=== PATIENT | male | born 1975 | race Caucasian/White ===

== ENCOUNTER 2018-01-04 08:17 | Emergency (ER) | payer MEDICARE, SELFPAY ==
[2018-01-04 08:25] VITALS: BP 176/124; PULSE 71; RESP 16; TEMP 36.7; O2SAT 99
--- NOTE | 2018-01-04 09:10 | W.ED.GENAD ---
Discharge Plan Disposition Patient Disposition: HOME Condition: Stable Discharge Details Chief Complaint: Orthopedic Clinical Impression: Chronic left shoulder pain Primary Care Provider: Gianluca Thurman ED Provider: Sherrie Chapman Home Meds and New Rx's Prescriptions: New lisinopril 10 mg tablet 10 mg PO DAILY Qty: 30 RF: 0 Continue buspirone 30 MG tablet 30 mg PO BID RF: 0 aimovig 70 mg SQ qmonth Qty: 1 RF: 11 lamotrigine 25 mg tablet 25 mg PO DAILY Qty: 5 RF: 0 prochlorperazine maleate 5 MG tablet 5 - 10 mg PO Q8H PRNQty: 20 RF: 0 sucralfate 1 GM tablet 1 gm PO QID Qty: 120 RF: 0 pantoprazole 40 MG tablet,delayed release (DR/EC) 40 mg PO DAILY RF: 0 gabapentin 300 MG capsule 600 mg PO TID RF: 0 pregabalin [Lyrica] 75 MG capsule 75 - 150 mg PO BID RF: 0 testosterone cypionate 200 MG/ML oil 250 mg IM Q14D RF: 0 buprenorphine-naloxone [Suboxone] 1 EACH film 2 ea Sublingual DAILY RF: 0 cholecalciferol (vitamin D3) [Vitamin D3] 1,000 UNIT capsule 1,000 unit PO DAILY RF: 0 lisinopril 10 MG tablet 10 mg PO DAILY AM RF: 0 Discharge Instructions Instructions: Chronic Pain (ED), Shoulder Pain (ED) Additional Instructions: Rest and ice left shoulder as much as possible. Refrain from lifting heavy weights for the next few weeks. Alternate Tylenol and Motrin as needed and directed for pain. You should receive a call from care management regarding follow-up with a primary care doctor and for referral to orthopedics. Start physical therapy as directed. Restart taking your blood pressure medication. Return to the emergency department with any worsening or new concerning symptoms. Stand Alone Forms: Physical Therapy Referral Referrals: Deon Nowak MD [ [facility] STAFF PHYSICIAN] - Discharge Data Discharge Date/Time-TO BE ENTERED AT DEPARTURE: 01/04/18 09:29 Discharge Physician: Sherrie Chapman Medical Decision Making 42-year-old male with a history of left shoulder surgery ~ 2 years ago who presents with chronic L shoulder pain x 1 month. Denies specific injury but has been frequently lifting heavy weights at gym. C/o pain in L shoulder/upper arm and L hand tingling but no weakness. BP hypertensive. States he has not taken his blood pressure medications for a couple months. Patient is on Suboxone for the past 2 years, after taken off narcotics for chronic back pain. States he recently lost his primary care doctor and has not had his regular medications for a couple months. Patient has pain with active and passive range of motion. There is no deformity. There is a well-healed surgical scar left superior shoulder. He is neurovascularly intact. Motor/sensory grossly intact but with noted pain with range of motion in left shoulder, worse with abduction. Patient took Motrin and Tylenol prior to arrival. Patient was offered left shoulder x-ray but declines. Discussed with patient that due to his frequent lifting, no obvious deformity, no obvious focal neurological or vascular deficits, his symptoms may be due to strain vs sprain and may benefit from physical therapy. Script for PT given. Patient states he has run out of all his meds over the past 2 months since not having a primary care doctor. His blood pressure was hypertensive at 176/124 on arrival, on recheck was 131/89. He denies any chest pain, shortness of breath, headache or dizziness. Remainder vitals within normal limits. Will refill patient's lisinopril. Will place patient on care management list to arrange for follow-up with a primary care doctor for reevaluation of his shoulder pain and blood pressure and for referral to orthopedics if needed for reevaluation or MRI if indicated. HPI General Mode of arrival: ambulatory. Date/Time Provider Initiated Documentation: 01/04/18 08:36. Limitations to Documentation: no limitations. Information obtained by: patient. HPI Narrative: Pt is a 42yo M with a history of left shoulder surgery by Dr. Figueroa at a couple years ago who presents with chronic L shoulder pain x 1 month. Patient denies known specific injury but states he frequently lifts heavy weights approximately 50 pounds at the gym and states for the past month he has had chronic left shoulder pain, worse with lifting and movement. He states the pain is in his left shoulder and left upper arm. He also admits to tingling in his left hand. He denies weakness in his left arm. Past medical history: HTN, Afib, GERD, Depression Surgical history: Shoulder surgery, Cardiac ablation, Back surgery, Total hip replacement, Catherine fundoplication Social history: Smokes tobacco (vape), Denies ETOH or drugs Meds: Suboxone, See list Related Data Home Medications Medication Instructions Recorded Confirmed gabapentin 600 mg PO TID 02/20/17 11/02/17 pregabalin [Lyrica] 75 - 150 mg PO BID 02/20/17 01/04/18 testosterone cypionate 250 mg IM Q14D 02/21/17 11/02/17 buprenorphine-naloxone [Suboxone] 2 ea SUBLINGUAL DAILY 03/27/17 11/02/17 cholecalciferol (vitamin D3) 1,000 unit PO DAILY 03/27/17 11/02/17 [Vitamin D3] buspirone 30 mg PO BID tab-cap NS 05/01/17 11/02/17 lisinopril 10 mg PO DAILY AM 06/27/17 11/02/17 prochlorperazine maleate 5 - 10 mg PO Q8H PRN #20 tab 08/14/17 11/02/17 sucralfate 1 gm PO QID #120 tab 10/01/17 11/02/17 lamotrigine 25 mg tablet 25 mg PO DAILY #5 tab 12/03/17 lisinopril 10 mg PO DAILY #30 tab 01/04/18 pantoprazole 40 mg PO DAILY 01/04/18 Previous Rx's Medication Instructions Recorded prochlorperazine maleate 5 - 10 mg PO Q8H PRN #20 tab 08/14/17 sucralfate 1 gm PO QID #120 tab 10/01/17 lamotrigine 25 mg tablet 25 mg PO DAILY #5 tab 12/03/17 lisinopril 10 mg PO DAILY #30 tab 01/04/18 Allergies Allergy/AdvReac Type Severity Reaction Status Date / Time Cephalosporins Allergy Intermediate Swelling/Ed Unverified 01/04/18 08:33 arleth General Stated Complaint: Orthopedic JHONATAN: 4 Review of Systems Review of Systems All systems reviewed & are unremarkable except as noted in HPI and below Constitutional Reports as per HPI, Denies chills and Denies fever(s) Eyes Denies blurry vision ENT Denies dizziness, Denies sore throat and Denies throat swelling Cardiovascular Denies chest pain and Denies dyspnea Respiratory Denies dyspnea Gastrointestinal Denies abdominal pain, Denies diarrhea and Denies vomiting Genitourinary Denies hematuria and Denies dysuria Musculoskeletal Denies back pain and Denies numbness Integumentary/Breasts Denies lesions and Denies rash Neurologic Denies dizziness and Denies numbness Allergic/Immunologic Denies throat swelling PFSH Family History Father Stroke Paternal Uncle Stroke Paternal Grandmother Stroke Other Migraine Medical History A-fib Depression Diastasis recti GERD (gastroesophageal reflux disease) Hiatal hernia History of substance abuse Hypertension Hypothyroidism Prostatitis, chronic Social History household members: spouse current occupational status: unemployed Smoking/Tobacco Use Status: Current every day tobacco type: e-cigarettes alcohol intake: former substance use type: does not use Surgical History EGD - MAC Catherine Fundoplication Total replacement of hip back surgery cardiac ablation shoulder surgery Exam Const General: cooperative, healthy appearing and no acute distress HENMT Head: normal to inspection Mouth: oral mucosae normal Eyes General: appearance normal, both eyes and all related structures Neck Neck: normal visual inspection Resp Effort & Inspection: normal respiratory effort and able to speak in complete sentences Cardio Rate: regular rate Skin General skin exam: no rashes or lesions noted Neuro General: alert, awake and oriented x3 Cognition: normal cognition Speech: speech normal Motor: muscle tone normal throughout and strength 5/5 throughout (with pain while testing left upper extremity) Sensory Exam: no sensory deficits noted Extrem Left upper extremity: shoulder/upper arm (Well-healed linear incision scar left superior shoulder without signs of infection. Significant pain with range of motion in left shoulder, worse with abduction, internal and external rotation, flexion and extension. Limited abduction to approximately 90 degrees due to pain. ) Details: tenderness (Left anterior shoulder and left upper arm near biceps tendon insertion. No deformity.) Psych Appearance: grossly normal Affect: normal affect Course Vital Signs Temperature 98.1 F 01/04/18 08:25 Pulse 71 01/04/18 08:25 Respiratory Rate 16 01/04/18 08:25 Blood Pressure 176/124 H 01/04/18 08:25 Pulse Oximetry 99 01/04/18 08:25 Temperature 98.1 F 01/04/18 08:25 Temperature Source Skin 01/04/18 08:25 Pulse 71 01/04/18 08:25 Respiratory Rate 16 01/04/18 08:25 Respiratory Effort 01/04/18 08:28 Blood Pressure 176/124 H 01/04/18 08:25 Blood Pressure Position Sitting 01/04/18 08:25 Pulse Oximetry 99 01/04/18 08:25 Pain Level 7 01/04/18 08:28
[2018-01-04 09:21] VITALS: BP 131/89
== END 2018-01-04 09:29 | disposition home or self-care (01) ==
PROVIDERS: Emergency Provider Physician Assistant; PCP Family Medicine
DX: M25.512 Pain in left shoulder (principal); G89.29 Other chronic pain; X50.0XXA Overexertion from strenuous movement or load, initial encounter; R20.2 Paresthesia of skin; I10 Essential (primary) hypertension; T46.5X6A Underdosing of other antihypertensive drugs, initial encounter; Z91.138 Patient's unintentional underdosing of medication regimen for other reason
CPT/HCPCS: 99283

== ENCOUNTER 2018-01-24 11:36 | Outpatient (REF) | payer MEDICARE, SELFPAY ==
[2018-01-24 18:36] LABS: HCT 45.8 % (40.0-50.0); HGB 15.8 g/dL (13.5-17.5); Mean Corp. HGB Concentration 34.5 g/dL (32.0-36.0); Mean Corpuscular Hemoglobin 31.9 pg (27.0-33.0); Mean Corpuscular Volume 92.3 fL (80-95); Mean Platelet Volume 11.3 fL (8.0-11.0); Platelet Count 160 x1000/uL (130-400); RBC 4.96 m/cumm (4.50-6.00); RBC Distribution Width 11.5 % (11.8-14.1); White Blood Cell Count 7.54 k/cumm (4.4-10.8)
[2018-01-24 19:09] LABS: ALT 77 U/L (12-78); AST 53 U/L (15-37); Albumin 4.1 g/dL (3.4-5.0); Alkaline Phosphatase 69 U/L (46-116); Anion Gap 7.7 mmol/L (3-11); BUN 25 mg/dL (7-18); Bilirubin, Total 0.4 mg/dL (0.2-1.0); CO2 29.3 mmol/L (21.0-32.0); CREATININE 1.12 mg/dL (0.70-1.30); Calcium 9.5 mg/dL (8.5-10.1); Chloride 101 mmol/L (98-107); Glucose 90 mg/dL (70-100); Potassium 4.7 mmol/L (3.5-5.1); Sodium 138 mmol/L (136-145); Total Protein 7.7 g/dL (6.4-8.2)
[2018-01-25 14:35] LABS: Chlamydia Result Negative; GC Result Negative; Specimen Description URINE
[2018-01-26 11:34] LABS: Hepatitis C Ab w Rflx HCV PCR Reactive (NEGAT)
[2018-01-28 10:21] LABS: PSA, Diagnostic 0.3 ng/ml (0-2.5)
[2018-01-28 13:00] LABS: Testosterone, Free 4.41 ng/dL (4.46-17.1); Testosterone, Total 126 ng/dL (240-950)
== END 2018-01-24 11:56 ==
LOC: NCHCN 11:36
PROVIDERS: PCP Family Medicine; Visit Provider Nurse Practitioner Family
DX: E23.0 Hypopituitarism (principal); N41.9 Inflammatory disease of prostate, unspecified; K62.89 Other specified diseases of anus and rectum; Z11.59 Encounter for screening for other viral diseases; R31.0 Gross hematuria; Z11.3 Encounter for screening for infections with a predominantly sexual mode of transmission
CPT/HCPCS: 80053; 84402; 84403; 85027; 86803; 87491; 87591; 84153; 87522

== ENCOUNTER 2018-02-09 07:14 | Emergency (ER) | payer MEDICARE, SELFPAY ==
[2018-02-09] VITALS (11 sets, daily range): BP systolic 147–167; BP diastolic 76–96; PULSE 84–106; RESP 9–33; TEMP 36.5–37.1; O2SAT 95–97
--- NOTE | 2018-02-09 07:40 | ED.GENADUL_ITS ---
Discharge Plan Disposition Patient Disposition: HOME Condition: Stable Discharge Details Chief Complaint: GenMedical Clinical Impression: Shortness of breath, Perineal pain Primary Care Provider: Gianluca Thurman ED Provider: Lopez Villatoro Home Meds and New Rx's Prescriptions: No Action buspirone 30 MG tablet 30 mg PO BID RF: 0 aimovig 70 mg SQ qmonth Qty: 1 RF: 11 lamotrigine 25 mg tablet 25 mg PO DAILY Qty: 5 RF: 0 prochlorperazine maleate 5 MG tablet 5 - 10 mg PO Q8H PRNQty: 20 RF: 0 sucralfate 1 GM tablet 1 gm PO QID Qty: 120 RF: 0 pantoprazole 40 MG tablet,delayed release (DR/EC) 40 mg PO DAILY RF: 0 lisinopril 10 mg tablet 10 mg PO DAILY Qty: 30 RF: 0 gabapentin 300 MG capsule 600 mg PO TID RF: 0 pregabalin [Lyrica] 75 MG capsule 75 - 150 mg PO BID RF: 0 testosterone cypionate 200 MG/ML oil 250 mg IM Q14D RF: 0 buprenorphine-naloxone [Suboxone] 1 EACH film 2 ea Sublingual DAILY RF: 0 cholecalciferol (vitamin D3) [Vitamin D3] 1,000 UNIT capsule 1,000 unit PO DAILY RF: 0 lisinopril 10 MG tablet 10 mg PO DAILY AM RF: 0 Discharge Instructions Instructions: Dyspnea (ED) Additional Instructions: Please drink 8-10 cups of water per day. Please avoid any spicy foods, citrus- based foods, or greasy foods. Please relax for the next 24-48 hours. Please follow-up with your primary care provider as soon as possible for reassessment. If you notice any worsening of your symptoms, or any new symptoms such as vomiting, diarrhea, fever, chills, shortness of breath, chest pain, numbness, weakness, or fainting , please return immediately to the emergency department for reevaluation. Please follow up with your primary care provider as soon as possible for reassessment and reevaluation. As always, it was a pleasure participating in your medical care today. Referrals: Gianluca Thurman [Primary Care Provider] - Discharge Data Discharge Date/Time-TO BE ENTERED AT DEPARTURE: 02/09/18 10:22 Medical Decision Making <Rafa Garces MD - Last Filed: 02/09/18 22:50> 42 yo male with hx of afib, on suboxone, htn, who comes in with complaints of shortness of breath and feeling sweaty starting this morning and reports he had a temp of 101 at his pcp's appt yesterday where they prescribed a new anxiety medication but is not sure the name. He denies recent travel. Denies severe headaches, neck stiffness, chest pain, abd pain but states that he feels his scrotum is on fire. He has no testicle tenderness, no swelling and intact cremasteric reflex, no rashes noted and no abdominal tenderness. He is noted to have diaphoresis on my exam. Will perform broad workup for his complaints including evaluation for anemia, obtian blood cultures, eval for Pe vs pna with chest ct and given the complaints of feeling as though his scrotum is on fire will obtain abd/pelvis ct to eval for possible fourniers. He denies IVDU and has no murmurs or stigmata of endocarditis on my exam so doubt endocarditis at this time Pt will be signed out pending lab and imaging to Dr. Villatoro Differential Diagnosis PE, influenza, abscess, pna ECG Data Attestation: I personally reviewed and interpreted this ECG (s) as follows: Prior ECG tracings: not available for review Interpretation: sinus tachycardia, rate of 106, pr 144, no acute st t wave changes <Lopez Villatoro DO - Last Filed: 02/09/18 10:18> The patient was signed out to be my my colleague Dr. Garces pending laboratory and imaging workup. Patient's laboratory workup has returned and is relatively benign. No significant abnormalities. No white count, no significant left shift. No bandemia, electrolytes are normal, troponin is normal, lipase is normal, urinalysis shows no evidence of UTI. The patient's vital signs have normalized after 1 L of normal saline. He continues to be afebrile. Vital signs are reassuring. CT scan demonstrates no acute process. I did discuss with the patient getting a 4-hour troponin, and the patient does not want to do this. Influenza test was negative. Patient's symptoms have completely resolved. He has no burning, chest pain, chest heaviness, or shortness of breath. The patient's clinical history although atypical is clinically inconsistent with ACS, and acute abdominal pathology, or CVA. With complete resolution of his symptoms and his symptoms being very transient at best, I do feel that he can be safely discharged home. The exact cause of his symptoms I am uncertain, may have been from mild gastritis, or vasovagal event while at home. Additionally the patient has recently increased his dose of testosterone that he is prescribed and treated with, and this certainly may be a component of the cause of his symptomatology. I discussed with the patient potential admission versus discharge and the patient requests discharge, and feels comfortable going home. I feel that he can be safely discharged home at this time with close follow-up. With a benign workup, reassuring vital signs, negative CT scans, a benign cardiac workup, patient symptoms may be secondary to a virus as well causing his symptoms that he was having at home previously. I had a long discussion with the patient and family regarding red flags which to return, the importance of a low threshold for return, and close follow-up with the patient's PCP. Patient understands. I have extensively reviewed the treatment plan and discharge instructions with the patient and their family. I have addressed all patient concerns at this time. The patient and family was made aware of what symptoms to monitor for that would warrant a return to the emergency department. Discussed the plan with the patient and family, they demonstrate verbal understanding and agreement with our assessment and plan at this time. COMPARISON: CT CHEST FOR PULMONARY EMBOLUS 08/08/2017 3:19 PM FINDINGS: Pulmonary arteries: No evidence of pulmonary embolus to the segmental level. Aorta: No aneurysm of the aorta. No dissection of the aorta. Lungs: Bibasilar atelectasis Pleural space: Normal. No pneumothorax. No pleural effusion. Heart: Normal. No cardiomegaly. No pericardial effusion. Lymph nodes: Unremarkable. No enlarged lymph nodes. Bones/joints: Unremarkable. No acute fracture. Soft tissues: Unremarkable. Other findings: Mild emphysematous changes IMPRESSION: 1. No evidence of pulmonary embolus to the segmental level. 2. No aneurysm of the aorta. 3. No dissection of the aorta. FINDINGS: Lower thorax: See report for CT chest ABDOMEN: Liver: Normal. No mass. Gallbladder and bile ducts: Normal. No calcified stones. No ductal dilation. Pancreas: Normal. No ductal dilation. Spleen: Normal. No splenomegaly. Adrenals: Normal. No mass. Kidneys and ureters: 6.5 cm cyst in the left kidney 17 mm cyst in the left kidney Stomach and bowel: Normal. No obstruction. No mucosal thickening. Appendix: Normal appendix PELVIS: Bladder: Unremarkable as visualized. Reproductive: Unremarkable as visualized. ABDOMEN and PELVIS: Intraperitoneal space: Normal. No free air. No significant fluid collection. Bones/joints: Internal fixation device in the lumbosacral spine and across the left sacroiliac joint Soft tissues: Both inguinal hernias containing fat Vasculature: Normal. No abdominal aortic aneurysm. Lymph nodes: Normal. No enlarged lymph nodes. IMPRESSION: No acute process Dictated and Authenticated by: Анна Damon MD. HPI <Rafa Garces MD - Last Filed: 02/09/18 22:50> General Mode of arrival: ambulatory . Date/Time Provider Initiated Documentation: 02/09/18 07:17 . Limitations to Documentation: no limitations . Information obtained by: patient . History of Present Illness 42 year old M presents to the emergency department with the chief complaint of shortness of breath, described as moderate, with intensity rated at 4. Patient reports no radiation. Patient started experiencing this hour(s) (3) and it has been constant. No relieving factors improve symptom(s), No exacerbating factors reported . Patient notes other (scrotum on fire). Patient did receive the following treatments prior to arrival, none Related Data Home Medications Medication Instructions Recorded Confirmed gabapentin 600 mg PO TID 02/20/17 11/02/17 pregabalin [Lyrica] 75 - 150 mg PO BID 02/20/17 01/04/18 testosterone cypionate 250 mg IM Q14D 02/21/17 11/02/17 buprenorphine-naloxone [Suboxone] 2 ea SUBLINGUAL DAILY 03/27/17 11/02/17 cholecalciferol (vitamin D3) 1,000 unit PO DAILY 03/27/17 11/02/17 [Vitamin D3] buspirone 30 mg PO BID tab-cap NS 05/01/17 11/02/17 lisinopril 10 mg PO DAILY AM 06/27/17 11/02/17 prochlorperazine maleate 5 - 10 mg PO Q8H PRN #20 tab 08/14/17 11/02/17 sucralfate 1 gm PO QID #120 tab 10/01/17 11/02/17 lamotrigine 25 mg tablet 25 mg PO DAILY #5 tab 12/03/17 lisinopril 10 mg PO DAILY #30 tab 01/04/18 pantoprazole 40 mg PO DAILY 01/04/18 Previous Rx's Medication Instructions Recorded prochlorperazine maleate 5 - 10 mg PO Q8H PRN #20 tab 08/14/17 sucralfate 1 gm PO QID #120 tab 10/01/17 lamotrigine 25 mg tablet 25 mg PO DAILY #5 tab 12/03/17 lisinopril 10 mg PO DAILY #30 tab 01/04/18 Allergies Allergy/AdvReac Type Severity Reaction Status Date / Time Cephalosporins Allergy Intermediate Swelling/Ed Unverified 02/09/18 07:22 arleth General Stated Complaint: GenMedical JHONATAN: 3 Review of Systems <Rafa Garces MD - Last Filed: 02/09/18 22:50> Review of Systems All systems reviewed & are unremarkable except as noted in HPI and below Constitutional Denies weakness Eyes Denies loss of vision ENT Denies change in voice Cardiovascular Denies chest pain Gastrointestinal Denies abdominal pain, Denies nausea and Denies vomiting Integumentary/Breasts Denies rash Neurologic Denies loss of vision and Denies weakness PFSH <Rafa Garces MD - Last Filed: 02/09/18 22:50> Medical History A-fib Depression Diastasis recti GERD (gastroesophageal reflux disease) Hiatal hernia History of substance abuse Hypertension Hypothyroidism Prostatitis, chronic Surgical History EGD - MAC Catherine Fundoplication Total replacement of hip back surgery cardiac ablation shoulder surgery Family History Father Stroke Paternal Uncle Stroke Paternal Grandmother Stroke Other Migraine Social History household members: spouse current occupational status: unemployed Smoking/Tobacco Use Status: Current every day tobacco type: e-cigarettes alcohol intake: former substance use type: does not use Exam <Rafa Garces MD - Last Filed: 02/09/18 22:50> Const General: no acute distress Orientation: alert HENMT Head: normal to inspection Ears: external ears normal General nose exam: external nose normal Mouth: moist mucous membranes Eyes General: appearance normal, both eyes and all related structures Neck Neck: normal visual inspection Resp Effort & Inspection: normal respiratory effort and able to speak in complete sentences Cardio Rate: tachycardic Rhythm: regular rhythm Skin General skin exam: no rashes or lesions noted Neuro General: alert and oriented x3 Extrem General: normal to inspection Psych Mental Status: mental status grossly normal Course <Rafa Garces MD - Last Filed: 02/09/18 22:50> Vital Signs Temperature 36.5 C 02/09/18 07:17 Pulse 105 H 02/09/18 07:17 Respiratory Rate 16 02/09/18 07:17 Blood Pressure 167/96 H 02/09/18 07:17 Pulse Oximetry 95 02/09/18 07:17 Temperature 36.5 C 02/09/18 07:17 Temperature Source Temporal Artery Scan 02/09/18 07:17 Pulse 105 H 02/09/18 07:17 Respiratory Rate 16 02/09/18 07:25 Respiratory Effort Non-Labored 02/09/18 07:25 Respiratory Depth Shallow 02/09/18 07:25 Respiratory Pattern Normal 02/09/18 07:25 Blood Pressure 167/96 H 02/09/18 07:17 Blood Pressure Position Sitting 02/09/18 07:17 Pulse Oximetry 95 02/09/18 07:17 Oxygen Delivery Method Room Air 02/09/18 07:17 Oxygen Flow Rate 0 02/09/18 07:17 Lab/Test Results Lab/Test Results: 02/09/18 07:29 Nasopharynx Influenza Types A,B Antigen - Pending
[2018-02-09] MEDS: Normal Saline Flush 10 ML SYR IVP (07:49)
[2018-02-09] MEDS: Normal Saline 1,000 ML 1000 ML IV (07:49)
[2018-02-09 07:53] LABS: Abs Immature Grans 0.08 k/cumm (0.0-0.09); Absolute Basophil Count 0.04 k/cumm (0.0-0.2); Absolute Eosinophil Count 0.06 k/cumm (0.0-0.7); Absolute Lymphocyte Count 1.11 k/cumm (1.2-3.4); Absolute Monocyte Count 0.75 k/cumm (0.11-0.7); Absolute Neutrophil Count 7.01 k/cumm (1.2-6.7); Basophils % 0.4; Eosinophils % 0.7; HCT 46.4 % (40.0-50.0); HGB 16.2 g/dL (13.5-17.5); Immature Grans % 0.9; Lactate-non-spesis 1.2 mmol/L (0.6-1.4); Lymphocytes % 12.3; Mean Corp. HGB Concentration 34.9 g/dL (32.0-36.0); Mean Corpuscular Hemoglobin 32.5 pg (27.0-33.0); Mean Platelet Volume 9.7 fL (8.0-11.0); Monocytes % 8.3; Neutrophils % 77.4; Platelet Count 215 x1000/uL (130-400); RBC 4.99 m/cumm (4.50-6.00); White Blood Cell Count 9.05 k/cumm (4.4-10.8)
[2018-02-09 08:08] LABS: PTT Activated 23.4 sec (21.0-31.4); Prothrombin Time 10.3 sec (9.3-11.0)
[2018-02-09 08:12] LABS: ALT 71 U/L (12-78); AST 46 U/L (15-37); Albumin 3.8 g/dL (3.4-5.0); Alkaline Phosphatase 56 U/L (46-116); Anion Gap 10.6 mmol/L (3-11); BUN 24 mg/dL (7-18); Bilirubin, Direct 0.27 mg/dL (0.00-0.20); CO2 25.4 mmol/L (21.0-32.0); CREATININE 1.15 mg/dL (0.70-1.30); Calcium 9.1 mg/dL (8.5-10.1); Chloride 100 mmol/L (98-107); Glucose 100 mg/dL (70-100); Lipase 98 U/L (73-393); Magnesium 1.8 mg/dL (1.8-2.4); Potassium 3.8 mmol/L (3.5-5.1); Sodium 136 mmol/L (136-145); Total Protein 7.6 g/dL (6.4-8.2); Troponin I < 0.02 ng/mL (0.00-0.06)
--- NOTE | 2018-02-09 08:30 | DI.CT_ITS ---
SYMPTOM/DIAGNOSIS: SOB, PERINEAL PAIN, FEVER, ABD PAIN, INCREASED SWEATING CTA OF CHEST: CT angiography was performed with multi slice acquisition and multi planar and 3D reconstruction. CT angiography of the chest was performed with intravenous infusion of 100 cc's of Omnipaque 350. The lungs are grossly clear. No pleural effusion or pneumothorax. No mediastinal adenopathy or hemorrhage. No evidence of pulmonary embolic disease. No thoracic aortic dissection or aneurysm. Limited visualization of the major vessels secondary to motion artifact. CONCLUSION: No evidence of pulmonary embolic disease. No evidence of acute intrathoracic process. ABDOMEN AND PELVIC CT: CT examination of the abdomen and pelvis was performed following CT angiography of the chest. Abdominal aorta and major branches are unremarkable in appearance, no evidence of abdominal aortic aneurysm or dissection. There are apparent multiple left renal cysts, the largest measuring roughly 6-7 cm. in diameter. No evidence of urinary tract obstruction or calcification. Urinary bladder appears intact. Small bilateral fat containing inguinal hernias noted. Small fat containing umbilical hernia noted. No other significant abdominal wall hernia is seen. No abdominal or pelvic adenopathy. Appendix appears normal. No evidence of diverticulitis or bowel obstruction. CONCLUSION: No evidence of acute intra-abdominal process.
[2018-02-09] MEDS: Ibuprofen 800 MG TAB (09:29)
[2018-02-09 09:30] LABS: Bilirubin Negative (Negative); Blood Negative (Negative); Clarity Clear; Glucose Negative (Negative); Ketones 15 mg/dL (Negative); Leukocyte Esterase Negative (Negative); Nitrite Negative (Negative); Urobilinogen 0.2 EU/dL (Up TO 0.2); pH 7.5 (5-8)
--- NOTE | 2018-02-09 09:38 | DI.VRAD_ITS ---
EXAM: CT Angiography Chest With Contrast EXAM DATE/TIME: 02/09/2018 7:33 AM CLINICAL HISTORY: 42 years old, male; Signs and symptoms; Shortness of breath; Patient HX: Patient sts SOB x2 days with abdominal pain. ; Additional info: Best images obtained due to patient motion, repeat obtained. TECHNIQUE: Axial computed tomographic angiography images of the chest with intravenous contrast using CT angiography protocol. All CT scans at this facility use at least one of these dose optimization techniques: automated exposure control; mA and/or kV adjustment per patient size (includes targeted exams where dose is matched to clinical indication); or iterative reconstruction. Coronal and sagittal reformatted images were created and reviewed. MIP reconstructed images were created and reviewed. CONTRAST: 100 ml of omnipaque 350 administered intravenously. COMPARISON: CT CHEST FOR PULMONARY EMBOLUS 08/08/2017 3:19 PM FINDINGS: Pulmonary arteries: No evidence of pulmonary embolus to the segmental level. Aorta: No aneurysm of the aorta. No dissection of the aorta. Lungs: Bibasilar atelectasis Pleural space: Normal. No pneumothorax. No pleural effusion. Heart: Normal. No cardiomegaly. No pericardial effusion. Lymph nodes: Unremarkable. No enlarged lymph nodes. Bones/joints: Unremarkable. No acute fracture. Soft tissues: Unremarkable. Other findings: Mild emphysematous changes IMPRESSION: 1. No evidence of pulmonary embolus to the segmental level. 2. No aneurysm of the aorta. 3. No dissection of the aorta. EXAM: CT Abdomen and Pelvis With Contrast EXAM DATE/TIME: 02/09/2018 7:33 AM CLINICAL HISTORY: 42 years old, male; Signs and symptoms; Shortness of breath; Patient HX: Patient sts SOB x2 days with abdominal pain. ; Additional info: Best images obtained due to patient motion, repeat obtained. TECHNIQUE: Axial computed tomography images of the abdomen and pelvis with intravenous contrast. All CT scans at this facility use at least one of these dose optimization techniques: automated exposure control; mA and/or kV adjustment per patient size (includes targeted exams where dose is matched to clinical indication); or iterative reconstruction. Coronal and sagittal reformatted images were created and reviewed. MIP reconstructed images were created and reviewed. COMPARISON: CT CHEST FOR PULMONARY EMBOLUS 08/08/2017 3:19 PM FINDINGS: Lower thorax: See report for CT chest ABDOMEN: Liver: Normal. No mass. Gallbladder and bile ducts: Normal. No calcified stones. No ductal dilation. Pancreas: Normal. No ductal dilation. Spleen: Normal. No splenomegaly. Adrenals: Normal. No mass. Kidneys and ureters: 6.5 cm cyst in the left kidney 17 mm cyst in the left kidney Stomach and bowel: Normal. No obstruction. No mucosal thickening. Appendix: Normal appendix PELVIS: Bladder: Unremarkable as visualized. Reproductive: Unremarkable as visualized. ABDOMEN and PELVIS: Intraperitoneal space: Normal. No free air. No significant fluid collection. Bones/joints: Internal fixation device in the lumbosacral spine and across the left sacroiliac joint Soft tissues: Both inguinal hernias containing fat Vasculature: Normal. No abdominal aortic aneurysm. Lymph nodes: Normal. No enlarged lymph nodes. IMPRESSION: No acute process Dictated and Authenticated by: Анна Damon MD. Ordering:GINETTE Craig MD
== END 2018-02-09 10:22 | disposition home or self-care (01) ==
PROVIDERS: Emergency Medicine; Emergency Provider Student in an Organized Health Care Education/Training Program; PCP Family Medicine
DX: R06.02 Shortness of breath (principal); R10.2 Pelvic and perineal pain; I10 Essential (primary) hypertension
CPT/HCPCS: 36415; 71275; 74177; 80053; 80076; 83690; 87040; 87449; 93005; 96360; 99285; 81003; 83605; 83735; 84484; 85025; 85610; 85730; 93010; 99284; J3490

== ENCOUNTER 2018-03-03 13:38 | Emergency (ER) | payer MEDICARE, SELFPAY ==
--- NOTE | 2018-03-03 14:06 | ED.GENADUL_ITS ---
Discharge Plan Disposition Patient Disposition: OTHER Condition: Good Discharge Details Chief Complaint: PsychEval Clinical Impression: Suicidal ideation Primary Care Provider: [facility] Provider: Lopez Villatoro Home Meds and New Rx's Prescriptions: No Action buspirone 30 MG tablet 30 mg PO BID RF: 0 aimovig 70 mg SQ qmonth Qty: 1 RF: 11 lamotrigine 25 mg tablet 25 mg PO DAILY Qty: 5 RF: 0 prochlorperazine maleate 5 MG tablet 5 - 10 mg PO Q8H PRNQty: 20 RF: 0 pantoprazole 40 MG tablet,delayed release (DR/EC) 40 mg PO DAILY RF: 0 lisinopril 10 mg tablet 10 mg PO DAILY Qty: 30 RF: 0 gabapentin 300 MG capsule 600 mg PO TID RF: 0 Lyrica 75 MG capsule 75 - 150 mg PO BID RF: 0 testosterone cypionate 200 MG/ML oil 250 mg IM Q14D RF: 0 buprenorphine-naloxone [Suboxone] 1 EACH film 2 ea Sublingual DAILY RF: 0 cholecalciferol (vitamin D3) [Vitamin D3] 1,000 UNIT capsule 1,000 unit PO DAILY RF: 0 Medical Decision Making This is a pleasant 42-year-old male who presents for signs and symptoms consistent with suicidal ideations and depression. He has multiple plans to kill himself, he also does hear and see things that are not necessarily there. He denies any IV or illicit drug use, any alcohol use. Signs and symptoms are concerning for suicidal ideations with capability. Because of the patient's symptoms, we will consult her mental health care worker, we will place the patient in one-to-one in paper scrubs per protocol. Patient is voluntarily requesting help and admission at this time 4 PM The patient's laboratory workup is relatively benign. Mental health has seen and assessed the patient and they to feel that he would benefit from inpatient admission. The patient will be transferred to [place]. Case has been discussed with the mental health staff. Patient will be transferred for further mental management. I have extensively reviewed the treatment plan with the patient. I have addressed all patient concerns at this time. The case has also been discussed with the admitting physician Dr Mcconnell and they agree with the current assessment and plan and have agreed to assume responsibility for the pa tient. All parties demonstrate verbal understanding and agreement with our assessment and plan at this time. HPI General Date/Time Provider Initiated Documentation: 03/03/18 13:46 . HPI Narrative: This is a 42-year-old male with past medical history of suicidal ideations, depression, suicidal attempt in the past, and hypertension. He presents today for evaluation of suicidal ideations. He states that over the last few weeks he has become more more depressed, he is losing interest in all things that he used to enjoy. He states that he is losing his house, his marriage is in the tubes, and over the last few days he started to hear and see things that might not be there. He admits to seeing people that are not there, and hearing voices with no specific commands. He has been taking his medication at home as directed. Patient states today he has multiple plans to kill himself including using a gun, jumping from the highest point that he knows, or doing something else disastrous or devastating. He denies any homicidal ideations. He denies any IV or illicit drug use or alcohol use. He has no other complaints at this time. Patient does not have a job at this time and is on Social Security disability for chronic back pain. No other modifying factors at this time. Related Data Home Medications Medication Instructions Recorded Confirmed Lyrica 75 - 150 mg PO BID 02/20/17 03/03/18 gabapentin 600 mg PO TID 02/20/17 03/03/18 testosterone cypionate 250 mg IM Q14D 02/21/17 03/03/18 buprenorphine-naloxone [Suboxone] 2 ea SUBLINGUAL DAILY 03/27/17 03/03/18 cholecalciferol (vitamin D3) 1,000 unit PO DAILY 03/27/17 03/03/18 [Vitamin D3] buspirone 30 mg PO BID tab-cap NS 05/01/17 03/03/18 prochlorperazine maleate 5 - 10 mg PO Q8H PRN #20 tab 08/14/17 03/03/18 lamotrigine 25 mg tablet 25 mg PO DAILY #5 tab 12/03/17 03/03/18 lisinopril 10 mg PO DAILY #30 tab 01/04/18 03/03/18 pantoprazole 40 mg PO DAILY 01/04/18 03/03/18 Previous Rx's Medication Instructions Recorded prochlorperazine maleate 5 - 10 mg PO Q8H PRN #20 tab 08/14/17 lamotrigine 25 mg tablet 25 mg PO DAILY #5 tab 12/03/17 lisinopril 10 mg PO DAILY #30 tab 01/04/18 Allergies Allergy/AdvReac Type Severity Reaction Status Date / Time Cephalosporins Allergy Intermediate Swelling/Ed Unverified 03/03/18 13:54 arleth General JHONATAN: 3 Review of Systems Review of Systems All systems reviewed & are unremarkable except as noted in HPI and below PFSH Social History household members: spouse current occupational status: unemployed Smoking/Tobacco Use Status: Current every day tobacco type: e-cigarettes alcohol intake: former substance use type: does not use Exam Narrative Exam Narrative: 1.Const: Well-nourished, Well-developed, appearing stated age 2.Eyes: PERRL, no conjunctival injection, and symmetrical lids. 3.ENT: Atraumatic external nose and ears. Moist MM. Neck: Symmetric, trachea midline, No thyromegaly. 4.CVS: +S1/S2, No murmurs or gallops. Peripheral pulses 2+ and equal in all ext remities. Brisk capillary refill in all extremities. 5.RESP: Unlabored respiratory effort. Clear to auscultation bilaterally. No wheezes rales or rhonchi 6.GI: Soft, Nontender/Nondistended, No hepatosplenomegaly. No guarding or rebound. 7.MSK: Normocephalic/Atraumatic, Extremities w/o deformity or ttp No cyanosis or clubbing, Normal movement of all extremities 8.Skin: Warm, Dry. No rashes or lesions. 9.Neuro: inspector publications II-XII grossly intact. Sensation grossly intact, no focal neurologic deficits. 10.Psych: (AAO) x3. Appropriate mood and affect
[2018-03-03 14:09] VITALS: BP 147/95; PULSE 101; RESP 18; TEMP 36.7; O2SAT 97
[2018-03-03 14:13] LABS: Bilirubin Negative (Negative); Blood Negative (Negative); Clarity Clear; Glucose Negative (Negative); Ketones Negative (Negative); Leukocyte Esterase Negative (Negative); Nitrite Negative (Negative); Urobilinogen 0.2 EU/dL (Up TO 0.2)
[2018-03-03 14:17] LABS: *AMPHETAMINES SCREEN URINE Negative (Negative); *BARBITURATES SCREEN URINE Negative (Negative); *BENZODIAZEPINES SCREEN URINE Negative (Negative); Cannabinoids THC Negative (Negative); Cocaine Screen,Urine Negative (Negative); METHADONE URINE SCREEN Negative (Negative); OPIATES URINE SCREEN Negative (Negative)
[2018-03-03 14:21] LABS: Tricyclic Antidepressants POSITIVE (Negative)
[2018-03-03 14:22] LABS: Abs Immature Grans 0.04 k/cumm (0.0-0.09); Absolute Basophil Count 0.04 k/cumm (0.0-0.2); Absolute Eosinophil Count 0.12 k/cumm (0.0-0.7); Absolute Lymphocyte Count 1.68 k/cumm (1.2-3.4); Absolute Monocyte Count 0.62 k/cumm (0.11-0.7); Absolute Neutrophil Count 6.03 k/cumm (1.2-6.7); Basophils % 0.5; Eosinophils % 1.4; HCT 50.2 % (40.0-50.0); HGB 16.9 g/dL (13.5-17.5); Immature Grans % 0.5; Lymphocytes % 19.7; Mean Corp. HGB Concentration 33.7 g/dL (32.0-36.0); Mean Platelet Volume 10.1 fL (8.0-11.0); Monocytes % 7.3; Neutrophils % 70.6; Platelet Count 205 x1000/uL (130-400); RBC 5.12 m/cumm (4.50-6.00); RBC Distribution Width 12.7 % (11.8-14.1); White Blood Cell Count 8.53 k/cumm (4.4-10.8)
[2018-03-03] MEDS: LORazepam 1 MG TAB PO (14:25)
[2018-03-03 14:43] LABS: ALT 67 U/L (12-78); AST 40 U/L (15-37); Albumin 3.9 g/dL (3.4-5.0); Alkaline Phosphatase 85 U/L (46-116); Anion Gap 7.9 mmol/L (3-11); BUN 15 mg/dL (7-18); Bilirubin, Total 0.5 mg/dL (0.2-1.0); CO2 29.1 mmol/L (21.0-32.0); CREATININE 1.35 mg/dL (0.70-1.30); Calcium 8.8 mg/dL (8.5-10.1); Chloride 103 mmol/L (98-107); Estimated GFR 57.68 (mL/min/1.73m2); Glucose 125 mg/dL (70-100); Potassium 3.9 mmol/L (3.5-5.1); Sodium 140 mmol/L (136-145); TSH (W/Ref FT4) 0.06 uIU/mL (0.358-3.74); Total Protein 7.7 g/dL (6.4-8.2)
[2018-03-03 14:50] LABS: ETHANOL BLOOD < 3.0 mg/dL (<3)
[2018-03-03 15:08] LABS: FREE T4 2.11 ng/dL (0.76-1.46)
[2018-03-03] MEDS: ALPRAZolam 0.5 MG TAB PO (15:18)
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
--- NOTE | 2018-03-03 16:27 | NUR.NOTE ---
[id number]--Report given to Xenia PATIÑO [facility] Psych unit triage nurse.Nursing Note:
[2018-03-03 17:33] VITALS: BP 132/85; PULSE 88; RESP 15; TEMP 36.7; O2SAT 97
== END 2018-03-03 17:23 | disposition other institution (70) ==
PROVIDERS: Emergency Provider Student in an Organized Health Care Education/Training Program; PCP Family Medicine
DX: F32.9 Major depressive disorder, single episode, unspecified (principal); R44.0 Auditory hallucinations; R44.1 Visual hallucinations; R45.851 Suicidal ideations; I10 Essential (primary) hypertension
CPT/HCPCS: 36415; 80053; 80307; 99285; 80320; 81003; 84439; 84443; 85025

== ENCOUNTER 2018-04-04 17:19 | Outpatient (REF) | payer MEDICARE, SELFPAY ==
[2018-04-11 15:29] LABS: Testosterone, Total 263 ng/dL (240-950)
== END 2018-04-04 17:39 ==
LOC: NCHCN 17:19
PROVIDERS: PCP Family Medicine; Visit Provider Nurse Practitioner Family
DX: E23.0 Hypopituitarism (principal)
CPT/HCPCS: 84402; 84403; 84410

== ENCOUNTER 2018-04-20 22:04 | Emergency (ER) | payer MEDICARE, SELFPAY ==
[2018-04-20] VITALS (18 sets, daily range): BP systolic 128–145; BP diastolic 77–94; PULSE 83–106; RESP 13–29; TEMP 36.8; O2SAT 94–100
--- NOTE | 2018-04-20 22:03 | DI.CT_ITS ---
SYMPTOMS/DIAGNOSIS: MS CHANGES, ? MEDICATION OVERDOSE NONCONTRAST HEAD CT: Comparison is made with [id number]. No intracranial hemorrhage, mass or infarct is seen. There is no evidence of skull fracture. There is mucous retention at the floor of the left maxillary sinus. The ventricles are normal in size. IMPRESSION: Negative head CT. Incidental maxillary sinus disease.
--- NOTE | 2018-04-20 22:04 | W.ED.GENAD ---
Discharge Plan Disposition Patient Disposition: HOME Condition: Improving Discharge Details Chief Complaint: OD/Poison Clinical Impression: Sedative or hypnotic overdose Primary Care Provider: Gianluca Thurman ED Provider: Deon Arora Home Meds and New Rx's Prescriptions: Continued buspirone 30 MG tablet 30 mg PO BID RF: 0 aimovig 70 mg SQ qmonth Qty: 1 RF: 11 lamotrigine 25 mg tablet 25 mg PO DAILY Qty: 5 RF: 0 prochlorperazine maleate 5 MG tablet 5 - 10 mg PO Q8H PRNQty: 20 RF: 0 pantoprazole 40 MG tablet,delayed release (DR/EC) 40 mg PO DAILY RF: 0 lisinopril 10 mg tablet 10 mg PO DAILY Qty: 30 RF: 0 gabapentin 300 MG capsule 600 mg PO TID RF: 0 Lyrica 75 MG capsule 75 - 150 mg PO BID RF: 0 testosterone cypionate 200 MG/ML oil 250 mg IM Q14D RF: 0 buprenorphine-naloxone [Suboxone] 1 EACH film 2 ea Sublingual DAILY RF: 0 cholecalciferol (vitamin D3) [Vitamin D3] 1,000 UNIT capsule 1,000 unit PO DAILY RF: 0 Discharge Instructions Additional Instructions: Take your medications only as prescribed. No further medications today, then may resume tomorrow. Home to rest this evening Return to the emergency department for any acute concerns. Medical Decision Making 42-year-old male with history of mood disorder and medication misuse in the past presents with oversedation at home but is reported to be either/both 10-15 tablets of trazodone and/or Ativan. Patient placed on a cardiac monitor technician, given a 1 L fluid bolus, 0.4 mg of Narcan with no significant effect. Does appear mostly consistent with sedative hypnotic overdose. Must rule out intracranial hemorrhage or mass patient referred for CT scan of the head as well as screening laboratories. Patient's states he has not had recent depression, she does not feel he is at risk for attempt at self-harm but that he has overused medications in the past. After approximately 90 minutes of care, patient began to be more alert and stated he took Ativan to help him relax that he had obtained without prescription. He was observed for for nearly 4 hours with progressive improvement, able to sit up, become conversant, ate a meal, states he felt improved, denied any thoughts of self-harm, and asked to be discharged home with his . He is stable and improved. He is admonished not to take benzodiazepines in excess and to only take prescription medications as directed. Lab Data Lab results reviewed: Yes I reviewed the patient's lab results. Laboratory Results - last 24 hr 04/20/18 04/20/18 04/20/18 22:09 22:09 22:09 WBC 11.00 H RBC 5.71 Hgb 18.4 H Hct 53.4 H MCV 93.5 MCH 32.2 MCHC 34.5 RDW 11.2 L Plt Count 221 MPV 9.6 Immature Gran % 0.2 Neutrophils % 70.3 Lymphocytes % 20.4 Monocytes % 7.2 Eosinophils % 1.6 Basophils % 0.3 Absolute Neutrophils 7.73 H Absolute Lymphocytes 2.24 Absolute Monocytes 0.79 H Absolute Eosinophils 0.18 Absolute Basophils 0.03 Sodium 141 Potassium 4.0 Chloride 103 Carbon Dioxide 31.0 Anion Gap 7.0 BUN 21 H Creatinine 1.20 Estimated GFR/1.73 m2 >= 60.00 Glucose 103 H Calcium 9.0 Magnesium 2.0 Total Bilirubin 0.3 AST 39 H ALT 87 H Alkaline Phosphatase 79 Ammonia 18 Troponin I < 0.02 Total Protein 7.9 Albumin 3.8 Urine Color Urine Clarity Urine pH Ur Specific [place] Urine Protein Urine Ketones Urine Blood Urine Nitrite Urine Bilirubin Urine Urobilinogen Ur Leukocyte Esterase Urine RBC Urine WBC Ur Epithelial Cells Urine Crystals Urine Bacteria Urine Casts Urine Mucus Ur Culture Indicated? Urine Glucose Urine Opiates Screen Urine Methadone Screen Ur Barbiturates Screen Ur Tricyclics Screen Ur Amphetamines Screen U Benzodiazepines Scrn Urine Cocaine Screen Ur THC Screen Ethyl Alcohol < 3.0 04/20/18 04/20/18 22:20 22:20 WBC RBC Hgb Hct MCV MCH MCHC RDW Plt Count MPV Immature Gran % Neutrophils % Lymphocytes % Monocytes % Eosinophils % Basophils % Absolute Neutrophils Absolute Lymphocytes Absolute Monocytes Absolute Eosinophils Absolute Basophils Sodium Potassium Chloride Carbon Dioxide Anion Gap BUN Creatinine Estimated GFR/1.73 m2 Glucose Calcium Magnesium Total Bilirubin AST ALT Alkaline Phosphatase Ammonia Troponin I Total Protein Albumin Urine Color Yellow Urine Clarity Clear Urine pH 6.0 Ur Specific [place] >= 1.030 H Urine Protein Negative Urine Ketones Trace H Urine Blood Trace-intact H Urine Nitrite Negative Urine Bilirubin Negative Urine Urobilinogen 0.2 Ur Leukocyte Esterase Negative Urine RBC 0-2 Urine WBC Negative Ur Epithelial Cells Negative Urine Crystals Negative Urine Bacteria Rare Urine Casts Negative Urine Mucus Negative Ur Culture Indicated? No Urine Glucose Negative Urine Opiates Screen Negative Urine Methadone Screen Negative Ur Barbiturates Screen Negative Ur Tricyclics Screen Positive Ur Amphetamines Screen Negative U Benzodiazepines Scrn Negative Urine Cocaine Screen Negative Ur THC Screen Negative Ethyl Alcohol ECG Data Attestation: I personally reviewed and interpreted this ECG (s) as follows: Interpretation: Regular sinus tachycardia with a rate of 100, QRS is narrow, there is no ST segment elevation HPI General Mode of arrival: EMS. Date/Time Provider Initiated Documentation: 04/20/18 22:09. Limitations to Documentation: altered mental status. Information obtained by: patient and EMS. History of Present Illness 42 year old M presents to the emergency department with the chief complaint of Medication overdose and mental status, described as similar to prior episodes, and it has been constant. No relieving factors improve symptom(s), No exacerbating factors reported . Patient notes no other symptoms.. Patient did receive the following treatments prior to arrival, none Related Data Home Medications Medication Instructions Recorded Confirmed Lyrica 75 - 150 mg PO BID 02/20/17 04/20/18 gabapentin 600 mg PO TID 02/20/17 03/03/18 testosterone cypionate 250 mg IM Q14D 02/21/17 03/03/18 buprenorphine-naloxone [Suboxone] 2 ea SUBLINGUAL DAILY 03/27/17 04/20/18 cholecalciferol (vitamin D3) 1,000 unit PO DAILY 03/27/17 03/03/18 [Vitamin D3] buspirone 30 mg PO BID tab-cap NS 05/01/17 04/20/18 prochlorperazine maleate 5 - 10 mg PO Q8H PRN #20 tab 08/14/17 03/03/18 lamotrigine 25 mg tablet 25 mg PO DAILY #5 tab 12/03/17 03/03/18 lisinopril 10 mg PO DAILY #30 tab 01/04/18 03/03/18 pantoprazole 40 mg PO DAILY 01/04/18 03/03/18 Previous Rx's Medication Instructions Recorded prochlorperazine maleate 5 - 10 mg PO Q8H PRN #20 tab 08/14/17 lamotrigine 25 mg tablet 25 mg PO DAILY #5 tab 12/03/17 lisinopril 10 mg PO DAILY #30 tab 01/04/18 Allergies Allergy/AdvReac Type Severity Reaction Status Date / Time Cephalosporins Allergy Intermediate Swelling/Ed Unverified 03/03/18 13:54 arleth General JHONATAN: 3 Review of Systems Review of Systems 8 systems reviewed and otherwise in the All systems reviewed & are unremarkable except as noted in HPI and below PFSH Medical History A-fib Depression Diastasis recti GERD (gastroesophageal reflux disease) Hiatal hernia History of substance abuse Hypertension Hypothyroidism Prostatitis, chronic Surgical History EGD - [facility] Fundoplication Total replacement of hip back surgery cardiac ablation shoulder surgery Family History Father Stroke Paternal Uncle Stroke Paternal Grandmother Stroke Other Migraine Social History household members: spouse current occupational status: unemployed Smoking and Tabacco status: Current every day tobacco type: e-cigarettes alcohol intake: former substance use type: does not use Exam Narrative Exam Narrative: GEN: Sedated, opens eyes to voice and speaks with slurred speech HEAD: Normocephalic, atraumatic ENT: Mucous membranes moist, oropharynx unremarkable, External ear exam unremarkable EYES: PERRL, EOMI NECK: Full ROM, no WILY, no menigismus CHEST/RESP: Nontender, clear to auscultation bilateral, no wheeze/rhonchi/rales CARDIOVASCULAR: Borderline tachycardia RRR, no murmur, rub shahriar. 2+ Rad pulse bilateral ABDOMEN: Soft, nontender, no mass. +Bowel sounds EXT: Full ROM, no edema, no rash Neuro: Grossly normal neurologic exam, conversant, sedated Psych: Speech fluent but slurred, affect flat
[2018-04-20] MEDS: Normal Saline 1,000 ML 1000 ML IV ×2 (22:12→23:04)
[2018-04-20 22:28] LABS: Bilirubin Negative (Negative); Blood Trace-intact (Negative); Clarity Clear; Glucose Negative (Negative); Ketones Trace mg/dL (Negative); Leukocyte Esterase Negative (Negative); Nitrite Negative (Negative); Specific Gravity >= 1.030 (1.005-1.025); Urobilinogen 0.2 EU/dL (Up TO 0.2)
[2018-04-20 22:29] LABS: Ammonia 18 umol/L (11-32)
[2018-04-20 22:30] LABS: Abs Immature Grans 0.02 k/cumm (0.0-0.09); Absolute Basophil Count 0.03 k/cumm (0.0-0.2); Absolute Eosinophil Count 0.18 k/cumm (0.0-0.7); Absolute Lymphocyte Count 2.24 k/cumm (1.2-3.4); Absolute Monocyte Count 0.79 k/cumm (0.11-0.7); Absolute Neutrophil Count 7.73 k/cumm (1.2-6.7); Basophils % 0.3; Eosinophils % 1.6; HCT 53.4 % (40.0-50.0); HGB 18.4 g/dL (13.5-17.5); Immature Grans % 0.2; Lymphocytes % 20.4; Mean Corp. HGB Concentration 34.5 g/dL (32.0-36.0); Mean Corpuscular Hemoglobin 32.2 pg (27.0-33.0); Mean Corpuscular Volume 93.5 fL (80-95); Mean Platelet Volume 9.6 fL (8.0-11.0); Monocytes % 7.2; Neutrophils % 70.3; Platelet Count 221 x1000/uL (130-400); RBC 5.71 m/cumm (4.50-6.00); RBC Distribution Width 11.2 % (11.8-14.1)
[2018-04-20 22:35] LABS: Bacteria Rare HPF (Negative); C & S Indicated? No; Casts Negative LPF (Negative); Crystals Negative HPF (Negative); Epithelial Cells Negative HPF (Negative); Mucus Negative (Negative); RBC 0-2 (0-2); WBC Negative HPF (0-5)
[2018-04-20 22:40] LABS: ALT 87 U/L (12-78); AST 39 U/L (15-37); Albumin 3.8 g/dL (3.4-5.0); Alkaline Phosphatase 79 U/L (46-116); BUN 21 mg/dL (7-18); Bilirubin, Total 0.3 mg/dL (0.2-1.0); Chloride 103 mmol/L (98-107); Glucose 103 mg/dL (70-100); Sodium 141 mmol/L (136-145); Total Protein 7.9 g/dL (6.4-8.2)
[2018-04-20] MEDS: Naloxone 0.4 MG/ML VIAL IVP (22:48)
[2018-04-20 22:51] LABS: ETHANOL BLOOD < 3.0 mg/dL (<3); Troponin I < 0.02 ng/mL (0.00-0.06)
[2018-04-20 22:52] LABS: *AMPHETAMINES SCREEN URINE Negative (Negative); *BARBITURATES SCREEN URINE Negative (Negative); *BENZODIAZEPINES SCREEN URINE Negative (Negative); Cannabinoids THC Negative (Negative); Cocaine Screen,Urine Negative (Negative); METHADONE URINE SCREEN Negative (Negative); OPIATES URINE SCREEN Negative (Negative)
[2018-04-20 22:53] LABS: Tricyclic Antidepressants POSITIVE (Negative)
--- NOTE | 2018-04-20 22:59 | DI.VRAD_ITS ---
EXAM: CT Head Without Contrast EXAM DATE/TIME: 04/20/2018 10:05 PM CLINICAL HISTORY: 42 years old, male; Signs and symptoms; Other: Ms changes question medication overdose TECHNIQUE: Axial computed tomography images of the head/brain without contrast. Coronal and sagittal reformatted images were created and reviewed. COMPARISON: CT HEAD WITHOUT CONTRAST 08/11/2017 12:37 PM FINDINGS: Brain: Unremarkable. No hemorrhage. No significant white matter disease. No edema. Ventricles: Normal. No ventriculomegaly. Bones/joints: Unremarkable. No acute fracture. Sinuses: Polyps/retention cysts, left maxillary sinus. Mastoid air cells: Visualized mastoid air cells are unremarkable. No mastoid effusion. Soft tissues: Unremarkable. IMPRESSION: No intracranial abnormalities. Dictated and Authenticated by: Gianluca Swann MD. Ordering:ALLISON Chavarria MD
--- NOTE | 2018-04-20 23:05 | NUR.NOTE ---
Nursing Note: Pt will open eyes briefly to painful stimuli. IVF infusing. cardiac monitoring in place. entitle co2 36. no change in mental status after narcan was administered. labs and urines sent
--- NOTE | 2018-04-20 23:51 | NUR.NOTE ---
Nursing Note: pt more awake, eyes open looking around room. Pt is able to state that I guess I took too many Benzo's. Pt states that he was not trying to harm self. will remain on vital sign and co2 monitoring at this time.
[2018-04-21] VITALS (19 sets, daily range): BP systolic 128–146; BP diastolic 75–94; PULSE 80–95; RESP 12–22; O2SAT 91–100
--- NOTE | 2018-04-21 01:02 | NUR.NOTE ---
Nursing Note: pt sleeping at this time
--- NOTE | 2018-04-21 01:44 | NUR.NOTE ---
Nursing Note: Pt sitting on edge of bed, ate crackers and juice. 95% room air. no acute distress. answering questions approp.
--- NOTE | 2018-04-21 02:03 | NUR.NOTE ---
Nursing Note: Pt awake and alert, ambulated in halls with steady gait. IV's removed. RCT called to assist for ride home but no furniture delivery driver available until 6am, patient and family informed.
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
== END 2018-04-21 02:15 | disposition home or self-care (01) ==
PROVIDERS: Emergency Provider Emergency Medicine; PCP Family Medicine
DX: T42.4X1A Poisoning by benzodiazepines, accidental (unintentional), initial encounter (principal); R41.82 Altered mental status, unspecified; I10 Essential (primary) hypertension
CPT/HCPCS: 36415; 80053; 80307; 93005; 96361; 96374; 99285; 70450; 80320; 81003; 81015; 82140; 83735; 84484; 85025; 93010; J2310

== ENCOUNTER 2018-05-15 09:55 | Outpatient (REF) | payer MEDICARE, SELFPAY ==
[2018-05-16 10:41] LABS: Hepatitis B Surface Ag Negative (NEGAT)
[2018-05-16 12:10] LABS: Hep A Total Ab w Rflx IgM Negative (NEGAT); Hep B Core Antibody Negative (NEGAT)
[2018-05-16 12:13] LABS: HIV-1/2 Ag & Ab Screen Negative (NEGAT)
[2018-05-16 12:16] LABS: HBs Antibody, Quant >1000.0 mIU/mL; Hepatitis B Surface Ab Positive
[2018-05-17 09:52] LABS: ALT 72 U/L (7-55); ActiTest Grade A1-A2; ActiTest Interpretation minimal activity; ActiTest Score 0.47; Alpha-2-Macroglobulin 228 mg/dL (100 - 280); Apoliprotein A1 126 mg/dL (>=120); Bilirubin, Total 0.6 mg/dL (<=1.2); FibroTest Interpretation minimal fibrosis; FibroTest Score 0.42; FibroTest Stage F1-F2; GGT 69 U/L (8 - 61); Haptoglobin 108 mg/dL (30 - 200)
[2018-05-17 15:46] LABS: HCV Genotype 1 (Undetected)
== END 2018-05-15 10:15 ==
LOC: NCHCN 09:55
PROVIDERS: PCP Family Medicine; Visit Provider Family Medicine
DX: B19.20 Unspecified viral hepatitis C without hepatic coma (principal); Z11.4 Encounter for screening for human immunodeficiency virus [HIV]
CPT/HCPCS: 82172; 82247; 82977; 83010; 83883; 84460; 86704; 86706; 86709; 87340; 87389; 87521

== ENCOUNTER 2018-07-24 13:37 | Emergency (ER) | payer MEDICARE, SELFPAY ==
[2018-07-24 13:44] VITALS: BP 117/81; PULSE 93; RESP 16; TEMP 37; O2SAT 98
[2018-07-24 13:48] LABS: Bilirubin Negative (Negative); Blood Negative (Negative); Clarity Clear; Glucose Negative (Negative); Ketones Negative (Negative); Leukocyte Esterase Negative (Negative); Nitrite Negative (Negative)
[2018-07-24] MEDS: Ketorolac 15 MG/ML VIAL IVP (14:07)
[2018-07-24] MEDS: Normal Saline 1,000 ML 1000 ML IV (14:08)
[2018-07-24 14:16] LABS: Lactate 2.1 mmol/L (0.6-1.4)
[2018-07-24 14:17] LABS: Abs Immature Grans 0.04 k/cumm (0.0-0.09); Absolute Basophil Count 0.03 k/cumm (0.0-0.2); Absolute Eosinophil Count 0.17 k/cumm (0.0-0.7); Absolute Lymphocyte Count 1.69 k/cumm (1.2-3.4); Absolute Monocyte Count 0.83 k/cumm (0.11-0.7); Absolute Neutrophil Count 7.48 k/cumm (1.2-6.7); Basophils % 0.3; Eosinophils % 1.7; Immature Grans % 0.4; Lymphocytes % 16.5; Mean Corp. HGB Concentration 34.6 g/dL (32.0-36.0); Mean Corpuscular Hemoglobin 33.1 pg (27.0-33.0); Mean Corpuscular Volume 95.6 fL (80-95); Monocytes % 8.1; Platelet Count 234 x1000/uL (130-400); RBC 5.44 m/cumm (4.50-6.00); RBC Distribution Width 13.4 % (11.8-14.1); White Blood Cell Count 10.24 k/cumm (4.4-10.8)
[2018-07-24 14:31] LABS: ALT 68 U/L (12-78); AST 46 U/L (15-37); Albumin 3.9 g/dL (3.4-5.0); Alkaline Phosphatase 79 U/L (46-116); Anion Gap 7.5 mmol/L (3-11); BUN 17 mg/dL (7-18); Bilirubin, Total 0.6 mg/dL (0.2-1.0); CO2 26.5 mmol/L (21.0-32.0); CREATININE 1.13 mg/dL (0.70-1.30); Calcium 9.1 mg/dL (8.5-10.1); Chloride 103 mmol/L (98-107); Glucose 101 mg/dL (70-100); Potassium 4.3 mmol/L (3.5-5.1); Sodium 137 mmol/L (136-145); Total Protein 8.1 g/dL (6.4-8.2)
--- NOTE | 2018-07-24 15:12 | DI.CT_ITS ---
SYMPTOMS/DIAGNOSIS: FLANK PAIN, FREQUENT URINATION RENAL COLIC CT: Routine examination was performed. Lack of IV contrast does limit evaluation of the abdominal and pelvic organs. Comparison is 09/07/17. The unenhanced visualized portions of the liver, spleen, pancreas, gallbladder, bile ducts and adrenal glands are unremarkable. The kidneys show no evidence of nephrolithiasis, ureterolithiasis or hydronephrosis. There is a cyst again seen in the lower pole of the left kidney. The urinary bladder is intact. The reproductive organs are unremarkable. Note is made of a fat-containing left inguinal hernia. The bowel shows no evidence of obstruction or inflammation. There is a normal appendix present. Postsurgical changes are seen from L4 through S1. There is unchanged L5-S1 fusion and grade 2 spondylolisthesis of L5 on S1. Degenerative changes are seen in the spine. IMPRESSION: No evidence of nephrolithiasis or obstructive uropathy. The findings were discussed with the Emergency Department on the date of the examination.
--- NOTE | 2018-07-24 16:35 | ED.GENADUL_ITS ---
Discharge Plan Disposition Patient Disposition: HOME Condition: Stable Discharge Details Chief Complaint: Urinary Clinical Impression: Low back pain, Urinary frequency Primary Care Provider: Gianluca Thurman ED Provider: Ishmael Mason Home Meds and New Rx's Prescriptions: Continued aimovig 70 mg SQ qmonth Qty: 1 RF: 11 lamotrigine 25 mg tablet 25 mg PO DAILY Qty: 5 RF: 0 prochlorperazine maleate 5 MG tablet 5 - 10 mg PO Q8H PRNQty: 20 RF: 0 pantoprazole 40 MG tablet,delayed release (DR/EC) 40 mg PO DAILY RF: 0 lisinopril 10 mg tablet 10 mg PO DAILY Qty: 30 RF: 0 clonazepam 1 mg Tablet 1 mg PO BID RF: 0 gabapentin 300 MG capsule 600 mg PO TID RF: 0 testosterone cypionate 200 MG/ML oil 250 mg IM Q14D RF: 0 cholecalciferol (vitamin D3) [Vitamin D3] 1,000 UNIT capsule 1,000 unit PO DAILY RF: 0 Discharge Instructions Instructions: Back Pain (ED) Additional Instructions: Beyond her normally prescribed medications he may continue to take [id number] acetaminophen 650 mg with 600 mg ibuprofen every 6 hours for discomfort. Please follow-up with your primary care provider in the next week for reassessment especially if your symptoms continue. Return to the emergency department for new or worsening symptoms, fever chills, or any further emergent concerns. Referrals: Gianluca Thurman [Primary Care Provider] - 1 week Discharge Data Discharge Date/Time-TO BE ENTERED AT DEPARTURE: 07/24/18 16:44 Medical Decision Making Patient presenting the emergency department for chief complaint of back pain and urinary frequency. Patient states that this is been going on approximately for the past 5 days and back pain has worsened. He does state the urinary frequency that he occasionally has burning after urination and occasional dribbling. Patient denies any penile discharge, sex with other partners, or sexually transmitted disease exposure. Patient denies any fever chills, nausea vomiting or diarrhea. Physical exam shows diffuse lower lumbar back pain, without CVA tenderness, lower abdominal/suprapubic discomfort to palpation otherwise nonsurgical with no peritoneal findings on belly exam, patient otherwise stable ambulatory in no acute signs of distress. Patient does state that he was on Suboxone but is now off of it. Plan to check labs, urinalysis and give IV fluids. Ketorolac also ordered for pain control. Review of urinalysis shows no acute urinary tract infectious symptoms, CBC shows no leukocytosis and hemoglobin hematocrit at baseline which shows slight elevation, lactate slightly elevated at 2.1 but otherwise nondiagnostic CMP. Fingerstick glucose was also within expected limits. Given the patient has continued back pain and urinary frequency CT renal was ordered for rule out of any obstruction or other pathology. Patient states that ketorolac did not help with symptoms so given small dose of morphine. Spoke to radiologist in regards to results and shows no acute findings noted to explain patient's symptoms. Patient was reexamined and he states previous issues with his prostate and urinary frequency. Also with further discussion patient states that he just stopped his Suboxone 8 days ago and a couple days after is when his back pain started. Patient states that he was on Suboxone for back pain and for previous back surgeries. I feel that this may be more of the cause of patient's discomfort than his urinary symptoms. Patient's prostate was checked and shows enlargement but no signs of infected prostate, no mass, otherwise unremarkable exam. Patient was encouraged to use [id number] Tylenol Motrin for discomfort and to follow-up with his primary care provider given that both of patient's symptoms seem to be chronic in nature given previous history of prostate issues along with chronic back pain. Return precautions discussed. Chlamydia GC urine was ordered but patient not treated given him stating no urinary discharge no new sexual partners, and significant other without symptoms. After discussion of diagnosis and plan of care patient has no further needs, questions, or concerns and states clear understanding to return to the emergency department for any worsening symptoms. HPI General Mode of arrival: ambulatory . Date/Time Provider Initiated Documentation: 07/24/18 13:43 . Limitations to Documentation: no limitations . Information obtained by: patient and RN notes reviewed . History of Present Illness 42 year old M presents to the emergency department with the chief complaint of back pain urinary frequency , described as severe, with intensity rated at 9. Quality is described as aching, and is localized to the back. Patient started experiencing this week(s) (1) and it has been constant. No relieving factors improve symptom(s), No exacerbating factors reported . Patient did receive the following treatments prior to arrival, none Related Data Home Medications Medication Instructions Recorded Confirmed gabapentin 600 mg PO TID 02/20/17 07/24/18 testosterone cypionate 250 mg IM Q14D 02/21/17 07/24/18 cholecalciferol (vitamin D3) 1,000 unit PO DAILY 03/27/17 07/24/18 [Vitamin D3] prochlorperazine maleate 5 - 10 mg PO Q8H PRN #20 tab 08/14/17 03/03/18 lamotrigine 25 mg tablet 25 mg PO DAILY #5 tab 12/03/17 03/03/18 lisinopril 10 mg PO DAILY #30 tab 01/04/18 07/24/18 pantoprazole 40 mg PO DAILY 01/04/18 07/24/18 clonazepam 1 mg PO BID 07/24/18 07/24/18 Previous Rx's Medication Instructions Recorded prochlorperazine maleate 5 - 10 mg PO Q8H PRN #20 tab 08/14/17 lamotrigine 25 mg tablet 25 mg PO DAILY #5 tab 12/03/17 lisinopril 10 mg PO DAILY #30 tab 01/04/18 Allergies Allergy/AdvReac Type Severity Reaction Status Date / Time Cephalosporins Allergy Intermediate Swelling/Ed Unverified 07/24/18 13:47 arleth General Stated Complaint: Urinary JHONATAN: 3 Review of Systems Constitutional Denies chills and Denies fever(s) Cardiovascular Denies chest pain and Denies dyspnea on exertion Respiratory Denies cough and Denies dyspnea on exertion Gastrointestinal Denies abdominal pain, Denies change in bowel habits, Denies diarrhea, Denies nausea and Denies vomiting Genitourinary Denies difficulty urinating, Reports urinary frequency and Denies urinary incontinence Musculoskeletal Reports as per HPI and Reports back pain Neurologic Denies sensory deficit PFSH Medical History A-fib Depression Diastasis recti GERD (gastroesophageal reflux disease) Hiatal hernia History of substance abuse Hypertension Hypothyroidism Prostatitis, chronic Surgical History EGD - [facility] Fundoplication Total replacement of hip back surgery cardiac ablation shoulder surgery Family History Father Stroke Paternal Uncle Stroke Paternal Grandmother Stroke Other Migraine Social History Smoking/Tobacco Use Status: Current every day Tobacco Type: e-cigarettes Alcohol Intake: former Drug use: Current Sobriety Substance use type: does not use Household members: spouse Do you feel safe in your relationship?: No Exam Const General: cooperative and no acute distress Orientation: alert, awake and oriented x3 Neck Neck: normal visual inspection, full ROM and no meningeal signs Resp Effort & Inspection: normal respiratory effort Auscultation: clear to auscultation bilaterally Cardio Rate: regular rate Rhythm: regular rhythm Heart Sounds: S1 normal and S2 normal GI Palpation: no hepatosplenomegaly, no aortic enlargement, no masses, no pulsatile masses and tender suprapubicly (mild); not at McBurney's point, not periumbilically, Shepard's sign negative, psoas sign negative, with no rebound tenderness and Rovsing's sign negative Auscultation: normal bowel sounds Back/Spine/Pelvis Back: no CVA tenderness Thoracic/Lumbar Spine: pain with thoraco-lumbar ROM, paraspinal tenderness (difuse lumbar), thoraco-lumbar ROM limited, No thoracic spinal tenderness, lumbar spinal tenderness and straight leg raise positive Pelvis: no pain with anterior-posterior compression, no pain with lateral compression, buttock tenderness on the right and sciatic notch tenderness on the right Neuro General: alert, awake and oriented x3 DTR's: Rt Patellar: 2+, Lt Patellar: 2+, Rt Ankle: 2+ and Lt Ankle: 2+ Extrem Right lower extremity: hip/thigh Details: normal to inspection, knee Details: normal to inspection and lower leg Details: normal to inspection Course Vital Signs Temperature 37 C 07/24/18 13:44 Pulse 93 H 07/24/18 13:44 Respiratory Rate 16 07/24/18 13:44 Blood Pressure 117/81 07/24/18 13:44 Pulse Oximetry 98 07/24/18 13:44 Temperature 37 C 07/24/18 13:44 Temperature Source Skin 07/24/18 13:44 Pulse 93 H 07/24/18 13:44 Respiratory Rate 16 07/24/18 13:44 Respiratory Effort Non-Labored 07/24/18 13:44 Blood Pressure 117/81 07/24/18 13:44 Blood Pressure Position Sitting 07/24/18 13:44 Pulse Oximetry 98 07/24/18 13:44 Pain Level 9 07/24/18 14:07 Lab/Test Results Lab/Test Results: Laboratory Tests Range/Units 07/24/18 07/24/18 07/24/18 13:42 13:51 13:51 WBC (4.4-10.8) k/cumm RBC (4.50-6.00) m/cumm Hgb (13.5-17.5) g/dL Hct (40.0-50.0) % MCV (80-95) fL MCH (27.0-33.0) pg MCHC (32.0-36.0) g/dL RDW (11.8-14.1) % Plt Count (130-400) x1000/uL MPV (8.0-11.0) fL Immature Gran % Neutrophils % Lymphocytes % Monocytes % Eosinophils % Basophils % Absolute Neutrophils (1.2-6.7) k/cumm Absolute Lymphocytes (1.2-3.4) k/cumm Absolute Monocytes (0.11-0.7) k/cumm Absolute Eosinophils (0.0-0.7) k/cumm Absolute Basophils (0.0-0.2) k/cumm Sodium (136-145) mmol/L 137 Potassium (3.5-5.1) mmol/L 4.3 Chloride (98-107) mmol/L 103 Carbon Dioxide (21.0-32.0) mmol/L 26.5 Anion Gap (3-11) mmol/L 7.5 BUN (7-18) mg/dL 17 Creatinine (0.70-1.30) mg/dL 1.13 Estimated GFR/1.73 m2 (mL/min/1.73m2) >= 60.00 Glucose (70-100) mg/dL 101 H Lactate (0.6-1.4) mmol/L 2.1 H Calcium (8.5-10.1) mg/dL 9.1 Total Bilirubin (0.2-1.0) mg/dL 0.6 AST (15-37) U/L 46 H ALT (12-78) U/L 68 Alkaline Phosphatase (46-116) U/L 79 Total Protein (6.4-8.2) g/dL 8.1 Albumin (3.4-5.0) g/dL 3.9 Urine Color (Yellow) Yellow Urine Clarity Clear Urine pH (5-8) 6.0 Ur Specific [place] (1.005-1.025) 1.010 Urine Protein (Negative) mg/dL Negative Urine Ketones (Negative) mg/dL Negative Urine Blood (Negative) Negative Urine Nitrite (Negative) Negative Urine Bilirubin (Negative) Negative Urine Urobilinogen (Up TO 0.2) EU/dL 1.0 H Ur Leukocyte Esterase (Negative) Negative Urine Glucose (Negative) mg/dL Negative Range/Units 07/24/18 13:51 WBC (4.4-10.8) k/cumm 10.24 RBC (4.50-6.00) m/cumm 5.44 Hgb (13.5-17.5) g/dL 18.0 H Hct (40.0-50.0) % 52.0 H MCV (80-95) fL 95.6 H MCH (27.0-33.0) pg 33.1 H MCHC (32.0-36.0) g/dL 34.6 RDW (11.8-14.1) % 13.4 Plt Count (130-400) x1000/uL 234 MPV (8.0-11.0) fL 10.0 Immature Gran % 0.4 Neutrophils % 73.0 Lymphocytes % 16.5 Monocytes % 8.1 Eosinophils % 1.7 Basophils % 0.3 Absolute Neutrophils (1.2-6.7) k/cumm 7.48 H Absolute Lymphocytes (1.2-3.4) k/cumm 1.69 Absolute Monocytes (0.11-0.7) k/cumm 0.83 H Absolute Eosinophils (0.0-0.7) k/cumm 0.17 Absolute Basophils (0.0-0.2) k/cumm 0.03 Sodium (136-145) mmol/L Potassium (3.5-5.1) mmol/L Chloride (98-107) mmol/L Carbon Dioxide (21.0-32.0) mmol/L Anion Gap (3-11) mmol/L BUN (7-18) mg/dL Creatinine (0.70-1.30) mg/dL Estimated GFR/1.73 m2 (mL/min/1.73m2) Glucose (70-100) mg/dL Lactate (0.6-1.4) mmol/L Calcium (8.5-10.1) mg/dL Total Bilirubin (0.2-1.0) mg/dL AST (15-37) U/L ALT (12-78) U/L Alkaline Phosphatase (46-116) U/L Total Protein (6.4-8.2) g/dL Albumin (3.4-5.0) g/dL Urine Color (Yellow) Urine Clarity Urine pH (5-8) Ur Specific [place] (1.005-1.025) Urine Protein (Negative) mg/dL Urine Ketones (Negative) mg/dL Urine Blood (Negative) Urine Nitrite (Negative) Urine Bilirubin (Negative) Urine Urobilinogen (Up TO 0.2) EU/dL Ur Leukocyte Esterase (Negative) Urine Glucose (Negative) mg/dL
[2018-07-24 16:48] VITALS: BP 117/68; PULSE 61; RESP 14; O2SAT 98
[2018-07-25 13:19] LABS: Chlamydia Result Negative; GC Result Negative; Specimen Description URINE
== END 2018-07-24 16:44 | disposition home or self-care (01) ==
PROVIDERS: Emergency Provider Nurse Practitioner Family; PCP Family Medicine
DX: M54.5 Low back pain (principal); R35.0 Frequency of micturition
CPT/HCPCS: 36415; 36416; 80053; 82962; 87491; 87591; 96361; 96374; 96375; 99284; 74176; 81003; 83605; 85025; J1885

== ENCOUNTER 2019-06-17 07:07 | Outpatient (CLI) | payer MEDICARE, SELFPAY ==
[2019-06-17 14:40] LABS: Abs Immature Grans 0.02 k/cumm (0.0-0.09); Absolute Basophil Count 0.01 k/cumm (0.0-0.2); Absolute Eosinophil Count 0.05 k/cumm (0.0-0.7); Absolute Lymphocyte Count 1.29 k/cumm (1.2-3.4); Absolute Monocyte Count 0.51 k/cumm (0.11-0.7); Absolute Neutrophil Count 8.34 k/cumm (1.2-6.7); Basophils % 0.1; Eosinophils % 0.5; HCT 53.7 % (40.0-50.0); HGB 18.7 g/dL (13.5-17.5); Immature Grans % 0.2 %; Lymphocytes % 12.6; Mean Corp. HGB Concentration 34.8 g/dL (32.0-36.0); Mean Corpuscular Hemoglobin 31.6 pg (27.0-33.0); Mean Corpuscular Volume 90.7 fL (80-95); Mean Platelet Volume 10.2 fL (8.0-11.0); Neutrophils % 81.6; Platelet Count 221 x1000/uL (130-400); RBC 5.92 m/cumm (4.50-6.00); RBC Distribution Width 12.1 % (11.8-14.1); White Blood Cell Count 10.22 k/cumm (4.4-10.8)
[2019-06-17 14:54] LABS: INR 1.1 (0.9-1.1); Prothrombin Time 10.6 sec (9.3-11.0)
[2019-06-17 19:01] LABS: ALT 85 U/L (16-63); AST 36 U/L (15-37); Albumin 4.2 g/dL (3.4-5.0); Alkaline Phosphatase 75 U/L (46-116); Anion Gap 6.5 mmol/L (3-11); BUN 17 mg/dL (7-18); Bilirubin, Total 0.8 mg/dL (0.2-1.0); CO2 29.5 mmol/L (21.0-32.0); CREATININE 1.15 mg/dL (0.70-1.30); Calcium 9.3 mg/dL (8.5-10.1); Chloride 101 mmol/L (98-107); Glucose 85 mg/dL (74-106); Potassium 4.2 mmol/L (3.5-5.1); Sodium 137 mmol/L (136-145); Total Protein 8.2 g/dL (6.4-8.2)
[2019-06-18 10:42] LABS: HBs Antibody, Quant 892.5 mIU/mL (See Note); Hep A Total Ab w Rflx IgM Negative (Negative); Hep B Core Antibody Negative (Negative); Hepatitis B Surface Ab Positive (See Note); Hepatitis B Surface Ag Negative (Negative)
== END 2019-06-17 07:27 ==
PROVIDERS: PCP Family Medicine; Visit Provider Family Medicine
DX: B18.2 Chronic viral hepatitis C (principal)
CPT/HCPCS: 36415; 80053; 86704; 86706; 86709; 87340; 85025; 85610

== ENCOUNTER → 2020-02-25 18:02 | Outpatient (CLI) | payer OTHER, SELFPAY ==
--- NOTE | 2020-02-25 | DI.RAD_ITS ---
EXAM: XR CHEST 2V PA LATERAL CLINICAL HISTORY: SOB, R06.02. TECHNIQUE: 2D digital imaging was performed. COMPARISON: No exams were available for comparison FINDINGS: Heart size is upper normal. There is significant infiltrate in the right lung involving the right middle lobe and right lower lob es. Also infiltrate in the left lower lobe. No pleural effusions. No pneumothorax. IMPRESSION: Bilateral infiltrates. No pleural effusions. Recommend Covid testing DATA REPOSITORY: RADIATION DOSE DELIVERED:
== END ==
PROVIDERS: PCP Family Medicine; Visit Provider Nurse Practitioner Family
DX: R91.8 Other nonspecific abnormal finding of lung field (principal); R06.02 Shortness of breath
CPT/HCPCS: 71046

== ENCOUNTER 2020-02-25 18:08 | Outpatient (REF) | payer OTHER, SELFPAY ==
[2020-02-25 16:25] LABS: HGB 17.1 g/dL (13.5-17.5); MCH 32.3 pg (27.0-33.0); MCHC 32.9 % (32.0-36.0); MCV 98.1 fL (80-95); MPV 10.2 fL (8.0-11.0); Platelet Count 227 10^3/uL (130-400); RDW 11.3 % (11.8-14.1); RDW-SD 40.8 fL
[2020-02-25 16:42] LABS: ALT 30 U/L (16-63); AST 24 U/L (15-37); Albumin 3.3 g/dL (3.4-5.0); Alkaline Phosphatase 58 U/L (46-116); Anion Gap 7.7 mmol/L (3-11); BUN 24 mg/dL (7-18); Bilirubin, Total 0.3 mg/dL (0.2-1.0); CO2 28.3 mmol/L (21.0-32.0); CREATININE 1.24 mg/dL (0.70-1.30); Calcium 8.8 mg/dL (8.5-10.1); Chloride 101 mmol/L (98-107); Glucose 93 mg/dL (74-106); NT-proBNP 122 pg/mL (<300); Potassium 4.6 mmol/L (3.5-5.1); Sodium 137 mmol/L (136-145); TSH (W/Ref FT4) 0.31 uIU/mL (0.36-3.74); Total Protein 7.6 g/dL (6.4-8.2)
[2020-02-25 17:04] LABS: FREE T4 1.42 ng/dL (0.76-1.46)
[2020-02-25 18:04] LABS: Nucleated RBC 0 %
[2020-02-25 18:36] LABS: Absolute Eosinophil Count 0.89 10^3/uL (0.0-0.7); Absolute Lymphocyte Count 2.54 10^3/uL (1.2-3.4); Absolute Monocyte Count 0.64 10^3/uL (0.1-0.8); Absolute Neutrophil Count 8.38 10^3/uL (1.2-6.7); Bands % 1; Diff Comment Manual Differential; Myelocytes % 2
[2020-02-25 18:37] LABS: Macrocytosis 1+; Polychromasia Present
[2020-02-26 21:13] LABS: COVID-19 RT-PCR UVMMC Result Negative (Negative)
== END 2020-02-25 18:28 ==
LOC: NCHCN 18:08
PROVIDERS: PCP Family Medicine; Visit Provider Nurse Practitioner Family
DX: R06.02 Shortness of breath (principal); R94.6 Abnormal results of thyroid function studies; J06.9 Acute upper respiratory infection, unspecified
CPT/HCPCS: 80053; 85027; U0003; 83880; 84439; 84443; 85025

== ENCOUNTER 2020-04-02 13:48 | Outpatient (REF) | payer OTHER, SELFPAY ==
[2020-04-02 14:03] LABS: ALT 40 U/L (16-63); AST 42 U/L (15-37); Alkaline Phosphatase 70 U/L (46-116); Anion Gap 11.3 mmol/L (3-11); BUN 16 mg/dL (7-18); Bilirubin, Total 0.4 mg/dL (0.2-1.0); CO2 26.7 mmol/L (21.0-32.0); CREATININE 1.4 mg/dL (0.70-1.30); Calcium 9.3 mg/dL (8.5-10.1); Chloride 100 mmol/L (98-107); Glucose 91 mg/dL (74-106); Potassium 4.3 mmol/L (3.5-5.1); Sodium 138 mmol/L (136-145); TSH (W/Ref FT4) 0.71 uIU/mL (0.36-3.74); Total Protein 8.2 g/dL (6.4-8.2)
[2020-04-02 22:32] LABS: PSA, Diagnostic 0.5 ng/mL (0.0-2.5)
== END 2020-04-02 13:49 | disposition home or self-care (01) ==
LOC: LBN 13:48
PROVIDERS: PCP Family Medicine; Visit Provider Family Medicine
DX: R94.6 Abnormal results of thyroid function studies (principal); N40.2 Nodular prostate without lower urinary tract symptoms; E23.0 Hypopituitarism; R10.811 Right upper quadrant abdominal tenderness
CPT/HCPCS: 80053; 84153; 84443

== ENCOUNTER 2020-07-31 10:23 | Outpatient (REF) | payer OTHER, SELFPAY ==
[2020-07-31 14:53] LABS: Abs Immature Grans 0.02 10^3/uL (0.0-0.06); Absolute Basophil Count 0.03 10^3/uL (0.0-0.2); Absolute Eosinophil Count 0.06 10^3/uL (0.0-0.7); Absolute Lymphocyte Count 0.91 10^3/uL (1.2-3.4); Absolute Monocyte Count 0.69 10^3/uL (0.1-0.8); Absolute Neutrophil Count 3.04 10^3/uL (1.2-6.7); Basophils % 0.6; Eosinophils % 1.3; HCT 53.3 % (40.0-50.0); HGB 18.3 g/dL (13.5-17.5); Immature Grans % 0.4; Lymphocytes % 19.2; MCHC 34.3 % (32.0-36.0); MPV 9.9 fL (8.0-11.0); Monocytes % 14.5; Nucleated RBC 0 %; Platelet Count 179 10^3/uL (130-400); RBC 5.55 10^6/uL (4.36-5.78); RDW 11.5 % (11.8-14.1); RDW-SD 41.3 fL; WBC 4.75 10^3/uL (4.4-10.8)
[2020-07-31 15:18] LABS: ALT 32 U/L (16-63); AST 26 U/L (15-37); Albumin 3.9 g/dL (3.4-5.0); Alkaline Phosphatase 76 U/L (46-116); BUN 20 mg/dL (7-18); Bilirubin, Total 0.2 mg/dL (0.2-1.0); CREATININE 1.3 mg/dL (0.70-1.30); Calcium 8.6 mg/dL (8.5-10.1); Chloride 102 mmol/L (98-107); Glucose 107 mg/dL (74-106); Potassium 4.7 mmol/L (3.5-5.1); Sodium 140 mmol/L (136-145); Total Protein 7.9 g/dL (6.4-8.2)
[2020-07-31 15:43] LABS: D-Dimer 367 ng/mlFEU (<500)
[2020-08-02 22:09] LABS: COVID-19 RT-PCR UVMMC Result Positive (Negative)
== END 2020-07-31 10:24 | disposition home or self-care (01) ==
LOC: LBN 10:23
PROVIDERS: PCP Family Medicine; Visit Provider Nurse Practitioner Family
DX: R59.0 Localized enlarged lymph nodes (principal); Z86.718 Personal history of other venous thrombosis and embolism; J06.9 Acute upper respiratory infection, unspecified; Z20.822 Contact with and (suspected) exposure to COVID-19
CPT/HCPCS: 80053; U0003; 85025; 85379

== ENCOUNTER 2020-08-03 11:08 | Emergency (ER) | payer OTHER, SELFPAY ==
[2020-08-03] VITALS (33 sets, daily range): BP systolic 141–167; BP diastolic 73–94; PULSE 80–94; RESP 12–17; TEMP 37.3; O2SAT 93–100
--- NOTE | 2020-08-03 11:00 | RT.EKG_ITS ---
APPROVED REPORT Exam: Resting ECG Reason for Exam: chest pain/covid+ Patient Location: E HR:87 bpm ECG Measurements Heart Rate 87 AXIS CO 154 P 27 QRSd 95 QRS 35 QT 349 T 17 QTc 420 Conclusion Sinus rhythm...normal P axis, V-rate 60- 99
--- NOTE | 2020-08-03 11:30 | DI.US_ITS ---
Exam(s) US LOWER EXTREMITY VENOUS RT EXAM: US LOWER EXTREMITY VENOUS RT CLINICAL HISTORY: pain, swelling, prior remote dvt, no anticoag TECHNIQUE: Right lower extremity venous ultrasound performed using grayscale, color-flow, and spectr al Doppler analysis. COMPARISON: No exams were available for comparison FINDINGS: The right common femoral, femoral and popliteal veins demonstrate normal compressibility, augmentatio n, and color Doppler. The posterior tibial veins are patent. The saphenofemoral junction is unremark able. There is no evidence of a Horner cyst. The soft tissues are unremarkable. IMPRESSION: 1. No DVT. 2. Results of this exam have been verbally communicated with provider. DATA REPOSITORY:
[2020-08-03 12:07] LABS: Abs Immature Grans 0.05 10^3/uL (0.0-0.06); Absolute Basophil Count 0.01 10^3/uL (0.0-0.2); Absolute Eosinophil Count 0.01 10^3/uL (0.0-0.7); Absolute Monocyte Count 0.59 10^3/uL (0.1-0.8); Absolute Neutrophil Count 6.39 10^3/uL (1.2-6.7); Basophils % 0.1; Eosinophils % 0.1; HCT 53.7 % (40.0-50.0); HGB 18.3 g/dL (13.5-17.5); Immature Grans % 0.6; Lymphocytes % 10.2; MCH 31.9 pg (27.0-33.0); MCHC 34.1 % (32.0-36.0); MCV 93.7 fL (80-95); Monocytes % 7.5; Neutrophils % 81.5; Nucleated RBC 0 %; Platelet Count 173 10^3/uL (130-400); RBC 5.73 10^6/uL (4.36-5.78); RDW 11.3 % (11.8-14.1); RDW-SD 39.4 fL; WBC 7.85 10^3/uL (4.4-10.8)
--- NOTE | 2020-08-03 12:18 | ED.GENADUL_ITS ---
Discharge Plan Disposition Patient Disposition: HOME Condition: Stable Discharge Details Clinical Impression: COVID-19, Chest pain Primary Care Provider: Pankaj Madrid ED Provider: Guido Ramirez Home Meds and New Rx's Prescriptions: Continued lamotrigine 25 mg tablet 25 mg PO DAILY Qty: 5 RF: 0 buprenorphine HCl 8 mg tablet, sublingual 24 mg sublingual DAILY RF: 0 alprazolam [Xanax] 2 mg tablet 2 mg PO BID RF: 0 pregabalin [Lyrica] 100 mg capsule 100 mg PO BID RF: 0 gabapentin 600 mg tablet 600 mg PO TID RF: 0 buspirone 10 mg tablet 30 mg PO BID RF: 0 multivitamin Tablet 1 tab PO DAILY RF: 0 ibuprofen 800 mg tablet 800 mg PO Q8H RF: 0 testosterone cypionate 200 mg/mL oil 300 mg IM Q2W RF: 0 albuterol sulfate [ProAir HFA] 90 mcg/actuation HFA aerosol inhaler 2 puff inhalation Q4H PRNRF: 0 prochlorperazine maleate 5 MG tablet 5 - 10 mg PO Q8H PRNQty: 20 RF: 0 pantoprazole 40 MG tablet,delayed release (DR/EC) 40 mg PO DAILY PRNRF: 0 lisinopril 10 mg tablet 10 mg PO DAILY Qty: 30 RF: 0 cholecalciferol (vitamin D3) [Vitamin D3] 1,000 UNIT capsule 1,000 unit PO DAILY RF: 0 Discharge Instructions Instructions: Chest Pain (ED), Pulse Oximetry (ED), COVID-19 (Coronavirus Disease 2019) (ED) Additional Instructions: You have COVID. Please maintain home isolation until cleared by your doctor or the department of redd. Please monitor home oxygen level . Call you doctor or return to the ER for pulse oximetry less that 90%. Please contact your primary care physician to arrange follow-up. Return to the ER for any worsening or new concerning symptoms. Referrals: Pankaj Madrid [Primary Care Provider] - Discharge Data Discharge Date/Time-TO BE ENTERED AT DEPARTURE: 08/03/20 15:25 Medical Decision Making 44-year-old male with substance use disorder, recently diagnosed with Covid, here with pleuritic chest pain. Patient is hemodynamically stable in no respiratory distress. Consider pulmonary embolism. Screening ECG was reviewed and interpreted by me: No signs of ACS, please see report. Considered myocarditis and troponin is negative. Considered ACS and initial troponin and delta troponin negative. CT of the chest was interpreted by radiology:IMPRESSION: 1. No evidence of pulmonary embolism, thoracic aortic dissection or aneurysm. 2. Multifocal ground-glass opacities. These would be consistent with a pneumonia including COVID-19 pneumonia. 3. Results of this exam have been verbally communicated with provider. Ultrasound the right lower extremity was interpreted by radiology: 1. No DVT. 2. Results of this exam have been verbally communicated with provider. Patient given Subutex 25 mg as prescribed. I called his substance use disorder treatment center to confirm dosing. Patient reassessed and is remained stable. All results discussed with the patient. He was encouraged to follow-up with his primary care physician. Patient understands importance of timely follow-up. Usual customary discharge instructions reviewed with patient. HPI General Mode of arrival: EMS . Date/Time Provider Initiated Documentation: 08/03/20 11:24 . Limitations to Documentation: no limitations . Information obtained by: patient . HPI Narrative: 44-year-old male with history of substance use disorder, being treated with Subutex, presents with chief complaint of chest pain. Patient notes she was recently diagnosed with Covid. He has had cough and intermittent fevers as well as body aches. Patient notes severe pleuritic chest pain intermittent over the past 3 days with associated shortness of breath. Pain worse with cough. Patient notes cannot catch his breath. Symptoms are worse today. Patient notes he has not received his Subutex over the past couple days and has had increased anxiety. Anxiety is severe. Related Data Home Medications Medication Instructions Recorded Confirmed cholecalciferol (vitamin D3) 1,000 unit PO DAILY 03/27/17 08/03/20 [Vitamin D3] prochlorperazine maleate 5 - 10 mg PO Q8H PRN #20 tab 08/14/17 08/03/20 lamotrigine 25 mg tablet 25 mg PO DAILY #5 tab 12/03/17 08/03/20 lisinopril 10 mg PO DAILY #30 tab 01/04/18 08/03/20 pantoprazole 40 mg PO DAILY PRN 01/04/18 08/03/20 albuterol sulfate 90 mcg/actuation 2 puff INHALATION Q4H PRN g 04/19/20 08/03/20 aerosol inhaler alprazolam 2 mg tablet 2 mg PO BID 04/19/20 08/03/20 buprenorphine HCl 8 mg sublingual 24 mg SUBLINGUAL DAILY tab 04/19/20 08/03/20 tablet buspirone 10 mg tablet 30 mg PO BID tab 04/19/20 08/03/20 gabapentin 600 mg tablet 600 mg PO TID 04/19/20 08/03/20 ibuprofen 800 mg tablet 800 mg PO Q8H 04/19/20 08/03/20 multivitamin 1 tab PO DAILY 04/19/20 08/03/20 pregabalin 100 mg capsule 100 mg PO BID 04/19/20 08/03/20 testosterone cypionate 200 mg/mL 300 mg IM Q2W ml 04/19/20 08/03/20 intramuscular oil Previous Rx's Medication Instructions Recorded prochlorperazine maleate 5 - 10 mg PO Q8H PRN #20 tab 08/14/17 lamotrigine 25 mg tablet 25 mg PO DAILY #5 tab 12/03/17 lisinopril 10 mg PO DAILY #30 tab 01/04/18 Allergies Allergy/AdvReac Type Severity Reaction Status Date / Time Cephalosporins Allergy Intermediate Swelling/Ed Unverified 08/03/20 11:14 arleth hydroxyzine Allergy Unverified 08/03/20 11:14 oxycodone Allergy Unverified 08/03/20 11:14 General Stated Complaint: Chest Pain JHONATAN: 2 Review of Systems All systems reviewed & are unremarkable except as noted in HPI and below Cardiovascular Cardiovascular: Reports as per HPI Respiratory Respiratory: Reports as per HPI [facility] Medical History (Updated 08/03/20 @ 14:55 by Guido Ramirez MD) A-fib s/p ablation Abnormal thyroid function test Allergic rhinitis Atrial flutter Carpal tunnel syndrome Chronic daily headache Chronic low back pain Depression Depression Diastasis recti Erectile dysfunction Failed back syndrome Generalized anxiety disorder GERD (gastroesophageal reflux disease) GERD (gastroesophageal reflux disease) Hepatitis C Hiatal hernia s/p Catherine History of substance abuse Hypertension Hypertension Hypogonadotropic hypogonadism Hypothyroidism Lower extremity edema Lumbosacral spondylosis with myelopathy Opioid dependence Polycythemia Prostate nodule Prostatitis, chronic PTSD (post-traumatic stress disorder) RUQ abdominal tenderness Urinary frequency Venous insufficiency Surgical History (System 06/17/20 @ 10:38 by Elaine Quintana) back surgery cardiac ablation EGD - MAC Catherine Fundoplication laparoscopic shoulder surgery Total replacement of hip Family History (System 06/17/20 @ 10:38 by Elaine Quintana) Father Stroke Paternal Uncle Stroke Paternal Grandmother Stroke Other Migraine Social History (System 06/17/20 @ 10:38 by Elaine Quintana) Smoking/Tobacco Use Status: Current every day Tobacco Type: cigarettes and e- cigarettes Smoking risk assessment performed?: Yes Alcohol Intake: former Drug use: Current Sobriety Substance use type: does not use Household members: spouse Do you feel safe at home: Yes Exam Const General: cooperative HENMT Mouth: moist mucous membranes Eyes Conjunctivae: normal conjunctivae Sclera: normal sclerae Neck Neck: trachea midline and supple Resp Effort & Inspection: able to speak in complete sentences, cough and no respiratory distress Auscultation: no rales, rhonchi and no wheezes Cardio Jugular venous pressure: no JVD Rate: regular rate and not tachycardic Rhythm: regular rhythm GI Palpation: soft, not firm, no guarding, no masses, not rigid and nontender Skin General skin exam: no rashes or lesions noted Neuro General: patient alert, patient awake, patient oriented x3 and tone normal Extrem General: calf tenderness on the right and no edema Psych Appearance: grossly normal Mental Status: mental status grossly normal Speech and Movement: speech and movement normal Mood: anxious mood Course Vital Signs Vital signs: Vital Signs Temperature 37.3 C 08/03/20 11:08 Pulse 94 H 08/03/20 11:08 Respiratory Rate 12 08/03/20 11:08 Blood Pressure 167/94 H 08/03/20 11:08 Pulse Oximetry 100 08/03/20 11:08 Temperature 37.3 C 08/03/20 11:08 Temperature Source Oral 08/03/20 11:08 Pulse 86 08/03/20 11:46 Pulse 88 08/03/20 11:50 Respiratory Rate 17 08/03/20 12:00 Respiratory Effort Non-Labored 08/03/20 11:15 Respiratory Depth Normal 08/03/20 11:15 Respiratory Pattern Normal 08/03/20 11:15 Blood Pressure 144/83 H 08/03/20 11:46 Blood Pressure Mean 97 08/03/20 11:46 Blood Pressure Position Supine 08/03/20 11:08 Pulse Oximetry 100 08/03/20 11:50 Oxygen Delivery Method Room Air 08/03/20 11:08 Oxygen Flow Rate 0 08/03/20 11:08 Pain Level 6 08/03/20 11:15 Lab/Test Results Lab/Test Results: Laboratory Tests Range/Units 08/03/20 11:15 WBC (4.4-10.8) 10^3/uL 7.85 RBC (4.36-5.78) 10^6/uL 5.73 Hgb (13.5-17.5) g/dL 18.3 H Hct (40.0-50.0) % 53.7 H MCV (80-95) fL 93.7 MCH (27.0-33.0) pg 31.9 MCHC (32.0-36.0) % 34.1 RDW (11.8-14.1) % 11.3 L Plt Count (130-400) 10^3/uL 173 MPV (8.0-11.0) fL 10.0 Immature Gran % 0.6 Neutrophils % 81.5 Lymphocytes % 10.2 Monocytes % 7.5 Eosinophils % 0.1 Basophils % 0.1 Nucleated RBC % % 0 Absolute Neutrophils (1.2-6.7) 10^3/uL 6.39 Absolute Lymphocytes (1.2-3.4) 10^3/uL 0.80 L Absolute Monocytes (0.1-0.8) 10^3/uL 0.59 Absolute Eosinophils (0.0-0.7) 10^3/uL 0.01 Absolute Basophils (0.0-0.2) 10^3/uL 0.01
[2020-08-03 12:23] LABS: ALT 34 U/L (16-63); AST 41 U/L (15-37); Albumin 3.8 g/dL (3.4-5.0); Alkaline Phosphatase 66 U/L (46-116); Anion Gap 9.6 mmol/L (3-11); BUN 15 mg/dL (7-18); Bilirubin, Total 0.8 mg/dL (0.2-1.0); CO2 27.4 mmol/L (21.0-32.0); CREATININE 1.3 mg/dL (0.70-1.30); Calcium 9.4 mg/dL (8.5-10.1); Chloride 99 mmol/L (98-107); Glucose 97 mg/dL (74-106); Magnesium 1.9 mg/dL (1.8-2.4); Potassium 4.5 mmol/L (3.5-5.1); Sodium 136 mmol/L (136-145); Total Protein 8.7 g/dL (6.4-8.2); Troponin I < 0.05 ng/mL (<0.06)
--- NOTE | 2020-08-03 12:30 | DI.CT_ITS ---
Exam(s) CT CHEST PE CTA EXAM: CT CHEST PE CTA CLINICAL HISTORY: chest pain, shortness of breath, covid +. TECHNIQUE: Imaging Protocol: Axial CT angiography was performed with multi-slice acquisition and mu lti-planar and/or 3D reconstructions. CONTRAST MATERIAL: Intravenous: Omnipaque 350 Contrast volume:100 mL COMPARISON: CT CT renal colic wo from 07/24/2018 FINDINGS: Tracheobronchial tree: Patent where visualized. Pulmonary parenchyma: Multifocal predominantly peripheral ground-glass opacities involving all 5 lobe s. No architectural distortion. Pulmonary Arteries: No evidence of filling defect to suggest pulmonary emboli. Mediastinum and Soraya: Mildly enlarged lymph nodes in the mediastinum which are likely reactive. Visualized thyroid gland: Unremarkable. Pleura: No effusion or pneumothorax. Heart: The heart is not dilated. No coronary artery calcifications are seen. No pericardial effusion. Aorta: Thoracic aorta non-dilated. No evidence of dissection. Upper abdomen: Small simple cyst in the superior pole of the right kidney. No further follow-up is recommended. Soft tissues: Unremarkable. Bones: Normal. IMPRESSION: 1. No evidence of pulmonary embolism, thoracic aortic dissection or aneurysm. 2. Multifocal ground-glass opacities. These would be consistent with a pneumonia including COVID-19 pneumonia. 3. Results of this exam have been verbally communicated with provider. RADIATION DOSE DELIVERED: 503.91mGy.cm Total DLP DATA REPOSITORY: All CT scans at this facility are submitted to the National Radiology Data Registry (NRDR) Dose Index Registry (DIR) with the [employer] (ACR). RADIATION OPTIMIZATION: All CT scans at this facility use at least one of these dose optimization te chniques: automated exposure control; mA and/or kV adjustment per patient size (includes targeted exa ms where dose is matched to clinical indication); or iterative reconstruction.
[2020-08-03] MEDS: Normal Saline - Diluent 50 ML VIAL IV (13:18)
[2020-08-03 13:19] LABS: Bilirubin Negative (Negative); Blood Negative (Negative); Clarity Clear (Clear); Glucose Negative (Negative); Ketones Trace mg/dL (Negative); Leukocyte Esterase Negative (Negative); Nitrite Negative (Negative); Specific Gravity 1.015 (1.005-1.025); Urobilinogen 0.2 EU/dL (Up TO 0.2); pH 8.5 (5-8)
[2020-08-03] MEDS: Omnipaque 350 MG/ML 100 ML BTL IJ (13:19)
[2020-08-03 13:41] LABS: Bacteria Negative HPF (Negative); C & S Indicated? No; Casts 0-2 Hyaline LPF (Negative); Crystals Negative HPF (Negative); Epithelial Cells Rare HPF (Negative); Mucus Negative (Negative); RBC Negative HPF (0-2); WBC Negative HPF (0-5)
--- NOTE | 2020-08-03 14:00 | RT.EKG_ITS ---
APPROVED REPORT Exam: Resting ECG Reason for Exam: second troponin Patient Location: E HR:82 bpm ECG Measurements Heart Rate 82 AXIS WY 162 P 11 QRSd 94 QRS 26 QT 357 T 9 QTc 417 Conclusion Sinus rhythm...normal P axis, V-rate 60- 99
[2020-08-03] MEDS: Acetaminophen 325 MG TAB 650 MG PO (14:09)
[2020-08-03 14:38] LABS: Troponin I < 0.05 ng/mL (<0.06)
--- OUTSIDE RECORDS SUMMARY | 2020-08-03 15:05 | XMS_ITS | Encounter Summary ---
:1975 Author Reason for Visit MAT telemedicine*; OUD - buprenorphine f ollow-up - weekly* Assessment and Plan Assessment Note Telemedicine Information: This telephonic (audio only) appointmen t provided a MAT prescription. Time Start: 8:30a; Time End:8:35a Provider Location: office; Patient Loca tion: home Telemedicine Consent Given (verbal): Y Lab Results Last UDS Result (Qual Screen): 07/27/20 POS Buprenorphine and POS for the following illicit drugs or EtOH: +cocaine, +BZD (Rx) Last Confirmatory Test Result (LCMS/Qu ant): 07/27/20 N/A due to admitted use Last Buprenorphine Confirmation Test Re sult: 07/06/20 Bup: 252 ng/ml & Norbup: 683 ng/ml Last LFT Result : needs labs Since Last Visit THIS PT IS BEING TREATED FOR OUD WITH BU PRENORPHINE AND IS SEEN WEEKLY CURRENT PRESCRIPTION IS: 24mg Subutex ta bs (8mg x3) Bio/psycho/social Update: Rafa is a 44y/o male with hx OUD, claudio jett use, chronic pain, PTSD on Subutex 24mg tabs seen weekly. Visit today 08/03 completed over the phone due to positive COVID test OUD: Pt denies cravings, withdrawal symp toms, or adverse effects of medication. Feeling stable on current dose Splits dose (12 or 16mg in am, rest in a fternoon/evening) Initial visit: 05/11/20 COVID: pt called the office on his way t o his appt stating that he just got the news that he had tested positive for COVID. Completed visit over the phone. Encouraged pt to go back home, isolate, push f luids, and rest as much as possible. He will continue to keep in touch with the office about his condition. Cocaine use: At last visit 07/27 pt report ed slip with crack use after nearly a month of reported abstinence. Denies crack use since, states he has been feeling too bad to do anything. Family: mother 07/26 at home. He reports an autopsy was done and cause of was found to be an FL. States she also had an untreated dental infection which is thought to have seeded to her heart. Assessment The patient's current phase of treatment is Stable maintenance, OUD. 1) Interpretation of Confirmatory (LCMS ) Test Result: N/A due to admitted use 2) Interpretation of Last Buprenorphine Confirmation Test Result: No concern 3) Medication Dose: No report of cravi ngs/withdrawal symptoms. Pt will remain at current dose 4) Markers of Recovery include: Contin ued sobriety from opioids, actively looking for new housing to diminish environmental trigger 5) Counseling: Engaged in Counseling The patient does meet diagnostic criteri a for opioid dependence. The patient is responding to treatment w ith buprenorphine at OBOT level of care at this phase of treatment. The patient does continue to be a good c andidate for this level of care. LFT will be repeated per our clinical pr otocol. Urine drug testing is ordered today with medical necessity as below. LAB ORDERS - Confirmatory testing for i llicit substances or absence of prescribed buprenorphine. UNEXPECTED results on UDS may impact thi s patient's treatment plan. The following tests require confirmation via LCMS: Y POS for AMPHETAMINE Y POS for BENZODIAZEPINES Y POS for COCAINE Y POS for METHADONE Y POS for OPIATES (INCLUDING FENTANYL) Y POS for OXYCODONE ADDITIONAL LAB(S) REQUESTED - if indic ated, please order the following: NONE Plan OUD: Continue Subutex 24mg tabs. 7d Rx p rovided today Patient's visit frequency should be week ly. Frequency of UDS and confirmatory test, if applicable, should be weekly Treatment plan review or change includes continue current level of care Referrals made today include none. Prescription monitoring program is revie wed. If reviewed, I have identified agents prescribed to the patient in addition to any issued by our program; the patient is counseled regarding any risk of combining sedating agents. 1. Opioid dependence Stable - well managed on curre nt dose 2. Cocaine abuse Unstable - continued use 3. Acute COVID-19 Unstable - acute infection Discussion Note: None recorded.Patient educational handouts: No information available. Plan of Care Patient Instructions As part of your individualized bibi atment plan and program requirement, you will need to bring your correct prescription bottle and all used and unused medication and counseling verification to each appointm ent; > Agree to participate in counseling and bring counseling verification to eac h appointment; > Agree to present for random visits; > Agree to not falsify your urin e specimens. Reminders Provider Appointments Weekly 08/10/2020 [facility], [facility] 8:45AM [place] Lab None ? ? recorded. Referral None ? ? recorded. Procedures None ? ? recorded. Surgeries None ? ? recorded. Imaging None ? ? recorded. Medications Name Start Date ? ? alprazolam 2 mg tablet ? amlodipine 5 mg tablet ? TAKE 1 TABLET BY MOUTH EVERY DAY BD Regular Bevel [place] 22 gauge x 1 02/20 ? USE WITH SYRINGE TO INJECT TESTOSTERONE INTO MUSCLE buprenorphine HCl 8 mg sublingual tablet ? Place 3 tablets every day by sublingual route for 7 d ays. bupropion HCl XL 300 mg 24 hr tablet, extended release ? TAKE 1 TABLET BY MOUTH EVERY DAY IN THE MORNING clonazepam 2 mg tablet ? TAKE 1 TABLET BY MOUTH TWICE DAILY doxazosin 1 mg tablet ? TAKE ONE TABLET BY MOUTH DAILY AT BEDTIME TO HELP URI NATION AND BLOOD PRESSURE gabapentin 600 mg tablet ? TAKE 1 TABLET BY MOUTH THREE TIMES DAILY hydrochlorothiazide 12.5 mg tablet ? TAKE 1 TABLET BY MOUTH DAILY methylphenidate 20 mg tablet ? TAKE 1 TABLET BY MOUTH TWICE DAILY olanzapine 15 mg tablet ? pantoprazole 40 mg tablet,delayed release ? TAKE 1 TABLET BY MOUTH EVERY DAY pregabalin 100 mg capsule ? TAKE 1 CAPSULE BY MOUTH TWICE DAILY sildenafil 50 mg tablet ? TAKE 1 TABLET BY MOUTH EVERY DAY NEEDED syringe (disposable) 3 mL ? testosterone cypionate 200 mg/mL intramuscular oil ? INJECT 1.5 MILLILITERS INTO THE MUSCLE EVERY 2 WEEKS. Medications Administered None recorded. Vitals None recorded. Results Lab Results None recorded. Allergies Code Code System Name Reaction Severity Onset 7242 RxNorm Naloxone ? ? ? Problems Name Status Onset Date Source ? Polycythemia Vera (Clinical) Active 05/11/2020 ? Opioid Dependence Active 05/11/2020 ? Posttraumatic Stress Disorder Active 05/11/2020 ? Hypertensive Disorder Active 05/11/2020 ? Chronic Back Pain Active 05/11/2020 ? Cocaine Abuse Active 05/18/2020 ? Acute COVID-19 Active 08/03/2020 ? Procedures Date Name Performed by ? ? Operative Procedure on Spinal Structure Information not available Notes: 2014x2, 2017 x1, 2018 x3, 2020 x1 Vaccine List Notes: Dr. Green psych every 2 we eks Social History Tobacco Smoking Status Light Tobacco Smoker (1 PPW) *Legal Assistance Not required * Not a *Transportation Issues No *Job Not needed Training/Education/Literacy *Custody of Dependent Children N/A *Social Service's Involvement Not applicable with Dependent Children *Social Support Network Does not have stable support system *Employment Retired/Disabled Notes: 07/06/20: S [employer] *Primary Care Provider Y *Legal Status No legal issues Tobacco-years of use 2 *Childcare Needed N *Concern for Domestic Violence N *Other Medical Issues None *Food Adequate *Housing Stable - safe Notes: 07/06/20: apartment with his w iron, actively looking for new housing as crack lakeisha ler lives the floor abov e them Family History Relation Problem Onset Age of Age Notes Sister Addiction (No N/A of overdos e Information) April 2019 Father Alcohol abuse (No N/A (No Notes) Information) Mother Heart disease (No N/A (No Notes) Information) Mother Myocardial (No N/A 07/26/20 infarction Information) Functional Status Unknown. Past Encounters 08/03/2020 Opioid Dependence; Cocaine Abuse; Acute COVID-19 TERESA Garcia: [address] [place] [phone], Ph. 07/27/2020 Opioid Dependence; Cocaine Abuse TERESA Garcia: [address] [place] [phone], Ph. 07/20/2020 Opioid Dependence; Cocaine Abuse TERESA Garcia: [address] [place] [phone], Ph. 07/13/2020 Opioid Dependence; Cocaine Abuse TERESA Garcia: [address] [place] [phone], Ph. 07/06/2020 Opioid Dependence; Cocaine Abuse TERESA Garcia: [address] [place] [phone], Ph. History of Present Illness Note: <p>The patient reports {{doing better doing well struggling*}} since last visit and {{denies* reports}} slip or relapse.

<strong>MAT HPI</strong><b r>They {{deny* report}} cravings for opiates and {{deny* report}} opiates use since their last visit.
They {{deny report*}} cravings for other substances and {{deny* report}} other substance use since their last visit
Triggers {{are* are not}} identified and any alleviating factors to identified triggers are discussed. (environment, looking for new housing)
Withdrawal symptoms {{are* are not}} present.

<strong>MAT Administration and Pr ogram Adherence</strong>
The patient {{is* is not}} compliant with prescribed buprenorphine dose.
The patient {{denies* reports}} side effects from the medication.
There {{are* are not}} other support systems in place for this patient.

There {{is is no*}} concern for diversion.</p> Review of Systems ? Comprehensive Adult Problem ROS Reported By: Patient Constitutional: Constitutional: diminished a ctivity, fatigue Respiratory: Respiratory: cough Gastrointestinal: GI: no abdominal pain, no na usea, no constipation Musculoskeletal: Musculoskeletal: myalgia Neurological symptoms: Neuro: no headache Psychiatric: Psych: no insomnia, depressi on, anxiety, stress Physical Exam ? General Adult Exam* Reported By: Patient Constitutional*: Level of Distress:* responsi ve in conversation* Psychiatric*: Insight:* good judgement*. M michael:* recent memory normal*. Mental Status* active & alert*, nor mal affect*, normal mood* ENMT*: Hearing:* no hearing loss* Lungs*: Respiratory effort:* no dysp wade*, no audible wheezing* Neurologic*: Orientation:* to time*, to p lace*, to person*. Cranial Nerves:* articulate: coordinated spee *
--- OUTSIDE RECORDS SUMMARY | 2020-08-03 15:05 | XMS_ITS ---
:1975 Author Care Team Providers Name Role Phone Andria Meier Primary Care Provider Unavailable Allergies Code Code System Name Reaction Severity Status Onset 7242 RxNorm Naloxone ? ? Active ? Medications Name Status Start Date Stop Date ? ? alprazolam 2 mg tablet Active ? Not avail able amlodipine 5 mg tablet Active ? Not avail able TAKE 1 TABLET BY MOUTH EVERY DAY baclofen 10 mg tablet Completed ? 07/20/2020 baclofen 5 mg tablet Unknown ? Not availab le Take 1 tablet 3 times a day by oral route for 7 days. BD Regular Bevel [place] 22 gauge x 1 1/2 Active ? Not available USE WITH SYRINGE TO INJECT TESTOSTERONE INTO MUSCLE buprenorphine HCl 8 mg sublingual tablet Active ? Not available Place 3 tablets every day by sublingual route for 7 days. bupropion HCl XL 300 mg 24 hr tablet, extended release Active ? Not available TAKE 1 TABLET BY MOUTH EVERY DAY IN THE MORNING buspirone 10 mg tablet Completed ? 1 TAKE 1 TABLET BY MOUTH THREE TIMES DAILY clonazepam 0.5 mg tablet Completed ? 021 TK 1 T PO BID FOR 2 WEEKS THEN 1 TABLET DAILY FOR 2 WEEKS THEN DISCONTINUE clonazepam 1 mg tablet Completed ? 1 TAKE 1 TABLET BY MOUTH THREE TIMES DAILY clonazepam 2 mg tablet Active ? Not avail able TAKE 1 TABLET BY MOUTH TWICE DAILY dexmethylphenidate 10 mg tablet Completed ? 07/14/2020 TAKE 1 TABLET BY MOUTH TWICE DAILY dexmethylphenidate ER 20 mg capsule,extended release [id number] Completed ? 07/14/2020 TK 1 C PO QD dexmethylphenidate ER 40 mg capsule,extended release [id number] 50 Completed ? 07/14/2020 TAKE 1 CAPSULE BY MOUTH EVERY DAY doxazosin 1 mg tablet Active ? Not availa ble gabapentin 600 mg tablet Active ? Not jess ilable TAKE 1 TABLET BY MOUTH THREE TIMES DAILY hydrochlorothiazide 12.5 mg tablet Active ? Not available TAKE 1 TABLET BY MOUTH DAILY lisinopril 20 mg tablet Completed ? 06/29/19 21 TK 1 T PO QD methylphenidate 20 mg tablet Active ? Not available TAKE 1 TABLET BY MOUTH TWICE DAILY methylphenidate LA 40 mg biphasic 50-50 capsule,extended release Completed ? 07/14/2020 TAKE 1 CAPSULE BY MOUTH ONCE DAILY. TO REPLACE DEXMETHYLPHENIDATE DUE TO INADEQUATE RESPONSE. olanzapine 10 mg tablet Completed ? 06/29/19 21 TAKE 1 TABLET BY MOUTH AT BEDTIME olanzapine 15 mg tablet Active ? Not avai lable pantoprazole 40 mg tablet,delayed release Active ? Not available TAKE 1 TABLET BY MOUTH EVERY DAY pregabalin 100 mg capsule Active ? Not av ailable TAKE 1 CAPSULE BY MOUTH TWICE DAILY sildenafil 50 mg tablet Active ? Not avai lable TAKE 1 TABLET BY MOUTH EVERY DAY NEEDED syringe (disposable) 3 mL Active ? Not av ailable testosterone cypionate 200 mg/mL intramuscular oil Active ? Not available INJECT 1.5 MILLILITERS INTO THE MUSCLE EVERY 2 WEEKS. Problems Name Status Onset Date Source ? Polycythemia Vera (Clinical) Active 05/11/2020 ? Opioid Dependence Active 05/11/2020 ? Posttraumatic Stress Disorder Active 05/11/2020 ? Hypertensive Disorder Active 05/11/2020 ? Chronic Back Pain Active 05/11/2020 ? Cocaine Abuse Active 05/18/2020 ? Acute COVID-19 Active 08/03/2020 ? Procedures Date Name Performed by ? ? Operative Procedure on Spinal Structure Information not available Notes: 2014x2, 2016 x1, 2017 x3, 2019 x1 Results Lab Results Date Name Specimen Result Interpretation Description Value Range Status Address ? 07/27/2020 Drug UR ? Amphetamines negative NG/mL 1,000 Final [facility] Screen, NG/mL Health: Urine [address], [place] ? ? UR ABNORMAL Benzodiazapines positive NG/mL 200 Final [facility] NG/mL Health: [address], [place] ? ? UR ? Buprenorphine positive NG/mL 5 F inal [facility] NG/mL Health: [address], [place] ? ? UR ABNORMAL Cocaine positive NG/mL 150 Final [facility] Metabolite NG/mL Health : [address], [place] ? ? UR ? Opiates negative NG/mL 300 Final [facility] NG/mL Health: [address], [place] ? ? UR ? Oxycodone negative NG/mL 300 Final [facility] NG/mL Health: [address], [place] ? ? UR ? Fentanyl negative NG/mL 2 Final [facility] NG/mL Health: [address], [place] ? ? UR ? Ethyl Alcohol negative mg/dL 10 F inal [facility] mg/dL Health: [address], [place] ? ? UR ? Methadone negative NG/mL 300 Final [facility] Metabolite NG/mL Health : [address], [place] ? ? UR ? Urine Creatinine 188.4 mg/dL 20 F inal [facility] mg/dL Health: [address], [place] ? ? UR ? Urine pH 5.60 4.5-9. Final [facility] 0 Health: [address], [place] ? ? UR ? Specific [place] 1.025 1.003- Final [facility] 1.035 Health: [address], [place] 07/27/2020 Cocaine UR ? Admitted Cocaine ntp ? F inal [facility] Metaboli Use Health: jany, [address], Urine [place] 07/20/2020 Drug UR ? Amphetamines negative NG/mL 1,000 Final [facility] Screen, NG/mL Health: Urine [address], [place] ? ? UR ? Benzodiazapines negative NG/mL 200 Final [facility] NG/mL Health: [address], [place] ? ? UR ? Buprenorphine positive NG/mL 5 F inal [facility] NG/mL Health: [address], [place] ? ? UR ABNORMAL Cocaine positive NG/mL 150 Final [facility] Metabolite NG/mL Health : [address], [place] ? ? UR ? Opiates negative NG/mL 300 Final [facility] NG/mL Health: [address], [place] ? ? UR ? Oxycodone negative NG/mL 300 Final [facility] NG/mL Health: [address], [place] ? ? UR ? Fentanyl negative NG/mL 2 Final [facility] NG/mL Health: [address], [place] ? ? UR ? Ethyl Alcohol negative mg/dL 10 F inal [facility] mg/dL Health: [address], [place] ? ? UR ? Methadone negative NG/mL 300 Final [facility] Metabolite NG/mL Health : [address], [place] ? ? UR ? Urine Creatinine 211.7 mg/dL 20 F inal [facility] mg/dL Health: [address], [place] ? ? UR ? Urine pH 6.30 4.5-9. Final [facility] 0 Health: [address], [place] ? ? UR ? Specific [place] 1.017 1.003- Final [facility] 1.035 Health: [address], [place] 07/20/2020 Cocaine UR ? Benzoylecgonine negative NG/mL 1 00 Final [facility] [place] NG/mL Health: jany, [address], Urine [place] ? ? UR ? Legend abbreviations ? Final Sa lm Health: [address], [place] ? ? UR ? Billing Only billing only ? Jaida Tijerinaida ([id number]) Health: [address], [place] 07/13/2020 Drug UR ? Amphetamines negative NG/mL 1,000 Final [facility] Screen, NG/mL Health: Urine [address], [place] ? ? UR ? Benzodiazapines negative NG/mL 200 Final [facility] NG/mL Health: [address], [place] ? ? UR ? Buprenorphine positive NG/mL 5 F inal [facility] NG/mL Health: [address], [place] ? ? UR ABNORMAL Cocaine positive NG/mL 150 Final [facility] Metabolite NG/mL Health : [address], [place] ? ? UR ? Opiates negative NG/mL 300 Final [facility] NG/mL Health: [address], [place] ? ? UR ? Oxycodone negative NG/mL 300 Final [facility] NG/mL Health: [address], [place] ? ? UR ? Fentanyl negative NG/mL 2 Final [facility] NG/mL Health: [address], [place] ? ? UR ? Ethyl Alcohol negative mg/dL 10 F inal [facility] mg/dL Health: [address], [place] ? ? UR ? Methadone negative NG/mL 300 Final [facility] Metabolite NG/mL Health : [address], [place] ? ? UR ? Urine Creatinine 62.2 mg/dL 20 Fi nal [facility] mg/dL Health: [address], [place] ? ? UR ? Urine pH 5.50 4.5-9. Final [facility] 0 Health: [address], [place] ? ? UR ? Specific [place] 1.010 1.003- Final [facility] 1.035 Health: [address], [place] 07/13/2020 Cocaine UR High Benzoylecgonine olr(>2000) 100 Final [facility] Met[place] NG/mL NG/mL Health: jany, [address], Urine [place] ? ? UR ? Legend abbreviations ? Final Sa lm Health: [address], [place] ? ? UR ? Billing Only billing only ? Jaida villanueva [facility] ([id number]) Health: [address], [place] 07/06/2020 Drug UR ? Amphetamines negative NG/mL 1,000 Final [facility] Screen, NG/mL Health: Urine [address], [place] ? ? UR ? Benzodiazapines negative NG/mL 200 Final [facility] NG/mL Health: [address], [place] ? ? UR ? Buprenorphine positive NG/mL 5 F inal [facility] NG/mL Health: [address], [place] ? ? UR ? Cocaine negative NG/mL 150 Final [facility] Metabolite NG/mL Health : [address], [place] ? ? UR ? Opiates negative NG/mL 300 Final [facility] NG/mL Health: [address], [place] ? ? UR ? Oxycodone negative NG/mL 300 Final [facility] NG/mL Health: [address], [place] ? ? UR ? Fentanyl negative NG/mL 2 Final [facility] NG/mL Health: [address], [place] ? ? UR ? Ethyl Alcohol negative mg/dL 10 F inal [facility] mg/dL Health: [address], [place] ? ? UR ? Methadone negative NG/mL 300 Final [facility] Metabolite NG/mL Health : [address], [place] ? ? UR ? Urine Creatinine 131.6 mg/dL 20 F inal [facility] mg/dL Health: [address], [place] ? ? UR ? Urine pH 7.00 4.5-9. Final [facility] 0 Health: [address], [place] ? ? UR ? Specific [place] 1.010 1.003- Final [facility] 1.035 Health: [address] 07/06/2020 Drug UR ? Buprenorphine 252 NG/mL 20 Fi nal [facility] Confirma NG/mL Health: tion, [address], [place] ? ? UR ? Norbuprenorphine 683 NG/mL 50 Fin al [facility] NG/mL Health: [address], [place] ? ? UR ? Alpha-hydroxyalp negative NG/mL 25 Final [facility] razolam NG/mL Health: [address], [place] ? ? UR ? 7-Aminoclonazepa negative NG/mL 40 Final [facility] m NG/mL Health: [address], [place] ? ? UR ? Diazepam negative NG/mL 50 Final [facility] NG/mL Health: [address], [place] ? ? UR ? Lorazepam negative NG/mL 50 Final [facility] NG/mL Health: [address], [place] ? ? UR ? Nordiazepam negative NG/mL 50 Fin al [facility] NG/mL Health: [address], [place] ? ? UR ? Temazepam negative NG/mL 50 Final [facility] NG/mL Health: [address], [place] ? ? UR ? Legend abbreviations ? Final Sa lm Health: [address], [place] ? ? UR ? Billing Only billing only ? Jaida l [facility] ([id number]) Health: [address], [place] 06/29/2020 Drug UR ? Amphetamines negative NG/mL 1,000 Final [facility] Screen, NG/mL Health: Urine [address], [place] ? ? UR ? Benzodiazapines negative NG/mL 200 Final [facility] NG/mL Health: [address], [place] ? ? UR ? Buprenorphine positive NG/mL 5 F inal [facility] NG/mL Health: [address], [place] ? ? UR ABNORMAL Cocaine positive NG/mL 150 Final [facility] Metabolite NG/mL Health : [address], [place] ? ? UR ? Opiates negative NG/mL 300 Final [facility] NG/mL Health: [address], [place] ? ? UR ? Oxycodone negative NG/mL 300 Final [facility] NG/mL Health: [address], [place] ? ? UR ? Fentanyl negative NG/mL 2 Final [facility] NG/mL Health: [address], [place] ? ? UR ? Ethyl Alcohol negative mg/dL 10 F inal [facility] mg/dL Health: [address], [place] ? ? UR ? Methadone negative NG/mL 300 Final [facility] Metabolite NG/mL Health : [address], [place] ? ? UR ? Urine Creatinine 120.4 mg/dL 20 F inal [facility] mg/dL Health: [address], [place] ? ? UR ? Urine pH 8.00 4.5-9. Final [facility] 0 Health: [address], [place] ? ? UR ? Specific [place] 1.011 1.003- Final [facility] 1.035 Health: [address], [place] 06/29/2020 Cocaine UR ? Admitted Cocaine ntp ? F inal [facility] [place] Use Health: jany, [address], Urine [place] 06/22/2020 Drug UR ABNORMAL Amphetamines positive NG/mL 1,0 00 Final [facility] Screen, NG/mL Health: Urine [address], [place] ? ? UR ? Benzodiazapines negative NG/mL 200 Final [facility] NG/mL Health: [address], [place] ? ? UR ? Buprenorphine positive NG/mL 5 F inal [facility] NG/mL Health: [address], [place] ? ? UR ABNORMAL Cocaine positive NG/mL 150 Final [facility] Metabolite NG/mL Health : [address], [place] ? ? UR ? Opiates negative NG/mL 300 Final [facility] NG/mL Health: [address], [place] ? ? UR ? Oxycodone negative NG/mL 300 Final [facility] NG/mL Health: [address], [place] ? ? UR ? Fentanyl negative NG/mL 2 Final [facility] NG/mL Health: [address], [place] ? ? UR ? Ethyl Alcohol negative mg/dL 10 F inal [facility] mg/dL Health: [address], [place] ? ? UR ? Methadone negative NG/mL 300 Final [facility] Metabolite NG/mL Health : [address], [place] ? ? UR ? Urine Creatinine 146.5 mg/dL 20 F inal [facility] mg/dL Health: [address], [place] ? ? UR ? Urine pH 5.50 4.5-9. Final [facility] 0 Health: [address], [place] ? ? UR ? Specific [place] 1.020 1.003- Final [facility] 1.035 Health: [address], [place] 06/22/2020 Cocaine UR ? Admitted Cocaine ntp ? F inal [facility] [place] Use Health: jany, [address], Urine [place] 06/22/2020 Amphetam UR ? Amphetamine negative NG/mL 250 Final [facility] ada, NG/mL Health: QN, [address], [place] ? ? UR High Methamphetamine 2859 NG/mL 250 Fin al [facility] NG/mL Health: [address], [place] ? ? UR ? Mda negative NG/mL 250 Final Sa [facility]m NG/mL Health: [address], [place] ? ? UR ? Legend abbreviations ? Final Sa lm Health: [address], [place] ? ? UR ? Billing Only billing only ? Jaida l [facility] ([id number]) Health: [address], [place] 06/15/2020 Drug UR ? Amphetamines negative NG/mL 1,000 Final [facility] Screen, NG/mL Health: Urine [address], [place] ? ? UR ? Benzodiazapines negative NG/mL 200 Final [facility] NG/mL Health: [address], [place] ? ? UR ? Buprenorphine positive NG/mL 5 F inal [facility] NG/mL Health: [address], [place] ? ? UR ABNORMAL Cocaine positive NG/mL 150 Final [facility] Metabolite NG/mL Health : [address], [place] ? ? UR ? Opiates negative NG/mL 300 Final [facility] NG/mL Health: [address], [place] ? ? UR ? Oxycodone negative NG/mL 300 Final [facility] NG/mL Health: [address], [place] ? ? UR ? Fentanyl negative NG/mL 2 Final [facility] NG/mL Health: [address], [place] ? ? UR ? Ethyl Alcohol negative mg/dL 10 F inal [facility] mg/dL Health: [address], [place] ? ? UR ? Methadone negative NG/mL 300 Final [facility] Metabolite NG/mL Health : [address], [place] ? ? UR ? Urine Creatinine 89.3 mg/dL 20 Fi nal [facility] mg/dL Health: [address], [place] ? ? UR ? Urine pH 5.90 4.5-9. Final [facility] 0 Health: [address], [place] ? ? UR ? Specific [place] 1.014 1.003- Final [facility] 1.035 Health: [address], [place] 06/15/2020 Cocaine UR ? Admitted Cocaine ntp ? F inal [facility] [place] Use Health: jany, [address], Urine [place] 06/08/2020 Drug UR ? Amphetamines negative NG/mL 1,000 Final [facility] Screen, NG/mL Health: Urine [address], [place] ? ? UR ? Benzodiazapines negative NG/mL 200 Final [facility] NG/mL Health: [address], [place] ? ? UR ? Buprenorphine positive NG/mL 5 F inal [facility] NG/mL Health: [address], [place] ? ? UR ABNORMAL Cocaine positive NG/mL 150 Final [facility] Metabolite NG/mL Health : [address], [place] ? ? UR ? Opiates negative NG/mL 300 Final [facility] NG/mL Health: [address], [place] ? ? UR ? Oxycodone negative NG/mL 300 Final [facility] NG/mL Health: [address], [place] ? ? UR ? Fentanyl negative NG/mL 2 Final [facility] NG/mL Health: [address], [place] ? ? UR ? Ethyl Alcohol negative mg/dL 10 F inal [facility] mg/dL Health: [address], [place] ? ? UR ? Methadone negative NG/mL 300 Final [facility] Metabolite NG/mL Health : [address], [place] ? ? UR ? Urine Creatinine 61.8 mg/dL 20 Fi nal [facility] mg/dL Health: [address], [place] ? ? UR ? Urine pH 8.20 4.5-9. Final [facility] 0 Health: [address], [place] ? ? UR ? Specific [place] 1.005 1.003- Final [facility] 1.035 Health: [address], [place] 06/08/2020 Drug UR ? Buprenorphine atr NG/mL 20 Fi nal [facility] Confirma NG/mL Health: tion, [address], [place] ? ? UR ? Norbuprenorphine atr NG/mL 50 Fin al [facility] NG/mL Health: [address], [place] ? ? UR ? Alpha-hydroxyalp negative NG/mL 25 Final [facility] razolam NG/mL Health: [address], [place] ? ? UR ? 7-Aminoclonazepa negative NG/mL 40 Final [facility] m NG/mL Health: [address], [place] ? ? UR ? Diazepam negative NG/mL 50 Final [facility] NG/mL Health: [address], [place] ? ? UR ? Lorazepam negative NG/mL 50 Final [facility] NG/mL Health: [address], [place] ? ? UR ? Nordiazepam negative NG/mL 50 Fin al [facility] NG/mL Health: [address], [place] ? ? UR ? Temazepam negative NG/mL 50 Final [facility] NG/mL Health: [address], [place] ? ? UR ? Legend abbreviations ? Final Sa lm Health: [address], [place] ? ? UR ? Billing Only billing only ? Jaida villanueva [facility] ([id number]) Health: [address], [place] 06/08/2020 Cocaine UR ? Admitted Cocaine ntp ? F inal [facility] [place] Use Health: jany, [address], [address], Urine [place] 06/08/2020 Drug ? Buprenorphine 46 NG/mL 10 Fin al [facility] Confirma NG/mL Health: tion, [address], [place] ? ? ? Norbuprenorphine 490 NG/mL 10 Fin al [facility] NG/mL Health: [address], [place] ? ? ? Legend abbreviations ? Final Sa lm Health: [address], [place] 06/01/2020 Drug UR ? Amphetamines negative NG/mL 1,000 Final [facility] Screen, NG/mL Health: Urine [address], [place] ? ? UR ? Benzodiazapines negative NG/mL 200 Final [facility] NG/mL Health: [address], [place] ? ? UR ? Buprenorphine positive NG/mL 5 F inal [facility] NG/mL Health: [address], [place] ? ? UR ABNORMAL Cocaine positive NG/mL 150 Final [facility] Metabolite NG/mL Health : [address], [place] ? ? UR ? Opiates negative NG/mL 300 Final [facility] NG/mL Health: [address], [place] ? ? UR ? Oxycodone negative NG/mL 300 Final [facility] NG/mL Health: [address], [place] ? ? UR ? Fentanyl negative NG/mL 2 Final [facility] NG/mL Health: [address], [place] ? ? UR ? Ethyl Alcohol negative mg/dL 10 F inal [facility] mg/dL Health: [address], [place] ? ? UR ? Methadone negative NG/mL 300 Final [facility] Metabolite NG/mL Health : [address], [place] ? ? UR ? Urine Creatinine 121.3 mg/dL 20 F inal [facility] mg/dL Health: [address], [place] ? ? UR ? Urine pH 8.20 4.5-9. Final [facility] 0 Health: [address], [place] ? ? UR ? Specific [place] 1.011 1.003- Final [facility] 1.035 Health: [address], [place] 06/01/2020 Drug UR ? Buprenorphine 56 NG/mL 10 Fin al [facility] Confirma NG/mL Health: tion, [address], [place] ? ? UR ? Norbuprenorphine 465 NG/mL 10 Fin al [facility] NG/mL Health: [address], [place] ? ? UR ? Legend abbreviations ? Final Sa lm Health: [address], [place] ? ? UR ? Billing Only billing only ? Jaida villanueva [facility] ([id number]) Health: [address], [place] 06/01/2020 Cocaine UR ? Admitted Cocaine ntp ? F inal [facility] [place] Use Health: jany, [address], Urine [place] 05/25/2020 Drug UR ? Amphetamines negative NG/mL 1,000 Final [facility] Screen, NG/mL Health: Urine [address], [place] ? ? UR ? Benzodiazapines negative NG/mL 200 Final [facility] NG/mL Health: [address], [place] ? ? UR ? Buprenorphine positive NG/mL 5 F inal [facility] NG/mL Health: [address], [place] ? ? UR ABNORMAL Cocaine positive NG/mL 150 Final [facility] Metabolite NG/mL Health : [address], [place] ? ? UR ? Methadone negative NG/mL 300 Final [facility] Metabolite NG/mL Health : [address], [place] ? ? UR ? Opiates negative NG/mL 300 Final [facility] NG/mL Health: [address], [place] ? ? UR ? Oxycodone negative NG/mL 300 Final [facility] NG/mL Health: [address], [place] ? ? UR ? Fentanyl negative NG/mL 2 Final [facility] NG/mL Health: [address], [place] ? ? UR ? Urine Creatinine 50.6 mg/dL >20 Fi nal [facility] mg/dL Health: [address], [place] ? ? UR ? Urine pH 8.20 4.5-9. Final [facility] 0 Health: [address], [place] ? ? UR ? Specific [place] 1.004 1.003- Final [facility] 1.035 Health: [address], [place] 05/25/2020 Cocaine UR High Benzoylecgonine olr(>2000) 100 Final [facility] [place] NG/mL NG/mL Health: jany, [address], Urine [place] ? ? UR ? Legend abbreviations ? Final Sa lm Health: [address], [place] ? ? UR ? Billing Only billing only ? Jaida villanueva [facility] ([id number]) Health: [address], [place] 05/18/2020 Drug UR ? Amphetamines negative NG/mL 1,000 Final [facility] Screen, NG/mL Health: Urine [address], [place] ? ? UR ? Benzodiazapines negative NG/mL 200 Final [facility] NG/mL Health: [address], [place] ? ? UR ? Buprenorphine positive NG/mL 5 F inal [facility] NG/mL Health: [address], [place] ? ? UR ABNORMAL Cocaine positive NG/mL 150 Final [facility] Metabolite NG/mL Health : [address], [place] ? ? UR ? Methadone negative NG/mL 300 Final [facility] Metabolite NG/mL Health : [address], [place] ? ? UR ? Opiates negative NG/mL 300 Final [facility] NG/mL Health: [address], [place] ? ? UR ? Oxycodone negative NG/mL 300 Final [facility] NG/mL Health: [address], [place] ? ? UR ? Fentanyl negative NG/mL 2 Final [facility] NG/mL Health: [address], [place] ? ? UR ? Urine Creatinine 97.7 mg/dL >20 Fi nal [facility] mg/dL Health: [address], [place] ? ? UR ? Urine pH 8.50 4.5-9. Final [facility] 0 Health: [address], [place] ? ? UR ? Specific [place] 1.010 1.003- Final [facility] 1.035 Health: [address], [place] 05/18/2020 Cocaine UR ? Admitted Cocaine ntp ? F inal [facility] [place] Use Health: jany, [address], Urine [place] 05/11/2020 Drug UR ? Amphetamines negative NG/mL 1,000 Final [facility] Screen, NG/mL Health: Urine [address], [place] ? ? UR ABNORMAL Benzodiazapines positive NG/mL 200 Final [facility] NG/mL Health: [address], [place] ? ? UR ? Buprenorphine positive NG/mL 5 F inal [facility] NG/mL Health: [address], [place] ? ? UR ? Cannabinoids negative NG/mL 50 Fi nal [facility] (THC) NG/mL Health: [address], [place] ? ? UR ABNORMAL Cocaine positive NG/mL 150 Final [facility] Metabolite NG/mL Health : [address], [place] ? ? UR ? Methadone negative NG/mL 300 Final [facility] Metabolite NG/mL Health : [address], [place] ? ? UR ? Opiates negative NG/mL 300 Final [facility] NG/mL Health: [address], [place] ? ? UR ? Oxycodone negative NG/mL 300 Final [facility] NG/mL Health: [address], [place] ? ? UR ? Ethyl Alcohol negative mg/dL 10 F inal [facility] mg/dL Health: [address], [place] ? ? UR ? Fentanyl negative NG/mL 2 Final [facility] NG/mL Health: [address], [place] ? ? UR ? Urine Creatinine 109.6 mg/dL >20 F inal [facility] mg/dL Health: [address], [place] ? ? UR ? Urine pH 5.90 4.5-9. Final [facility] 0 Health: [address], [place] ? ? UR ? Specific [place] 1.017 1.003- Final [facility] 1.035 Health: [address] 05/11/2020 Benzodia UR ? Alpha-hydroxyalp negative NG/mL 25 Final [facility] zepine, razolam NG/mL Health: [address], [place] ? ? UR ? 7-Aminoclonazepa negative NG/mL 40 Final [facility] m NG/mL Health: [address], [place] ? ? UR ? Diazepam negative NG/mL 50 Final [facility] NG/mL Health: [address], [place] ? ? UR ? Lorazepam negative NG/mL 50 Final [facility] NG/mL Health: [address], [place] ? ? UR ? Nordiazepam negative NG/mL 50 Fin al [facility] NG/mL Health: [address], [place] ? ? UR ? Temazepam negative NG/mL 50 Final [facility] NG/mL Health: [address], [place] ? ? UR ? Legend abbreviations ? Final Sa lm Health: [address], [place] ? ? UR ? Billing Only billing only ? Jaida l [facility] ([id number]) Health: [address], [place] 05/11/2020 Cocaine UR High Benzoylecgonine 1139 NG/mL 100 Final [facility] Met[place] NG/mL Health: jany, [address], Urine [place] ? ? UR ? Legend abbreviations ? Final Sa lm Health: [address], [place] Past Encounters 08/03/2020 Opioid Dependence; Cocaine Abuse; Acute COVID-19 TERESA Garcia: [address] [place] [phone], Ph. 07/27/2020 Opioid Dependence; Cocaine Abuse TERESA Garcia: [address] [place] [phone], Ph. 07/20/2020 Opioid Dependence; Cocaine Abuse TERESA Garcia: [address] [place] [phone], Ph. 07/13/2020 Opioid Dependence; Cocaine Abuse TERESA Garcia: [address] [place] [phone], Ph. 07/06/2020 Opioid Dependence; Cocaine Abuse TERESA Garcia: [address] [place] [phone], Ph. 06/29/2020 Opioid Dependence; Cocaine Abuse TERESA Garcia: [address] [place] [phone], Ph. 06/22/2020 Opioid Dependence; Cocaine Abuse Andria Meier PA: [address] [place] [address], Ph. 06/15/2020 Opioid Dependence; Cocaine Abuse Monet Lentz, ENGINEERING SCIENTIST: [address] [facility] [place] [address], Ph. 06/08/2020 Opioid Dependence; Cocaine Abuse Monet Lentz, ENGINEERING SCIENTIST: [address] [facility] [place] [address], Ph. 06/01/2020 Opioid Dependence; Cocaine Abuse Bettye Arizmendi, ENGINEERING SCIENTIST: [address] [place] [address], Ph. 05/25/2020 Opioid Dependence; Cocaine Abuse Bettye Arizmendi, ENGINEERING SCIENTIST: [address] [place] [address], Ph. 05/18/2020 Opioid Dependence; Cocaine Abuse Bettye Arizmendi, ENGINEERING SCIENTIST: [address] [place] [address], Ph. 05/11/2020 Opioid Dependence Bettye Arizmendi, ENGINEERING SCIENTIST: [address] [place] [address], Ph. Social History Tobacco Smoking Status Light Tobacco Smoker (1 PPW) Vaccine List Notes: Dr. Green psych every 2 we eks Plan of Care Patient Instructions As part [...] to not falsify your urin e specimens. As part of your individualized bibi atment plan and program requirement, you will need to bring your correct prescription bottle and all used and unused medication and counseling verification to each appointm ent; > Agree to participate in counseling and bring counseling verification to eac h appointment; > Agree to present for random visits; > Agree to not falsify your urin e specimens. As part of your individualized bibi atment plan and program requirement, you will need to bring your correct prescription bottle and all used and unused medication and counseling verification to each appointm ent; > Agree to participate in counseling and bring counseling verification to eac h appointment; > Agree to present for random visits; > Agree to not falsify your urin e specimens. As part of your individualized bibi atment plan and program requirement, you will need to bring your correct prescription bottle and all used and unused medication and counseling verification to each appointm ent; > Agree to participate in counseling and bring counseling verification to eac h appointment; > Agree to present for random visits; > Agree to not falsify your urin e specimens. As part of your individualized bibi atment plan and program requirement, you may need to bring your correct prescription bottle and all used and unused medication and counseling verification to each appointm ent; > Agree to participate in counseling and bring counseling verification to eac h appointment; > Agree to present for random visits; > Agree to not falsify your urin e specimens. As part of your individualized bibi atment plan and program requirement, you will need to bring your correct prescription bottle and all used and unused medication and counseling verification to each appointm ent; > Agree to participate in counseling and bring counseling verification to eac h appointment; > Agree to present for random visits; > Agree to not falsify your urin e specimens. As part of your individualized bibi atment plan and program requirement, you will need to bring your correct prescription bottle and all used and unused medication and counseling verification to each appointm ent; > Agree to participate in counseling and bring counseling verification to eac h appointment; > Agree to present for random visits; > Agree to not falsify your urin e specimens. As part of your individualized bibi atment plan and program requirement, you will need to bring your correct prescription bottle and all used and unused medication and counseling verification to each appointm ent; > Agree to participate in counseling and bring counseling verification to eac h appointment; > Agree to present for random visits; > Agree to not falsify your urin e specimens. As part of your individualized bibi atment plan and program requirement, you will need to bring your correct prescription bottle and all used and unused medication and counseling verification to each appointm ent; > Agree to participate in counseling and bring counseling verification to eac h appointment; > Agree to present for random visits; > Agree to not falsify your urin e specimens. As part of your individualized bibi atment plan and program requirement, you will need to bring your correct prescription bottle and all used and unused medication and counseling verification to each appointm ent; > Agree to participate in counseling and bring counseling verification to eac h appointment; > Agree to present for random visits; > Agree to not falsify your urin e specimens. As part of your individualized bibi atment plan and program requirement, you will need to bring your correct prescription bottle and all used and unused medication and counseling verification to each appointm ent; > Agree to participate in counseling and bring counseling verification to eac h appointment; > Agree to present for random visits; > Agree to not falsify your urin e specimens. As part of your individualized bibi atment plan and program requirement, you will need to bring your correct prescription bottle and all used and unused medication and counseling verification to each appointm ent; > Agree to participate in counseling and bring counseling verification to eac h appointment; > Agree to present for random visits; > Agree to not falsify your urin e specimens. As part of your individualized treatment plan and program requirement, you will need to bring your correct prescription bottle and all used and unu sed medication and counseling verification to each appointment; > Agree to participat e in counseling and bring counseling verification to each appointment; > Agre e to present for random visits; > Agree to not falsify your urine specimens. Abstain from opiates for 24 hours unless directed by provider; > If already taking buprenorphine, do not take a dose the day of the induction until you are in the office with your provider; &g t; Comfort medications were recommended. If accepted, please take as prescribed to support your ability to abstain from opiates until your buprenorphine induction; > Keep your buprenorphine RX packa ge closed until you are seen by your pro vider for induction unless otherwise directed; If you have problems abstaining from opiates, please call the office. As part of your individualized treatmen t plan and program requirement, you will need to bring your correct prescription bottle and all used and unused medication and counseling verification to each yuval ointment; > Agree to participate in cou nseling and bring counseling verification to each appointment; > Agree to present for random visits; > Agree to not falsify your urine specimens. Reminders Provider Appointments None recorded. ? ? Lab None recorded. ? ? Referral None recorded. ? ? Procedures None recorded. ? ? Surgeries None recorded. ? ? Imaging None recorded. ? ? Vitals 07/27/2020 08:30AM Weekly Medical Height 5 ft 11 in 07/13/2020 08:30AM Weekly Medical Height 5 ft 11 in 07/06/2020 08:30AM Weekly Medical Height 5 ft 11 in 06/29/2020 09:15AM Weekly Medical Height 5 ft 11 in 06/22/2020 09:15AM Weekly Medical Height 5 ft 11 in 06/15/2020 08:30AM Weekly Medical Height Weight BMI 5 ft 11 in 255 lbs 35.6 kg/m2 06/08/2020 11:30AM Weekly Medical Height Weight BMI 5 ft 11 in 255 lbs 35.6 kg/m2
--- OUTSIDE RECORDS SUMMARY | 2020-08-03 15:05 | XMS_ITS | Encounter Summary ---
:1975 Author Reason for Visit MAT telemedicine*; OUD - buprenorphine f ollow-up - weekly* Assessment and Plan Assessment Note Telemedicine Information: This telmed (audio + visual) appointmen t provided a MAT prescription. Time Start: 9:18a; Time End:9:33a Provider Location: office; Patient Loca tion: office Telemedicine Consent Given (verbal): Y Lab Results > Last UDS Result (Qual Screen): 06/22/20P OS Buprenorphine and POS for the following illicit drugs or EtOH: +cocaine, +amphetamines > Last Confirmatory Test Result (LCMS/Qu ant): Quantitative levels of: methamphetamine (9565) > Last Buprenorphine Confirmation Test Re sult: 06/08/20 Bup: 46 ng/ml & Norbup: 490 ng/ml Since Last Visit THIS PT IS BEING TREATED FOR OUD WITH BU PRENORPHINE AND IS SEEN WEEKLY. CURRENT PRESCRIPTION IS 24mg Subutex tabs. DOSE AMOUNT TAKEN TODAY: None NUMBER OF FULL TABS/FILMS REMAININ > Bio/psycho/social Update: Rafa is a 44y/o male with hx OUD, claudio jett use, chronic pain, PTSD on Subutex 24mg tabs seen weekly. OUD: Reports he has been struggling to k eep down his Suboxone due to N/V over the past week. On multiple occasions has placed film sublingually and shortly after needed to vomit, without time for the me dication to dissolve fully. Feels that b ecause of this he has been experiencing some w/d sxs such as excessive lacrimation and runny nose Has on a few occasions taken an addition al Suboxone film after vomiting one up and so has no Suboxone left at this point (usually would have 3 films left). Initial visit: 05/11/20 Acute illness: Reports he has been sick for the past week starting early on 06/23. Endorses myalgias, h/a, vomiting, diarrhea. Reports he has lost 10lbs over the course of this week. Went to ED last 06/24 where he teste d neg for COVID but was told he has a viral illness. Reports he was given a medication for nausea from the ED but is not sure what it is called. Is now slowly sta rting to feel slightly better but still feeling quite ill. Has been drinking lots of fluids but is struggling to keep them down. Encouraged pt to continue pushing fluids and resting as much as possible. Cocaine use: Reports use x1 this week. S dylon he thinks he is feeling some improvement from Baclofen dose increase but unclear due to illness this week. Reports dedication to not using any cocaine in the next week, congratulated pt on this plan. At last visit (06/22) pt requested Soma fo r cocaine cravings as he feels this has helped him in the past. Discussed that we are unable to prescribe this medication due to its abuse potential, and decided to continue Baclofen with dose increase from 10 to 15mg TID. Discussed potential to increase this further as needed Methamphetamine use: Discussed with pt t hat last week's UDS and confirmatory testing positive for methamphetamine. Pt was shocked and upset, reporting that he has never tried this and would not want to. He feels very concerned about the poten tial that this was cut into the cocaine he was using without his knowledge and feels that this fact redoubles his dedication to not use cocaine in the next week. Housing: Continues to look for new housi ng although reports there is not much available on the market right now. Environment continues to be a trigger for use. Assessment The patient's current phase of treatment is Stabilization phase, OUD. > 1) Interpretation of Confirmatory (LCMS) T est Result: N/A due to continued admitted cocaine use > 2) Interpretation of Last Buprenorphine Co nfirmation Test Result: No concern > 3) Medication Dose: No report of cravings /withdrawal symptoms. Pt will remain at current dose > 4) Markers of Recovery include: Continued sobriety from opioids, actively looking for new housing to diminish environmental trigger > 5) Counseling: Engaged in Counseling The patient [...] POS for AMPHETAMINE Y POS for BENZODIAZEPINES N POS for COCAINE - admitted use Y POS for METHADONE Y POS for OPIATES (INCLUDING FENTANYL) Y POS for OXYCODONE ADDITIONAL LAB(S) REQUESTED - if indic ated, please order the following: NONE Plan OUD: Continue Subutex 24mg tabs. Continu e weekly visits. Cocaine use: Continue Baclofen 15mg TID. Will reassess effect when pt recovers from current acute illness. Patient's visit frequency should be week ly. Frequency of UDS and confirmatory test, if applicable, should be weekly. Treatment plan review or change includes continue current level of care. Referrals made today include none. Prescription monitoring program is revie sun. If reviewed, I have identified agents prescribed to the patient in addition to any issued by our program; the patient is counseled regarding any risk of combining sedating agents. 1. Opioid dependence UNSTABLE: NEW TO TREATMENT ? drug screen, urine ? buprenorphine HCl 8 mg sub lingual tablet 2. Cocaine abuse Unstable - continued use ? baclofen 10 mg tablet ? baclofen 5 mg tablet Discussion Note Education provided at today's visit included: Review of patient's individualized treatment plan; Review of program polici es: RX, visit, counseling and DATA compliance; Review medication administra tion technique; Discussion proper care of medication/safety/lock box; Counseling r e: trigger avoidance, relapse prevention and the importance of developing a sober net work; Counseling re safe sex and control; Review risk of BZD and BUP, as well as ETOH; Counseling re: Discovery & Drop out prevention in early recovery. Patient educational handouts: No information available. Plan of Care Patient Instructions As part of your individualized bibi atment plan and program requirement, you will need to bring your correct prescription bottle and all used and unused medication and counseling verification to each appointm ent; > Agree to participate in counseling and bring counseling verification to [facility] appointment; > Agree to present for random visits; > Agree to not falsify your urin e specimens. Reminders Provider Appointments Weekly 08/10/2020 [facility] 8:45AM TERESA Lab Drug Screen, 06/29/2020 [facility] Urine Referral None ? ? recorded. Procedures None ? ? recorded. Surgeries None ? ? recorded. Imaging None ? ? recorded. Medications Name Start Date ? ? alprazolam 2 mg tablet ? amlodipine 5 mg tablet ? TAKE 1 TABLET BY MOUTH EVERY DAY BD Regular Bevel [place] 22 gauge x 1 /2 ? USE WITH SYRINGE TO INJECT TESTOSTERONE [...] 2 WEEKS. Medications Administered None recorded. Vitals Height 5 ft 11 in Results Lab Results Date Name Specimen Result Interpretation Description Value Range Status Address ? 06/29/2020 Drug UR ? Amphetamines negative 1,000 Jaida l [place] Screen, NG/mL NG/mL Health: Urine [address], [place] ? ? UR ? Benzodiazapines negative 200 Final [facility] NG/mL NG/mL Health: [address], [place] ? ? UR ? Buprenorphine positive 5 Final [place] NG/mL NG/mL Health: [address], [place] ? ? UR ABNORMAL Cocaine positive 150 Final [facility] Metabolite NG/mL NG/mL Health : [address], [place] ? ? UR ? Opiates negative 300 Final [facility] NG/mL NG/mL Health: [address], [place] ? ? UR ? Oxycodone negative 300 Final [facility] NG/mL NG/mL Health: [address], [place] ? ? UR ? Fentanyl negative 2 Final [facility] NG/mL NG/mL Health: [address], [place] ? ? UR ? Ethyl Alcohol negative 10 Final [place] mg/dL mg/dL Health: [address], [place] ? ? UR ? Methadone negative 300 Final [facility] Metabolite NG/mL NG/mL Health : [address], [place] ? ? UR ? Urine Creatinine 120.4 20 Final [facility] mg/dL mg/dL Health: [address], [place] ? ? UR ? Urine pH 8.00 4.5-9. Final [facility] 0 Health: [address], [place] ? ? UR ? Specific [place] 1.011 1.003- Final [place] 1.035 Health: [address], [place] Allergies Code Code System Name Reaction Severity [...] Information not available Notes: 2014x2, 2016 x1, 2018 x3, 2020 x1 Vaccine List [...] infarction Information) Functional Status Unknown. Past Encounters 06/29/2020 Opioid Dependence; Cocaine Abuse TERESA Garcia: [address] [place] [phone], Ph. 06/22/2020 Opioid Dependence; Cocaine Abuse Andria Meier PA: [address] [place] [phone], Ph. 06/15/2020 Opioid Dependence; Cocaine Abuse Monet Lentz, INFORMATION TECHNOLOGY ADMINISTRATOR: [address] [place] [address] [place] [address], Ph. 06/08/2020 Opioid Dependence; Cocaine Abuse Monet Lentz, INFORMATION TECHNOLOGY ADMINISTRATOR: [address] [place] [address] [place] [address], Ph. 06/01/2020 Opioid Dependence; Cocaine Abuse Bettye Arizmendi, INFORMATION TECHNOLOGY ADMINISTRATOR: [address] [place] [phone], Ph. History of Present Illness Note: <p>The patient reports {{doing ok# doing better doing well struggling}} since last visit and {{denies reports*}} slip or relapse.

<strong>MAT HPI</strong >
They {{deny* report}} cravings for opiates and {{deny* report}} opiates use since their last visit.
They {{deny report*}} cravings for other substances and {{deny report*}} othersubstance use since their last visit.
Triggers {{are are not*}} identified and any alleviating factors to identified triggers are discussed.
Withdrawal symptoms {{are* are not}} present.

<strong>MAT Administration and Program Adherence</strong>
The patient {{is* is not}} compliant with prescribed buprenorphine dose and {{can* can not}} describe proper medication administration and technique.
The patient {{denies* reports}} side effects from the medication.
There {{are* are not}} other support systems in place for this patient.

There {{is is no*}} concern for diversion.</p> Review of Systems ? Comprehensive Adult Problem ROS Reported By: Patient Constitutional: Constitutional: excess weigh t loss, fever, fatigue, chills, excessive sweating; Pt repor ting 10lb wt loss in last week due to N/V/D Eyes: Eyes: ; eye watering ENMT: ENMT: congestion Respiratory: Respiratory: normal respirat ion Gastrointestinal: GI: no abdominal pain, no co nstipation, nausea, vomiting, diarrhea Musculoskeletal: Musculoskeletal: myalgia Neurological symptoms: Neuro: headache Psychiatric: Psych: no depression, no anx iety, no insomnia Physical Exam ? General Adult Exam* Reported By: Patient Constitutional*: General Presentation: health y-appearing, well-nourished, well-developed. Level of Dis tress:* responsive in conversation*, mild distress*, ill appearin g* Psychiatric*: Insight:* good judgement*. M michael:* recent memory normal*. Mental Status* active & alert*, nor mal affect*, normal mood* Head: Head: normocephalic, atrauma tic Lungs*: Respiratory effort:* no dysp wade* Neurologic*: Orientation:* to time*, to p lace*, to person*. Cranial Nerves:* articulate: coordinated spee ch*
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
--- OUTSIDE RECORDS SUMMARY | 2020-08-03 15:05 | XMS_ITS | Encounter Summary ---
:1975 Author Reason for Visit MAT telemedicine*; OUD - buprenorphine f ollow-up - weekly* Assessment and Plan Assessment Note Pt seen in conjunction with Andria Meier PA-C Telemedicine Information: This telmed (audio + visual) appointmen t provided a MAT prescription. Time Start: 8:45; Time End:8:56 Provider Location: office; Patient Loca tion: office Telemedicine Consent Given (verbal): Y Lab Results > Last UDS Result (Qual Screen): 06/08/20 POS Buprenorphine and POS for the following illicit drugs or EtOH: cocaine > Last Confirmatory Test Result (LCMS/Qu ant): N/A due to admitted use > Last Buprenorphine Confirmation Test Re sult: 06/01/20 Bup: 56 ng/ml & Norbup: 465 ng/ml Since Last Visit THIS PT IS BEING TREATED FOR OUD WITH BU PRENORPHINE AND IS SEEN WEEKLY. CURRENT PRESCRIPTION IS 24mg Subutex tabs. DOSE AMOUNT TAKEN TODAY: Partial Dose 8m g NUMBER OF FULL TABS/FILMS REMAININ > Bio/psycho/social Update: Pt reports doing well since last visit, taking Suboxone as prescribed with no adverse effects. Denies opioid cravings or withdrawal symptoms. Cocaine cravings improved with increased Baclofen dose to 10mg TID. Reports crack cocaine use only once this week (stable since last week). Continues to look for new housing althou reports there is not much available on [...] dose > 4) Markers of Recovery include: Decreasin g cocaine cravings and use, actively looking for new housing > 5) Counseling: Engaged in Counseling The [...] ated, please order the following: NONE Plan Patient's visit frequency should be week ly. [...] mg sub lingual tablet 2. Cocaine abuse UNSTABLE: CONTINUED USE Discussion Note Education provided at today's visit [...] Reminders Provider Appointments Weekly 08/10/2020 [facility] 8:45AM TERESA Lab Drug Screen, 06/15/2020 [facility] Urine Referral None ? ? recorded. Procedures None ? ? recorded. Surgeries None ? ? recorded. Imaging None ? ? recorded. Medications Name Start Date ? ? alprazolam 2 mg tablet ? amlodipine 5 mg tablet ? TAKE 1 TABLET BY MOUTH EVERY DAY BD Regular Bevel [place] 22 gauge x 1 /2 ? USE [...] WEEKS. Medications Administered None recorded. Vitals Height Weight BMI 5 ft 11 in 255 lbs 35.6 kg/m2 Results Lab Results Date Name Specimen Result Interpretation Description Value Range Status Address ? 06/15/2020 Drug UR ? Amphetamines negative 1,000 Jaida l [place] Screen, NG/mL NG/mL Health: Urine [address], [place] ? ? UR ? Benzodiazapines negative 200 Final [place] NG/mL NG/mL Health: [address], [place] ? ? UR ? Buprenorphine positive 5 Final [place] NG/mL NG/mL Health: [address], [place] ? ? UR ABNORMAL Cocaine positive 150 Final [place] [facility] Metabolite NG/mL NG/mL Health : [address], [place] ? ? UR ? Opiates negative 300 Final [place] NG/mL NG/mL Health: [address], [place] ? ? UR ? Oxycodone negative 300 Final [place] NG/mL NG/mL Health: [address], [place] ? ? UR ? Fentanyl negative 2 Final Sav[place] a NG/mL NG/mL Health: [address], [place] ? ? UR ? Ethyl Alcohol negative 10 Final [place] mg/dL mg/dL Health: [address], [place] ? ? UR ? Methadone negative 300 Final [place] Metabolite NG/mL NG/mL Health : [address], [place] ? ? UR ? Urine Creatinine 89.3 mg/dL 20 Fi nal [place] mg/dL Health: [address], [place] ? ? UR ? Urine pH 5.90 4.5-9. Final [place] 0 Health: [address], [place] ? ? UR ? Specific [place] 1.014 1.003- Final [place] 1.035 Health: [address], [place] Allergies Code Code System Name Reaction Severity [...] Smoker (1 PPW) *Legal Assistance Not required *[place] Not a *Transportation Issues No *Job Not [...] infarction Information) Functional Status Unknown. Past Encounters 06/15/2020 Opioid Dependence; Cocaine Abuse Monet Lentz, METER AND SERVICE LINE INSPECTOR: [address], [place] [phone], Ph. 06/08/2020 Opioid Dependence; Cocaine Abuse Monet Lentz, METER AND SERVICE LINE INSPECTOR: [address] [place] [phone], Ph. 06/01/2020 Opioid Dependence; Cocaine Abuse Bettye Arizmendi, METER AND SERVICE LINE INSPECTOR: [address] [place] [place] [address], Ph. 05/25/2020 Opioid Dependence; Cocaine Abuse Bettye Arizmendi, METER AND SERVICE LINE INSPECTOR: [address] [place] [place] [address], Ph. 05/18/2020 Opioid Dependence; Cocaine Abuse Bettye Arizmendi, METER AND SERVICE LINE INSPECTOR: [address] [place] [place] [phone], Ph. History of Present Illness Note: <p>The patient reports {{doing better* doing well struggling}} since last visit and {{denies* reports}} slip or relapse.

<strong>MAT HPI</strong><b r>They {{deny* report}} cravings for opiates and {{deny* report}} opiates use since their last visit.
They {{deny report*}} cravings for other substances and {{deny report*}} other substance use since their last visit (cocaine use, decreased cravings since increased Baclofen dose)
</p><p>Triggers are identified and any alleviating factors to identified triggers are discussed (changing environment)
</p><p>
</p><p></p> <p>Withdrawal symptoms {{are are not*}} present.

<strong>MAT Administration and Program Adherence</strong>
The patient {{is* is not}} compliant with prescribed buprenorphine dose.
The patient {{denies* reports}} side effects from the medication.

There {{is is no*}} concern for diversion.</p> Review of Systems ? Comprehensive Adult Problem ROS Reported By: Patient Constitutional: Constitutional: happy/conten t, normal activity level Respiratory: Respiratory: normal respirat ion Gastrointestinal: GI: no abdominal pain, no na usea, no constipation Physical Exam ? General Adult Exam* Reported By: Patient Constitutional*: General Presentation: health y-appearing, well-nourished, well-developed. Level of Dis tress:* no apparent distress (NAD)*, responsive in conversation* Psychiatric*: Insight:* good judgement*. M michael:* recent memory normal*. Mental Status* active & alert*, nor mal affect*, normal mood* Head: Head: normocephalic, atrauma tic Lungs*: Respiratory effort:* no dysp wade* Neurologic*: Orientation:* to time*, to p lace*, to person*. Cranial Nerves:* articulate: coordinated spee ch*
--- OUTSIDE RECORDS SUMMARY | 2020-08-03 15:05 | XMS_ITS | Encounter Summary ---
:1975 Author Reason for Visit MAT telemedicine*; OUD - buprenorphine f ollow-up - weekly* Assessment and Plan Assessment Note Telemedicine Information: This telmed (audio + visual) appointmen t provided a MAT prescription. Time Start: 8:31a; Time End:8:49a Provider Location: office; Patient Loca tion: office Telemedicine Consent Given (verbal): Y Lab Results Last UDS Result (Qual Screen): 07/06/20 POS Buprenorphine and NO illicit drugs Last Confirmatory Test Result (LCMS/Qu ant): N/A due to Negative UDS Last Buprenorphine Confirmation Test Re sult: 07/06/20 [...] on Subutex 24mg tabs seen weekly. OUD: Had a long conversation re: Rafa 's interest in increasing his Subutex dose. Reports tearing, runny nose, piloerection, anxiety in mornings and states these sxs disappear after am Subutex dose. S tates these sxs are extremely bothersome to the point that he was recently tempted to use fentanyl to alleviate them. Pt reports previously on 30mg at a [employer] [facility] program, states his dose was decreased by a provider there due to concerns about combination of BZDs and high Subutex dose States he has discussed the combination of his BZD Rx and Subutex at length with his psychiatrist, Dr. Green, and they have made a plan on timing of dosage to minimize risk of respiratory failure. Reviewed proper medication administratio n with pt, including not eating/drinking/smoking for at least 15min before and after dose and holding saliva in mouth until tab/film fully dissolves, then swallow ing saliva. Pt voiced understanding and adherence to these guidelines Splits dose (12 or 16mg in am, rest in a fternoon/evening) Initial visit: 05/11/20 Neg UDS x1 Cocaine use: Reports no cocaine use x2wk s. Feels that staying home helped him to avoid triggers. Congratulated pt on this achievement. States Baclofen is not doing much for hi m and would like to stop taking it. Continues to request stronger medication with more sedation effect to support him in cocaine avoidance, discussed that Baclo fen and Campral are the best options we currently have. Discussed that much of the treatment of cocaine use disorder is focused on behavioral changes, and unfortunately there are not medications availab le that are consistently highly effectiv e to help with this. Pt had been increased to 20mg baclofen T ID, will send Rx today for 10mg TID to taper down dose Family: reports he spent the weekend wit h his 's grandchildren (she has two daughters who each have 2 children, ranging from 2y/o to teens). 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 1) Interpretation of Confirmatory (LCMS ) Test Result: N/A due to NEG UDS 2) Interpretation of Last Buprenorphine Confirmation Test Result: No concern 3) Medication Dose: Pt reporting bothe rsome withdrawal symptoms, but is at quite high Subutex dose with concomitantly prescribed BZDs, so discussed that I am not comfortable increasing dose at this ti me. Discussed with pt that I will review his case with Clinical Director Shawna Lentz for further advice on management 4) Markers of Recovery include: Contin ued sobriety from opioids, avoidance of cocaine use x2wks, actively looking for new housing to diminish [...] NONE Plan OUD: Continue Subutex 24mg tabs. Long di scussion re: dose increase with pt, who endorses w/d sxs, and reasons for concerns about dose increase, including concomitant Subutex and BZD use. Discussed that I am not comfortable increasing dose at this time. Discussed with pt that I will review his case with Clinical Director Shawna Lentz for further advice on management Cocaine use: Baclofen decreased to 10mg TID per pt request Patient's visit frequency should be week ly. [...] continued use ? baclofen 10 mg tablet Discussion Note Education provided at [...] Reminders Provider Appointments Weekly 08/10/2020 [facility], [facility] 8:45AM [place] Lab Drug Screen, 07/13/2020 [facility] Urine Referral None ? ? recorded. Procedures None ? ? recorded. Surgeries None ? ? recorded. Imaging None ? ? recorded. Medications Name Start Date ? ? alprazolam 2 mg tablet ? amlodipine 5 mg tablet ? TAKE 1 TABLET BY MOUTH EVERY DAY BD Regular Bevel [place] 22 gauge x 1 /2 ? USE [...] Interpretation Description Value Range Status Address ? 07/13/2020 Drug UR ? Amphetamines negative 1,000 Jaida l [facility] Screen, NG/mL NG/mL Health: Urine [address], [place] ? ? UR ? Benzodiazapines negative 200 Final [facility] NG/mL NG/mL Health: [address], [place] ? ? UR ? Buprenorphine positive 5 Final [place] NG/mL NG/mL Health: [address], [place] ? ? UR ABNORMAL Cocaine positive 150 Final [facility] Metabolite NG/mL NG/mL Health : [address], [place] ? ? UR ? Opiates negative 300 Final [place] NG/mL NG/mL Health: [address], [place] ? ? UR ? Oxycodone negative 300 Final [facility] NG/mL NG/mL Health: [address], [place] ? ? UR ? Fentanyl negative 2 Final [facility] a NG/mL NG/mL Health: [address], [place] ? ? UR ? Ethyl Alcohol negative 10 Final [facility] mg/dL mg/dL Health: [address], [place] ? ? UR ? Methadone negative 300 Final [facility] Metabolite NG/mL NG/mL Health : [address], [place] ? ? UR ? Urine Creatinine 62.2 mg/dL 20 Fi nal [facility] mg/dL Health: [address], [place] ? ? UR ? Urine pH 5.50 4.5-9. Final [facility] 0 Health: [address], [place] ? ? UR ? Specific [place] 1.010 1.003- Final [facility] 1.035 Health: [address], [place] Allergies Code Code System Name Reaction Severity [...] 2014x2, 2016 x1, 2017 x3, 2019 x1 Vaccine List Notes: Dr. Green psych [...] infarction Information) Functional Status Unknown. Past Encounters 07/13/2020 Opioid Dependence; Cocaine Abuse TERESA Garcia: [address] [place] [phone], Ph. 07/06/2020 Opioid Dependence; Cocaine Abuse TERESA Garcia: [address] [place] [phone], Ph. 06/29/2020 Opioid Dependence; Cocaine Abuse TERESA Garcia: [address] [place] [phone], Ph. 06/22/2020 Opioid Dependence; Cocaine Abuse TERESA Garcia: [address] [place] [phone], Ph. 06/15/2020 Opioid Dependence; Cocaine Abuse Monet Lentz, [employer]: [address] [place] [address] [place] [phone], Ph. History of Present Illness Note: <p>
</p><p>The patient reports {{doing better* doing well struggling}} since last visit and {{denies* reports}} slip or relapse.

<strong>MAT HPI</strong>
They {{deny* report}} cravings for opiates and {{deny* report}} opiates use since their last visit.
They {{deny report*}} cravings for other substances and {{deny* report}} other substance use since their last visit.
Triggers {{are* [...] activity level, no fa tigue, excessive sweating Eyes: Eyes: ; excessive lacrimatio n in mornings ENMT: ENMT: congestion Respiratory: Respiratory: normal respirat [...]
--- OUTSIDE RECORDS SUMMARY | 2020-08-03 15:05 | XMS_ITS | Encounter Summary ---
:1975 Author Reason for Visit OUD - buprenorphine follow-up - weekly* Assessment and Plan Assessment Note Lab Results Last UDS Result (Qual Screen): 07/20/20P OS Buprenorphine and POS for the following illicit drugs or EtOH: +cocaine Last Confirmatory Test Result (LCMS/Qu ant): 07/20/20 PENDING Last Buprenorphine Confirmation Test Re sult: 07/06/20 [...] a fternoon/evening) Initial visit: 05/11/20 Cocaine use: Reports slip with crack use after nearly a month of reported abstinence. He found out last night that his mother had unexpectedly. Reports he will see Dr. Green, who he sta jany he also receives counseling from, next week. Plans to discuss this recent slip and his feelings about it. Family: mother yesterday 07/26 at home of unknown cause. States he believes this was due to cardiac complications due to underlying heart issues, but she at home so the cause of is unclear at this time. Reports he is expe cting the service to be next week Feeling like everything goes wrong for h im and was reminded of his sister's fatal overdose last April by this more recent family tragedy. Assessment The patient's current phase of treatment [...] NONE Plan OUD: Continue Subutex 24mg tabs. Patient's visit frequency should be week ly. Frequency of UDS and confirmatory test, if applicable, should be weekly Treatment plan review or change includes continue current level of care Referrals made today include none. Prescription monitoring program is sun. If reviewed, I have identified agents [...] in counseling and bring counseling verification [facility]; > Agree to present for random visits; > Agree to not falsify your urin e specimens. Reminders Provider Appointments Weekly 08/10/2020 [facility] 8:45AM [place] Lab Drug Screen, 07/27/2020 [facility] Urine Referral None ? ? recorded. Procedures None ? ? recorded. Surgeries None ? ? recorded. Imaging None ? ? recorded. Medications Name Start Date ? ? alprazolam 2 mg tablet ? amlodipine 5 mg tablet ? TAKE 1 TABLET BY MOUTH EVERY DAY BD Regular Bevel [place] 22 gauge x 1 02/20 ? USE [...] ? 07/27/2020 Drug UR ? Amphetamines negative 1,000 Jaida l [place] Screen, NG/mL NG/mL Health: Urine [address], [place] ? ? UR ABNORMAL Benzodiazapines positive 200 Fin al [facility] NG/mL NG/mL Health: [address], [place] ? ? UR ? Buprenorphine positive 5 Final [place] NG/mL NG/mL Health: [address], [place] ? ? UR ABNORMAL Cocaine positive 150 Final [facility] Metabolite NG/mL NG/mL Health : [address], [place] ? ? UR ? Opiates negative 300 Final [place] NG/mL NG/mL Health: [address], [place] ? ? UR ? Oxycodone negative 300 Final [facility] NG/mL NG/mL Health: [address], [place] ? ? UR ? Fentanyl negative 2 Final [facility] NG/mL NG/mL Health: [address], [place] ? ? UR ? Ethyl Alcohol negative 10 Final [place] mg/dL mg/dL Health: [address], [place] ? ? UR ? Methadone negative 300 Final [facility] Metabolite NG/mL NG/mL Health : [address], [place] ? ? UR ? Urine Creatinine 188.4 20 Final [facility] mg/dL mg/dL Health: [address], [place] ? ? UR ? Urine pH 5.60 4.5-9. Final [place] 0 Health: [address], [place] ? ? UR ? Specific [place] 1.025 1.003- Final [place] 1.035 Health: [address], [place] Allergies Code Code System Name Reaction Severity [...] Smoker (1 PPW) *Legal Assistance Not required *[place] Not a *Transportation Issues No *Job Not [...] infarction Information) Functional Status Unknown. Past Encounters 07/27/2020 Opioid Dependence; Cocaine Abuse TERESA Garcia: [address] [place] [address] [place] [phone], Ph. 07/20/2020 Opioid Dependence; Cocaine Abuse TERESA Garcia: [address] [place] [address] [facility] [place] [phone], Ph. 07/13/2020 Opioid Dependence; Cocaine Abuse TERESA Garcia: [address] [place] [address], [place] [phone], Ph. 07/06/2020 Opioid Dependence; Cocaine Abuse TERESA Garcia: [address] [place] [address], [place] [phone], Ph. 06/29/2020 Opioid Dependence; Cocaine Abuse TERESA Garcia: [address] [place] [address] [facility] [place] [place] [phone], Ph. History of Present Illness Note: <p>The patient reports {{doing better doing well struggling*}} since last visit and {{denies reports*}} slip or relapse.

<strong>MAT HPI</strong><b r>They {{deny* report}} cravings for opiates and {{deny* report}} opiates use since their last visit.
They {{deny report*}} cravings for other substances and {{deny report*}} other substance use since their last visit (crack cocaine)
Triggers {{are* are not}} identified and any all eviating factors to identified triggers are discussed. (environment, [...] Constitutional: Constitutional: no significa nt weight change, normal activity level, no fatigue Respiratory: Respiratory: normal respirat ion Gastrointestinal: GI: no abdominal pain, no na usea, no constipation Musculoskeletal: Musculoskeletal: no myalgia Neurological symptoms: Neuro: no headache Psychiatric: Psych: no insomnia, depressi on, anxiety, stress Physical Exam ? General Adult Exam* Reported By: Patient Constitutional*: General Presentation: health y-appearing, well-developed, overweight. Level of Distres s:* no apparent distress (NAD)*, responsive in conversation*. Ambulation: ambulating normally Psychiatric*: Insight:* poor insight*. Mem ory:* recent memory normal*. Mental Status* depressed* Head: Head: normocephalic, atrauma tic Eyes: Lids and Conjunctivae: non-i njected. Pupils: normal size. Sclerae: non-icteric ENMT*: Hearing:* no hearing loss* Lungs*: Respiratory effort:* no dysp wade*, good air movement*, no audible wheezing* Musculoskeletal:: Joints, Bones, and Muscles: normal movement of all extremities Neurologic*: Orientation:* to time*, to p lace*, to person*. Gait and Station: normal gait. Cranial Nerves: * articulate: coordinated speech* Skin: Inspection and palpation: no jaundice
--- OUTSIDE RECORDS SUMMARY | 2020-08-03 15:05 | XMS_ITS | Encounter Summary ---
:1975 Author Reason for Visit MAT telemedicine*; OUD - buprenorphine f ollow-up - weekly* Assessment and Plan Assessment Note Telemedicine Information: This telmed (audio + visual) appointmen t provided a MAT prescription. Time Start: 8:35a; Time End:8:43a Provider Location: office; Patient Loca tion: office Telemedicine Consent Given (verbal): Y Lab Results Last UDS Result (Qual Screen): 06/29/20 POS Buprenorphine and POS for the following illicit drugs or EtOH: +cocaine Last Confirmatory Test Result (LCMS/Qu ant): N/A due to admitted use Last Buprenorphine Confirmation Test Re sult: 06/08/20 [...] of medication. Feeling stable on current dose Discussed protocol (neg UDS x2mo) for pr ogressing to less frequent visits, as pt states this is his goal and is one of the motivators for avoiding cocaine use. Pt plans to work towards this goal Initial visit: 05/11/20 Cocaine use: Reports no cocaine use this week. Feels that staying home helped him to avoid triggers. Congratulated pt on this achievement. Baclofen dose increased to 20mg (10mg x2 ) due to continued cocaine cravings Housing: Continues to look for new housi ng although reports there is not much available on the market right now. Environment continues to be a trigger for use. Assessment The patient's current phase of treatment is Stable maintenance, OUD. 1) Interpretation of Confirmatory (LCMS ) Test Result: N/A due to continued admitted cocaine use 2) Interpretation of Last Buprenorphine Confirmation [...] OUD: Continue Subutex 24mg tabs. Cocaine use: Baclofen dose increased for m 15mg TID to 20mg TID. Patient's visit frequency should be week ly. Frequency of UDS and confirmatory test, if applicable, should be weekly Treatment plan review or change includes continue current level of care Referrals made today include none. Prescription monitoring program is revsun. If reviewed, I have identified agents prescribed to the patient in addition to any issued by our program; the patient is counseled regarding any risk of combining sedating agents. 1. Opioid dependence UNSTABLE: NEW TO TREATMENT ? drug screen, urine 2. Cocaine abuse Unstable - continued use ? baclofen 10 mg tablet Discussion Note: None recorded.Patient educational handouts: No [...] [facility], [facility] 8:45AM [place] Lab Drug Screen, 07/06/2020 [facility] Urine Referral None ? ? recorded. Procedures None ? ? recorded. Surgeries None ? ? recorded. Imaging None ? ? recorded. Medications Name Start Date ? ? alprazolam 2 mg tablet ? amlodipine 5 mg tablet ? TAKE 1 TABLET BY MOUTH EVERY DAY BD Regular Bevel [place] 22 gauge x 1 1/2 ? USE WITH SYRINGE TO INJECT TESTOSTERONE [...] Interpretation Description Value Range Status Address ? 07/06/2020 Drug UR ? Amphetamines negative 1,000 Jaida l [facility] Screen, NG/mL NG/mL Health: [address], [place] ? ? UR ? Benzodiazapines negative 200 Final [facility] NG/mL NG/mL Health: [address], [place] ? ? UR ? Buprenorphine positive 5 NG/mL Final [facility] NG/mL Health: [address], [place] ? ? UR ? Cocaine negative 150 Final [facility] Metabolite NG/mL NG/mL Health : [address], [place] ? ? UR ? Opiates negative 300 Final [facility] NG/mL NG/mL Health: [address], [place] ? ? UR ? Oxycodone negative 300 Final [facility] NG/mL NG/mL Health: [address], [place] ? ? UR ? Fentanyl negative 2 NG/mL Final [facility] NG/mL Health: [address], [place] ? ? UR ? Ethyl Alcohol negative 10 Final [place] mg/dL mg/dL Health: [address], [place] ? ? UR ? Methadone negative 300 Final [facility] Metabolite NG/mL NG/mL Health : [address], [place] ? ? UR ? Urine Creatinine 131.6 20 Final [facility] mg/dL mg/dL Health: [address], [place] ? ? UR ? Urine pH 7.00 4.5-9.0 Final [facility] Health: [address], [place] ? ? UR ? Specific [place] 1.010 1.003-1 Final [facility] .035 Health: [address], [place] Allergies Code Code System Name Reaction Severity [...] safe Notes: 07/06/20: apartment with his w rion, actively looking for new housing as crack lakeisha ler lives the floor abov e them Family History Relation Problem Onset Age of Age Notes Sister Addiction (No N/A of overdos e Information) April 2019 Father Alcohol abuse (No N/A (No Notes) Information) Mother Heart disease (No N/A (No Notes) Information) Mother Myocardial (No N/A 07/26/20 infarction Information) Functional Status Unknown. Past Encounters 07/06/2020 Opioid Dependence; Cocaine Abuse TERESA Garcia: [address] [place] [phone], Ph. 06/29/2020 Opioid Dependence; Cocaine Abuse TERESA Garcia: [address] [place] [phone], Ph. 06/22/2020 Opioid Dependence; Cocaine Abuse TERESA Garcia: [address] [place] [phone], Ph. 06/15/2020 Opioid Dependence; Cocaine Abuse Monet Lentz, MUD GR[employer]ER: [address] [place] [address] Dr [place], [place] [phone], Ph. 06/08/2020 Opioid Dependence; Cocaine Abuse Monet Lnetz, MUD GRINDER: [address] [place] [address] [place] [phone], Ph. History of Present Illness Note: <p>The [...] (environment, looking for new housing)
Withdrawal symptoms {{are are not*}} present.

<strong>MAT Administration and Pr ogram Adherence</strong>
[...] happy/content, normal activity level, no fa tigue, no excessive sweating Respiratory: Respiratory: normal respirat ion [...]
--- OUTSIDE RECORDS SUMMARY | 2020-08-03 15:05 | XMS_ITS | Encounter Summary ---
:1975 Author Reason for Visit OUD - buprenorphine follow-up - weekly* Assessment and Plan Assessment Note Lab Results > Last UDS Result (Qual Screen): POS B uprenorphine and POS for COCAINE > Last Confirmatory Test Result (LCMS/ Quant): NOT DONE D/T ADMITTED USE OF COCAINE > Last Buprenorphine Confirmation Test Result: ON 06/01/20 = Bup: 56 ng/ml & Norbup: 465 ng/ml Since Last Visit THIS PT IS BEING TREATED FOR OUD WITH BU PRENORPHINE AND IS SEEN WEEKLY. CURRENT PRESCRIPTION IS 24MG SUBUTEX D/T DOCUMENTED SKIN RASH REACTION W/NALOXONE. DOSE AMOUNT TAKEN TODAY: Partial Dose NUMBER OF FULL TABS/FILMS REMAININ.5 tabs > Bio/psycho/social Update: USED COCAINE ONCE THIS WEEK. REPRESENTS DECREASE. BACLOFEN IS HELPING. ASKS FOR INCREASED DOSE. HAS BEEN TAKING 5MG TID. WILL INCREASE TODAY DENIES ANY OTHER DRUG USE. HAS CHRONIC B ACK PAIN THAT IS MITIGATE A BIT WITH BUPRENORPHINE USE. CONTINUES TO LOOK FOR NEW HOUSING--FEELS IF HE IS OUT OF CURRENT ENVIRONMENT, HE CAN STOP USING COCAINE. UNDERSTANDS THE CARDIAC RISKS RELATED TO COCAINE USE. Assessment The patient's current phase of treatment is Stabilization phase, OUD. 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 Pt will remain at current dose > 4) Markers of Recovery include: CONT INUED OPIOID ABSTINENCE; MOTIVATION TO STOP USING CRACK The patient does meet diagnostic criteri a [...] POS for BENZODIAZEPINES N POS for COCAINE ADMITTED USE Y POS for METHADONE Y POS for OPIATES (INCLUDING FENTANYL) Y POS for OXYCODONE ADDITIONAL LAB(S) REQUESTED - if indic ated, please order the following: NONE Plan Patient's visit frequency should be week ly. Frequency of UDS and confirmatory test, if applicable, should be weekly. Treatment plan review or change includes continue current level of care. Referrals made today include nonePrescri ption monitoring program is reviewed. If reviewed, I have identified agents prescribed to the patient in addition to any issued by our program; the patient is cou nseled regarding any risk of combining s edating agents. 1. Opioid dependence UNSTABLE: NEW TO TREATMENT ? drug screen, urine ? buprenorphine HCl 8 mg sub lingual tablet 2. Cocaine abuse UNSTABLE: CONTINUED USE ? baclofen 10 mg tablet Discussion Note [...] specimens. Reminders Provider [facility]ments [facility] Lab Drug Screen, 06/08/2020 [facility] Urine Referral None ? ? recorded. Procedures None ? ? recorded. Surgeries None ? ? recorded. Imaging None ? ? recorded. Medications Name Start Date ? ? alprazolam 2 mg tablet ? amlodipine 5 mg tablet ? TAKE 1 TABLET BY MOUTH EVERY DAY BD Regular Bevel [place] 22 gauge x 1 1/2 ? USE [...] Interpretation Description Value Range Status Address ? 06/08/2020 Drug UR ? Amphetamines negative 1,000 Jaida l [place] Screen, NG/mL NG/mL Health: Urine [address], [place] ? ? UR ? Benzodiazapines negative 200 Final [place] NG/mL NG/mL Health: [address], [place] ? ? UR ? Buprenorphine positive 5 Final [place] NG/mL NG/mL Health: [address], [place] ? ? UR ABNORMAL Cocaine positive 150 Final Gloria da Metabolite NG/mL NG/mL Health : [address], [place] ? ? UR ? Opiates negative 300 Final [place] NG/mL NG/mL Health: [address], [place] ? ? UR ? Oxycodone negative 300 Final Gloria da NG/mL NG/mL Health: [address], [place] ? ? UR ? Fentanyl negative 2 Final Savid a NG/mL NG/mL Health: [address], [place] ? ? UR ? Ethyl Alcohol negative 10 Final [place] mg/dL mg/dL Health: [address], [place] ? ? UR ? Methadone negative 300 Final Gloria da Metabolite NG/mL NG/mL Health : [address], [place] ? ? UR ? Urine Creatinine 61.8 mg/dL 20 Fi nal [place] mg/dL Health: [address], [place] ? ? UR ? Urine pH 8.20 4.5-9. Final [place] 0 Health: [address], [place] ? ? UR ? Specific [place] 1.005 1.003- Final [place] 1.035 Health: [address], [place] Allergies Code Code System Name Reaction Severity [...] available Notes: 2014x2, 2016 x1, 2018 x3, 2019 x1 Vaccine List Notes: Dr. Green psych every 2 we eks Social History Tobacco Smoking Status Light Tobacco Smoker (1 PPW) *Legal Assistance Not required *[place] Not a *Transportation Issues No *Job Not [...] infarction Information) Functional Status Unknown. Past Encounters 06/08/2020 Opioid Dependence; Cocaine Abuse Monet Lentz, SOLAR SALES REPRESENTATIVE AND ASSESSOR: [address], [place] [address], Ph. 06/01/2020 Opioid Dependence; Cocaine Abuse Bettye Arizmendi, SOLAR SALES REPRESENTATIVE AND ASSESSOR: [address] [place] [address], Ph. 05/25/2020 Opioid Dependence; Cocaine Abuse Bettye Arizmendi, SOLAR SALES REPRESENTATIVE AND ASSESSOR: [address] [place] [address], Ph. 05/18/2020 Opioid Dependence; Cocaine Abuse Bettye Arizmendi, SOLAR SALES REPRESENTATIVE AND ASSESSOR: [address], [place] [address], Ph. 05/11/2020 Opioid Dependence Bettye Arizmendi, SOLAR SALES REPRESENTATIVE AND ASSESSOR: [address] [place] [address], Ph. History of Present Illness Note: <p>The patient reports {{doing better doing well struggling*}} since last visit and ADMITS TO CONT'D COCAINE USE.

<strong>MAT HPI</strong>
They {{deny* report}} cravings for opiates and {{deny* report}} opiates use since their last visit.
Triggers {{are are not*}} identified and any alleviating factors to identified triggers are dis cussed.
Withdrawal symptoms {{are are not*}} present.

<strong>MAT [...] ROS Reported By: Patient Constitutional: Constitutional: no excessive sweating Eyes: Eyes: no eye redness, no eye discharge Gastrointestinal: GI: no abdominal pain, no na usea, no vomiting, no diarrhea, no constipation Musculoskeletal: Musculoskeletal: no myalgia Neurological symptoms: Neuro: no headache Psychiatric: Psych: no suicidal thoughts, no depression, no anxiety, no insomnia Physical Exam ? General Adult Exam* Reported By: Patient Constitutional*: General Presentation: health y-appearing, well-developed. Level of Distress:* no apparent distr ess (NAD)*, responsive in conversation* Psychiatric*: Mental Status* active & aler t*, normal affect* Skin: Inspection and palpation: no rash, no lesions
--- OUTSIDE RECORDS SUMMARY | 2020-08-03 15:05 | XMS_ITS | Encounter Summary ---
:1975 Author Reason for Visit MAT telemedicine*; OUD - buprenorphine f ollow-up - weekly* Assessment and Plan Assessment Note Telemedicine Information: This telmed (audio + visual) appointmen t provided a MAT prescription. Time Start: 9:18a; Time End:9:30a Provider Location: office; Patient Loca tion: office Telemedicine Consent Given (verbal): Y Lab Results > Last UDS Result (Qual Screen): 06/15/20 POS Buprenorphine and POS for the following [...] tabs. DOSE AMOUNT TAKEN TODAY: Partial Dose 16 mg NUMBER OF FULL TABS/FILMS REMAININ > Bio/psycho/social Update: Pt reports doing well since last visit, taking Suboxone as prescribed with no adverse effects. Denies opioid cravings or withdrawal symptoms. Continues with once weekly cocaine use, although reporting he's fighting cravings all week. Struggles to complete daily activities due to constant thoughts of use. Reports primarily craving the taste of cocaine States he was previously Rx'd Soma 350mg which helped significantly with cravings. Feels that if he used this for a short time he may be able to break this cycle of use. Pt reports Baclofen did not work well fo r him, suspects it may be due to his body habitus so requests increased dose Continues to look for new housing althou gh reports there is not much available on [...] from opioids, actively looking for new housing > 5) [...] ated, please order the following: NONE Plan Cocaine use: Initially agreed with plan to trial Soma PO 350mg TID for cocaine cravings this week. Rx not approved by insurance and after discussion with Shawna Lentz NP plan is continue Baclofen Rx rather than pursue starting on new med w ith abuse potential Renewed Baclofen Rx and increased to 15m g PO TID Patient's visit frequency should be week ly. [...] in counseling and bring counseling verification to [facility] appointment; > Agree to present for random visits; > Agree to not falsify your urin e specimens. Reminders Provider Appointments Weekly 08/10/2020 Andria groves, [facility] 8:45AM TER[facility] Lab Drug Screen, 06/22/2020 [facility] Urine Referral None ? ? recorded. Procedures None ? ? recorded. Surgeries None ? ? recorded. Imaging None ? ? recorded. Medications Name Start Date ? ? alprazolam 2 mg tablet ? amlodipine 5 mg tablet ? TAKE 1 TABLET BY MOUTH EVERY DAY BD Regular Bevel [place] 22 gauge x 1 1/2 ? USE [...] Interpretation Description Value Range Status Address ? 06/22/2020 Drug UR ABNORMAL Amphetamines positive 1,000 Fi nal [place] Screen, NG/mL NG/mL Health: Urine [address], [place] ? ? UR ? Benzodiazapines negative 200 Final [place] NG/mL NG/mL Health: [address], [place] ? ? UR ? Buprenorphine positive 5 Final [place] NG/mL NG/mL Health: [address], [place] ? ? UR ABNORMAL Cocaine positive 150 Final Gloria da Metabolite NG/mL NG/mL Health : [address], [place] ? ? UR ? Opiates negative 300 Final [place] NG/mL NG/mL Health: [address], [place] ? ? UR ? Oxycodone negative 300 Final Gloria da NG/mL NG/mL Health: [address], [place] ? ? UR ? Fentanyl negative 2 Final Savid a NG/mL NG/mL Health: [address], [place] ? ? UR ? Ethyl Alcohol negative 10 Final [place] mg/dL mg/dL Health: [address], [place] ? ? UR ? Methadone negative 300 Final Gloria da Metabolite NG/mL NG/mL Health : [address], [place] ? ? UR ? Urine Creatinine 146.5 20 Final [place] mg/dL mg/dL Health: [address], [place] ? ? UR ? Urine pH 5.50 4.5-9. Final [place] 0 Health: [address], [place] ? ? UR ? Specific [place] 1.020 1.003- Final [place] 1.035 Health: [address], [place] Allergies Code Code System Name Reaction Severity [...] Smoker (1 PPW) *Legal Assistance Not required *[place] Not a *Transportation Issues No *Job Not [...] infarction Information) Functional Status Unknown. Past Encounters 06/22/2020 Opioid Dependence; Cocaine Abuse TERESA Garcia: [address] [place] [address], Ph. 06/15/2020 Opioid Dependence; Cocaine Abuse Monet Lentz, MEDIUM CYCLE SALESPERSON: [address] [place] [address] [place] [address], Ph. 06/08/2020 Opioid Dependence; Cocaine Abuse Monet Lentz, MEDIUM CYCLE SALESPERSON: [address] [place] [address] [place] [address], Ph. 06/01/2020 Opioid Dependence; Cocaine Abuse Bettye Arizmendi, MEDIUM CYCLE SALESPERSON: [address] [place] [phone], Ph. 05/25/2020 Opioid Dependence; Cocaine Abuse Bettye Arizmendi MEDIUM CYCLE SALESPERSON: [address] [place] [phone], Ph. History of Present Illness Note: <p>The [...] compliant with prescribed buprenorphine dose.
The patient {{negro es* reports}} side effects from the medication.
There {{are* are not}} other support systems in place for this patient.

There {{is is no*}} concern for diversion.</p> Review of Systems ? Comprehensive Adult Problem ROS Reported By: Patient Constitutional: Constitutional: normal activ ity level, no fatigue Respiratory: Respiratory: normal respirat ion Gastrointestinal: GI: no abdominal pain, no na usea, no constipation Musculoskeletal: Musculoskeletal: no myalgia Neurological symptoms: Neuro: no headache Psychiatric: Psych: no depression, no anx iety, no insomnia, no stress Physical Exam ? General Adult Exam* [...]
--- OUTSIDE RECORDS SUMMARY | 2020-08-03 15:06 | XMS_ITS | Encounter Summary ---
:1975 Author Reason for Visit initial visit* Assessment and Plan Assessment Note RAFA IS A 44 YO MALE HERE TODAY FOR AN INITIAL VISIT. HE REPORTS THAT HE HAS STRUGGLED WITH PAYING FOR HIS COPAY AT [facility] AND THAT HE WAS TOLD THAT HIS INSURANCE WILL COVER THIS OFFICE. HE HAS BEEN ON 24MG SUBUTEX SINCE STARTI NG THERE. HE HAD A DOCUMENTED REACTION TO NALOXONE WHILE A PATIENT AT [facility]. THEY WERE THE ONES WHO DID A MEDWATCH WITH HIM. HE REPORTS THAT HE OCCASIONALLY USES NA [place]- IT IS IN MY FACE ALL THE TIME BECAUSE OF WHERE I LIVE. HE STATES HE DOES NOT FEEL IT IS AN ISSUE. HE HAS A FAMILY HISTORY OF USE DISORDERS- HIS SISTER D OF AN OD LAST YEAR AND HIS FATHER WAS AN ALCOHOLIC. STATES HE DOES NOT DRINK FOR THAT REASON HE HAS PSYCHIATRY THROUGH DR AGUSTIN IN [facility]. HE STRUGGLES WITH PANIC AND PTSD. HE IS ON CLONAZEPAM 2MG BID- DISCUSSED RISKS- AGAIN DENIES ANY ETOH. 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 HE WILL TRIAL THIS HE HAS MEDICARE AND DOES NOT NEED A PA, THIS WAS VERIFIED AT THE PHARMACY. WILL SEND IN REGULAR DOSE AND FOLLOW UP NEXT WEEK. The patient's current phase of treatment is Maintenance phase OUD. Assessment/Plan The patient does meet diagnostic criter ia for opioid dependence. Will proceed with MAT buprenorphine at recommended dose, see order. Referrals made today include substance abuse counseling. The patient does not need the suggested e-prescript ion of comfort medication. A urine drug screen is ordered, with co nfirmation if positive. See drug screen and medical necessity below. Initial lab studies ordered include HCG (female), CBC with differential, Comprehensive metabolic, Hepatic panel, coag, Hep B, C, and HIV. Education and counseling provided at [facility] Comprehensive Addiction Initial Assessment included: > The patient is counseled re short ter m goal of harm reduction and the termite exterminator goal of abstinence. > Education re risks and benefits of both MAT options: buprenorphine and naltrexone. > If proceeding with buprenorphine, prior to induction with buprenorphine patient is to abstain from short acting opioids 12-24 hours and long acting opioids 72 hours (methadone < 30 mg/day). > If proc eeding with naltrexone, prior to inducti on with naltrexone the patient is to abstain from any opioids 7-10 days and until provider has deemed UDS appropriate to proceed. > Reviewed Program Expectatio ns at length and medication assisted bibi atment options. > Education provided re best way to take medication. > Patient was instructed to bring RX bottle to every visit. > Education provided re common and serious side effects of bupre norphine and naltrexone. > Discussed safe keeping of RX including lock box. > Consents and contracts reviewed and signed with patient. > Discussed ration mt and requirement of psychotherapy to support recovery. > Reviewed process of UDS and random visit requirements. > Discussed the expectation for building trusting relationship to promote a succe ssful recovery. > Reviewed that diversio n or misuse of medication will not be tolerated and is cause for dismissal from the program. Prescription monitoring program is revi ewed. If reviewed, I have identified agents prescribed to the patient in addition to any issued by our program; the patient is counseled regarding any risk of combining sedating agents. 1. Opioid dependence STABLE ? CMP, serum or plasma ? CBC w/ diff ? gamma-glutamyl transferase (ggt), serum ? hepatitis A Ab, total, ser um ? HIV 1+2 Ab + HIV1 p24 Ag, QL, rapid, immunoassay, serum or plasma or blood ? drug screen, urine ? hepatitis B surface Ab, qu antitative, serum ? hepatitis B core Ab, total , serum ? HBsAg (hepatitis B surface Ag), serum ? hepatitis C Ab, quantitati ve, serum ? hepatitis C virus RNA, jase nt, PCR, serum or plasma - REFLEX ONLY IF HEP C AB IS POS ? hepatitis C virus genotype , PCR, blood - REFLEX ONLY IF HEP C VIRAL LOAD IS DETECTED Discussion Note Education provided at today's visit [...] information available. Plan of Care Patient Instructions Abstain from opiates for 24 hours unless [...] falsify your urine specimens. Reminders Provider Appointments Weekly Medical Andria Meier, 08/10/2020 [facility] 8:45AM Lab CMP, Serum or [facility] Plasma 05/11/2020 ? CBC W/ Diff [facility] 05/11/2020 ? Gamma-glutamyl Sa lm Talknote Transferase (Ggt), Serum 05/11/2020 ? Hepatitis a Ab, S Envie de Fraises Total, Serum 05/11/2020 ? HIV 1+2 Ab + ? HIV1 P24 Ag, QL, Rapid, 05/11/2020 Immunoassay, Serum or Plasma or Blood ? Drug Screen, [facility] Urine 05/11/2020 ? Hepatitis B [facility] Surface Ab, Quantitative, 05/11/2020 Serum ? Hepatitis B [facility] Core Ab, Total, Serum 05/11/2020 ? HBsAg [facility] (Hepatitis B Surface Ag), 05/11/2020 Serum ? Hepatitis C Ab, S Envie de Fraises Quantitative, Serum 05/11/2020 ? Hepatitis C [facility] Virus RNA, Quant, PCR, 05/11/2020 Serum or Plasma ? Hepatitis C [facility] Virus Genotype, PCR, 05/11/2020 Blood Referral None recorded. ? ? Procedures None recorded. ? ? Surgeries None recorded. ? ? Imaging None recorded. ? ? Medications Name Start Date ? ? alprazolam 2 mg tablet ? amlodipine 5 mg tablet ? TAKE 1 TABLET BY MOUTH EVERY DAY BD Regular Bevel [place] 22 gauge x 1 02/20 ? USE [...] Interpretation Description Value Range Status Address ? 05/11/2020 Drug UR ? Amphetamines negative 1,000 Jaida l [place] Screen, NG/mL NG/mL Health: Urine [address], [place] ? ? UR ABNORMAL Benzodiazapines positive 200 Fin al [place] NG/mL NG/mL Health: [address], [place] ? ? UR ? Buprenorphine positive 5 Final [place] NG/mL NG/mL Health: [address], [place] ? ? UR ? Cannabinoids negative 50 Final S avida (THC) NG/mL NG/mL Health: [address], [place] ? ? UR ABNORMAL Cocaine positive 150 Final Gloria da Metabolite NG/mL NG/mL Health : [address], [place] ? ? UR ? Methadone negative 300 Final Gloria da Metabolite NG/mL NG/mL Health : [address], [place] ? ? UR ? Opiates negative 300 Final [place] NG/mL NG/mL Health: [address], [place] ? ? UR ? Oxycodone negative 300 Final Gloria da NG/mL NG/mL Health: [address], [place] ? ? UR ? Ethyl Alcohol negative 10 Final [place] mg/dL mg/dL Health: [address], [place] ? ? UR ? Fentanyl negative 2 Final Sav[place] a NG/mL NG/mL Health: [address], [place] ? ? UR ? Urine Creatinine 109.6 >20 Final [place] mg/dL mg/dL Health: [address], [place] ? ? UR ? Urine pH 5.90 4.5-9. Final [place] 0 Health: [address], [place] ? ? UR ? Specific [place] 1.017 1.003- Final [place] 1.035 Health: [address], [place] Allergies Code Code System Name Reaction Severity [...] x3, 2020 x1 Vaccine List Notes: Dr. Agustin psych [...] infarction Information) Functional Status Unknown. Past Encounters 05/11/2020 Opioid Dependence Bettye Arizmendi, RELIABILITY MANAGER: [address] [place] [address], Ph. History of Present Illness Note: <p><strong>Initial MAT HPI</strong>
The patient presents today seeking outpatient treatment for {{opiate* alcohol both opiate and alcohol}} dependence.
Current readiness for treatment/stage of change is described as {{pre-contemplation contemplation preparation action maintenance*}}.
Onset of substance dependence, beginning with first substance used and all illicit and/or prescription abuse to date and including current substances: {{I started usingwhen I was in my teens- coke and MJ, I started using pills after my back surgeries. And that became a habit# CLICK TO FREE TEXT}}.
Current or most recent route of primary substance use is described as {{oral intranasal* skin popping intravenous smoking}}.

The patient {{denies reports*}} a history of IV drug use.
The patient {{denies reports*}} a historyof overdose. The patient {{denies reports*}} a history of witnessing an overdose.
The patient {{denies reports*}} having ever used or been prescribed Methadone. The patient's last exposure to M ethadone was {{DATE 04/30/2013}}.
The patient {{denies reports*}} having ever used or been prescribed Buprenorphine. The patient's last exposure to Buprenorphine was {{DATE 05/11/2020}}.<br& gt;

<strong>Attempts to stop including past and/or most recent:</strong>
> Inpatient detox: {{Y* N}}
> Residential and/or Sober Housing: {{ Y N*}}
> Periods of sobriety during incarceration: {{Y N*}}
> Intensive Outpatient Program: {{Y* N}}
> Partial Hospitalization Program: {{Y* N}}
> Medication assisted treatment program(s): {{Y N*}}
Most successful program to datehas been {{none methadone/OTP inpatient residential sober living buprenorphine* bup+residential Vivit rol Vivitrol+residential incarceration}}.
The patient describes individual goals for substance dependence treatment as {{Bup works for me- i just want to stay stable# CLICK TO FREE TEXT}}.</p> Review of Systems ? 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 General Adult Exam* Reported By: Patient Constitutional*: General Presentation: health y-appearing. Level of Distress:* no apparent distress (NAD)*. Am bulation: ambulating normally Psychiatric*: Mental Status* active & aler t*, normal affect* Musculoskeletal:: Joints, Bones, and Muscles: normal movement of all extremities Neurologic*: Orientation:* to time*, to p lace*, to person*
--- OUTSIDE RECORDS SUMMARY | 2020-08-03 15:06 | XMS_ITS | Encounter Summary ---
:1975 Author Reason for Visit buprenorphine follow-up - weekly*; MAT t elemedicine* Assessment and Plan Assessment Note Telemedicine Information: This telmed (audio + visual) appointmen t provided a MAT prescription. Time Start: 1000; Time End:1015 Provider Location: home; Patient Locati on: office Telemedicine Consent Given (verbal): Y Lab Results > Last UDS Result (Qual Screen): POS Buprenorphine and POS for prescribed meds: BENZODIAZEPINE ALSO ADMITTED TO COCAINE USE > Last Confirmatory Test Result (LCMS /Quant): ADMITTED COCAINE USE > Last Buprenorphine Confirmation Test Result: Bup: NOT DONE ng/ml & Norbup: NOT DONE ng/ml NEEDS LABS Since Last Visit THIS PT IS BEING TREATED FOR OUD WITH B UPRENORPHINE AND IS SEEN WEEKLY. CURRENT PRESCRIPTION IS 24MG BUPRENORPHINE. CAME TO US FROM [facility] ON THIS DOSE AND ON MONOPRODUCT DOSE AMOUNT TAKEN TODAY: Full dose NUMBER OF FULL TABS/FILMS REMAININ > Bio/psycho/social Update: RAFA IS A 44 YO MALE HERE TODAY FOR WEEKLY FOLLOW UP VISIT. HE REPORTS THAT HE HAS STRUGGLED WITH PAYING FOR HIS COPAY AT [facility] AND THAT HE WAS TOLD THAT HIS INSURANCE WILL COVER THIS OFFICE. HE DID GET A REFERRAL FROM [facility] TO THIS PROGR AM. WE ARE AWAITING HIS RECORDS. HE HAS BEEN ON 24MG SUBUTEX SINCE START ING THERE. HE HAD A DOCUMENTED REACTION TO NALOXONE WHILE A PATIENT AT THE [facility]. 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 HE DENIES THAT COCAINE CAUSES ISSUES FOR HIM WITH HIS LIFE, BUT WILLIS T HE WANTS TO STOP FOR HIMSELF. HE STATE S HIS IS AWARE AND SUPPORTIVE. HE HAS A FAMILY HISTORY OF USE DISORDER S- HIS SISTER OF AN OD LAST YEAR AND HIS FATHER WAS AN ALCOHOLIC. STATES HE DOES NOT DRINK FOR THAT REASON HE HAS PSYCHIATRY THROUGH DR AGUSTIN IN [facility]. HE STRUGGLES WITH PANIC AND PTSD. HE IS ON CLONAZEPAM 2MG BID- DISCUSSED RISKS- AGAIN DENIES ANY ETOH. 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 1. Opioid dependence STABLE- ORDER SENT IN ORDER SE T. WILL CONTINUE CURRENT DOSE AND FOLLOW UP IN ONE WEEK. ? drug screen, urine 2. Cocaine abuse [...] in counseling and bring counseling verification to [facility] appointment; > Agree to present for random visits; > Agree to not falsify your urin e specimens. Reminders Provider Appointments Weekly 08/10/2020 Andria groves, [facility] 8:45AM [place] Lab Drug Screen, 05/25/2020 [facility] Urine Referral None ? ? recorded. Procedures None ? ? recorded. Surgeries None ? ? recorded. Imaging None ? ? recorded. Medications Name Start Date ? ? alprazolam 2 mg tablet ? amlodipine 5 mg tablet ? TAKE 1 TABLET BY MOUTH EVERY DAY BD Regular Bevel [place] 22 gauge x 1 /2 ? USE [...] Interpretation Description Value Range Status Address ? 05/25/2020 Drug UR ? Amphetamines negative 1,000 Jaida l Savida Screen, NG/mL NG/mL Health: Urine [address], [place] ? ? UR ? Benzodiazapines negative 200 Final [place] NG/mL NG/mL Health: [address], [place] ? ? UR ? Buprenorphine positive 5 Final [place] NG/mL NG/mL Health: [address], [place] ? ? UR ABNORMAL Cocaine positive 150 Final Gloria da Metabolite NG/mL NG/mL Health : [address], [place] ? ? UR ? Methadone negative 300 Final Gloria da Metabolite NG/mL NG/mL Health : [address], [place] ? ? UR ? Opiates negative 300 Final Savida NG/mL NG/mL Health: [address], [place] ? ? UR ? Oxycodone negative 300 Final Gloria da NG/mL NG/mL Health: [address], [place] ? ? UR ? Fentanyl negative 2 Final Savid a NG/mL NG/mL Health: [address], [place] ? ? UR ? Urine Creatinine 50.6 mg/dL >20 Fi nal Savida mg/dL Health: [address], [place] ? ? UR ? Urine pH 8.20 4.5-9. Final Savida 0 Health: [address], [place] ? ? UR ? Specific [place] 1.004 1.003- Final Savida 1.035 Health: [address], [place] Allergies Code Code System Name Reaction Severity [...] infarction Information) Functional Status Unknown. Past Encounters 05/25/2020 Opioid Dependence; Cocaine Abuse Bettye Arizmendi WEB PRESS OPERATOR APPRENTICE: [id number] [place] [address], Ph. 05/18/2020 Opioid Dependence; Cocaine Abuse Bettye Arizmendi WEB PRESS OPERATOR APPRENTICE: [id number] [place] [address], Ph. 05/11/2020 Opioid Dependence Bettye Arizmendi, WEB PRESS OPERATOR APPRENTICE: [id number] [place] [address], Ph. History of Present Illness Note: <p>The patient reports {{doing better doing well* struggling}} since last visit and {{denies reports*}} [...] patient.

There {{is is no*}} concern for diversion.</p><p></p><p></p> Review of Systems ? Comprehensive Adult Problem [...]
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
--- NOTE | 2020-08-03 17:29 | CMACTNOTE_ITS ---
- If Service Date Differs Date of service: 08/03/20 Time of Service: 17:29 Care Management Activity Note Rafa is seen in the ED for chest pain and Covid-19. At the request of ED provider, CM contacts [facility] to enlist their assistance in finding transportation home for Rafa. Authorization for a ride home via ambulance is eventually obtained from [facility], but by then, Rafa has succeeded at finding his own way home.
== END 2020-08-03 15:25 | disposition home or self-care (01) ==
LOC: ER 15:02
PROVIDERS: Emergency Provider Student in an Organized Health Care Education/Training Program; PCP Family Medicine
DX: U07.1 COVID-19 (principal); R07.1 Chest pain on breathing
CPT/HCPCS: 36415; 71275; 80053; 93005; 99285; 81003; 81015; 83735; 84484; 85025; 93010; 93971; 99284; J3490

== ENCOUNTER 2020-08-21 14:34 | Inpatient (IN) | payer OTHER, SELFPAY ==
[2020-08-21 14:39] VITALS: BP 150/101; PULSE 75; RESP 18; TEMP 36.5; O2SAT 98
[2020-08-21 14:48] VITALS: RESP 18
--- NOTE | 2020-08-21 15:21 | ED.GENADUL_ITS ---
Discharge Plan Disposition Patient Disposition: [facility] INPATIENT Condition: Stable Discharge Details Clinical Impression: Suicidal ideation, Pain in right leg Admit Date/Time: 08/21/20 20:28 Admit Provider: Pankaj Up Attending Provider: Pankaj Up Primary Care Provider: Pankaj [place] ED Provider: Maddison Roberson Discharge Data Discharge Date/Time-TO BE ENTERED AT DEPARTURE: 08/21/20 21:10 Medical Decision Making <TERESA Degroot - Last Filed: 08/21/20 21:55> Patient is a 44-year-old male presenting today with chief complaint of right lower extremity pain. Reports that he has pain that radiates from the right side of his lumbar spine down the right leg circumferentially. Because of this leg is also weak. Denies any change in bowel or bladder habits. States that he has had multiple lumbar spine surgeries in the last of which was performed in 2011. No recent trauma. Denies any fevers or chills. Was recently diagnosed with COVID-19. Continues to have loss of taste and smell but otherwise has been feeling improved. Reports that the pain in the back and down the right leg have been present progressively worsening x1 week. Patient is also here with concerns for his mental health. Patient recently found out that my is doing something very bad. This, pushed me over the edge. However, he is not endorsing active SI. Rather, he feels this is exacerbating his anxiety and depression. Is crying when discussing this. He does not have plan to harm himself. Does not want to harm others. On exam, patient is a crying, appears uncomfortable and anxious. He is not reporting active suicidality, seems very consumed with what is going on with his . He is not forthcoming with what these issues are. Lungs clear. Abdomen benign, chronic hernia. Scar on lumbar spine consistent with his previous surgery. Pain is maximal along the right lumbar spine paraspinal region. Sensation along saddle area is intact. He has 2+ distal pulses at patella and ankle. Weakness is noted on RLE compared to left, it appears to cause discomfort during testing. With the severe discomfort, particularly given the previous surgeries, plan to obtain CT of lumbar spine. He has not had his subutex, he feels this is a good portion of his anxiety and pain. Will give typical dosing. Will also consult with for his severe anxiety and depression. evaluated the patient. He is much more forth coming with them and admits to them plan of SI. Has plan of jumping off bridge. She recommends inpatient admission, patient is in agreement and would like to stay voluntarily. Has been at facilities multiple times historically. Will obtain labs, repeat COVID testing although I assume he will be positive. At the end of my shift, care transitioned to Maddison Roberson NP with imagning and labs pending. <Maddison Roberson - Last Filed: 08/21/20 22:59> Care assumed from provider (TERESA Boss) Discussed patient details and case and pending workup and disposition. Patient is hemodynamically stable, and alert and oriented. Visualized to be ambulatory in the room, sitting on side of the bed, eating dinner. Awaiting medical work-up, CT lumbar spine and is on voluntary hold for mental health admission. He has already had his mental health evaluation and told the psych liaison that he wanted to jump off a bridge. COMPARISON: CT renal colic wo 07/24/2018 3:39 PM FINDINGS: Vertebrae: There is hardware of posterior spinal fusion from L4-S1 with pedicle screws and interconnecting rods at these levels, which appear intact. There have been prior laminectomies at L5. There are findings of osseous fusion of the posterior elements from L4-S1. There is1.6 cm anterolisthesis L5 on S1. These findings are all stable since prior study. No acute compression fractures or displaced fractures are identified. Again noted are 3 metallic screws fusing the left SI joint which appear unchanged and intact. Discs/Spinal canal/Neural foramina: Again noted is partial osseous fusion of the L5-S1 disc space. There is stable [id number] degenerative change at T12-L1 with more mild degenerative changes at multiple other levels. Findings suggest stable multilevel mild broad- based posterior disc bulging. No severe spinal canal stenosis. Soft tissues: Again noted is a simple appearing left lower pole renal cyst which is only partially imaged but measures up to 5.5 cm, stable. Again noted is a small fat containing left inguinal hernia. IMPRESSION: 1. No acute fractures or subluxations. 2. Stable degenerative changes. 3. Stable postoperative changes of posterior fusion from L4-S1 as well as prior surgical fusion of the left SI joint. 4. Stable 1.6 cm anterolisthesis of L5 on S1. Thank you for allowing us to participate in the care of your patient. Dictated and Authenticated by: Pankaj Edmonds MD Work-up shows CBC largely within normal limits, CMP shows no electrolyte abnormality TSH is 0.05 which is low, T4 is pending at this time, urinalysis shows no evidence for UTI UDS is positive for cocaine ethyl alcohol is negative at this time. CT lumbar spine resulted as noted above. No acute fractures or subluxations, no significant severe spinal canal stenosis noted. Repeat Covid swab ordered despite patient report of recent Covid diagnosis and is pending at this time.. Salicylate less than 2.8. Patient has remained calm cooperative throughout stay. Spoke with Dr. Tamayo who is on for hospitalist regarding patient case and details he verbalizes understanding agrees to accept patient for admission at this time. For psych placement and right leg pain. 2020: Dr. Tamayo @ for eval. Patient admitted remained hemodynamically stable throughout stay. HPI <TERESA Degroot - Last Filed: 08/21/20 21:55> General Mode of arrival: ambulatory . Date/Time Provider Initiated Documentation: 08/21/20 14:47 . Limitations to Documentation: no limitations . Information obtained by: patient, RN/MD (nursing staff received call from urgent care provider) and RN notes reviewed . History of Present Illness 44 year old M presents to the emergency department with the chief complaint of back pain, right leg pain, anxiety and depression, described as severe, with intensity rated at 10. Quality is described as aching, and is localized to the back. Patient extremity (RLE). Patient started experiencing this week(s) and it has been constant. Immobilization improves symptom(s), Movement worsens symptoms . Patient notes weakness (reports weakness in RLE); denies chest pain, cough, fever/chills, headaches, loss of appetite, nausea/vomiting, rash and shortness of breath. Patient did receive the following treatments prior to arrival, none Related Data Home Medications Medication Instructions Recorded Confirmed cholecalciferol (vitamin D3) 2,000 unit PO DAILY 03/27/17 08/21/20 [Vitamin D3] prochlorperazine maleate 5 - 10 mg PO Q8H PRN #20 tab 08/14/17 08/21/20 lamotrigine 25 mg tablet 25 mg PO DAILY #5 tab 12/03/17 08/21/20 lisinopril 10 mg PO DAILY #30 tab 01/04/18 08/03/20 pantoprazole 40 mg PO DAILY PRN 01/04/18 08/21/20 albuterol sulfate 90 mcg/actuation 2 puff INHALATION Q4H PRN g 04/19/20 08/21/20 aerosol inhaler alprazolam 2 mg tablet 2 mg PO BID 04/19/20 08/21/20 buprenorphine HCl 8 mg sublingual 24 mg SUBLINGUAL DAILY tab 04/19/20 08/21/20 tablet buspirone 10 mg tablet 30 mg PO BID tab 04/19/20 08/21/20 gabapentin 600 mg tablet 600 mg PO TID 04/19/20 08/21/20 ibuprofen 800 mg tablet 800 mg PO Q8H 04/19/20 08/21/20 multivitamin 1 tab PO DAILY 04/19/20 08/21/20 pregabalin 100 mg capsule 100 mg PO BID 04/19/20 08/21/20 testosterone cypionate 200 mg/mL 300 mg IM Q2W ml 04/19/20 08/21/20 intramuscular oil Previous Rx's Medication Instructions Recorded prochlorperazine maleate 5 - 10 mg PO Q8H PRN #20 tab 08/14/17 lamotrigine 25 mg tablet 25 mg PO DAILY #5 tab 12/03/17 lisinopril 10 mg PO DAILY #30 tab 01/04/18 Allergies Allergy/AdvReac Type Severity Reaction Status Date / Time Cephalosporins Allergy Intermediate Swelling/Ed Unverified 08/21/20 14:43 arleth hydroxyzine Allergy Unverified 08/21/20 14:43 oxycodone Allergy Unverified 08/21/20 14:43 General Stated Complaint: GenMedical JHONATAN: 3 Review of Systems <TERESA Degroot - Last Filed: 08/21/20 21:55> Constitutional Constitutional: Reports as per HPI, Denies chills, Reports fatigue (associates with waking at 0400 today because of social stress), Denies fever(s), Denies frequent falls and Denies headache(s) ENT Ears, Nose, Mouth, and Throat: Denies headache(s) Cardiovascular Cardiovascular: Denies chest pain, Denies dyspnea and Denies dyspnea on exertion Respiratory Respiratory: Denies cough, Denies dyspnea and Denies dyspnea on exertion Gastrointestinal Gastrointestinal: Denies abdominal pain, Denies change in bowel habits and Denies fecal incontinence Genitourinary Genitourinary: Reports as per HPI, Denies urinary hesitancy and Denies urinary incontinence Musculoskeletal Musculoskeletal: Reports as per HPI, Reports back pain, Reports muscle weakness, Denies numbness, Reports radiating pain into limb, Denies stiffness and Denies tingling Integumentary/Breasts Skin/Breast: Reports as per HPI and Denies rash Neurologic Neurologic: Reports as per HPI, Denies frequent falls, Denies headache(s), Denies localized weakness, Denies numbness, Denies radicular pain, Denies sensory deficit, Denies tingling and Denies paresthesias Psychiatric Psychiatric: Reports as per HPI, Reports abnormal sleep pattern (states he woke early today b/c of issues wtih his ), Reports anxiety, Denies change in appetite (reports being hungry now, states he has not been eating today b/c of social), Reports depression, Reports hopelessness, Reports mood swings, Denies homicidal ideation and Denies suicidal ideation Endocrine Endocrine: Reports fatigue (associates with waking at 0400 today because of social stress) [facility] <TERESA Degroot - Last Filed: 08/21/20 21:55> Medical History A-fib s/p ablation Abnormal laboratory test Abnormal thyroid function test Allergic rhinitis Atrial flutter Carpal tunnel syndrome Chronic daily headache Chronic low back pain Depression Depression Diastasis recti Erectile dysfunction Failed back syndrome Generalized anxiety disorder GERD (gastroesophageal reflux disease) GERD (gastroesophageal reflux disease) Hepatitis C Hiatal hernia s/p Catherine History of substance abuse Hypertension Hypertension Hypogonadotropic hypogonadism Hypothyroidism Lower extremity edema Lumbosacral spondylosis with myelopathy Opioid dependence Polycythemia Prostate nodule Prostatitis, chronic PTSD (post-traumatic stress disorder) RUQ abdominal tenderness Urinary frequency Venous insufficiency Surgical History back surgery cardiac ablation EGD - MAC Catherine Fundoplication laparoscopic shoulder surgery Total replacement of hip Family History (System 06/17/20 @ 10:38 by Elaine Quintana) Father Stroke Paternal Uncle Stroke Paternal Grandmother Stroke Other Migraine Social History Smoking/Tobacco Use Status: Current every day Tobacco Type: cigarettes and e- cigarettes Smoking risk assessment performed?: Yes Alcohol Intake: former Drug use: Current Sobriety Substance use type: former substance user Household members: spouse Do you feel safe at home: Yes Exam <TERESA Degroot - Last Filed: 08/21/20 21:55> Const General: cooperative, healthy appearing, uncomfortable, no acute distress, well developed, well groomed and anxious Nutritional Appearance: average body habitus and well nourished Orientation: alert and awake Neck Neck: normal visual inspection, full ROM, no lymphadenopathy and no meningeal signs Resp Effort & Inspection: normal respiratory effort and able to speak in complete sentences Auscultation: clear to auscultation bilaterally, no rales, no rhonchi and no wheezes Cardio Rate: regular rate Rhythm: regular rhythm Heart Sounds: S1 normal and S2 normal GI Inspection: normal to inspection and visible herniation (reports chronic herniation) Palpation: soft, no hepatosplenomegaly, not firm, no guarding, hernia and nontender Percussion: normal to percussion Auscultation: normal bowel sounds Back/Spine/Pelvis Back: no CVA tenderness Cervical Spine: normal cervical lordosis and cervical ROM normal Thoracic/Lumbar Spine: surgical scar(s) present (midline lumbar spine), pain with thoraco-lumbar ROM (ROM limited secondary to pain), paraspinal tenderness (right lumbar spine), thoraco-lumbar ROM limited, No thoracic spinal tenderness and No lumbar spinal tenderness (no midline pain) Pelvis: no pain with anterior-posterior compression, no pain with lateral compression, no buttock ecchymosis and no buttock tenderness Sacroiliac joints: bilaterally nontender Skin General skin exam: no rashes or lesions noted Neuro General: patient alert and patient awake Cognition: normal cognition Speech: speech normal Gait: normal gait Motor: muscle tone normal throughout, strength 5/5 throughout, no movement abnormalities noted and no fasciculations Sensory Exam: no sensory deficits noted (no saddle paresthesias) DTR's: Rt Patellar: 2+, Lt Patellar: 2+, Rt Ankle: 2+ and Lt Ankle: 2+ Plantar Reflexes: Equivocal: bilateral Extrem General: normal to inspection, full ROM, capillary refill normal, no joint enlargement, no pedal edema, no calf tenderness and normal gait Psych Appearance: grossly normal and well kempt Mental Status: mental status grossly normal Speech and Movement: restless and other (crying frequently) Mood: anxious mood Affect: sad and anxious affect Attitude: guarded Thought Process: normal Thought Content: no compulsions, no homicidality and suicidality Insight: fair Judgment: fair Course <TERESA Degroot - Last Filed: 08/21/20 21:55> Vital Signs Vital signs: Vital Signs Temperature 36.5 C 08/21/20 14:39 Pulse 75 08/21/20 14:39 Respiratory Rate 18 08/21/20 14:39 Blood Pressure 150/101 H 08/21/20 14:39 Pulse Oximetry 98 08/21/20 14:39 Temperature 36.5 C 08/21/20 14:39 Temperature Source Temporal Artery Scan 08/21/20 14:39 Pulse 75 08/21/20 14:39 Respiratory Rate 18 08/21/20 14:48 Respiratory Effort Non-Labored 08/21/20 14:48 Respiratory Depth Normal 08/21/20 14:48 Respiratory Pattern Normal 08/21/20 14:48 Blood Pressure 150/101 H 08/21/20 14:39 Blood Pressure Position Sitting 08/21/20 14:39 Pulse Oximetry 98 08/21/20 14:39 Oxygen Delivery Method Room Air 08/21/20 14:39 Oxygen Flow Rate 0 08/21/20 14:39 Pain Level 10 08/21/20 14:39 Sign Out <TERESA Degroot - Last Filed: 08/21/20 21:55> Sign Out Data: Sign Out Comment: Care transitioned to Maddison Roberson NP with imaging and lab pending. Here for back pain, received his typical dosing of subutex. Has SI with thoughts of jumping off bridge. Voluntary admit. has already consulted and recommends admission. Last updated by Elvia Salinas PA at 08/21/20 18:15
--- NOTE | 2020-08-21 15:30 | DI.CT_ITS ---
Exam(s) CT LUMBAR SPINE WO EXAM: CT LUMBAR SPINE WO CLINICAL HISTORY: pain radiating down right leg. TECHNIQUE: Imaging Protocol: Axial computed tomography images with coronal and sagittal reformatted images were created and reviewed CONTRAST MATERIAL: Noncontrast COMPARISON: CT CT renal colic wo from 07/24/[address] renal colic wo from 07/24/[address] CHEST PE CTA from 08/03/[address] CHEST PE CTA from 08/03/2020 FINDINGS: Bones: The last intervertebral disc space is designated the L5/S1 level for the numbering purpose of this examination. The vertebral body heights are well maintained. No fracture is seen. T12-L1: Small endplate osteophytes and mild disc bulging.. L1-2: No disc herniations or bulges are present. L2-3: No disc herniations or bulges are present. L3-4: No disc herniations or bulges are present. Posterior fusion hardware from L4 through S1. Hardware appears intact. L5 laminectomies. Stable ap pearance L5-S1 disc space narrowing and spondylo listhesis. Soft Tissues: The visualized SI joints and sacrum are will maintained. The paraspinal soft tissues a re unremarkable. IMPRESSION: Stable appearance L4 through S1 hardware and L5-S1 spondylolisthesis. RADIATION DOSE DELIVERED: 1,157.92mGy.cm Total DLP DATA REPOSITORY: All CT scans at this facility are submitted to the National Radiology Data Registry (NRDR) Dose Index Registry (DIR) with the [employer] ([employer]). RADIATION OPTIMIZATION: All CT scans at this facility use at least one of these dose optimization te chniques: automated exposure control; mA and/or kV adjustment per patient size (includes targeted exa ms where dose is matched to clinical indication); or iterative reconstruction.
--- NOTE | 2020-08-21 17:32 | DI.VRAD_ITS ---
PROCEDURE INFORMATION: Exam: CT Lumbar Spine Without Contrast Exam date and time: 08/21/2020 3:41 PM Age: 44 years old Clinical indication: Low back pain and sciatica; Right; Prior surgery; Surgery date: 6+ months TECHNIQUE: Imaging protocol: Computed tomography images of the lumbar spine without contrast. Radiation optimization: All CT scans at this facility use at least one of these dose optimization techniques: automated exposure control; mA and/or kV adjustment per patient size (includes targeted exams where dose is matched to clinical indication); or iterative reconstruction. COMPARISON: CT renal colic wo 07/24/2018 3:39 PM FINDINGS: Vertebrae: There is hardware of posterior spinal fusion from L4-S1 with pedicle screws and interconnecting rods at these levels, which appear intact. There have been prior laminectomies at L5. There are findings of osseous fusion of the posterior elements from L4-S1. There is1.6 cm anterolisthesis L5 on S1. These findings are all stable since prior study. No acute compression fractures or displaced fractures are identified. Again noted are 3 metallic screws fusing the left SI joint which appear unchanged and intact. Discs/Spinal canal/Neural foramina: Again noted is partial osseous fusion of the L5-S1 disc space. There is stable [id number] degenerative change at T12-L1 with more mild degenerative changes at multiple other levels. Findings suggest stable multilevel mild broad-based posterior disc bulging. No severe spinal canal stenosis. Soft tissues: Again noted is a simple appearing left lower pole renal cyst which is only partially imaged but measures up to 5.5 cm, stable. Again noted is a small fat containing left inguinal hernia. IMPRESSION: 1. No acute fractures or subluxations. 2. Stable degenerative changes. 3. Stable postoperative changes of posterior fusion from L4-S1 as well as prior surgical fusion of the left SI joint. 4. Stable 1.6 cm anterolisthesis of L5 on S1. Dictated and Authenticated by: Pankaj Edmonds MD. Ordering:DANNI Gan MD
[2020-08-21 17:33] LABS: Source Nasal/Nares
[2020-08-21 17:36] LABS: Bilirubin Negative (Negative); Blood Negative (Negative); Clarity Clear (Clear); Glucose Negative (Negative); Ketones Negative (Negative); Leukocyte Esterase Negative (Negative); Nitrite Negative (Negative); Specific Gravity 1.025 (1.005-1.025); Urobilinogen 0.2 EU/dL (Up TO 0.2); pH 5.5 (5-8)
[2020-08-21 17:50] LABS: *AMPHETAMINES SCREEN URINE Negative (Negative); *BARBITURATES SCREEN URINE Negative (Negative); *BENZODIAZEPINES SCREEN URINE Negative (Negative); Cannabinoids THC Negative (Negative); Cocaine Screen,Urine Positive (Negative); METHADONE URINE SCREEN Negative (Negative); OPIATES URINE SCREEN Negative (Negative)
[2020-08-21 17:50] LABS: Abs Immature Grans 0.04 10^3/uL (0.0-0.06); Absolute Basophil Count 0.03 10^3/uL (0.0-0.2); Absolute Eosinophil Count 0.19 10^3/uL (0.0-0.7); Absolute Lymphocyte Count 2.05 10^3/uL (1.2-3.4); Absolute Neutrophil Count 6.16 10^3/uL (1.2-6.7); Basophils % 0.3; HCT 48.4 % (40.0-50.0); HGB 16.2 g/dL (13.5-17.5); Immature Grans % 0.4; Lymphocytes % 21.6; MCH 31.8 pg (27.0-33.0); MCHC 33.5 % (32.0-36.0); MCV 95.1 fL (80-95); MPV 9.7 fL (8.0-11.0); Monocytes % 10.6; Neutrophils % 65.1; Nucleated RBC 0 %; Platelet Count 226 10^3/uL (130-400); RBC 5.09 10^6/uL (4.36-5.78); RDW 11.1 % (11.8-14.1); RDW-SD 38.8 fL; WBC 9.47 10^3/uL (4.4-10.8)
[2020-08-21 17:57] LABS: Tricyclic Antidepressants Negative (Negative)
[2020-08-21 18:13] LABS: Salicylate < 2.8 mg/dL (<2.8)
[2020-08-21 18:15] LABS: ALT 44 U/L (16-63); AST 34 U/L (15-37); Albumin 3.7 g/dL (3.4-5.0); Alkaline Phosphatase 59 U/L (46-116); Anion Gap 6.6 mmol/L (3-11); BUN 17 mg/dL (7-18); Bilirubin, Total 0.8 mg/dL (0.2-1.0); CO2 31.4 mmol/L (21.0-32.0); CREATININE 1.2 mg/dL (0.70-1.30); Calcium 9.4 mg/dL (8.5-10.1); Chloride 102 mmol/L (98-107); Glucose 91 mg/dL (74-106); Potassium 4.1 mmol/L (3.5-5.1); Sodium 140 mmol/L (136-145); TSH (W/Ref FT4) 0.05 uIU/mL (0.36-3.74); Total Protein 8.5 g/dL (6.4-8.2)
[2020-08-21 18:16] LABS: Acetaminophen < 2 ug/mL (10-30)
[2020-08-21 18:32] LABS: FREE T4 1.42 ng/dL (0.76-1.46)
[2020-08-21 18:33] LABS: ETHANOL BLOOD < 3.0 mg/dL (<3)
[2020-08-21 18:35] LABS: COVID-19 PCR Negative (Negative)
[2020-08-21] MEDS: ALPRAZolam 0.25 MG TAB 2 MG PO (19:40)
[2020-08-21] MEDS: Pregabalin 100 MG CAP PO (19:40)
[2020-08-21] MEDS: busPIRone 5 MG TAB 10 MG PO (19:40)
[2020-08-21] MEDS: Gabapentin 300 MG CAP 600 MG PO (19:58)
[2020-08-21] MEDS: Ibuprofen 800 MG TAB PO (20:07)
--- NOTE | 2020-08-21 20:36 | W.PM.HP.N ---
Date of service: 08/21/20 Time of Service: 20:36 Assessment and Plan Assessment and plan (1) Suicidal ideation: Status: Acute Assessment and plan: He has been seen by mental health and transfer to another hospital is being looked into. He will be admitted to the hospital here pending transfer to the psychiatric unit. He will be a voluntary transfer. He has a positive cocaine test on his urine and this will be confirmed. (2) Pain in right leg: Status: Acute Assessment and plan: He had a CT of his lumbar spine which showed no abnormalities acutely. He will be placed on prednisone for the next 4 days to see if this helps. He may need an MRI. (3) Abnormal thyroid function test: Status: Acute Assessment and plan: He has had abnormal thyroid testing in the past with low TSH and borderline high free T4 levels. We will check a T3 level. History of Present Illness History of Present Illness Chief Complaint: Depression and back pain Narrative: This 44-year-old male is here because of pain in her right leg and back and because of depression and suicidal ideation. He has had a long history of back problems and has had repeated back surgery by Dr. Figueroa from [facility]. Dr. Figueroa has now retired. The patient's had increased back and right leg pain that has been like a burning sensation for the last week. He is not worse with coughing or sneezing. He went to the clinic today to be evaluated and referred here for further evaluation. He also complains of difficulty with his home situation with his and feels like he may want to jump off a bridge. He has been treated [facility] and [facility] psych unit in the past. He sees Dr. Beto Green for his mental health services. He has a history of PTSD and anxiety. He denies use of recreational drugs but does smoke about 3 to 4 cigarettes/day. He denies use of alcohol. Review of Systems Constitutional Constitutional: Denies chills, Reports difficulty sleeping, Denies fever(s) and Reports lethargy Cardiovascular Cardiovascular: Denies chest pain, Denies irregular heart rhythm, Denies leg edema and Denies dyspnea Respiratory Respiratory: Denies dyspnea Comments: He did have Covid recently and his breathing status has improved. Gastrointestinal Gastrointestinal: Denies constipation, Denies diarrhea and Denies vomiting Genitourinary Genitourinary: Denies dysuria, Denies urinary hesitancy and Reports urinary urgency Musculoskeletal Musculoskeletal: Reports muscle cramps, Reports muscle weakness and Reports numbness Neurologic Neurologic: Reports numbness Psychiatric Psychiatric: Reports depression and Reports suicidal ideation [facility] Medical History (Updated 08/21/20 @ 20:46 by Pankaj Up MD) A-fib s/p ablation Abnormal laboratory test Abnormal thyroid function test Allergic rhinitis Atrial flutter Carpal tunnel syndrome Chronic daily headache Chronic low back pain Depression Depression Diastasis recti Erectile dysfunction Failed back syndrome Generalized anxiety disorder GERD (gastroesophageal reflux disease) GERD (gastroesophageal reflux disease) Hepatitis C Hiatal hernia s/p Catherine History of substance abuse Hypertension Hypertension Hypogonadotropic hypogonadism Hypothyroidism Lower extremity edema Lumbosacral spondylosis with myelopathy Opioid dependence Polycythemia Prostate nodule Prostatitis, chronic PTSD (post-traumatic stress disorder) RUQ abdominal tenderness Urinary frequency Venous insufficiency Surgical History (System 06/17/20 @ 10:38 by Elaine Quintana) back surgery cardiac ablation EGD - MAC Catherine Fundoplication laparoscopic shoulder surgery Total replacement of hip Family History (System 06/17/20 @ 10:38 by Elaine Quintana) Father Stroke Paternal Uncle Stroke Paternal Grandmother Stroke Other Migraine Social History (System 06/17/20 @ 10:38 by Elaine Quintana) Smoking/Tobacco Use Status: Current every day Tobacco Type: cigarettes and e-cigarettes Smoking risk assessment performed?: Yes Alcohol Intake: former Drug use: Current Sobriety Substance use type: former substance user Household members: spouse Do you feel safe at home: Yes Meds Allergies and Home Medications Allergies Allergy/AdvReac Type Severity Reaction Status Date / Time Cephalosporins Allergy Intermediate Swelling/Ed Unverified 08/21/20 14:43 arleth hydroxyzine Allergy Unverified 08/21/20 14:43 oxycodone Allergy Unverified 08/21/20 14:43 Home Medications Medication Instructions Recorded Confirmed Type cholecalciferol (vitamin D3) 2,000 unit PO DAILY 03/27/17 08/21/20 History [Vitamin D3] prochlorperazine maleate 5 - 10 mg PO Q8H PRN #20 tab 08/14/17 08/21/20 Rx lamotrigine 25 mg tablet 25 mg PO DAILY #5 tab 12/03/17 08/21/20 Rx lisinopril 10 mg PO DAILY #30 tab 01/04/18 08/03/20 Rx pantoprazole 40 mg PO DAILY PRN 01/04/18 08/21/20 History albuterol sulfate 90 mcg/actuation 2 puff INHALATION Q4H PRN g 04/19/20 08/21/20 History aerosol inhaler alprazolam 2 mg tablet 2 mg PO BID 04/19/20 08/21/20 History buprenorphine HCl 8 mg sublingual 24 mg SUBLINGUAL DAILY tab 04/19/20 08/21/20 History tablet buspirone 10 mg tablet 30 mg PO BID tab 04/19/20 08/21/20 History gabapentin 600 mg tablet 600 mg PO TID 04/19/20 08/21/20 History ibuprofen 800 mg tablet 800 mg PO Q8H 04/19/20 08/21/20 History multivitamin 1 tab PO DAILY 04/19/20 08/21/20 History pregabalin 100 mg capsule 100 mg PO BID 04/19/20 08/21/20 History testosterone cypionate 200 mg/mL 300 mg IM Q2W ml 04/19/20 08/21/20 History intramuscular oil Exam Const General: cooperative and no acute distress Nutritional Appearance: overweight Orientation: alert, awake and oriented x3 Neck Neck: normal visual inspection and no lymphadenopathy Thyroid: thyroid normal Resp Effort & Inspection: normal respiratory effort and no cough Auscultation: no rales, no rhonchi and no wheezes Cardio Jugular venous pressure: no JVD Heart Sounds: S1 normal, S2 normal, no gallops, no murmurs and no rubs GI Inspection: normal to inspection and non-distended Palpation: soft, no hepatosplenomegaly and nontender Neuro General: patient alert, patient awake and patient oriented x3 Other: He does have some diminished sensation of his right anterior thigh. There may be some weakness of his right quadriceps and hamstrings. He is in quite a bit of pain when I test his right lower extremity. Straight leg raising test gives him pain on the right while he is seated. Psych Speech and Movement: speech and movement normal Attitude: cooperative Thought Process: not confabulating and no flight of ideas Thought Content: no delusions Insight: fair Judgment: fair Results Labs Result diagrams: 08/21/20 17:30 08/21/20 17:30 Labs: Laboratory Results - last 24 hr 08/21/20 08/21/20 08/21/20 17:20 17:20 17:24 WBC RBC Hgb Hct MCV MCH MCHC RDW Plt Count MPV Immature Gran % Neutrophils % Lymphocytes % Monocytes % Eosinophils % Basophils % Nucleated RBC % Absolute Neutrophils Absolute Lymphocytes Absolute Monocytes Absolute Eosinophils Absolute Basophils Sodium Potassium Chloride Carbon Dioxide Anion Gap BUN Creatinine Estimated GFR/1.73 m2 Glucose Calcium Total Bilirubin AST ALT Alkaline Phosphatase Total Protein Albumin TSH Free T4 Urine Color Yellow Urine Clarity Clear Urine pH 5.5 Ur Specific [place] 1.025 Urine Protein Negative Urine Ketones Negative Urine Blood Negative Urine Nitrite Negative Urine Bilirubin Negative Urine Urobilinogen 0.2 Ur Leukocyte Esterase Negative Urine Glucose Negative Salicylates Urine Opiates Screen Negative Urine Methadone Screen Negative Acetaminophen Ur Barbiturates Screen Negative Ur Tricyclics Screen Negative Ur Amphetamines Screen Negative U Benzodiazepines Scrn Negative Urine Cocaine Screen Positive A Ur THC Screen Negative Ethyl Alcohol COVID-19 Source Nasal/Nares SARS-CoV-2 (PCR) Negative 08/21/20 08/21/20 08/21/20 17:30 17:30 17:30 WBC 9.47 RBC 5.09 Hgb 16.2 Hct 48.4 MCV 95.1 H MCH 31.8 MCHC 33.5 RDW 11.1 L Plt Count 226 MPV 9.7 Immature Gran % 0.4 Neutrophils % 65.1 Lymphocytes % 21.6 Monocytes % 10.6 Eosinophils % 2.0 Basophils % 0.3 Nucleated RBC % 0 Absolute Neutrophils 6.16 Absolute Lymphocytes 2.05 Absolute Monocytes 1.00 H Absolute Eosinophils 0.19 Absolute Basophils 0.03 Sodium 140 Potassium 4.1 Chloride 102 Carbon Dioxide 31.4 Anion Gap 6.6 BUN 17 Creatinine 1.2 Estimated GFR/1.73 m2 >= 60.00 Glucose 91 Calcium 9.4 Total Bilirubin 0.8 AST 34 ALT 44 Alkaline Phosphatase 59 Total Protein 8.5 H Albumin 3.7 TSH 0.05 L Free T4 1.42 Urine Color Urine Clarity Urine pH Ur Specific [place] Urine Protein Urine Ketones Urine Blood Urine Nitrite Urine Bilirubin Urine Urobilinogen Ur Leukocyte Esterase Urine Glucose Salicylates < 2.8 Urine Opiates Screen Urine Methadone Screen Acetaminophen < 2 Ur Barbiturates Screen Ur Tricyclics Screen Ur Amphetamines Screen U Benzodiazepines Scrn Urine Cocaine Screen Ur THC Screen Ethyl Alcohol < 3.0 COVID-19 Source SARS-CoV-2 (PCR) Last Vital Signs Temp 36.5 C 08/21/20 14:39 Pulse 75 08/21/20 14:39 Resp 18 08/21/20 14:48 BP 150/101 H 08/21/20 14:39 Pulse Ox 98 08/21/20 14:39
[2020-08-21 21:25] VITALS: BP 122/70; PULSE 73; RESP 22; TEMP 36.7; O2SAT 95
[2020-08-21] MEDS: Acetaminophen 325 MG TAB 650 MG PO (21:43)
[2020-08-21] MEDS: Nicotine 7 MG/24 HR PATCH TD (21:43)
[2020-08-21] MEDS: ALPRAZolam 0.5 MG TAB 2 MG PO (21:44)
[2020-08-21] MEDS: predniSONE 40 MG, predniSONE 10 MG 50 MG PO (21:44)
[2020-08-21] MEDS: Ketorolac 60 MG/2 ML VIAL IM (22:25)
[2020-08-22] MEDS: Ibuprofen 800 MG TAB PO ×2 (06:43→13:55)
[2020-08-22] MEDS: predniSONE 40 MG, predniSONE 10 MG 50 MG PO (08:30)
[2020-08-22] MEDS: Lisinopril 10 MG TAB PO (08:31)
[2020-08-22] MEDS: ALPRAZolam 0.5 MG TAB 2 MG PO (08:31)
[2020-08-22] MEDS: lamoTRIgine 25 MG TAB PO (08:31)
[2020-08-22] MEDS: Multivitamin TAB 1 TAB PO (08:32)
[2020-08-22] MEDS: Pregabalin 100 MG CAP PO (08:32)
[2020-08-22] MEDS: Cholecalciferol (Vitamin D3) 1,000 UNIT TAB 2000 UNITS PO (08:32)
[2020-08-22] MEDS: busPIRone 15 MG TAB 30 MG PO (08:32)
[2020-08-22] MEDS: Gabapentin 600 MG TAB PO (08:32)
--- NOTE | 2020-08-22 08:49 | NUR.NOTE ---
Pt moved from room 236 to room 228 due to not being medically cleared from transition unit until physical therapy evaluates patient and patient has MRI completed on Sunday. Nursing Note:
[2020-08-22 08:50] VITALS: BP 138/80; PULSE 73; RESP 18; TEMP 36.3; O2SAT 99
--- NOTE | 2020-08-22 10:16 | IN_ITS ---
Date of service: 08/22/20 Time of Service: 09:45 PT Notes Visit Reasons: Back Pain, Suicidal Ideation Inpatient Physical Therapy Evaluation Date: August 22, 2020 Referring Doctor: Libertad Castle NP PT Orders: PT CONSULT: Low back pain right lower extremity radiculopathy Precautions: Right lower extremity radiculopathy Patient Profile/Admitting Diagnosis: Patient is a 44-year-old male referred for physical therapy consults following admittance to [facility] secondary to low back pain with right lower extremity radiculopathy. Patient also admitted for mental health purposes secondary to suicidal ideation. PMHX: Medical History (Updated 08/21/20 @ 20:46 by Pankaj Up MD) A-fib s/p ablation Abnormal laboratory test Abnormal thyroid function test Allergic rhinitis Atrial flutter Carpal tunnel syndrome Chronic daily headache Chronic low back pain Depression Depression Diastasis recti Erectile dysfunction Failed back syndrome Generalized anxiety disorder GERD (gastroesophageal reflux disease) GERD (gastroesophageal reflux disease) Hepatitis C Hiatal hernia s/p Catherine History of substance abuse Hypertension Hypertension Hypogonadotropic hypogonadism Hypothyroidism Lower extremity edema Lumbosacral spondylosis with myelopathy Opioid dependence Polycythemia Prostate nodule Prostatitis, chronic PTSD (post-traumatic stress disorder) RUQ abdominal tenderness Urinary frequency Venous insufficiency Surgical History (System 06/17/20 @ 10:38 by Elaine Quintana) back surgery cardiac ablation EGD - MAC Catherine Fundoplication laparoscopic shoulder surgery Total replacement of hip Social History/Home Situation: Currently resides in [place] with his . Patient hands at issues with his . He does not provide any further information regarding the situation. Current Functional Limitations: Limitations with sitting standing walking secondary to back and right lower extremity pain Equipment Owned/DME: None Subjective: Patient states that his right lower extremity is on fire. He reports insidious onset of symptoms approximately 1 week ago. Patient concerned with decreasing functional ability secondary to his back and right lower extremity pain. Objective: General Observation: Mesomorphic body build. Laying in bed at time of initial evaluation with head of bed at 30 degrees. Patient displaying pain behaviors. Mental Status: Alert and oriented x3 Pain: 10/10 described as burning ROM: Right Upper Extremity: Within normal limits Left Upper Extremity: Within normal limits Right Lower Extremity: Active hip flexion tested in supine 45 degrees, active assisted 60 degrees with limitations due to pain. Knee flexion and extension within normal limits however does complain of increased pain in low back and right lower extremity particularly posterior lateral aspect of right knee. Patient does complain of increased pain in buttock with endrange right knee flexion. Active hip abduction 20 degrees 30 active assisted with pain. L spine active range of motion: Flexion 16 inches fingertip to floor with increased pain. Extension 5 degrees with increased pain. Rotation left 30 degrees with pain reproduction, this compares to 50 degrees to the right with pain at end range. Sidebending 4 inches fingertip to laterally joint line to the right versus 2 inches to the left both with pain at end range. Left Lower Extremity: Active hip flexion tested in supine 85 degrees with increased right lower extremity pain, abduction 35 degrees. Left knee flexion and extension within normal limits. Strength: Right Upper Extremity: 5/5 throughout Left Upper Extremity: 5/5 throughout Right Lower Extremity: Unable to perform straight leg raise secondary to pain. He is able to volitionally contract quad via quad sets. 3/5 plantar flexion, 4/5 dorsiflexion, 4 -/5 great toe extension Left Lower Extremity: 5/5 throughout Sensation: Altered sensation not following a specific dermatome in right lower extremity. Reports feeling as though his leg is asleep. Patient notes most loss of sensation throughout the posterior lateral aspect of the thigh knee and scott. Diagnostics: CT renal colic wo 07/24/2018 3:39 PM FINDINGS: Vertebrae: There is hardware of posterior spinal fusion from L4-S1 with pedicle screws and interconnecting rods at these levels, which appear intact. There have been prior laminectomies at L5. There are findings of osseous fusion of the posterior elements from L4-S1. There is1.6 cm anterolisthesis L5 on S1. These findings are all stable since prior study. No acute compression fractures or displaced fractures are identified. Again noted are 3 metallic screws fusing the left SI joint which appear unchanged and intact. Discs/Spinal canal/Neural foramina: Again noted is partial osseous fusion of the L5-S1 disc space. There is stable [id number] degenerative change at T12-L1 with more mild degenerative changes at multiple other levels. Findings suggest stable multilevel mild broad-based posterior disc bulging. No severe spinal canal stenosis. Soft tissues: Again noted is a simple appearing left lower pole renal cyst which is only partially imaged but measures up to 5.5 cm, stable. Again noted is a small fat containing left inguinal hernia. IMPRESSION: 1. No acute fractures or subluxations. 2. Stable degenerative changes. 3. Stable postoperative changes of posterior fusion from L4-S1 as well as prior surgical fusion of the left SI joint. 4. Stable 1.6 cm anterolisthesis of L5 on S1. Bed Mobility/Transfers: Supine to sit: Standby assist head of bed 30 degrees Sit to stand: Standby assist to front wheel walker Stand to sit: Standby assist from front wheel walker Sit to supine: Independent All mobility and transfers associated with pain behaviors Gait: Patient ambulates 15 feet to chair and back to bed with use of front wheel walker. Reports better tolerance to weightbearing with use of walker and able to decrease weightbearing through right lower extremity. Balance: Static Sitting: Normal Dynamic Sitting: Normal Static Standing: Fair Dynamic Standing: Fair Special Tests: Mobility Limitations Standardized Measure [facility] AM-PAC 6 clicks Basic Mobility Inpatient Short Form: Raw Score: 20 Standardized Score: 47.67 CMS Score: 35.83 Informed Consent/Education: Patient instructed in purpose of PT consult and plan of care. Assessment: Patient is a 44 year old male referred to physical therapy services with the diagnosis of low back pain with right lower extremity radiculopathy. Patient presents with clinical signs and symptoms consistent with above diagnosis, as demonstrated by the following impairment level findings: Motor function, muscle performance and range of motion associated with spinal disorder. Impairments are contributing to the following functional limitations: AMPAC score 35%. Patient does have positive dural tension testing with straight leg raise and slump test. Difficult to assess secondary to pain behaviors. Patient was willing to participate in physical therapy however. Patient has undergone multiple surgical procedures. Has significant mental health issues which may be contributing to symptom presentation. Patient presents with clinical signs and symptoms consistent with current/admitting diagnoses that have resulted to mobility limitations, gait ins tability, generalized weakness, and impairment of motor control as demonstrated by the following impairment level findings: 1. Decreased strength to R LE major muscle groups 2. Impaired standing balance 3. Impaired activity tolerance Impairments are contributing to the following functional limitations: 1. Inability to safely ambulate without assistive device secondary to pain Patient is assessed as a [id number] moderate complexity based on the following: History: 44 [id number] with past medical history as indicated above Examination: Demonstrable impairment in strength, balance, and mobility level with underlying impairments and functional limitations as exhibited above as well as deficit score of 35.83% utilizing the [facility] Mobility Inpatient Short Form Presentation: Evolving Decision Makin moderate complexity Goals: Goals X1 week 1. Supine-Sit : Independent 2. Sit-Supine: Independent 3. Sit-Stand: Independent 4. Stand-Sit: Independent 5. Bed-Chair: Independent 6. Chair-Bed: Independent 7. Gait: Patient ambulated independently with no assistive device greater than 200feet 8. Stairs: Independent with no assistive device Plan of Care/Treatment Plan: 1-2x/day, 7 days/week x 1 week. Plan of care has been reviewed with the SLOT MACHINE REPAIRER providing the service under Physical Therapy direction. Initiate Physical Therapy intervention for strengthening, bed mobility, transfers, gait, stairs, balance training, use of assistive device. DISCHARGE RECOMMENDATIONS: Home once determined medically stable. TREATMENT CODE/TIME: 30 minutes direct one on one care 9:45-10:15 Thank you for this referral. Rafa Ocasio PT, DPT Disclaimer: This note was created using [employer] voice recognition software. It was reviewed for major content. However, there may be multiple small discrepancies and errors due to the voice recognition aspects of the software.
[2020-08-22] MEDS: Acetaminophen 325 MG TAB 650 MG PO (11:27)
[2020-08-22] MEDS: amLODIPine 5 MG TAB PO (11:27)
[2020-08-22] MEDS: oxyCODONE 10 MG TAB 20 MG PO (11:27)
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
--- NOTE | 2020-08-22 12:38 | W.PM.DS.N ---
Date of service: 08/22/20 Time of Service: 12:38 DS: Diagnosis Discharge Diagnosis (1) Intractable back pain: Start date: 08/22/20 Start time: 12:38 Status: Acute Asessment and Plan: Severe lower back pain with palpation patient starts to tear up worse to right then left. RLE goes numb, he experiences numbness to RLE even without palpation. He states pain feels like a burning dull numbing pain radiating from back down buttocks wrapping around knee down to feet. He failed straight leg lift only lifting leg about 1/2 inch off bed. Pelvic tilt he was unable to tolerate. When doing rectal tone patient had next to none. Symptoms have been increasingly worse over the last week. He states incontinence over the last 24 hours. PVR 56 after voiding. When working with PT he was dragging RLE. [facility] [place] and they agree patient needs MRI now to r/o spinal cord compression, no known trauma. Hx of hardware placement he has been accepted to [facility] for further management (2) Pain in right leg: Start date: 08/22/20 Start time: 13:00 Status: Acute Asessment and Plan: as above given toradol Given Roxicodone with tylenol for pain as well (3) Abnormal thyroid function test: Start date: 08/22/20 Start time: 13:00 Status: Acute Asessment and Plan: TSH low T free 4 normal recommend follow up in 3 months as outpatient (4) Suicidal ideation: Start date: 08/22/20 Start time: 13:00 Status: Acute Asessment and Plan: He has been seen by mental health and transfer to another hospital is being looked into. He will be admitted to the hospital here pending transfer to the psychiatric unit. He will be a voluntary transfer. He has a positive cocaine test on his urine and this will be confirmed. discussed with Dr. Marquez Discharge Plan Disposition Patient Disposition: [facility] Condition: Serious Discharge Details Reason For Visit: Back Pain, Suicidal Ideation Admit Date/Time: 08/21/20 20:28 Admit Provider: Pankaj Up Attending Provider: Pankaj Up Primary Care Provider: Pankaj [place] Hospital Course Hospital Course: 44-year-old male with PMH of multiple back surgeries, Afib, HTN, admitted to [facility] initially for MH thoughts of SI wanting to jump off a bridge cleared by the ED medically. However upon evaluation today he is having severe lower back pain with palpation. Patient starts to tear up worse to right then left. RLE goes numb, he experiences numbness to RLE even without palpation. He states pain feels like a burning dull numbing pain radiating from back down buttocks wrapping around knee down to feet. He failed straight leg lift only lifting leg about 1/2 inch off bed. Pelvic tilt he was unable to tolerate. When doing rectal tone patient had next to none. Symptoms have been increasingly worse over the last week. He states incontinence over the last 24 hours. PVR 56 after voiding. When working with PT he was dragging RLE. [facility] [place] and they agree patient needs MRI now to r/o spinal cord compression, no known trauma. Hx of hardware placement he has been accepted to [facility] for further management. He was given roxicodone with tylenol for pain. He denies CP, SOB, N/V/D, transfer via EMS. Home Meds and New Rx's Prescriptions: No Action lamotrigine 25 mg tablet 25 mg PO DAILY Qty: 5 RF: 0 buprenorphine HCl 8 mg tablet, sublingual 24 mg sublingual DAILY RF: 0 alprazolam [Xanax] 2 mg tablet 2 mg PO BID RF: 0 pregabalin [Lyrica] 100 mg capsule 100 mg PO BID RF: 0 gabapentin 600 mg tablet 600 mg PO TID RF: 0 buspirone 10 mg tablet 30 mg PO BID RF: 0 multivitamin Tablet 1 tab PO DAILY RF: 0 ibuprofen 800 mg tablet 800 mg PO Q8H RF: 0 testosterone cypionate 200 mg/mL oil 300 mg IM Q2W RF: 0 albuterol sulfate [ProAir HFA] 90 mcg/actuation HFA aerosol inhaler 2 puff inhalation Q4H PRNRF: 0 prochlorperazine maleate 5 MG tablet 5 - 10 mg PO Q8H PRNQty: 20 RF: 0 pantoprazole 40 MG tablet,delayed release (DR/EC) 40 mg PO DAILY PRNRF: 0 amlodipine 5 mg tablet 5 mg PO QDAY RF: 0 cholecalciferol (vitamin D3) [Vitamin D3] 1,000 UNIT capsule 2,000 unit PO DAILY RF: 0 Discharge Instructions Additional Instructions: transfer to [facility] Activity:: Activity as Tolerated Diet:: Low Sodium Discharge Orders Discharge Orders: Discharge Order (Routine); Ordered 08/22/20 Ordered By: Libertad Castle DS: Summary Time Spent with Patient providing and/or coordinating discharge services: Greater than 30 minutes Status at Discharge Functional status at discharge: uses cane/walker Overall status at discharge: patient is not back to baseline Mental Status: mental status grossly normal and other Speech and Movement: speech and movement normal Mood: other Affect: other Exam Const General: cooperative and no acute distress Nutritional Appearance: overweight Orientation: alert, awake and oriented x3 Neck Neck: normal visual inspection and no lymphadenopathy Thyroid: thyroid normal Resp Effort & Inspection: normal respiratory effort and no cough Auscultation: no rales, no rhonchi and no wheezes Cardio Jugular venous pressure: no JVD Heart Sounds: S1 normal, S2 normal, no gallops, no murmurs and no rubs GI Inspection: normal to inspection and non-distended Palpation: soft, no hepatosplenomegaly and nontender Neuro General: patient alert, patient awake and patient oriented x3 Extrem Right lower extremity: ROM limited Other: unable to preform straight leg lift, severe pain Psych Mental Status: mental status grossly normal and other Speech and Movement: speech and movement normal Mood: other Affect: other Attitude: cooperative Thought Process: not confabulating and no flight of ideas Thought Content: no delusions Insight: fair Judgment: fair DS: Data Vitals/I&O Vitals and I&O: Vital Signs Temperature 36.3 C L 08/22/20 08:50 Temperature Source Tympanic 08/22/20 08:50 Pulse 73 08/22/20 08:50 Pulse Rhythm Regular 08/22/20 09:07 Respiratory Rate 18 08/22/20 08:50 Respiratory Effort Non-Labored 08/22/20 09:07 Respiratory Depth Normal 08/22/20 09:07 Respiratory Pattern Normal 08/22/20 09:07 Blood Pressure 138/80 08/22/20 08:50 Blood Pressure Position Sitting 08/21/20 14:39 Pulse Oximetry 99 08/22/20 08:50 Oxygen Delivery Method Room Air 08/22/20 08:50 Oxygen Flow Rate 0 08/22/20 08:50 Pain Level 7 08/22/20 11:27 Intake & Output 08/21/20 08/22/20 08/22/20 23:59 11:59 23:59 Output Total 200 / 200 Balance -200 / -200 Weight 113.398 kg Output: Urine 200 / 200 Other: Urine Color Yellow Yellow Urine Appearance Clear Clear Comment independant Voiding Methods Toilet Urinal Data Completed and Pending Completed studies during hospitalization [Text1]: Exam(s) PROCEDURE INFORMATION: Exam: CT Lumbar Spine Without Contrast Exam date and time: 08/21/2020 3:41 PM Age: 44 years old Clinical indication: Low back pain and sciatica; Right; Prior surgery; Surgery date: 6+ months TECHNIQUE: Imaging protocol: Computed tomography images of the lumbar spine without contrast. Radiation optimization: All CT scans at this facility use at least one of these dose optimization techniques: automated exposure control; mA and/or kV adjustment per patient size (includes targeted exams where dose is matched to clinical indication); or iterative reconstruction. COMPARISON: CT renal colic wo 07/24/2018 3:39 PM FINDINGS: Vertebrae: There is hardware of posterior spinal fusion from L4-S1 with pedicle screws and interconnecting rods at these levels, which appear intact. There have been prior laminectomies at L5. There are findings of osseous fusion of the posterior elements from L4-S1. There is1.6 cm anterolisthesis L5 on S1. These findings are all stable since prior study. No acute compression fractures or displaced fractures are identified. Again noted are 3 metallic screws fusing the left SI joint which appear unchanged and intact. Discs/Spinal canal/Neural foramina: Again noted is partial osseous fusion of the L5-S1 disc space. There is stable obow-mo-aijosrbv degenerative change at T12-L1 with more mild degenerative changes at multiple other levels. Findings suggest stable multilevel mild broad-based posterior disc bulging. No severe spinal canal stenosis. Soft tissues: Again noted is a simple appearing left lower pole renal cyst which is only partially imaged but measures up to 5.5 cm, stable. Again noted is a small fat containing left inguinal hernia. IMPRESSION: 1. No acute fractures or subluxations. 2. Stable degenerative changes. 3. Stable postoperative changes of posterior fusion from L4-S1 as well as prior surgical fusion of the left SI joint. 4. Stable 1.6 cm anterolisthesis of L5 on S1. Labs on day of discharge: Labs from last 24 hours 08/21/20 08/21/20 08/21/20 20:26 17:30 17:30 WBC 9.47 RBC 5.09 Hgb 16.2 Hct 48.4 MCV 95.1 H MCH 31.8 MCHC 33.5 RDW 11.1 L Plt Count 226 MPV 9.7 Immature Gran % 0.4 Neutrophils % 65.1 Lymphocytes % 21.6 Monocytes % 10.6 Eosinophils % 2.0 Basophils % 0.3 Nucleated RBC % 0 Absolute Neutrophils 6.16 Absolute Lymphocytes 2.05 Absolute Monocytes 1.00 H Absolute Eosinophils 0.19 Absolute Basophils 0.03 Sodium Potassium Chloride Carbon Dioxide Anion Gap BUN Creatinine Estimated GFR/1.73 m2 Glucose Calcium Total Bilirubin AST ALT Alkaline Phosphatase Total Protein Albumin TSH Free T4 Free T3 pg/mL Pending Total T3 Pending Urine Color Urine Clarity Urine pH Ur Specific [place] Urine Protein Urine Ketones Urine Blood Urine Nitrite Urine Bilirubin Urine Urobilinogen Ur Leukocyte Esterase Urine Glucose Salicylates Urine Opiates Screen Urine Methadone Screen Acetaminophen Ur Barbiturates Screen Ur Tricyclics Screen Ur Amphetamines Screen U Benzodiazepines Scrn Urine Cocaine Screen U Cocaine Confirm GC/MS Pending U Benzoylecgonine GC/MS Pending Ur Cocaine Interpret Pending Ur THC Screen Ethyl Alcohol COVID-19 Source SARS-CoV-2 (PCR) 08/21/20 08/21/20 08/21/20 17:30 17:30 17:24 WBC RBC Hgb Hct MCV MCH MCHC RDW Plt Count MPV Immature Gran % Neutrophils % Lymphocytes % Monocytes % Eosinophils % Basophils % Nucleated RBC % Absolute Neutrophils Absolute Lymphocytes Absolute Monocytes Absolute Eosinophils Absolute Basophils Sodium 140 Potassium 4.1 Chloride 102 Carbon Dioxide 31.4 Anion Gap 6.6 BUN 17 Creatinine 1.2 Estimated GFR/1.73 m2 >= 60.00 Glucose 91 Calcium 9.4 Total Bilirubin 0.8 AST 34 ALT 44 Alkaline Phosphatase 59 Total Protein 8.5 H Albumin 3.7 TSH 0.05 L Free T4 1.42 Free T3 pg/mL Total T3 Urine Color Urine Clarity Urine pH Ur Specific [place] Urine Protein Urine Ketones Urine Blood Urine Nitrite Urine Bilirubin Urine Urobilinogen Ur Leukocyte Esterase Urine Glucose Salicylates < 2.8 Urine Opiates Screen Urine Methadone Screen Acetaminophen < 2 Ur Barbiturates Screen Ur Tricyclics Screen Ur Amphetamines Screen U Benzodiazepines Scrn Urine Cocaine Screen U Cocaine Confirm GC/MS U Benzoylecgonine GC/MS Ur Cocaine Interpret Ur THC Screen Ethyl Alcohol < 3.0 COVID-19 Source Nasal/Nares SARS-CoV-2 (PCR) Negative 08/21/20 08/21/20 17:20 17:20 WBC RBC Hgb Hct MCV MCH MCHC RDW Plt Count MPV Immature Gran % Neutrophils % Lymphocytes % Monocytes % Eosinophils % Basophils % Nucleated RBC % Absolute Neutrophils Absolute Lymphocytes Absolute Monocytes Absolute Eosinophils Absolute Basophils Sodium Potassium Chloride Carbon Dioxide Anion Gap BUN Creatinine Estimated GFR/1.73 m2 Glucose Calcium Total Bilirubin AST ALT Alkaline Phosphatase Total Protein Albumin TSH Free T4 Free T3 pg/mL Total T3 Urine Color Yellow Urine Clarity Clear Urine pH 5.5 Ur Specific [place] 1.025 Urine Protein Negative Urine Ketones Negative Urine Blood Negative Urine Nitrite Negative Urine Bilirubin Negative Urine Urobilinogen 0.2 Ur Leukocyte Esterase Negative Urine Glucose Negative Salicylates Urine Opiates Screen Negative Urine Methadone Screen Negative Acetaminophen Ur Barbiturates Screen Negative Ur Tricyclics Screen Negative Ur Amphetamines Screen Negative U Benzodiazepines Scrn Negative Urine Cocaine Screen Positive A U Cocaine Confirm GC/MS U Benzoylecgonine GC/MS Ur Cocaine Interpret Ur THC Screen Negative Ethyl Alcohol COVID-19 Source SARS-CoV-2 (PCR) [facility] Medical History A-fib s/p ablation Abnormal laboratory test Abnormal thyroid function test Allergic rhinitis Atrial flutter Carpal tunnel syndrome Chronic daily headache Chronic low back pain Depression Depression Diastasis recti Erectile dysfunction Failed back syndrome Generalized anxiety disorder GERD (gastroesophageal reflux disease) GERD (gastroesophageal reflux disease) Hepatitis C Hiatal hernia s/p Catherine History of substance abuse Hypertension Hypertension Hypogonadotropic hypogonadism Hypothyroidism Lower extremity edema Lumbosacral spondylosis with myelopathy Opioid dependence Polycythemia Prostate nodule Prostatitis, chronic PTSD (post-traumatic stress disorder) RUQ abdominal tenderness Urinary frequency Venous insufficiency Surgical History back surgery cardiac ablation EGD - MAC Catherine Fundoplication laparoscopic shoulder surgery Total replacement of hip Family History Father Stroke Paternal Uncle Stroke Paternal Grandmother Stroke Other Migraine Social History Smoking/Tobacco Use Status: Current every day Tobacco Type: cigarettes and e-cigarettes Smoking risk assessment performed?: Yes Alcohol Intake: former Drug use: Current Sobriety Substance use type: former substance user Household members: spouse Do you feel safe at home: Yes
[2020-08-22] MEDS: Gabapentin 300 MG CAP 900 MG PO (13:55)
[2020-08-22 14:35] VITALS: BP 124/74; PULSE 76; RESP 16; TEMP 36.7; O2SAT 95
[2020-08-22] MEDS: HYDROmorphone 2 MG/ML VIAL IM (14:36)
[2020-08-22] MEDS: HYDROmorphone 2 MG/ML VIAL 4 MG IM (16:34)
--- NOTE | 2020-08-22 16:46 | NUR.NOTE ---
pts belongings included clothes, shoes, and cell phone were left here at [facility]. Pt was transferred to [facility] [place]. Nursing Note:
[2020-08-24 17:14] LABS: T3,Free 5.5 pg/mL (2.8-5.3)
[2020-08-24 17:30] LABS: T3, Total 200 ng/dL (97-169)
--- NOTE | 2020-08-24 17:31 | PT.INDS ---
Date of service: 08/24/20 Time of Service: 17:31 PT Notes Visit Reasons: Back Pain, Suicidal Ideation Physical Therapy Inpatient Discharge Summary Date: August 24, 2020 Dates of service: August 22, 2020 only This is a clinical summary of care provided for the duration of dates listed above. No charge was made in the completion of this documentation. Referring Doctor: Libertad Castle NP PT Orders: PT CONSULT: Low back pain right lower extremity radiculopathy Precautions: Right lower extremity radiculopathy Patient Profile/Admitting Diagnosis: Patient is a 44-year-old male referred for physical therapy consults following admittance to [facility] secondary to low back pain with right lower extremity radiculopathy. Patient also admitted for mental health purposes secondary to suicidal ideation. PMHX: Medical History (Updated 08/21/20 @ 20:46 by Pankaj Up MD) A-fib s/p ablation Abnormal laboratory test Abnormal thyroid function test Allergic rhinitis Atrial flutter Carpal tunnel syndrome Chronic daily headache Chronic low back pain Depression Depression Diastasis recti Erectile dysfunction Failed back syndrome Generalized anxiety disorder GERD (gastroesophageal reflux disease) GERD (gastroesophageal reflux disease) Hepatitis C Hiatal hernia s/p Catherine History of substance abuse Hypertension Hypertension Hypogonadotropic hypogonadism Hypothyroidism Lower extremity edema Lumbosacral spondylosis with myelopathy Opioid dependence Polycythemia Prostate nodule Prostatitis, chronic PTSD (post-traumatic stress disorder) RUQ abdominal tenderness Urinary frequency Venous insufficiency Surgical History (System 06/17/20 @ 10:38 by Elaine Quintana) back surgery cardiac ablation EGD - MAC Catherine Fundoplication laparoscopic shoulder surgery Total replacement of hip Social History/Home Situation: Currently resides in [place] with his . Patient hands at issues with his . He does not provide any further information regarding the situation. Current Functional Limitations: Limitations with sitting standing walking secondary to back and right lower extremity pain Equipment Owned/DME: None Subjective: NT. See most recent FINAL APPLICATION REVIEWER notes. With automated Objective: General Observation: NT. See most recent FINAL APPLICATION REVIEWER notes. Mental Status: NT. See most recent FINAL APPLICATION REVIEWER notes. Pain: NT. See most recent FINAL APPLICATION REVIEWER notes. ROM: Right Upper Extremity: Within normal limits Left Upper Extremity: Within normal limits Right Lower Extremity: Active hip flexion tested in supine 45 degrees, active assisted 60 degrees with limitations due to pain. Knee flexion and extension within normal limits however does complain of increased pain in low back and right lower extremity particularly posterior lateral aspect of right knee. Patient does complain of increased pain in buttock with endrange right knee flexion. Active hip abduction 20 degrees 30 active assisted with pain. L spine active range of motion: Flexion 16 inches fingertip to floor with increased pain. Extension 5 degrees with increased pain. Rotation left 30 degrees with pain reproduction, this compares to 50 degrees to the right with pain at end range. Sidebending 4 inches fingertip to laterally joint line to the right versus 2 inches to the left both with pain at end range. Left Lower Extremity: Active hip flexion tested in supine 85 degrees with increased right lower extremity pain, abduction 35 degrees. Left knee flexion and extension within normal limits. Strength: Right Upper Extremity: 5/5 throughout Left Upper Extremity: 5/5 throughout Right Lower Extremity: Unable to perform straight leg raise secondary to pain. He is able to volitionally contract quad via quad sets. 3/5 plantar flexion, 4/5 dorsiflexion, 4 -/5 great toe extension Left Lower Extremity: 5/5 throughout Sensation: Altered sensation not following a specific dermatome in right lower extremity. Reports feeling as though his leg is asleep. Patient notes most loss of sensation throughout the posterior lateral aspect of the thigh knee and shins. Bed Mobility/Transfers: Supine to sit: Standby assist head of bed 30 degrees Sit to stand: Standby assist to front wheel walker Stand to sit: Standby assist from front wheel walker Sit to supine: Independent All mobility and transfers associated with pain behaviors Gait: Patient ambulates 15 feet to chair and back to bed with use of front wheel walker. Reports better tolerance to weightbearing with use of walker and able to decrease weightbearing through right lower extremity. Balance: Static Sitting: Normal Dynamic Sitting: Normal Static Standing: Fair Dynamic Standing: Fair Assessment: Patient was transferred to [facility] for needed urgent medical intervention for suspected spinal cord compression. Patient is a 44 year old male referred to physical therapy services with the diagnosis of low back pain with right lower extremity radiculopathy. Patient presents with clinical signs and symptoms consistent with above diagnosis, as demonstrated by the following impairment level findings: Motor function, muscle performance and range of motion associated with spinal disorder. Goals: Goals X1 week 1. Supine-Sit : Independent NOT MET 2. Sit-Supine: Independent NOT MET 3. Sit-Stand: Independent NOT MET 4. Stand-Sit: Independent NOT MET 5. Bed-Chair: Independent NOT MET 6. Chair-Bed: Independent NOT MET 7. Gait: Patient ambulated independently with no assistive device greater than 200feet NOT MET 8. Stairs: Independent with no assistive device NOT MET Plan of Care/Treatment Plan: 1-2x/day, 7 days/week x 1 week. Plan of care has been reviewed with the FINAL APPLICATION REVIEWER providing the service under Physical Therapy direction. Initiate Physical Therapy intervention for strengthening, bed mobility, transfers, gait, stairs, balance training, use of assistive device. DISCHARGE RECOMMENDATIONS: Home once determined medically stable. TREATMENT CODE/TIME: 30 minutes direct one on one care 9:45- Thank you for this referral. Rafa Ocasio PT, DPT
[2020-08-26 11:53] LABS: Cocaine 6289 ng/mL (Cutoff: 50); Cocaine Interpretation Positive.
== END 2020-08-22 16:36 | disposition short-term general hospital (02) | DRG 552 ==
LOC: ER 20:48 → MS 21:11
PROVIDERS: Physician Assistant; Admitting Provider Family Medicine; Emergency Provider Registered Nurse Emergency; PCP Family Medicine; Visit Provider Family Medicine
DX: M54.5 Low back pain (principal); R45.851 Suicidal ideations; I48.92 Unspecified atrial flutter; F11.20 Opioid dependence, uncomplicated; M79.604 Pain in right leg; F32.9 Major depressive disorder, single episode, unspecified; R51.9 Headache, unspecified; G89.29 Other chronic pain; F41.1 Generalized anxiety disorder; K21.9 Gastro-esophageal reflux disease without esophagitis; K44.9 Diaphragmatic hernia without obstruction or gangrene; B19.20 Unspecified viral hepatitis C without hepatic coma; I87.8 Other specified disorders of veins; F43.10 Post-traumatic stress disorder, unspecified; D75.1 Secondary polycythemia; N41.1 Chronic prostatitis; R35.0 Frequency of micturition; M62.08 Separation of muscle (nontraumatic), other site; F17.210 Nicotine dependence, cigarettes, uncomplicated; J30.9 Allergic rhinitis, unspecified; R94.6 Abnormal results of thyroid function studies; R20.2 Paresthesia of skin; R15.9 Full incontinence of feces
CPT/HCPCS: 36415; 80053; 80307; 87635; 97162; 99285; 72131; 80320; 80329; 80353; 81003; 84439; 84443; 84480; 84481; 85025; 99222; 99239; 99284; J1885; J3490; J7512

== ENCOUNTER 2020-09-15 09:28 | Inpatient (IN) | payer OTHER, SELFPAY ==
[2020-09-15] VITALS (28 sets, daily range): BP systolic 119–174; BP diastolic 67–110; PULSE 68–108; RESP 8–22; TEMP 36.7–37.1; O2SAT 92–99; BMI 38.4
--- NOTE | 2020-09-15 09:30 | DI.CT_ITS ---
Exam(s) CT ABDOMEN PELVIS W EXAM: CT ABDOMEN PELVIS W CLINICAL HISTORY: trauma to abdomen, abd pain. TECHNIQUE: Imaging Protocol: Axial computed tomography images with coronal and sagittal reformatted images were created and reviewed CONTRAST MATERIAL: Intravenous: Omnipaque 100cc Oral: None COMPARISON: CT CT renal colic wo from 07/24/[address] renal colic wo from 07/24/[address] CHEST PE CTA from 08/03/2020 FINDINGS: VISUALIZED LUNG BASES: The previously present ground-glass infiltrates in the lung bases have resolve d. There are mild increased markings again noted in the posterior basal segment of the left lower lo be which appear unchanged and there are no pleural effusions. ABDOMEN: There is no ascites. LIVER: Liver is hypodense implying steatosis. There are no discrete focal hepatic lesions identified . No dilatation of intrahepatic ducts. GALLBLADDER/BILIARY: No obvious gallbladder pathology. CBD is not dilated. PANCREAS: No evidence of pancreatic mass nor dilatation of the pancreatic duct. SPLEEN: Spleen is not enlarged. No obvious intrasplenic lesions. Splenic and portal veins are paten t. ADRENALS: There are no significant adrenal masses. KIDNEYS:There is a cyst in the inferior pole left kidney which measures 5 x 5 cm, unchanged from 06/2018. No solid renal masses. No calculi nor hydronephrosis.. ABDOMINAL AORTA: Abdominal aorta is not enlarged. LYMPH NODES:There is no retroperitineal nor paraaortic adenopathy. ABDOMINAL WALL: No evidence of significant anterior abdominal wall hernia. GI: There is no evidence of bowel obstruction, free air, nor abscess. PELVIS: GI: No evidence of appendicitis.No evidence of sigmoid diverticulitis. LYMPH NODES: There is no intrapelvic nor inguinal adenopathy. REPRODUCTIVE: Prostate not enlarged URINARY BLADDER: No calculi nor obvious masses evident OSSEOUS: No significant osseous lesions. Hardware is again noted in the pelvic bones and lower lumbar spine. No significant osseous lesions e vident. No evidence of osteomyelitis. Anterolisthesis L5 upon S1 again noted IMPRESSION: 1. Improved appearance of the lung bases when compared to the prior chest CT scan performed 1. 2. Hepatic steatosis but no discrete focal hepatic lesions identified. Also no dilatation of the afia iary tree, both intra and extrahepatic. 3. Stable benign 5 millimeter cyst in the lower pole left kidney. No solid renal masses. 4. Hardware noted in the lower lumbar spine and pelvic bones. RADIATION DOSE DELIVERED: 1,215.01mGy.cm Total DLP DATA REPOSITORY: All CT scans at this facility are submitted to the National Radiology Data Registry (NRDR) Dose Index Registry (DIR) with the [employer] (A[employer]). RADIATION OPTIMIZATION: All CT scans at this facility use at least one of these dose optimization te chniques: automated exposure control; mA and/or kV adjustment per patient size (includes targeted exa ms where dose is matched to clinical indication); or iterative reconstruction.
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
[2020-09-15 10:02] LABS: Abs Immature Grans 0.06 10^3/uL (0.0-0.06); Absolute Basophil Count 0.03 10^3/uL (0.0-0.2); Absolute Eosinophil Count 0.31 10^3/uL (0.0-0.7); Absolute Lymphocyte Count 1.88 10^3/uL (1.2-3.4); Absolute Monocyte Count 1.29 10^3/uL (0.1-0.8); Absolute Neutrophil Count 5.73 10^3/uL (1.2-6.7); Basophils % 0.3; Eosinophils % 3.3; HCT 45.8 % (40.0-50.0); HGB 15.7 g/dL (13.5-17.5); Immature Grans % 0.6; Lymphocytes % 20.2; MCH 32.2 pg (27.0-33.0); MCHC 34.3 % (32.0-36.0); MCV 93.9 fL (80-95); MPV 9.7 fL (8.0-11.0); Monocytes % 13.9; Neutrophils % 61.7; Nucleated RBC 0 %; Platelet Count 252 10^3/uL (130-400); RBC 4.88 10^6/uL (4.36-5.78); RDW 12.9 % (11.8-14.1); RDW-SD 43.5 fL
[2020-09-15] MEDS: Normal Saline - Diluent 50 ML VIAL IV (10:07)
[2020-09-15] MEDS: Omnipaque 350 MG/ML 100 ML BTL IJ (10:07)
[2020-09-15 10:13] LABS: INR 1.1 (0.9-1.1); Prothrombin Time 10.7 sec (9.3-11.0)
[2020-09-15] MEDS: Normal Saline 1,000 ML 1000 ML IV (10:14)
[2020-09-15] MEDS: fentaNYL 100 MCG/2 ML VIAL IVP (10:15)
[2020-09-15 10:17] LABS: ALT 47 U/L (16-63); AST 32 U/L (15-37); Albumin 3.7 g/dL (3.4-5.0); Alkaline Phosphatase 66 U/L (46-116); Anion Gap 8.8 mmol/L (3-11); BUN 20 mg/dL (7-18); Bilirubin, Total 0.4 mg/dL (0.2-1.0); CO2 28.2 mmol/L (21.0-32.0); CREATININE 1.2 mg/dL (0.70-1.30); Calcium 8.6 mg/dL (8.5-10.1); Chloride 103 mmol/L (98-107); Glucose 120 mg/dL (74-106); Potassium 3.7 mmol/L (3.5-5.1); Sodium 140 mmol/L (136-145); Total Protein 7.7 g/dL (6.4-8.2)
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
[2020-09-15 12:01] LABS: Source Nasal/Nares
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
[2020-09-15 12:57] LABS: COVID-19 PCR Negative (Negative)
[2020-09-15] MEDS: Lactated Ringers 1,000 ML 100 ML IV (13:10)
[2020-09-15] MEDS: Bupivacaine 0.25% Pres-Free 30 ML VIAL (14:04)
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
--- NOTE | 2020-09-15 15:24 | W.ANESPOSTOP ---
Postoperative Evaluation Date, Time and Location Date Performed: 09/15/20 Time Performed: 15:24 Patient Location: PACU Vital Signs Most Recent Imported Vital Signs: Most Recent Vital Signs Temp Pulse Resp BP Pulse Ox 36.8 C 68 9 L 133/93 H 96 09/15/20 15:20 09/15/20 15:20 09/15/20 15:20 09/15/20 15:20 09/15/20 15:20 Pain Score Most Recent Pain Score: Most Recent Pain Score Pain Level 4 09/15/20 15:20 Assessment Mental Status: Arousable with meaningful communication Airway and Respiratory Function: Patient has been admitted and is receiving care as an inpatient Cardiovascular Function: Hemodynamically Stable Hydration Status: Adequately Hydrated Nausea & Vomiting: No Nausea or Vomiting Pain: Pain is tolerable per patient Peripheral Nerve Block: Patient did not receive a nerve block
[2020-09-15] MEDS: HYDROmorphone 2 MG/ML VIAL 0.5 MG IVP (15:56)
[2020-09-15] MEDS: Normal Saline Flush 10 ML SYR IVP ×4 (16:02→21:33)
[2020-09-15] MEDS: Pantoprazole 40 MG VIAL IVP (16:55)
[2020-09-15] MEDS: Lactated Ringers 1,000 ML 75 ML IV ×2 (16:56→21:23)
[2020-09-15] MEDS: Acetaminophen 325 MG TAB 650 MG PO (18:21)
[2020-09-15] MEDS: HYDROmorphone 2 MG/ML VIAL 1 MG IVP (18:33)
[2020-09-15] MEDS: ALPRAZolam 0.5 MG TAB 1 MG PO (18:39)
--- NOTE | 2020-09-15 19:03 | NUR.NOTE ---
madan conrad was called on patient d/t his aggression and threatening to leave and being upset about his psych meds. He was given Hydromophone 1mg, xanax 1mg, and tylenol. Patient upset he cannot have his clonazepam and suboxone that he takes at home. , Dr. Ramirez, Koko and and nursing staff present. Patient sat on edge of bed and stated he thinks his sutures broke. More blood is noted under the mepilex but it is not seeping through. applications system analyst juan manuel and supervisor paint roller covers were present during this situation. He is very upset that he can't have steak and make a personal phone call. Patient has clear liquids orders and second tray was ordered. Dr. Shepherd did talk to him about not having suboxone with the dilaudid prior when he was brought up from pacu. and Nursing Note:
[2020-09-15] MEDS: QUEtiapine 25 MG TAB 50 MG PO (21:05)
[2020-09-15] MEDS: Methocarbamol 500 MG TAB PO (21:05)
[2020-09-15] MEDS: Mirtazapine 15 MG TAB 30 MG PO (21:05)
[2020-09-15] MEDS: busPIRone 5 MG TAB 10 MG PO (21:06)
[2020-09-15] MEDS: Docusate Sodium 100 MG CAP PO (21:06)
[2020-09-15] MEDS: Gabapentin 600 MG TAB PO (21:06)
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
[2020-09-15] MEDS: HYDROmorphone 2 MG/ML VIAL IVP (21:32)
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
[2020-09-16 00:24] LABS: HCT 43.4 % (40.0-50.0); HGB 14.7 g/dL (13.5-17.5)
[2020-09-16 02:12] VITALS: BP 112/69; PULSE 72; RESP 20; TEMP 36.8; O2SAT 91
[2020-09-16] MEDS: HYDROmorphone 2 MG/ML VIAL IVP ×5 (04:51→14:42)
[2020-09-16] MEDS: Normal Saline Flush 10 ML SYR IVP ×3 (04:52→12:34)
[2020-09-16 07:02] LABS: Abs Immature Grans 0.05 10^3/uL (0.0-0.06); Absolute Eosinophil Count 0.07 10^3/uL (0.0-0.7); Absolute Lymphocyte Count 1.52 10^3/uL (1.2-3.4); Absolute Monocyte Count 1.16 10^3/uL (0.1-0.8); Basophils % 0.2; Eosinophils % 0.5; HCT 45.2 % (40.0-50.0); HGB 14.7 g/dL (13.5-17.5); Immature Grans % 0.4; Lymphocytes % 11.5; MCH 31.5 pg (27.0-33.0); MCHC 32.5 % (32.0-36.0); MPV 9.7 fL (8.0-11.0); Monocytes % 8.8; Neutrophils % 78.6; Nucleated RBC 0 %; Platelet Count 249 10^3/uL (130-400); RBC 4.66 10^6/uL (4.36-5.78); RDW 13.1 % (11.8-14.1); RDW-SD 45.7 fL; WBC 13.23 10^3/uL (4.4-10.8)
[2020-09-16 07:06] LABS: Absolute Basophil Count 0.03 10^3/uL (0.0-0.2)
[2020-09-16 07:23] LABS: ALT 37 U/L (16-63); AST 20 U/L (15-37); Albumin 3.4 g/dL (3.4-5.0); Alkaline Phosphatase 46 U/L (46-116); Anion Gap 7.8 mmol/L (3-11); BUN 12 mg/dL (7-18); Bilirubin, Total 0.8 mg/dL (0.2-1.0); CO2 28.2 mmol/L (21.0-32.0); CREATININE 1.1 mg/dL (0.70-1.30); Calcium 8.5 mg/dL (8.5-10.1); Chloride 106 mmol/L (98-107); Glucose 133 mg/dL (74-106); Sodium 142 mmol/L (136-145); Total Protein 7.2 g/dL (6.4-8.2)
[2020-09-16] MEDS: Docusate Sodium 100 MG CAP PO ×3 (07:41→19:55)
[2020-09-16] MEDS: Buprenorphine/Naloxone 8 mg/2 mg FILM 3 EACH SL (07:41)
[2020-09-16] MEDS: Gabapentin 600 MG TAB PO ×3 (07:42→19:55)
[2020-09-16] MEDS: ALPRAZolam 0.5 MG TAB 1 MG PO (07:42)
[2020-09-16] MEDS: Methocarbamol 500 MG TAB PO ×3 (07:42→19:55)
[2020-09-16] MEDS: Pantoprazole 40 MG TABCR PO (07:42)
[2020-09-16] MEDS: busPIRone 5 MG TAB 10 MG PO ×3 (07:42→19:55)
[2020-09-16] MEDS: Tamsulosin 0.4 MG CAPCR PO (07:43)
[2020-09-16] MEDS: Venlafaxine 37.5 MG CAPCR 112.5 MG PO (07:43)
--- NOTE | 2020-09-16 09:22 | CMSP_ITS ---
- If Service Date Differs Date of service: 09/16/20 Time of Service: 09:25 Care Management Safety Plan Status: Voluntary - Reason for Wait Reason for Wait: Medical Clearance VOLUNTARY FOR INPATIENT PSYCHIATRIC STABILIZATION. Patient is appropriate in all interactions since arriving at [facility]; Pt has demonstrated appropriate coping and communication skills, has articulated his or her needs and concerns and is fully engaged during staff interactions. Safety plan has been established with patient, and care team, to adhere to patient goals, identify restrictions based on behavioral status, address nutri tion, and determine allowed personal belongings, tools for hygiene and personal care. Determine level of activity including ambulation, level of supervision, visitors, and determine privileges based on behaviors and level of engagement by pt. Jeannine: Gina: LEONARDO, NS: Indu and Pam Finn: [facility], Brooke: SUZY. CM met with Rafa for an extended period of time, supporting emotional regulation after attempted phone contact with his went poorly. He advocated for continuing to have phone contact with his brother only, and was agreeable to having staff dial the phone. CM reviewed voluntary and involuntary status and behavioral expectations while Rafa is at [facility]. Rafa reported I get mad but never want to scare anyone and stated he had no intention of leaving [facility] at this time. SAFETY PLAN: 1. Will remain on suicide precautions. In paper clothes or patient gown at this time. 2. Will remain in room under direct supervision of one-on-one staff at all times provided by [employer]; NURA, HUB BORER acetylene gas compressor. 3. May have paper cups, plates, finger foods as well as a cardboard spoon with which to eat meals. 4. Follow [facility] Management of the Admitted Behavioral Health Patient policy. 5. Comfort bath system, shower permitted at RN discretion. 6. No personal belongings 7. Visitors-No visitors at this time 8. Activities: soft activity items, television, remote, music tablet, paper, books, color pages, crayons, markers. 9. Bathroom privileges-available in room on M/S without limitation. 10. Phone: outgoing/incoming phone calls with brother-phone dialed by staff on [facility] cordless phone permitted at RN discretion. 11. Due to VOLUNTARY status, if patient wishes to leave [facility], staff will contact [facility] Crisis Screener ([phone]) and On-Call Instructional Manager ([phone]) as soon as possible. In the event of elopement, notify [facility] Police ([phone]). Patient is currently voluntarily at [facility] and seeking inpatient admission when a bed becomes available. [facility] Frontline Housekeeping Worker will continue seeking placement. Please contact the Rental Agent Instructional Manager ([phone]) and [facility] Housekeeping Worker ([phone]) for any needed changes in the Safety Plan. Safety plan has been provided to interdepartmental care team.
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
[2020-09-16] MEDS: Methylphenidate 10 MG TAB 20 MG PO ×2 (09:48→21:03)
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
[2020-09-16 11:31] VITALS: BP 171/93; PULSE 94; RESP 19; TEMP 37; O2SAT 95
[2020-09-16] MEDS: Fluticasone NASAL SPRAY 16 GM BTL NS (12:15)
[2020-09-16 12:50] VITALS: O2SAT 96
[2020-09-16] MEDS: ALPRAZolam 0.5 MG TAB 2 MG PO ×2 (13:37→21:02)
[2020-09-16] MEDS: Acetaminophen 325 MG TAB 650 MG PO ×3 (13:37→21:03)
[2020-09-16] MEDS: Enoxaparin 40 MG/0.4 ML SYR SC (13:38)
[2020-09-16] MEDS: Ketorolac 30 MG/ML VIAL IVP (14:42)
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
[2020-09-16 15:50] VITALS: BP 173/84; PULSE 93; RESP 19; TEMP 37.4; O2SAT 96
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
[2020-09-16] MEDS: HYDROmorphone 2 MG TAB PO ×2 (17:27→21:02)
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
--- NOTE | 2020-09-16 18:13 | NUR.NOTE ---
Called Brooke at [phone]. Informed her that pt is getting worked up after talking with his . Requested for her to come discuss the phone use with the pt and to remove the phone at this time.Nursing Note:
[2020-09-16 20:09] VITALS: BP 117/75; PULSE 81; RESP 19; TEMP 36.7; O2SAT 94
[2020-09-16] MEDS: QUEtiapine 25 MG TAB 50 MG PO (21:02)
[2020-09-16] MEDS: Mirtazapine 15 MG TAB 30 MG PO (21:03)
[2020-09-16] MEDS: Mylanta Suspension 30 ML CUP PO (21:16)
[2020-09-17] MEDS: HYDROmorphone 2 MG TAB PO ×6 (03:23→23:36)
[2020-09-17] MEDS: Acetaminophen 325 MG TAB 650 MG PO ×2 (03:23→23:35)
[2020-09-17] MEDS: ALPRAZolam 0.5 MG TAB 2 MG PO ×3 (03:24→21:22)
[2020-09-17 03:25] VITALS: BP 150/99; PULSE 67; RESP 187; TEMP 36.9; O2SAT 94
[2020-09-17] MEDS: Lactated Ringers 1,000 ML 75 ML IV (03:30)
[2020-09-17 08:10] VITALS: BP 165/96; PULSE 66; RESP 16; TEMP 35.6; O2SAT 94
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
[2020-09-17] MEDS: Tamsulosin 0.4 MG CAPCR PO (08:38)
[2020-09-17] MEDS: Multivitamin TAB 1 TAB PO (08:38)
[2020-09-17] MEDS: Docusate Sodium 100 MG CAP PO ×3 (08:38→20:17)
[2020-09-17] MEDS: Methocarbamol 500 MG TAB PO ×3 (08:38→20:17)
[2020-09-17] MEDS: Buprenorphine/Naloxone 8 mg/2 mg FILM 3 EACH SL (08:38)
[2020-09-17] MEDS: busPIRone 5 MG TAB 10 MG PO ×3 (08:39→20:18)
[2020-09-17] MEDS: Pantoprazole 40 MG TABCR PO (08:40)
[2020-09-17] MEDS: Venlafaxine 37.5 MG CAPCR 112.5 MG PO (08:40)
[2020-09-17] MEDS: Methylphenidate 10 MG TAB 20 MG PO ×2 (08:40→21:23)
[2020-09-17] MEDS: Gabapentin 600 MG TAB PO ×3 (08:40→20:17)
[2020-09-17] MEDS: Fluticasone NASAL SPRAY 16 GM BTL NS (08:41)
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
[2020-09-17] MEDS: Simethicone 80 MG CHEW PO ×2 (15:17→21:22)
[2020-09-17] MEDS: Enoxaparin 40 MG/0.4 ML SYR SC (15:17)
--- NOTE | 2020-09-17 16:37 | PDOC.CMSAFE ---
- If Service Date Differs Date of service: 09/17/20 Time of Service: 16:40 Care Management Safety Plan Status: Voluntary - Reason for Wait Reason for Wait: Inpatient Admission VOLUNTARY FOR INPATIENT PSYCHIATRIC STABILIZATION. Patient is appropriate in all interactions since arriving at [facility]; Pt has demonstrated appropriate coping and communication skills, has articulated his or her needs and concerns and is fully engaged during staff interactions. Safety plan has been established with patient, and care team, to adhere to patient goals, identify restrictions based on behavioral status, address nutrition, and determine allowed personal belongings, tools for hygiene and personal care. Determine level of activity including ambulation, level of supervision, visitors, and determine privileges based on behaviors and level of engagement by pt. Rafa was cleared by surgical services today for psychiatric placement. Anticipate he will move to the transition area, no changes to care plan today. SAFETY PLAN: 1. Will remain on suicide precautions. In paper clothes or patient gown at this time. 2. Will remain in room under direct supervision of one-on-one staff at all times provided by [employer]; NURA, SHEET METAL WORKER SUPERVISOR clinical research coordinator. 3. May have paper cups, plates, finger foods as well as a cardboard spoon with which to eat meals. 4. Follow [facility] Management of the Admitted Behavioral Health Patient policy. 5. Comfort bath system, shower permitted at RN discretion. 6. No personal belongings 7. Visitors-No visitors at this time 8. Activities: soft activity items, television, remote, music tablet, paper, books, color pages, crayons, markers. 9. Bathroom privileges-available in room on M/S without limitation. 10. Phone: outgoing/incoming phone calls with brother-phone dialed by staff on [facility] cordless phone permitted at RN discretion. 11. Due to VOLUNTARY status, if patient wishes to leave [facility], staff will contact [facility] Crisis Screener ([phone]) and On-Call Career Technical Education Instructor ([phone]) as soon as possible. In the event of elopement, notify [facility] Police ([phone]). Patient is currently voluntarily at [facility] and seeking inpatient admission when a bed becomes available. [facility] Frontline Greenhouse Manager will continue seeking placement. Please contact the [employer] Manager Career Technical Education Instructor ([phone]) and [facility] Greenhouse Manager ([phone]) for any needed changes in the Safety Plan. Safety plan has been provided to interdepartmental care team.
[2020-09-17 16:59] LABS: Abs Immature Grans 0.06 10^3/uL (0.0-0.06); Absolute Basophil Count 0.04 10^3/uL (0.0-0.2); Absolute Eosinophil Count 0.24 10^3/uL (0.0-0.7); Absolute Lymphocyte Count 1.49 10^3/uL (1.2-3.4); Absolute Monocyte Count 0.97 10^3/uL (0.1-0.8); Basophils % 0.4; Eosinophils % 2.2; HCT 44.3 % (40.0-50.0); HGB 14.6 g/dL (13.5-17.5); Immature Grans % 0.6; Lymphocytes % 13.8; MCV 97.1 fL (80-95); MPV 9.6 fL (8.0-11.0); Nucleated RBC 0 %; Platelet Count 234 10^3/uL (130-400); RBC 4.56 10^6/uL (4.36-5.78); RDW 12.8 % (11.8-14.1); RDW-SD 45.4 fL
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
[2020-09-17 19:12] VITALS: BP 159/93; PULSE 81; RESP 18; TEMP 36.9; O2SAT 94
[2020-09-17] MEDS: Polyethylene Glycol 3350 17 GM PACKET PO (20:18)
[2020-09-17 21:00] VITALS: BP 170/111; PULSE 75; RESP 20; TEMP 37.1; O2SAT 96
[2020-09-17] MEDS: Mirtazapine 15 MG TAB 30 MG PO (21:23)
[2020-09-17] MEDS: QUEtiapine 25 MG TAB 50 MG PO (21:23)
[2020-09-17 23:20] VITALS: BP 168/96; PULSE 74; RESP 20; TEMP 37; O2SAT 94
[2020-09-18 03:01] VITALS: RESP 18
[2020-09-18] MEDS: HYDROmorphone 2 MG TAB PO ×5 (07:36→22:40)
[2020-09-18] MEDS: Multivitamin TAB 1 TAB PO (08:44)
[2020-09-18] MEDS: Methylphenidate 10 MG TAB 20 MG PO ×2 (08:44→22:39)
[2020-09-18] MEDS: Venlafaxine 37.5 MG CAPCR 112.5 MG PO (08:44)
[2020-09-18] MEDS: Docusate Sodium 100 MG CAP PO ×3 (08:44→19:12)
[2020-09-18] MEDS: Buprenorphine/Naloxone 8 mg/2 mg FILM 3 EACH SL (08:44)
[2020-09-18 08:45] VITALS: BP 160/90; PULSE 68; TEMP 36.7; O2SAT 94
[2020-09-18] MEDS: Tamsulosin 0.4 MG CAPCR PO (08:45)
[2020-09-18] MEDS: Methocarbamol 500 MG TAB PO ×3 (08:45→19:13)
[2020-09-18] MEDS: busPIRone 5 MG TAB 10 MG PO ×3 (08:45→19:11)
[2020-09-18] MEDS: Pantoprazole 40 MG TABCR PO (08:45)
[2020-09-18] MEDS: Gabapentin 600 MG TAB PO ×3 (08:46→19:12)
[2020-09-18] MEDS: Fluticasone NASAL SPRAY 16 GM BTL NS (08:46)
[2020-09-18] MEDS: ALPRAZolam 0.5 MG TAB 1 MG PO ×2 (10:39→17:48)
[2020-09-18] MEDS: Enoxaparin 40 MG/0.4 ML SYR SC (13:47)
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
[2020-09-18 15:44] VITALS: BP 145/95; PULSE 79; RESP 16; TEMP 36.9; O2SAT 92
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
[2020-09-18] MEDS: Senna TAB 1 TAB PO (17:47)
[2020-09-18 19:11] VITALS: BP 167/92; PULSE 84; RESP 17; TEMP 37.1; O2SAT 94
[2020-09-18] MEDS: Acetaminophen 325 MG TAB 650 MG PO (19:11)
[2020-09-18] MEDS: ALPRAZolam 0.5 MG TAB 2 MG PO (22:39)
[2020-09-18] MEDS: QUEtiapine 25 MG TAB 50 MG PO (22:39)
[2020-09-18] MEDS: Mirtazapine 15 MG TAB 30 MG PO (22:40)
[2020-09-18 22:48] VITALS: BP 154/100; PULSE 75; RESP 16; TEMP 37; O2SAT 92
[2020-09-19] MEDS: Acetaminophen 325 MG TAB 650 MG PO (03:16)
[2020-09-19] MEDS: HYDROmorphone 2 MG TAB PO ×6 (03:16→23:44)
[2020-09-19 03:20] VITALS: BP 187/118; PULSE 75; RESP 16; TEMP 36.6; O2SAT 93
[2020-09-19 07:14] VITALS: BP 132/86; PULSE 72; RESP 16; TEMP 36.7; O2SAT 94
[2020-09-19] MEDS: busPIRone 5 MG TAB 10 MG PO ×3 (08:41→21:07)
[2020-09-19] MEDS: Venlafaxine 37.5 MG CAPCR 112.5 MG PO (08:42)
[2020-09-19] MEDS: Docusate Sodium 100 MG CAP PO ×3 (08:42→21:07)
[2020-09-19] MEDS: Methocarbamol 500 MG TAB PO ×3 (08:42→21:07)
[2020-09-19] MEDS: Methylphenidate 10 MG TAB 20 MG PO ×2 (08:42→23:44)
[2020-09-19] MEDS: Gabapentin 600 MG TAB PO ×3 (08:42→21:07)
[2020-09-19] MEDS: Tamsulosin 0.4 MG CAPCR PO (08:43)
[2020-09-19] MEDS: Pantoprazole 40 MG TABCR PO (08:43)
[2020-09-19] MEDS: Buprenorphine/Naloxone 8 mg/2 mg FILM 3 EACH SL (08:43)
[2020-09-19] MEDS: Multivitamin TAB 1 TAB PO (08:43)
[2020-09-19] MEDS: Polyethylene Glycol 3350 17 GM PACKET PO (08:44)
[2020-09-19 08:45] VITALS: O2SAT 94
[2020-09-19 10:07] LABS: Bilirubin Negative (Negative); Blood Negative (Negative); Clarity Clear (Clear); Glucose Negative (Negative); Ketones Negative (Negative); Leukocyte Esterase Negative (Negative); Nitrite Negative (Negative); Specific Gravity 1.015 (1.005-1.025); Urobilinogen 0.2 EU/dL (Up TO 0.2)
[2020-09-19 10:21] LABS: *AMPHETAMINES SCREEN URINE Negative (Negative); *BARBITURATES SCREEN URINE Negative (Negative); *BENZODIAZEPINES SCREEN URINE Positive (Negative); Cannabinoids THC Negative (Negative); Cocaine Screen,Urine Negative (Negative); METHADONE URINE SCREEN Negative (Negative); OPIATES URINE SCREEN Positive (Negative)
[2020-09-19 10:26] LABS: Tricyclic Antidepressants Negative (Negative)
[2020-09-19] MEDS: ALPRAZolam 0.5 MG TAB 1 MG PO ×2 (10:58→17:50)
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
[2020-09-19] MEDS: Fluticasone NASAL SPRAY 16 GM BTL NS (13:23)
[2020-09-19] MEDS: Enoxaparin 40 MG/0.4 ML SYR SC (15:19)
[2020-09-19 15:22] VITALS: BP 139/92; PULSE 84; RESP 18; TEMP 37; O2SAT 94
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
[2020-09-19] MEDS: Ondansetron O.D.T. 4 MG TABEF PO (19:35)
[2020-09-19 21:05] VITALS: BP 133/89; PULSE 84; RESP 16; TEMP 36.7; O2SAT 95
[2020-09-19] MEDS: Senna TAB 1 TAB PO (21:07)
[2020-09-19] MEDS: ALPRAZolam 0.5 MG TAB 2 MG PO (23:43)
[2020-09-19] MEDS: QUEtiapine 25 MG TAB 50 MG PO (23:44)
[2020-09-19] MEDS: Mirtazapine 15 MG TAB 30 MG PO (23:44)
[2020-09-19 23:46] VITALS: BP 129/85; PULSE 88; RESP 19; TEMP 36.6; O2SAT 93
[2020-09-20 06:33] VITALS: BP 127/83; PULSE 68; RESP 14; TEMP 36.6; O2SAT 93
[2020-09-20 07:16] LABS: HCT 48.1 % (40.0-50.0); HGB 16.1 g/dL (13.5-17.5); MCH 31.9 pg (27.0-33.0); MCHC 33.5 % (32.0-36.0); MCV 95.4 fL (80-95); MPV 9.4 fL (8.0-11.0); Platelet Count 253 10^3/uL (130-400); RBC 5.04 10^6/uL (4.36-5.78); RDW 12.5 % (11.8-14.1); RDW-SD 43.9 fL
[2020-09-20 07:42] LABS: TSH (W/Ref FT4) 0.29 uIU/mL (0.36-3.74)
[2020-09-20] MEDS: Polyethylene Glycol 3350 17 GM PACKET PO (07:54)
[2020-09-20] MEDS: Fluticasone NASAL SPRAY 16 GM BTL NS (07:54)
[2020-09-20] MEDS: Venlafaxine 37.5 MG CAPCR 112.5 MG PO (07:55)
[2020-09-20] MEDS: HYDROmorphone 2 MG TAB PO ×5 (07:55→22:59)
[2020-09-20] MEDS: Methylphenidate 10 MG TAB 20 MG PO ×2 (07:55→22:00)
[2020-09-20] MEDS: Docusate Sodium 100 MG CAP PO ×3 (07:56→19:58)
[2020-09-20] MEDS: Multivitamin TAB 1 TAB PO (07:56)
[2020-09-20] MEDS: Methocarbamol 500 MG TAB PO ×3 (07:56→19:58)
[2020-09-20] MEDS: Pantoprazole 40 MG TABCR PO (07:56)
[2020-09-20] MEDS: Tamsulosin 0.4 MG CAPCR PO (07:56)
[2020-09-20] MEDS: busPIRone 5 MG TAB 10 MG PO ×3 (07:57→19:58)
[2020-09-20] MEDS: Buprenorphine/Naloxone 8 mg/2 mg FILM 3 EACH SL (07:57)
[2020-09-20] MEDS: Gabapentin 600 MG TAB PO ×3 (07:57→19:59)
[2020-09-20 08:04] LABS: FREE T4 1.22 ng/dL (0.76-1.46)
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
[2020-09-20 10:14] VITALS: BP 127/84; PULSE 75; RESP 16; TEMP 36.7; O2SAT 95
[2020-09-20] MEDS: ALPRAZolam 0.5 MG TAB 1 MG PO ×2 (10:21→15:44)
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
[2020-09-20] MEDS: Senna TAB 1 TAB PO ×2 (13:17→19:58)
[2020-09-20 13:51] VITALS: BP 116/75; PULSE 76; RESP 19; TEMP 36.7; O2SAT 94
[2020-09-20] MEDS: Enoxaparin 40 MG/0.4 ML SYR SC (15:44)
[2020-09-20] MEDS: Simethicone 80 MG CHEW PO (16:41)
--- NOTE | 2020-09-20 17:02 | CMSP_ITS ---
- If Service Date Differs Date of service: 09/20/20 Time of Service: 17:04 Care Management Safety Plan Status: Voluntary - Reason for Wait Reason for Wait: Inpatient Admission (No bed availability) VOLUNTARY FOR INPATIENT PSYCHIATRIC STABILIZATION. Patient is appropriate in all interactions since arriving at [facility]; Pt has demonstrated appropriate coping and communication skills, has articulated his or her needs and concerns and is fully engaged during staff interactions. Safety plan has been established with patient, and care team, to adhere to patient goals, identify restrictions based on behavioral status, address nutrition, and determine allowed personal belongings, tools for hygiene and personal care. Determine level of activity including ambulation, level of supervision, visitors, and determine privileges based on behaviors and level of engagement by pt. Rafa was stable and appropriate over the weekend. He remains pleasant in interaction today; continues to complain of pain. Huddle with NS: Huma and Pam Oreilly [facility] RNCC. No changes to safety plan at this time. SAFETY PLAN: 1. Will remain on suicide precautions. In paper clothes or patient gown at this time. 2. Will remain in room under direct supervision of one-on-one staff at all times provided by CPSO; NURA, POND TENDER hot stamp operator. 3. May have paper cups, plates, finger foods as well as a cardboard spoon with which to eat meals. 4. Follow [facility] Management of the Admitted Behavioral Health Patient policy. 5. Comfort bath system, shower permitted at RN discretion. 6. No personal belongings 7. Visitors-No visitors at this time 8. Activities: soft activity items, television, remote, music tablet, paper, books, color pages, crayons, markers. 9. Bathroom privileges-available in room on M/S without limitation. 10. Phone: outgoing/incoming phone calls with brother-phone dialed by staff on [facility] cordless phone permitted at RN discretion. 11. Due to VOLUNTARY status, if patient wishes to leave [facility], staff will contact [facility] Crisis Screener ([phone]) and On-Call Clothing Supervisor ([phone]) as soon as possible. In the event of elopement, notify [facility] Police ([phone]). Patient is currently voluntarily at [facility] and seeking inpatient admission when a bed becomes available. [facility] [employer] will continue seeking placement. Please contact the Cleaning Specialist Clothing Supervisor ([phone]) and [facility] [employer] ([phone]) for any needed changes in the Safety Plan. Safety plan has been provided to interdepartmental care team.
[2020-09-20 17:25] VITALS: BP 152/99; PULSE 91; RESP 18; TEMP 36.5; O2SAT 94
[2020-09-20] MEDS: Ondansetron O.D.T. 4 MG TABEF PO ×2 (17:38→22:59)
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
--- NOTE | 2020-09-20 19:00 | RT.EKG_ITS ---
APPROVED REPORT Exam: Resting ECG Reason for Exam: per [facility] request Patient Location: I HR:79 bpm ECG Measurements Heart Rate 79 AXIS AR 162 P 51 QRSd 98 QRS 41 QT 365 T 4 QTc 420 Conclusion Sinus rhythm...normal P axis, V-rate 60- 99
[2020-09-20] MEDS: Acetaminophen 325 MG TAB 650 MG PO (19:58)
[2020-09-20] MEDS: Bisacodyl 10 MG SUPP PR (19:58)
[2020-09-20] MEDS: Promethazine 25 MG SUPP PR (20:20)
[2020-09-20] MEDS: ALPRAZolam 0.5 MG TAB 2 MG PO (22:00)
[2020-09-20] MEDS: QUEtiapine 25 MG TAB 50 MG PO (22:00)
[2020-09-20] MEDS: Mirtazapine 15 MG TAB 30 MG PO (22:00)
[2020-09-20 23:04] VITALS: BP 126/86; PULSE 90; RESP 14; TEMP 37; O2SAT 93
--- NOTE | 2020-09-21 | DI.RAD_ITS ---
Exam(s) XR ABD FLAT UPRIGHT PA CHEST EXAM: XR ABD FLAT UPRIGHT PA CHEST CLINICAL HISTORY: abd pain and distension.. TECHNIQUE: 2D digital imaging was performed. COMPARISON: CT CT ABDOMEN PELVIS W from 09/15/[address] ABDOMEN PELVIS W from 09/15/2020 FINDINGS: Cardiomegaly. Mediastinum not widened. There is atelectasis in both lung bases bordering on mild infiltrates. No pleural effusions. No pne umothorax In the abdomen there is evidence of previous surgery. Also fusion hardware in the lower lumbar spine and across the left SI joint. There are air-filled cysts mildly distended small bowel loops in the center and left abdomen which exhibit air-fluid levels. There is some air seen in the hepatic flexur e of the colon. No free air. IMPRESSION: I ileus versus is incomplete small bowel obstruction. There is no free air. Atelectasis and mild infiltrates both lung bases. DATA REPOSITORY: RADIATION DOSE DELIVERED:
[2020-09-21 05:45] VITALS: BP 112/73; PULSE 63; RESP 18; TEMP 36.2; O2SAT 94
[2020-09-21 08:54] VITALS: BP 136/86; PULSE 66; RESP 16; TEMP 36.4; O2SAT 93
[2020-09-21] MEDS: Methylphenidate 10 MG TAB 20 MG PO ×2 (09:28→21:50)
[2020-09-21] MEDS: HYDROmorphone 2 MG TAB PO ×4 (09:28→21:51)
[2020-09-21] MEDS: Polyethylene Glycol 3350 17 GM PACKET PO (09:28)
[2020-09-21] MEDS: Methocarbamol 500 MG TAB PO ×3 (09:29→19:54)
[2020-09-21] MEDS: Tamsulosin 0.4 MG CAPCR PO (09:29)
[2020-09-21] MEDS: Gabapentin 600 MG TAB PO ×3 (09:29→19:55)
[2020-09-21] MEDS: Docusate Sodium 100 MG CAP PO ×3 (09:29→19:55)
[2020-09-21] MEDS: busPIRone 5 MG TAB 10 MG PO ×3 (09:29→19:55)
[2020-09-21] MEDS: Multivitamin TAB 1 TAB PO (09:29)
[2020-09-21] MEDS: Venlafaxine 37.5 MG CAPCR 112.5 MG PO (09:29)
[2020-09-21] MEDS: Pantoprazole 40 MG TABCR PO (09:30)
[2020-09-21] MEDS: Buprenorphine/Naloxone 8 mg/2 mg FILM 3 EACH SL (09:42)
[2020-09-21] MEDS: Fluticasone NASAL SPRAY 16 GM BTL NS (09:42)
[2020-09-21] MEDS: ALPRAZolam 0.5 MG TAB 1 MG PO ×2 (09:43→17:30)
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
[2020-09-21] MEDS: ALPRAZolam 0.25 MG TAB 1 MG PO (12:17)
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
--- NOTE | 2020-09-21 13:27 | PDOC.CMSAFE ---
- If Service Date Differs Date of service: 09/21/20 Time of Service: 15:30 Care Management Safety Plan Status: Voluntary - Reason for Wait Reason for Wait: Inpatient Admission (No bed availability ) VOLUNTARY FOR INPATIENT PSYCHIATRIC STABILIZATION. Patient is appropriate in all interactions since arriving at [facility]; Pt has demonstrated appropriate coping and communication skills, has articulated his or her needs and concerns and is fully engaged during staff interactions. Safety plan has been established with patient, and care team, to adhere to patient goals, identify restrictions based on behavioral status, address nutrition, and determine allowed personal belongings, tools for hygiene and personal care. Determine level of activity including ambulation, level of supervision, visitors, and determine privileges based on behaviors and level of engagement by pt. Only change to safety plan at this time is to add supportive Alex post [phone] to contact list. 1330: [facility] [place]: Sandra no capacity at this time; awaiting MD review for determination on medical clearance, Sandra reports receiving updated wound care notes which are currently being reviewed. SAFETY PLAN: 1. Will remain on suicide precautions. In paper clothes or patient gown at this time. 2. Will remain in room under direct supervision of one-on-one staff at all times provided by [employer]; NURA, RETRIEVAL SPECIALIST lab support technician. 3. May have paper cups, plates, finger foods as well as a cardboard spoon with which to eat meals. 4. Follow [facility] Management of the Admitted Behavioral Health Patient policy. 5. Comfort bath system, shower permitted at RN discretion. 6. No personal belongings 7. Visitors-No visitors at this time 8. Activities: soft activity items, television, remote, music tablet, paper, books, color pages, crayons, markers. 9. Bathroom privileges-available in room on M/S without limitation. 10. Phone: outgoing/incoming phone calls with brother, sejal Johnson-phone dialed by staff on [facility] cordless phone permitted at RN discretion. 11. Due to VOLUNTARY status, if patient wishes to leave [facility], staff will contact [facility] Crisis Screener ([phone]) and On-Call Director Of Residence Life ([phone]) as soon as possible. In the event of elopement, notify [facility] Police ([phone]). Patient is currently voluntarily at [facility] and seeking inpatient admission when a bed becomes available. [facility] Frontline Turbine Technician will continue seeking placement. Please contact the Hand Or Machine Paster Director Of Residence Life ([phone]) and [facility] Turbine Technician ([phone]) for any needed changes in the Safety Plan. Safety plan has been provided to interdepartmental care team.
--- NOTE | 2020-09-21 14:51 | CHAPLAIN ---
I was asked my someone from [facility] (?) to bring Talat Bible as he was asking for one. Rafa seemed to appreciate the Bible. He said he belonged to a [employer]atsdin in [place], but couldn't remember the name of it. 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 Rafa is going to try and remember the name of the uatsdin and the semiconductors wafer breaker's last name so we can figure out who he is. 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 He said he wished he had a guitara to play here. He also said that he felt good when he was working to help others. He mentioned that his is why I'm here, so he wasn't interested in contacting her.
[2020-09-21] MEDS: Acetaminophen 325 MG TAB 650 MG PO ×2 (15:27→19:55)
[2020-09-21 15:30] VITALS: BP 125/82; PULSE 83; RESP 18; TEMP 36.9; O2SAT 97
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
[2020-09-21] MEDS: Dicyclomine 20 MG TAB PO (18:37)
[2020-09-21 19:51] VITALS: BP 109/22; PULSE 74; RESP 18; TEMP 36.6; O2SAT 96
[2020-09-21] MEDS: ALPRAZolam 0.5 MG TAB 2 MG PO (21:50)
[2020-09-21] MEDS: Mirtazapine 15 MG TAB 30 MG PO (21:51)
[2020-09-21] MEDS: QUEtiapine 25 MG TAB 50 MG PO (21:51)
[2020-09-21 23:35] VITALS: BP 164/117; PULSE 69; RESP 18; TEMP 36.4; O2SAT 95
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
[2020-09-22 01:35] LABS: Abs Immature Grans 0.07 10^3/uL (0.0-0.06); Absolute Basophil Count 0.03 10^3/uL (0.0-0.2); Absolute Eosinophil Count 0.13 10^3/uL (0.0-0.7); Absolute Lymphocyte Count 1.55 10^3/uL (1.2-3.4); Absolute Monocyte Count 0.83 10^3/uL (0.1-0.8); Absolute Neutrophil Count 3.43 10^3/uL (1.2-6.7); Basophils % 0.5; Eosinophils % 2.2; HCT 42.4 % (40.0-50.0); HGB 14.2 g/dL (13.5-17.5); Immature Grans % 1.2; Lymphocytes % 25.7; MCH 31.8 pg (27.0-33.0); MCHC 33.5 % (32.0-36.0); MCV 95.1 fL (80-95); MPV 9.8 fL (8.0-11.0); Monocytes % 13.7; Neutrophils % 56.7; Nucleated RBC 0 %; Platelet Count 260 10^3/uL (130-400); RBC 4.46 10^6/uL (4.36-5.78); RDW 12.4 % (11.8-14.1); RDW-SD 43.5 fL; WBC 6.04 10^3/uL (4.4-10.8)
[2020-09-22 01:56] LABS: ALT 28 U/L (16-63); AST 18 U/L (15-37); Albumin 3.1 g/dL (3.4-5.0); Alkaline Phosphatase 48 U/L (46-116); BUN 12 mg/dL (7-18); Bilirubin, Total 0.5 mg/dL (0.2-1.0); CREATININE 1.2 mg/dL (0.70-1.30); Calcium 8.6 mg/dL (8.5-10.1); Chloride 101 mmol/L (98-107); Glucose 94 mg/dL (74-106); Potassium 4.2 mmol/L (3.5-5.1); Sodium 137 mmol/L (136-145); Total Protein 6.3 g/dL (6.4-8.2)
[2020-09-22] MEDS: Lidocaine 2% Jelly 11 ML SYR UR (02:34)
[2020-09-22] MEDS: Normal Saline Flush 10 ML SYR (02:34)
[2020-09-22] MEDS: HYDROmorphone 2 MG/ML VIAL IVP ×5 (02:34→23:09)
--- NOTE | 2020-09-22 03:15 | DI.RAD_ITS ---
Exam(s) XR PORTABLE CHEST AP POST LINE EXAM: XR PORTABLE CHEST AP POST LINE CLINICAL HISTORY: Confirming placement of nasogastric tube. TECHNIQUE: 2D digital imaging was performed. COMPARISON: Prior chest x-ray 09/22/2020 FINDINGS: Cardiomegaly noted. There is infiltrate in the left upper lobe. Mild increased markings in the left lower lobe. Right l do is clear. No pleural effusions. No pulmonary edema. IMPRESSION: Left upper lobe infiltrate. Also mild infiltrate left lower lobe. No pleural effusions evident on t his portable lordotic view.There is also cardiomegaly but no evidence of pulmonary edema. DATA REPOSITORY: RADIATION DOSE DELIVERED: All CT scans at this facility use at least one of these dose optimization techniques: automated exposure control; mA and/or kV adjustment per patient size (includes targeted e xams where dose is matched to clinical indication); or iterative reconstruction.
[2020-09-22 03:49] VITALS: BP 119/70; PULSE 68; RESP 18; TEMP 36.4; O2SAT 95
[2020-09-22] MEDS: LORazepam 2 MG/ML VIAL 1 MG IVP ×3 (03:52→21:12)
[2020-09-22] MEDS: Normal Saline Flush 10 ML SYR IVP ×4 (03:53→23:07)
[2020-09-22] MEDS: DEXTROSE 5%-0.45% SALINE 1,000 ML 100 ML IV ×2 (03:53→14:12)
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
[2020-09-22 07:58] VITALS: BP 139/76; PULSE 57; RESP 20; TEMP 36.1; O2SAT 91
--- NOTE | 2020-09-22 08:07 | W.PM.PROGNOT ---
Date of Service Date of service: 09/21/20 Time of Service: 22:08 Subjective Subjective Interval history since last seen: Mr. Buckner developed increasing abdominal distention and pain that was nonresponsive to hydromorphone. The nurses asked me to examine him. I reviewed his vital signs and saw him. He had quite a bit of abdominal distention and diffuse abdominal tenderness. An abdominal series was ordered and reviewed the results with the on-call radiologist. The NG tube was placed and his oral meds were stopped. He was switched to intravenous lorazepam and hydromorphone. A surgical consult will be requested in the morning. Objective Last Vital Signs Temp 36.1 C L 09/22/20 07:58 Pulse 57 L 09/22/20 07:58 Resp 20 09/22/20 07:58 BP 139/76 09/22/20 07:58 Pulse Ox 91 L 09/22/20 07:58 Laboratory Results - last 24 hr 09/22/20 09/22/20 01:08 01:08 WBC 6.04 RBC 4.46 Hgb 14.2 Hct 42.4 MCV 95.1 H MCH 31.8 MCHC 33.5 RDW 12.4 Plt Count 260 MPV 9.8 Immature Gran % 1.2 Neutrophils % 56.7 Lymphocytes % 25.7 Monocytes % 13.7 Eosinophils % 2.2 Basophils % 0.5 Nucleated RBC % 0 Absolute Neutrophils 3.43 Absolute Lymphocytes 1.55 Absolute Monocytes 0.83 H Absolute Eosinophils 0.13 Absolute Basophils 0.03 Sodium 137 Potassium 4.2 Chloride 101 Carbon Dioxide 31.0 Anion Gap 5.0 BUN 12 Creatinine 1.2 Estimated GFR/1.73 m2 >= 60.00 Glucose 94 Calcium 8.6 Total Bilirubin 0.5 AST 18 ALT 28 Alkaline Phosphatase 48 Total Protein 6.3 L Albumin 3.1 L
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
[2020-09-22 09:18] LABS: Abs Immature Grans 0.07 10^3/uL (0.0-0.06); Absolute Basophil Count 0.03 10^3/uL (0.0-0.2); Absolute Eosinophil Count 0.14 10^3/uL (0.0-0.7); Absolute Lymphocyte Count 1.31 10^3/uL (1.2-3.4); Absolute Monocyte Count 0.74 10^3/uL (0.1-0.8); Absolute Neutrophil Count 3.32 10^3/uL (1.2-6.7); Basophils % 0.5; Eosinophils % 2.5; HGB 14.2 g/dL (13.5-17.5); Immature Grans % 1.2; Lymphocytes % 23.4; MCH 31.8 pg (27.0-33.0); MCV 96.4 fL (80-95); MPV 9.4 fL (8.0-11.0); Monocytes % 13.2; Neutrophils % 59.2; Nucleated RBC 0 %; Platelet Count 238 10^3/uL (130-400); RBC 4.46 10^6/uL (4.36-5.78); RDW 12.4 % (11.8-14.1); RDW-SD 43.8 fL; WBC 5.61 10^3/uL (4.4-10.8)
--- NOTE | 2020-09-22 09:26 | PDOC.CMSAFE ---
- If Service Date Differs Date of service: 09/22/20 Time of Service: 09:29 Care Management Safety Plan Status: Voluntary - Reason for Wait Reason for Wait: Medical Clearance (Back to acute medical evening of 09/21/20) VOLUNTARY FOR INPATIENT PSYCHIATRIC STABILIZATION. Patient is appropriate in all interactions since arriving at [facility]; Pt has demonstrated appropriate coping and communication skills, has articulated his or her needs and concerns and is fully engaged during staff interactions. Safety plan has been established with patient, and care team, to adhere to patient goals, identify restrictions based on behavioral status, address nutrition, and determine allowed personal belongings, tools for hygiene and personal care. Determine level of activity including ambulation, level of supervision, visitors, and determine privileges based on behaviors and level of engagement by pt. Only change to safety plan at this time is to add supportive Darshana post and Betty Whitney [phone] to contact list. 0845 Pam [facility] arrived to assess Rafa-advised he has been moved to the M/S floor and made acute due to suspected ileus. 0915: [facility] [place]: Calling to offer bed-advised Rafa's referral is on hold until he is once again medically cleared. CM faxed updated clinicals. SAFETY PLAN: 1. Will remain on suicide precautions. In paper clothes or patient gown at this time. 2. Will remain in room under direct supervision of one-on-one staff at all times provided by [employer]; NURA, CAN FILLING ROOM SWEEPER senior finance manager. 3. May have paper cups, plates, finger foods as well as a cardboard spoon with which to eat meals. 4. Follow [facility] Management of the Admitted Behavioral Health Patient policy. 5. Comfort bath system, shower permitted at RN discretion. 6. No personal belongings 7. Visitors-No visitors at this time 8. Activities: soft activity items, television, remote, music tablet, paper, books, color pages, crayons, markers. 9. Bathroom privileges-available in room on M/S without limitation. 10. Phone: outgoing/incoming phone calls with brother, sejal Johnson-phone dialed by staff on [facility] cordless phone permitted at RN discretion. 11. Due to VOLUNTARY status, if patient wishes to leave [facility], staff will contact [facility] Crisis Screener ([phone]) and On-Call Manager Diesel ([phone]) as soon as possible. In the event of elopement, notify [facility] Police ([phone]). Patient is currently voluntarily at [facility] and seeking inpatient admission when a bed becomes available. [facility] Frontline Sausage Inspector will continue seeking placement. Please contact the Product Mgr Manager Diesel ([phone]) and [facility] Sausage Inspector ([phone]) for any needed changes in the Safety Plan. Safety plan has been provided to interdepartmental care team.
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
[2020-09-22 09:34] LABS: ALT 28 U/L (16-63); AST 21 U/L (15-37); Alkaline Phosphatase 48 U/L (46-116); Anion Gap 4.1 mmol/L (3-11); BUN 13 mg/dL (7-18); Bilirubin, Total 0.4 mg/dL (0.2-1.0); CO2 31.9 mmol/L (21.0-32.0); CREATININE 1.2 mg/dL (0.70-1.30); Calcium 8.4 mg/dL (8.5-10.1); Chloride 102 mmol/L (98-107); Glucose 96 mg/dL (74-106); Potassium 3.8 mmol/L (3.5-5.1); Sodium 138 mmol/L (136-145); Total Protein 6.9 g/dL (6.4-8.2)
--- NOTE | 2020-09-22 09:46 | DI.RAD_ITS ---
Exam(s) XR ABDOMEN FLAT PLATE EXAM: XR ABDOMEN FLAT PLATE CLINICAL HISTORY: Checking NG tube placement. TECHNIQUE: 2D digital imaging was performed. COMPARISON: Prior x-rays reviewed FINDINGS: There is an NG tube coiled in the stomach. Recommend chest x-ray assure that there is a straight cecilio e course of the NG tube in the esophagus. There are air-filled small and large bowel loops noted. IMPRESSION: DATA REPOSITORY: RADIATION DOSE DELIVERED:
[2020-09-22] MEDS: Buprenorphine/Naloxone 8 mg/2 mg FILM 3 EACH SL (10:03)
[2020-09-22] MEDS: LORazepam 2 MG/ML VIAL 0.5 MG IVP (10:53)
[2020-09-22] MEDS: Docusate Sodium 100 MG CAP PO ×3 (11:12→20:36)
[2020-09-22] MEDS: Tamsulosin 0.4 MG CAPCR PO (11:12)
[2020-09-22] MEDS: Methylphenidate 10 MG TAB 20 MG PO ×2 (11:12→21:10)
[2020-09-22] MEDS: busPIRone 5 MG TAB 10 MG PO ×3 (11:12→20:38)
[2020-09-22] MEDS: Gabapentin 600 MG TAB PO ×3 (11:13→20:37)
[2020-09-22] MEDS: Pantoprazole 40 MG TABCR PO (11:13)
[2020-09-22] MEDS: Methocarbamol 500 MG TAB PO ×3 (11:13→20:37)
[2020-09-22] MEDS: Venlafaxine 37.5 MG CAPCR 112.5 MG PO (11:14)
[2020-09-22] MEDS: Polyethylene Glycol 3350 17 GM PACKET PO (11:14)
[2020-09-22] MEDS: Multivitamin TAB 1 TAB PO (11:14)
[2020-09-22 11:30] VITALS: BP 161/97; PULSE 64; RESP 20; TEMP 36.5; O2SAT 98
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
[2020-09-22 19:38] VITALS: BP 154/94; PULSE 84; RESP 20; TEMP 36.5; O2SAT 95
[2020-09-22] MEDS: QUEtiapine 25 MG TAB 50 MG PO (21:09)
[2020-09-22] MEDS: Mirtazapine 15 MG TAB 30 MG PO (21:09)
[2020-09-22] MEDS: ALPRAZolam 0.5 MG TAB 2 MG PO (21:09)
[2020-09-23 00:01] VITALS: BP 168/117; PULSE 65; RESP 18; TEMP 35.6; O2SAT 96
[2020-09-23] MEDS: DEXTROSE 5%-0.45% SALINE 1,000 ML 100 ML IV ×3 (00:02→19:46)
[2020-09-23] MEDS: HYDROmorphone 2 MG/ML VIAL IVP (04:47)
[2020-09-23] MEDS: Normal Saline Flush 10 ML SYR IVP (04:48)
[2020-09-23 07:08] LABS: Abs Immature Grans 0.07 10^3/uL (0.0-0.06); Absolute Basophil Count 0.03 10^3/uL (0.0-0.2); Absolute Eosinophil Count 0.18 10^3/uL (0.0-0.7); Absolute Lymphocyte Count 1.53 10^3/uL (1.2-3.4); Absolute Monocyte Count 0.74 10^3/uL (0.1-0.8); Absolute Neutrophil Count 3.77 10^3/uL (1.2-6.7); Basophils % 0.5; Eosinophils % 2.8; HCT 42.4 % (40.0-50.0); HGB 14.1 g/dL (13.5-17.5); Immature Grans % 1.1; Lymphocytes % 24.2; MCHC 33.3 % (32.0-36.0); MCV 96.1 fL (80-95); MPV 9.4 fL (8.0-11.0); Monocytes % 11.7; Neutrophils % 59.7; Nucleated RBC 0 %; Platelet Count 262 10^3/uL (130-400); RBC 4.41 10^6/uL (4.36-5.78); RDW 12.2 % (11.8-14.1); RDW-SD 43.2 fL; WBC 6.32 10^3/uL (4.4-10.8)
[2020-09-23 07:33] VITALS: BP 164/92; PULSE 68; RESP 18; TEMP 36.4; O2SAT 98
[2020-09-23 07:45] LABS: Anion Gap 5.4 mmol/L (3-11); BUN 9 mg/dL (7-18); CO2 32.6 mmol/L (21.0-32.0); CREATININE 1.1 mg/dL (0.70-1.30); Calcium 8.7 mg/dL (8.5-10.1); Chloride 103 mmol/L (98-107); Glucose 89 mg/dL (74-106); Potassium 4.3 mmol/L (3.5-5.1); Sodium 141 mmol/L (136-145)
[2020-09-23] MEDS: Multivitamin TAB 1 TAB PO (07:52)
[2020-09-23] MEDS: Methylphenidate 10 MG TAB 20 MG PO ×2 (07:52→21:20)
[2020-09-23] MEDS: Venlafaxine 37.5 MG CAPCR 112.5 MG PO (07:52)
[2020-09-23] MEDS: Gabapentin 600 MG TAB PO ×3 (07:52→19:46)
[2020-09-23] MEDS: Methocarbamol 500 MG TAB PO ×3 (07:52→19:46)
[2020-09-23] MEDS: busPIRone 5 MG TAB 10 MG PO ×3 (07:53→19:46)
[2020-09-23] MEDS: Pantoprazole 40 MG VIAL IVP (07:53)
[2020-09-23] MEDS: Polyethylene Glycol 3350 17 GM PACKET PO (07:53)
[2020-09-23] MEDS: Docusate Sodium 100 MG CAP PO ×3 (07:53→19:46)
[2020-09-23] MEDS: Tamsulosin 0.4 MG CAPCR PO (07:53)
[2020-09-23] MEDS: Buprenorphine/Naloxone 8 mg/2 mg FILM 3 EACH SL (07:54)
[2020-09-23] MEDS: LORazepam 2 MG/ML VIAL 1 MG IVP (08:17)
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
[2020-09-23] MEDS: HYDROmorphone 2 MG TAB PO ×3 (09:49→19:01)
[2020-09-23] MEDS: clonazePAM 1 MG TAB 2 MG PO ×4 (11:13→19:47)
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
[2020-09-23 11:33] VITALS: BP 171/112; PULSE 97; RESP 24; TEMP 36.9; O2SAT 95
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
[2020-09-23 15:37] VITALS: BP 152/98; PULSE 79; RESP 20; TEMP 36.9; O2SAT 96
--- NOTE | 2020-09-23 15:39 | CMSP_ITS ---
- If Service Date Differs Date of service: 09/23/20 Time of Service: 15:46 Care Management Safety Plan Status: Voluntary - Reason for Wait Reason for Wait: Medical Clearance ([facility] report they will not re-assess until he is medically cleared. ) VOLUNTARY FOR INPATIENT PSYCHIATRIC STABILIZATION. Patient is appropriate in all interactions since arriving at [facility]; Pt has demonstrated appropriate coping and communication skills, has articulated his or her needs and concerns and is fully engaged during staff interactions. Safety plan has been established with patient, and care team, to adhere to patient goals, identify restrictions based on behavioral status, address nutrition, and determine allowed personal belongings, tools for hygiene and personal care. Determine level of activity including ambulation, level of supervision, visitors, and determine privileges based on behaviors and level of engagement by pt. CM coordinated and observed phone contact between Rafa and his , Anjana yesterday evening and today-late morning. Rafa was able to regulate during these interaction which included high conflict in areas of trust, substance use, natural support system relationship conflicts and included both Rafa and his making accusatory statements toward each other. At this time, recommendation that phone contact with Anjana be permitted only by a case by case basis including CM-RN evaluation based on patient presentation and with staff support during interaction. Unlimited phone contact with Anjana will not be permitted or added to the safety plan at this time due to the high level of conflict present currently between the couple. SAFETY PLAN: 1. Will remain on suicide precautions. In paper clothes or patient gown at this time. 2. Will remain in room under direct supervision of one-on-one staff at all times provided by [employer]; NURA, COMMUNITY AMBASSADOR wood drilling machine operator. 3. May have paper cups, plates, finger foods as well as a cardboard spoon with which to eat meals. 4. Follow [facility] Management of the Admitted Behavioral Health Patient policy. 5. Comfort bath system, shower permitted at RN discretion. 6. No personal belongings 7. Visitors-No visitors at this time 8. Activities: soft activity items, television, remote, music tablet, paper, books, color pages, crayons, markers. 9. Bathroom privileges-available in room on M/S without limitation. 10. Phone: outgoing/incoming phone calls with brother, neighbors Darshana and [employer]-[phone], phone dialed by staff on [facility] cordless phone permitted at RN discretion. 11. Due to VOLUNTARY status, if patient wishes to leave [facility], staff will contact [facility] Crisis Screener ([phone]) and On-Call Sales Professional ([phone]) as soon as possible. In the event of elopement, notify [facility] Police ([phone]). Patient is currently voluntarily at [facility] and seeking inpatient admission when a bed becomes available. [facility] Frontline Printing Engineer will continue seeking placement. Please contact the Cableman Sales Professional ([phone]) and [facility] Printing Engineer ([phone]) for any needed changes in the Safety Plan. Safety plan has been provided to interdepartmental care team.
[2020-09-23 16:18] LABS: Testosterone, Free 21.6 ng/dL (4.26-16.4); Testosterone, Total 481 ng/dL (240-950)
[2020-09-23] MEDS: diphenhydrAMINE 50 MG/ML VIAL IVP (17:02)
[2020-09-23 20:00] VITALS: BP 158/97; PULSE 67; RESP 20; TEMP 36.9; O2SAT 97
[2020-09-23] MEDS: ALPRAZolam 0.5 MG TAB 2 MG PO (21:19)
[2020-09-23] MEDS: Mirtazapine 15 MG TAB 30 MG PO (21:20)
[2020-09-23] MEDS: QUEtiapine 25 MG TAB 50 MG PO (21:20)
--- NOTE | 2020-09-23 21:50 | NUR.NOTE ---
pt continues to get more agitated and demanding nmore medication. Pacing and went to the bathroom and tried to take out his own petros. Nurse did stop him and tell him that he could make more of an issue. pt continues to pace and demanding to get out of here. walked to the nursing station to have the iv removed. When the nurse went to remove the IV pt decided to sit in the chair. Dr advised. Per Rakel he has lost voluntary services.. Nursing Note:
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
[2020-09-24] MEDS: HYDROmorphone 2 MG TAB PO ×3 (02:10→11:39)
[2020-09-24 03:44] VITALS: BP 118/81; PULSE 62; RESP 94; TEMP 36.5
--- NOTE | 2020-09-24 04:03 | NUR.NOTE ---
Nursing Note: 09/23/2020 At 2100 hrs. Patient demanded to make a phone call to Betty, The information writer brought the phone and dialed the number that was in the chart, patient was telling that Betty changed the number and He wants to dial himself, all his requests was declined by the information writer but then redialed again because was suspicious and upset ,it was ringing and the phone was put to his ears ,just to let him know that no one is picking up the phone and answering machine was full so pt cannot leave a message. Pt behavior was escalating, increasingly agitated and treating himself to go home as AMA.The information writer discussed with charge nurse , wherein she was able to contact mental health staff, long conversation was made by phone to him but nothing absorb by pt. He got out of his room and ambulate in the hallway w/ [employer]. Bedtime meds was given,( seroquel,xanax,,etc...) well taken but still asking for more sedation meds, always mentioning of more clonazepam, Pt refused to go home because he is aware that michel will be on his back.Redirected , This time Pt asked for food, Explained that, staff could not give solid food due to absent of flatus, remains w/ abdominal pain and hypoactive bowel sounds and no bowel movement yet and abdomen is tender to touch. Finally, Pt sat down & agreed to have jello and broth given. Around 2300 hrs., pt is already sleeping in recliner chair. Vital sign taking at midnight was omitted per staff verbal order not to be awaken. .At 02:10, pt called for his pain med, when about to give, he was asleep but easy arousable.Dilaudid po given and back to sleep after until this time. Continue to monitor. [employer] is on the sight.
[2020-09-24] MEDS: DEXTROSE 5%-0.45% SALINE 1,000 ML 100 ML IV (05:18)
[2020-09-24] MEDS: busPIRone 5 MG TAB 10 MG PO ×2 (08:21→13:38)
[2020-09-24] MEDS: Multivitamin TAB 1 TAB PO (08:21)
[2020-09-24] MEDS: Docusate Sodium 100 MG CAP PO ×2 (08:21→13:38)
[2020-09-24] MEDS: Venlafaxine 37.5 MG CAPCR 112.5 MG PO (08:21)
[2020-09-24] MEDS: Tamsulosin 0.4 MG CAPCR PO (08:21)
[2020-09-24] MEDS: Gabapentin 600 MG TAB PO ×2 (08:21→13:38)
[2020-09-24] MEDS: Methylphenidate 10 MG TAB 20 MG PO (08:22)
[2020-09-24] MEDS: clonazePAM 1 MG TAB 2 MG PO ×2 (08:22→11:13)
[2020-09-24] MEDS: Polyethylene Glycol 3350 17 GM PACKET PO (08:22)
[2020-09-24] MEDS: Pantoprazole 40 MG VIAL IVP (08:22)
[2020-09-24] MEDS: Buprenorphine/Naloxone 8 mg/2 mg FILM 3 EACH SL (08:22)
[2020-09-24] MEDS: Methocarbamol 500 MG TAB PO ×2 (08:22→13:38)
[2020-09-24] MEDS: Normal Saline Flush 10 ML SYR IVP (08:23)
[2020-09-24 08:39] VITALS: BP 162/118; PULSE 65; RESP 18; TEMP 36.7; O2SAT 97
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
[2020-09-24] MEDS: Bisacodyl 5 MG TABEC PO (10:47)
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
[2020-09-24 11:49] VITALS: BP 166/95; PULSE 105; RESP 18; TEMP 37.3; O2SAT 97
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
--- NOTE | 2020-09-24 15:57 | CHAPLAIN ---
Rafa said he is being discharged. Although he said he doesn't have anyone to talk to, he said has responsibilities that he needs to take care. He will be able to call [facility] 11/09 for support according to clinician Pam Story's report. I suggested the try to track down his friend and previous ceramic painter, Pastor Dorsey, in [place]. Rafa now has a phone to make calls.
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
== END 2020-09-24 13:52 | disposition home or self-care (01) | DRG 580 ==
LOC: ER 11:52 → DSU 13:25 → MS 18:29
PROVIDERS: Family Medicine; Internal Medicine; Nurse Practitioner Acute Care; Nurse Practitioner Family; Admitting Provider Surgery; Emergency Provider Student in an Organized Health Care Education/Training Program; PCP Family Medicine; Visit Provider Internal Medicine
PROC: 0WJG0ZZ Inspection of Peritoneal Cavity, Open Approach (ICD-10-PCS; CPT 49000; principal; 2020-09-15 12:15)
DX: S31.113A Laceration without foreign body of abdominal wall, right lower quadrant without penetration into peritoneal cavity, initial encounter (principal); R45.851 Suicidal ideations; I48.92 Unspecified atrial flutter; F11.20 Opioid dependence, uncomplicated; M47.16 Other spondylosis with myelopathy, lumbar region; Z68.41 Body mass index [BMI] 40.0-44.9, adult; K56.7 Ileus, unspecified; I48.91 Unspecified atrial fibrillation; J45.909 Unspecified asthma, uncomplicated; X78.1XXA Intentional self-harm by knife, initial encounter; R33.9 Retention of urine, unspecified; F19.10 Other psychoactive substance abuse, uncomplicated; F43.10 Post-traumatic stress disorder, unspecified; F32.9 Major depressive disorder, single episode, unspecified; F41.9 Anxiety disorder, unspecified; G89.29 Other chronic pain; M54.5 Low back pain; I48.0 Paroxysmal atrial fibrillation; B19.20 Unspecified viral hepatitis C without hepatic coma; J30.9 Allergic rhinitis, unspecified; F41.1 Generalized anxiety disorder; K21.9 Gastro-esophageal reflux disease without esophagitis; I10 Essential (primary) hypertension; E03.9 Hypothyroidism, unspecified; E29.1 Testicular hypofunction; K44.9 Diaphragmatic hernia without obstruction or gangrene; D75.1 Secondary polycythemia; N41.1 Chronic prostatitis; I87.8 Other specified disorders of veins; F17.210 Nicotine dependence, cigarettes, uncomplicated; R32 Unspecified urinary incontinence; K59.00 Constipation, unspecified; E66.9 Obesity, unspecified
CPT/HCPCS: 49000; 36415; 71045; 80048; 80053; 80307; 84402; 84403; 85027; 86850; 86900; 86901; 87635; 96361; 96374; 97162; 97530; 99222; 99285; J1650; 74018; 74022; 74177; 81003; 84439; 84443; 85014; 85018; 85025; 85610; 99231; 99232; 99233; 99239; J1100; J1200; J1885; J2001; J2060; J2250; J2405; J3010; J3490

== ENCOUNTER → 2020-10-04 10:36 | Outpatient (BNVA) | payer OTHER, SELFPAY | PROVIDERS: PCP Family Medicine; Referring Provider Family Medicine; Visit Provider Physical Therapy Assistant | DX: Z48.815 Encounter for surgical aftercare following surgery on the digestive system (principal) ==

== ENCOUNTER 2020-10-15 06:35 | Emergency (ER) | payer OTHER, SELFPAY ==
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
[2020-10-15 06:36] VITALS: BP 112/67; PULSE 88; RESP 16; TEMP 36.5; O2SAT 96
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
--- NOTE | 2020-10-30 11:37 | PDOC.MHCN_ITS ---
Date of service: 10/30/20 Time of Service: 11:00 Mental Health Crisis Note Presenting Issue How did you arrive at the ED and why did you come: Patient was brought in by [place] [employer] on an Emergency Warrant because he had left the hospital AMA prior to being assessed for safety. He is having suicidal ideation and is anxious and depressed. Precipitating Factors Patient endorses SI, 'The feelings never go away. Today is the visit by [facility] and the psychiatrist from [facility] to determine his status. a second certification exam has placed him on continued involuntary status. Disposition BEHAVIOR: His behavior is calm and cooperative. EYE CONTACT: Eye contact can not be assessed due to telehealth and his face is partially visible. AFFECT: His affect is flat and some crying. APPETITE: is eating ok SLEEP(trouble falling/staying asleep: trouble falling and staying asleep Plan The plan is to continue to seek treatment through referral to inpatient hospital and he continues to be placed on involuntary status. He is not allowed to have contact with his . A QMHP from Mental Health services will followup with a second assessment within 12 hours. Signature Clinician's Name/Title: Paulina Sanchez [facility] Emergency Services Clinician
== END 2020-10-15 07:16 | disposition home or self-care (01) ==
LOC: ER 07:14
PROVIDERS: Emergency Provider Emergency Medicine; PCP Family Medicine
DX: S00.83XA Contusion of other part of head, initial encounter (principal); W22.8XXA Striking against or struck by other objects, initial encounter
CPT/HCPCS: 99284; 70450; 99283

== ENCOUNTER 2020-10-28 23:40 | Inpatient (IN) | payer OTHER, SELFPAY ==
[2020-10-28 23:57] VITALS: BP 153/107; PULSE 96; RESP 16; TEMP 37.2; O2SAT 96
[2020-10-29 00:02] LABS: Abs Immature Grans 0.05 10^3/uL (0.0-0.06); Absolute Basophil Count 0.05 10^3/uL (0.0-0.2); Absolute Lymphocyte Count 2.48 10^3/uL (1.2-3.4); Basophils % 0.4; Eosinophils % 1.4; HCT 44.3 % (40.0-50.0); Immature Grans % 0.4; MCH 31.3 pg (27.0-33.0); MCHC 33.9 % (32.0-36.0); MCV 92.5 fL (80-95); MPV 9.8 fL (8.0-11.0); Monocytes % 9.1; Neutrophils % 67.7; Nucleated RBC 0 %; Platelet Count 221 10^3/uL (130-400); RBC 4.79 10^6/uL (4.36-5.78); RDW 11.2 % (11.8-14.1); RDW-SD 38.2 fL; WBC 11.82 10^3/uL (4.4-10.8)
[2020-10-29 00:03] LABS: Absolute Eosinophil Count 0.17 10^3/uL (0.0-0.7); Absolute Monocyte Count 1.08 10^3/uL (0.1-0.8)
--- NOTE | 2020-10-29 00:03 | NUR.NOTE ---
Addendum entered by Grisel Montalvo 10/29/20 01:04: When patient first arrived, we attempted to close the door to the supplies in room 5. The door would not unlock to pull down, so all items were removed from the room. The only remaining items are the gloves that are in a banda and the cable to the Nicolette monitor. These can easily be seen by this CPSO. Original Note: Nursing Note: Patient states that he is freaking out in here. Told him that the MD was working on this for him. He asked about taking off his mask and I asked him to keep it on for now. He states he has had COVID twice this year and was hoping that he would from that.
[2020-10-29 00:17] LABS: ETHANOL BLOOD < 3.0 mg/dL (<3)
--- NOTE | 2020-10-29 00:17 | NUR.NOTE ---
Nursing Note: Patient is asking why it is taking so long for his medications. Has changed his socks and thrown out the ones that he had on.
[2020-10-29 00:24] LABS: ALT 31 U/L (16-63); AST 25 U/L (15-37); Albumin 4.1 g/dL (3.4-5.0); Alkaline Phosphatase 64 U/L (46-116); Anion Gap 4.8 mmol/L (3-11); BUN 18 mg/dL (7-18); Bilirubin, Total 0.7 mg/dL (0.2-1.0); CO2 29.2 mmol/L (21.0-32.0); CREATININE 1.2 mg/dL (0.70-1.30); Calcium 9.5 mg/dL (8.5-10.1); Chloride 101 mmol/L (98-107); Glucose 111 mg/dL (74-106); Potassium 3.9 mmol/L (3.5-5.1); Sodium 135 mmol/L (136-145); TSH (W/Ref FT4) 0.19 uIU/mL (0.36-3.74); Total Protein 8.1 g/dL (6.4-8.2)
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
[2020-10-29 00:40] LABS: Salicylate < 2.8 mg/dL (<2.8)
[2020-10-29 00:41] LABS: Acetaminophen < 2 ug/mL (10-30)
[2020-10-29 00:45] LABS: FREE T4 1.46 ng/dL (0.76-1.46)
--- NOTE | 2020-10-29 00:48 | NUR.NOTE ---
Nursing Note: States to this [employer] that we are going to kill him before he can kill himself. States that he gets 6mg and we only gave him 1mg which is not enough. States that we are going to put him in benzodiazepine withdrawal.
[2020-10-29] MEDS: LORazepam 1 MG TAB PO (00:49)
[2020-10-29 00:57] LABS: *AMPHETAMINES SCREEN URINE Negative (Negative); *BARBITURATES SCREEN URINE Negative (Negative); *BENZODIAZEPINES SCREEN URINE Negative (Negative); Cannabinoids THC Negative (Negative); Cocaine Screen,Urine Positive (Negative); METHADONE URINE SCREEN Negative (Negative); OPIATES URINE SCREEN Negative (Negative)
[2020-10-29 00:58] LABS: Tricyclic Antidepressants Negative (Negative)
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
[2020-10-29 03:04] VITALS: BP 118/76; PULSE 80; RESP 20; TEMP 36.3; O2SAT 96
[2020-10-29] MEDS: LORazepam 1 MG TAB 2 MG PO ×3 (07:56→19:55)
[2020-10-29 08:08] VITALS: BP 122/80; PULSE 71; RESP 17; TEMP 36.5; O2SAT 99
[2020-10-29] MEDS: Methylphenidate 10 MG TAB 20 MG PO (08:25)
[2020-10-29] MEDS: hydroCHLOROthiazide 12.5 MG TAB PO (08:25)
[2020-10-29] MEDS: Gabapentin 600 MG TAB PO (08:26)
[2020-10-29] MEDS: Buprenorphine/Naloxone 8 mg/2 mg FILM 3 EACH SL (08:26)
[2020-10-29] MEDS: Pantoprazole 40 MG TABCR PO (08:26)
[2020-10-29 08:58] LABS: COVID-19 PCR Negative (Negative)
[2020-10-29] MEDS: Pregabalin 100 MG CAP PO (10:09)
--- NOTE | 2020-10-29 11:20 | CMSP_ITS ---
- If Service Date Differs Date of service: 10/29/20 Time of Service: 11:20 Care Management Safety Plan Status: Voluntary Safety plan has been established with patient, and care team, to adhere to patient goals, identify restrictions based on behavioral status, address nutrition, and determine allowed personal belongings, tools for hygiene and personal care. Determine level of activity including ambulation, level of supervision, visitors, and determine privileges based on behaviors and level of engagement by pt. Team meeting health this morning with RAYNE, nursing poultry feed supervisor, RN and CM. At this time, recommendation that phone contact with Anjana not be permitted due to the high level of conflict present currently between the couple. Rafa remains on SI precautions with reports of intent and a plan. Rafa asks that Maylin remain on his HIPAA, but he does not want to communicate with her personally. SAFETY PLAN: 1. Will remain on suicide precautions. In paper clothes or patient gown at this time. 2. Will remain in room under direct supervision of one-on-one staff at all times provided by [employer]; NURA, PATHOLOGY SECRETARY/TRANSCRIPTIONIST tow motor driver. 3. May have paper cups, plates, finger foods as well as a cardboard spoon with which to eat meals. 4. Follow [facility] Management of the Admitted Behavioral Health Patient policy. 5. Comfort bath system, shower permitted at RN discretion, staff to monitor from outside of shower room 6. No personal belongings 7. Visitors-No visitors at this time 8. Activities: soft activity items, television,remote, music tablet, paper, books, color pages, crayons. 9. Bathroom privileges-available in room on M/S without limitation. 10. Phone: outgoing/incoming phone calls with neighbors [phone], phone dialed by staff on [facility] cordless phone permitted at RN discretion. No contact with spouse permitted at this time. 11. Due to VOLUNTARY status, if patient wishes to leave [facility], staff will contact [facility] Crisis Screener ([phone]) and On-Call Crm Technical Lead ([phone]) as soon as possible. In the event of elopement, notify [facility] Police ([phone]). Patient is currently voluntarily at [facility] and seeking inpatient admission when a bed becomes available. [facility] Frontline Recruiting Consultant will continue seeking placement. Please contact the Inspector Filters Crm Technical Lead ([phone]) and [facility] Recruiting Consultant ([phone]) for any needed changes in the Safety Plan. Safety plan has been provided to interdepartmental care team.
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
[2020-10-29] MEDS: QUEtiapine 25 MG TAB PO (16:06)
[2020-10-29 16:09] VITALS: BP 119/80; PULSE 69; RESP 16; TEMP 36.7; O2SAT 98
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
[2020-10-29] MEDS: Nicotine 21 MG/24 HR PATCH TD (19:56)
[2020-10-29] MEDS: Pregabalin 50 MG CAP 150 MG PO (19:57)
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
== END 2020-10-29 22:11 | disposition left against medical advice (07) | DRG 881 ==
LOC: ER 10-29 02:31 → MS 10-29 03:00
PROVIDERS: Admitting Provider Family Medicine; Emergency Provider Student in an Organized Health Care Education/Training Program; PCP Family Medicine; Visit Provider Family Medicine
DX: F32.9 Major depressive disorder, single episode, unspecified (principal); R45.851 Suicidal ideations; I48.92 Unspecified atrial flutter; M47.16 Other spondylosis with myelopathy, lumbar region; F11.20 Opioid dependence, uncomplicated; Z20.822 Contact with and (suspected) exposure to COVID-19; G89.29 Other chronic pain; I48.0 Paroxysmal atrial fibrillation; D75.1 Secondary polycythemia; E29.1 Testicular hypofunction; F17.210 Nicotine dependence, cigarettes, uncomplicated; F41.1 Generalized anxiety disorder; F43.10 Post-traumatic stress disorder, unspecified; R51.9 Headache, unspecified; M54.5 Low back pain; M62.08 Separation of muscle (nontraumatic), other site; K21.9 Gastro-esophageal reflux disease without esophagitis; B19.20 Unspecified viral hepatitis C without hepatic coma; I10 Essential (primary) hypertension; N41.1 Chronic prostatitis
CPT/HCPCS: 80053; 80307; 87635; 99285; 80320; 80329; 84439; 84443; 85025

== ENCOUNTER 2020-10-30 01:26 | Emergency (ER) | payer OTHER, SELFPAY ==
[2020-10-30 01:35] VITALS: BP 144/96; PULSE 88; RESP 16; TEMP 36.4; O2SAT 99
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
[2020-10-30] MEDS: LORazepam 1 MG TAB 2 MG PO ×4 (02:08→20:37)
[2020-10-30] MEDS: clonazePAM 1 MG TAB PO ×4 (02:08→18:58)
--- NOTE | 2020-10-30 02:29 | NUR.NOTE ---
Provided with ham sandwich and marvin mt.Nursing Note:
--- NOTE | 2020-10-30 02:45 | NUR.NOTE ---
Dennis Orozco, [facility] arrives for patient evaluationNursing Note:
--- NOTE | 2020-10-30 04:49 | NUR.NOTE ---
Ax[place], [facility] [place]. update given. Nursing Note:
[2020-10-30] MEDS: hydroCHLOROthiazide 12.5 MG TAB PO (08:12)
[2020-10-30] MEDS: Methylphenidate 10 MG TAB 20 MG PO ×2 (08:12→18:59)
[2020-10-30] MEDS: Pregabalin 100 MG CAP PO (08:12)
[2020-10-30] MEDS: Gabapentin 600 MG TAB PO (08:12)
[2020-10-30] MEDS: Pantoprazole 40 MG TABCR PO (08:22)
[2020-10-30] MEDS: Buprenorphine/Naloxone 8 mg/2 mg FILM 3 EACH SL (08:23)
[2020-10-30 09:00] LABS: *AMPHETAMINES SCREEN URINE Negative (Negative); *BARBITURATES SCREEN URINE Negative (Negative); *BENZODIAZEPINES SCREEN URINE Negative (Negative); Cannabinoids THC Negative (Negative); Cocaine Screen,Urine Positive (Negative); METHADONE URINE SCREEN Negative (Negative); OPIATES URINE SCREEN Negative (Negative)
[2020-10-30 09:03] LABS: Tricyclic Antidepressants Negative (Negative)
--- NOTE | 2020-10-30 12:02 | PDOC.CMSAFED ---
- If Service Date Differs Date of service: 10/30/20 Time of Service: 12:02 Care Management Safety Plan Status: Involuntary - Reason for Wait Reason for Wait: Inpatient Admission INVOLUNTARY FOR INPATIENT PSYCHIATRIC STABILIZATION. Safety plan has been established to meet the needs of the patient, and consideration of the care team, to adhere to patient goals, identify restrictions based on behavioral status, address nutrition, and determine allowed personal belongings, tools for hygiene and personal care. Determine level of activity including ambulation, level of supervision, visitors, and determine privileges based on behaviors and level of engagement by pt. SAFETY PLAN: 1. Will remain on SI/HI precautions. In Paper Clothes 2. Will remain in room under direct supervision of one-on-one staff at all times provided by CPSO; NURA, COMMERCIAL SERVICE TECHNICIAN compliance auditor. 3. May have paper cups, plates, finger foods as well as a cardboard spoon 4. Follow [facility] Management of the Admitted Behavioral Health Patient policy. 5. Comfort bath system only. 6. No personal belongings. 7. Visitors: No visitors at this time. 8. Activities: soft cart items, coloring pages (enjoys drawing roses), crayons, music tablet. 9. Bathroom privileges with supervision 10. Phone: None at this time 11. Due to INVOLUNTARY status, patient is being held at [facility] by the Department of Mental Health ([facility]) until 2nd certification by [facility] Psychiatrist can be performed (within 24 hours). Staff will provide de-escalation support (CPI) as needed. If patient wishes to leave [facility], staff will contact [facility] Crisis Screener ([phone]) and On-Call Employee Counselor ([phone]) as soon as possible. In the event of elopement, notify [place] State Police ([phone]). Patient is currently involuntarily at [facility]. [facility] Frontline Television News Video Editor will continue seeking placement. Please contact the Water Aerobics Instructor Employee Counselor ([phone]) for any needed changes to Safety Plan. Safety plan has been provided to interdepartmental care team. Patient will be transported by [employer] at time of discharge.
[2020-10-30] MEDS: Gabapentin 300 MG CAP 600 MG PO ×2 (14:15→18:58)
[2020-10-30] MEDS: clonazePAM 1 MG TAB 2 MG PO ×2 (14:22→22:27)
[2020-10-30] MEDS: Nicotine 21 MG/24 HR PATCH TD ×2 (16:55→19:50)
--- NOTE | 2020-10-30 17:45 | PDOC.ERCMPRO ---
- If Service Date Differs Date of service: 10/30/20 Time of Service: 17:45 Care Management Progress Note S/O: Rafa was calm and focused on his drawing when CM met with him. He shared that he needed to leave the hospital (med surg floor) AMA last night because his anxiety was not being effectively treated. He is adamant that he needs to take the medications that Dr. Green prescribes him and has found that veering from his home medications due to our physicians administration practices to increase his anxiety and negatively affect his mood. This morning he received those meds in the ER and he feels much more calm. He shares that he will be ok as long as he gets his meds. CM shared his concerns with his care team. SUZY sent referral to [facility] at the request of [facility] crisis screener. A: 45 year old male being held involuntarily in the ED for depression and SI. P: Rafa is being held in the ED involuntarily for depression and SI. CM discussed safety plan with truck supervisor and primary nurse. Rafa had a second certification w/ Paulina with [facility] at 1100 am and the psychiatrist upheld his involuntary status. Rafa will be held involuntarily until he is placed at a psych facility. [facility] is actively seeking placement at a psych facility. CM continues to support patient and discharge planning needs.
[2020-10-30] MEDS: Pregabalin 50 MG CAP 100 MG PO (19:07)
[2020-10-30 19:13] VITALS: BP 123/86; PULSE 75; RESP 20; TEMP 36.4; O2SAT 96
--- NOTE | 2020-10-30 19:51 | NUR.NOTE ---
pt was offerd a comfort care bath, he refused at this time he will call when he is readyNursing Note:
[2020-10-30] MEDS: Melatonin 3 MG TAB PO (20:37)
[2020-10-30] MEDS: diphenhydrAMINE 25 MG CAP PO (20:37)
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
--- NOTE | 2020-10-31 03:16 | NUR.NOTE ---
Nursing Note: Spoke with Rafa Krishnamurthy from [facility] and gave update on patient.
--- NOTE | 2020-10-31 06:52 | NUR.NOTE ---
Nursing Note: Patient given a snack of peanut butter and blanca crackers.
[2020-10-31 07:43] VITALS: BP 126/83; PULSE 75; RESP 18; TEMP 36.8; O2SAT 94
[2020-10-31] MEDS: hydroCHLOROthiazide 25 MG TAB 12.5 MG PO (08:36)
[2020-10-31] MEDS: Buprenorphine/Naloxone 8 mg/2 mg FILM 3 EACH SL (08:36)
[2020-10-31] MEDS: Gabapentin 300 MG CAP 600 MG PO ×3 (08:37→21:06)
[2020-10-31] MEDS: LORazepam 1 MG TAB 2 MG PO ×3 (08:37→21:06)
[2020-10-31] MEDS: clonazePAM 1 MG TAB PO ×5 (08:37→21:05)
[2020-10-31] MEDS: Pregabalin 50 MG CAP 100 MG PO ×2 (08:38→21:06)
[2020-10-31] MEDS: Methylphenidate 10 MG TAB 20 MG PO ×2 (08:38→21:06)
--- NOTE | 2020-10-31 09:37 | PDOC.MHCN ---
Date of service: 10/31/20 Time of Service: 09:37 Mental Health Crisis Note Presenting Issue How did you arrive at the ED and why did you come: Client arrived at [facility] ED in the subject scientific research hours of 10/30/20 on a MH Warant with [facility]. Client was at [facility] voluntarily on 10/29/20 but left AMA without [facility] being contacted for safety prior. Precipitating Factors Client currently endorsing SI with no plan or intent. Client states: I always have SI thoughts they never go away, I don't want to be here on earth anymore. Client currently denies HI with no plan or intent. Disposition BEHAVIOR: Client is sitting up on hospital bed dressed in proper paper hospital attire when this customs entry writer arrives in person. Client is talking with CPSO, listening to music, and coloring a picture. Client interacts with this customs entry writer, however appears to be guarded when answering some of the questions. Client states: I need my testosterone. Client goes on to state that he has not had it in over 3 months. When this customs entry writer asks client on a scale of 0-10 with 0 being that he would be safe if he was to leave the hospital and 10 being that he would find a way to harm himself he rates himself a 7. EYE CONTACT: Client makes minimal eye contact with this customs entry writer, focusing on his drawing. MOOD: Clients mood appears to be depressed and anxious. AFFECT: Very flat affect. APPETITE: Client states that he has been eating good since being at [facility], more than I normally do when I am home. SLEEP(trouble falling/staying asleep: Client states that he was able to get about 2-3 hours of sleep last night, however the sleep was interrupted with tossing and turning throughout the night. Plan Client will remain at [facility] on involuntary status pending admission to an inpatient facility. Safety plan in place with ED staff. Client allowed to have coloring materials and access to tablet as ED staff sees fit. All hospitals have been called. [facility], [facility] and [facility] are not taking referrals. Referral has been sent to [place] and is under review. This customs entry writer will call and check status of referral later today. Signature Clinician's Name/Title: Lizzie Johnson [facility] Emergency Clinician.
--- NOTE | 2020-10-31 13:24 | CMSP_ITS ---
- If Service Date Differs Date of service: 10/31/20 Time of Service: 13:24 Care Management Safety Plan Status: Involuntary - Reason for Wait Reason for Wait: Inpatient Admission Reason for Wait: Inpatient Admission INVOLUNTARY FOR INPATIENT PSYCHIATRIC STABILIZATION. Safety plan has been established to meet the needs of the patient, and consideration of the care team, to adhere to patient goals, identify restrictions based on behavioral status, address nutrition, and determine allowed personal belongings, tools for hygiene and personal care. Determine level of activity including ambulation, level of supervision, visitors, and determine privileges based on behaviors and level of engagement by pt. SAFETY PLAN: 1. Will remain on SI/HI precautions. In Paper Clothes 2. Will remain in room under direct supervision of one-on-one staff at all times provided by CPSO; NURA, DOUBLE END CHUCKING MACHINE OPERATOR mixer crane operator. 3. May have paper cups, plates, finger foods as well as a cardboard spoon 4. Follow [facility] Management of the Admitted Behavioral Health Patient policy. 5. Comfort bath system only. 6. No personal belongings. 7. Visitors: No visitors at this time. 8. Activities: soft cart items, coloring pages (enjoys drawing roses), crayons, music tablet. 9. Bathroom privileges with supervision 10. Phone: None at this time 11. Due to INVOLUNTARY status, patient is being held at [facility] by the Department of Mental Health ([facility]) until 2nd certification by [facility] Psychiatrist can be performed (within 24 hours). Staff will provide de-escalation support (CPI) as needed. If patient wishes to leave [facility], staff will contact [facility] Crisis Screener ([phone]) and On-Call Absorption Operator ([phone]) as soon as possible. In the event of elopement, notify [place] State Police ([phone]). Patient is currently involuntarily at [facility]. [facility] Frontline Timber Rider will continue seeking placement. Please contact the Band Sawyer Absorption Operator ([phone]) for any needed changes to Safety Plan. Safety plan has been provided to interdepartmental care team. Patient will be transported by [employer] at time of discharge.
--- NOTE | 2020-10-31 13:24 | PDOC.CMSAFED ---
- If Service Date Differs Date of service: 10/31/20 Time of Service: 13:24 Care Management Safety Plan Status: Involuntary - Reason for Wait Reason for Wait: Inpatient Admission Reason for Wait: Inpatient Admission INVOLUNTARY FOR INPATIENT PSYCHIATRIC STABILIZATION. Safety plan has been established to meet the needs of the patient, and consideration of the care team, to adhere to patient goals, identify restrictions based on behavioral status, address nutrition, and determine allowed personal belongings, tools for hygiene and personal care. Determine level of activity including ambulation, level of supervision, visitors, and determine privileges based on behaviors and level of engagement by pt. SAFETY PLAN: 1. Will remain on SI/HI precautions. In Paper Clothes 2. Will remain in room under direct supervision of one-on-one staff at all times provided by CPSO; NURA, SENIOR WAREHOUSE CLERK harvest worker. 3. May have paper cups, plates, finger foods as well as a cardboard spoon 4. Follow [facility] Management of the Admitted Behavioral Health Patient policy. 5. Comfort bath system only. 6. No personal belongings. 7. Visitors: No visitors at this time. 8. Activities: soft cart items, coloring pages (enjoys drawing roses), crayons, music tablet. 9. Bathroom privileges with supervision 10. Phone: None at this time 11. Due to INVOLUNTARY status, patient is being held at [facility] by the Department of Mental Health ([facility]) until 2nd certification by [facility] Psychiatrist can be performed (within 24 hours). Staff will provide de-escalation support (CPI) as needed. If patient wishes to leave [facility], staff will contact [facility] Crisis Screener ([phone]) and On-Call Heddler Tier ([phone]) as soon as possible. In the event of elopement, notify [place] State Police ([phone]). Patient is currently involuntarily at [facility]. [facility] Frontline Mechanic Industrial Truck will continue seeking placement. Please contact the Carbon Paper Interleafer Heddler Tier ([phone]) for any needed changes to Safety Plan. Safety plan has been provided to interdepartmental care team. Patient will be transported by [employer] at time of discharge.
--- NOTE | 2020-10-31 14:56 | CMPROGNOTE_ITS ---
- If Service Date Differs Date of service: 10/31/20 Time of Service: 14:56 Care Management Progress Note S/O: Rafa was sitting up in bed when CM met with him. He appeared anxious and shared that he is not sleeping well because he is not getting his testosterone. In addition he expressed that he is not getting his medications as Dr. Green prescribed which is adding to his frustration. He became upset and raised his voice. He was able to self regulate and control his mood. CM advised pt that his [facility] is [facility] and his [facility] at their facility is still pending. A: 45 year old male being held involuntarily in the ED for depression and SI. P: Rafa is being held in the ED involuntarily for depression and SI. CM discussed safety plan with weaving supervisor and primary nurse. Rafa had a second certification w/ Paulina with [facility] yesterday at 1100 am and the psychiatrist upheld his involuntary status. Rafa will be held involuntarily until he is placed at a psych facility. [facility] is actively seeking placement at a psych facility. A huddle took place between ER MD, primary RN, CPSO and CM. The group decided to uphold no phone calls other than seeking legal [place]. Also, personal items including markers from home are not permitted at this time. CM continues to support patient and discharge planning needs.
--- NOTE | 2020-10-31 17:24 | PDOC.MHCN ---
Date of service: 10/31/20 Time of Service: 17:25 Mental Health Crisis Note Presenting Issue How did you arrive at the ED and why did you come: Client arrived at [facility] ED on the early breastfeeding care specialist hours of 10/30/20 via [facility] PD on a MH warrant. Client is seen tonight for 2nd F2F assessment of the day per safety plan. CPSO and [employer] report to this administrative underwriter that client has been becoming highly agitated the past 4-5 hours asking questions like: what can I do to get kicked out of here? CPSO reports that client has been banging head off from IV pole and garage door in room. Precipitating Factors Client currently denying SI, stating: I don't have them anymore- the lord took them away from me. Client denies intent or plan. Client denies HI. Disposition BEHAVIOR: Client is eating dinner when this administrative underwriter arrives in person. Client is very guarded and does not want to engage with this administrative underwriter. When this administrative underwriter asks client questions he becomes more agitated. Client states:I don't get why I have to stay here I originally checked myself in and then when I chose to leave everything happened. You guys cannot keep me here with no reason. Client goes on to say: If somebody wants to kill themselves, they will do it regardless. Client states: I just want to call my when this administrative underwriter tells client that is not an option he becomes more agitated. When this administrative underwriter goes to leave the room he states: I don't want a bed anymore. This administrative underwriter explains to client that he is here on a warrant and reads him his clients rights. This seems to escalate him even more. EYE CONTACT: Client makes very minimal eye contact with this administrative underwriter throughout the assessment. This administrative underwriter observes clients eyes to be darting around the room and shut at times. MOOD: Clients mood is congruent with behavior. Clients mood is highly agitated and restless. AFFECT: Irritable/ Agitated. APPETITE: Client states that he has been eating good. SLEEP(trouble falling/staying asleep: Client states that he was able to get 2 -3 hours of sleep last night, however he states prior to last night he did not sleep for 8 days. Plan Client will remain at [facility] on involuntary status pending an open bed at an inpatient facility. Client will receive 2x daily check-in's with [facility]. If client attempts to leave AMA law enforcement should be called first and then [facility] should be notified. Safety plan in place with [facility] ED. Client will be offered a shower when there is suitable staffing and hotel or motel room service supervisor is available to walk client upstairs with staff to shower area. Signature Clinician's Name/Title: DIS[facility] Mei Emergency Clinician.
[2020-10-31] MEDS: clonazePAM 1 MG TAB 2 MG PO ×2 (17:28→23:00)
--- NOTE | 2020-10-31 17:32 | NUR.NOTE ---
Patient has been frustrated throughout the day about how his medications has been given. This afternoon patient stated to that he was ready to go home. She reminded him of the warrant. PAtient became more aggitated. Dr. Arora ordered lorezapam and clonazapam 2 mg po.
[2020-10-31] MEDS: Nicotine 21 MG/24 HR PATCH TD (18:18)
[2020-10-31 19:18] VITALS: BP 121/84; PULSE 79; RESP 16; TEMP 36.8; O2SAT 95
[2020-10-31] MEDS: diphenhydrAMINE 25 MG CAP PO (23:00)
[2020-10-31] MEDS: Melatonin 3 MG TAB PO (23:01)
[2020-11-01] MEDS: Buprenorphine/Naloxone 8 mg/2 mg FILM 3 EACH SL (07:43)
[2020-11-01] MEDS: Pregabalin 50 MG CAP 100 MG PO ×2 (07:43→19:56)
[2020-11-01] MEDS: Methylphenidate 10 MG TAB 20 MG PO ×2 (07:43→19:55)
[2020-11-01] MEDS: clonazePAM 1 MG TAB PO ×4 (07:44→17:30)
[2020-11-01] MEDS: hydroCHLOROthiazide 25 MG TAB 12.5 MG PO (07:44)
[2020-11-01] MEDS: LORazepam 1 MG TAB 2 MG PO ×2 (07:44→21:25)
[2020-11-01] MEDS: Gabapentin 300 MG CAP 600 MG PO ×3 (07:44→19:55)
[2020-11-01] MEDS: Pantoprazole 40 MG TABCR PO (07:45)
[2020-11-01] MEDS: Nicotine 2 MG LOZG ×3 (09:28→21:17)
[2020-11-01] MEDS: Nicotine 21 MG/24 HR PATCH ×2 (09:29→21:18)
[2020-11-01] MEDS: LORazepam 1 MG TAB PO ×2 (13:57→17:30)
--- NOTE | 2020-11-01 13:57 | NUR.NOTE ---
Pt reguested RN to bedside. I approached for RN Alejandra to ask if there was anything I could help with. Pt stated I am supposed to be getting 2mg of Clonazepam three times daily, 2mg of Ativan twice daily and Lyrica 100mg three times a day. He also stated that I need my testosterone injections, I have not had them since May because I was between PCP and havent been able to get an appt. I explained that testosterone is not a medication that we would have in the ER, but i would relay his concerns to Dr. Rose Ramirez. I gave Dr Ramirez the update of information and administered the 2 medications ordered, also I told the pt that the Dr would look into the testosterone for him. Pt noted to be increasingly agitated with answers. Will continue to monitor. Nursing Note:
--- NOTE | 2020-11-01 14:43 | PDOC.CMSAFED ---
- If Service Date Differs Date of service: 11/01/20 Time of Service: 14:43 Care Management Safety Plan Status: Involuntary - Reason for Wait Reason for Wait: Inpatient Admission INVOLUNTARY FOR INPATIENT PSYCHIATRIC STABILIZATION. A huddle is done at approximately 14:[address] Kwan Ramirez, ED Provider, Huma, Nursing Research Soil Scientist, Aby, RN, Alejandra, RN, and SUZY Paez. Safety plan has been established to meet the needs of the patient, and consideration of the care team, to adhere to patient goals, identify restrictions based on behavioral status, address nutrition, and determine allowed personal belongings, tools for hygiene and personal care. Determine level of activity including ambulation, level of supervision, visitors, and determine privileges based on behaviors and level of engagement by pt. SAFETY PLAN: 1. Will remain on SI/HI precautions. In Paper Clothes 2. Will remain in room under direct supervision of one-on-one staff at all times provided by CPSO, NURA, ROOFING FOREMAN compliance quality performance analyst. 3. May have paper cups, plates, finger foods as well as a cardboard spoon with which to eat meals. 4. Follow [facility] Management of the Admitted Behavioral Health Patient policy. 5. Personal Care: Shower with supervision and at RN discretion. 6. No personal belongings. 7. Visitors: No visitors at this time. 8. Activities: soft cart items, coloring pages (enjoys drawing roses), crayons, music tablet, and other activities at RN discretion. 9. Bathroom privileges with escort. 10. Phone: Limited to legal contact. Patient was asked by nursing staff if there was anyone he wanted to add to his HIPAA to which Rafa replied no one. 11. Due to INVOLUNTARY status, patient is being held at [facility] by the Department of Mental Health ([facility]) until 2nd certification by [facility] Psychiatrist can be performed (within 24 hours). Staff will provide de-escalation support (CPI) as needed. If patient wishes to leave [facility], staff will contact [facility] Crisis Screener ([phone]) and On-Call Advice Nurse ([phone]) as soon as possible. In the event of elopement, notify [facility] Police ([phone]). Patient is currently involuntarily at [facility]. [facility] Frontline Store Receiver will continue seeking placement. Please contact the Hotel Or Motel Receptionist Advice Nurse ([phone]) for any needed changes to Safety Plan. Safety plan has been provided to interdepartmental care team. Patient will be transported by [employer] at time of discharge.
[2020-11-01 15:57] VITALS: BP 138/88; PULSE 88; RESP 16; O2SAT 95
--- NOTE | 2020-11-01 17:27 | NUR.NOTE ---
CPSO alerted staff that pt is feeling increasingly agitated while eating dinner and made aware. N.O. for Clonazepam and Lorazepam placed. Upon administration, pt stated This is not my night-time dose right? I get additional doses tonight too. MD made aware and clarification answered by RN. Will continue to monitor. Nursing Note:
[2020-11-01] MEDS: OLANZapine 10 MG TAB PO (18:31)
--- NOTE | 2020-11-01 19:41 | PDOC.MHCN ---
Date of service: 11/01/20 Time of Service: 17:30 Mental Health Crisis Note Presenting Issue How did you arrive at the ED and why did you come: Client is currently on involuntary status and awaiting placement for treat. This was a daily assessment. Precipitating Factors Client endorsed SI with intent but no specific plan at this time. However, client was unable to identify any deterrents either. There is no evidence of delusions present. Disposition BEHAVIOR: Client presented as irritable, nonchalant and did not engage as well as he had with this show card writer in the past. Client presented as fatigued and spoke with low tone as if he was sleepy. EYE CONTACT: Client maintained minimal eye contact MOOD: Client presented with depressed and hopeless mood AFFECT: Client presented with flat affect which was congruent with his mood during this assessment. APPETITE: Client stated his appetite was fine. SLEEP(trouble falling/staying asleep: Client reported he was having trouble sleeping. Plan Client will remain on involuntary status due to no change in his presentation. Client will be assessed twice daily by [facility] till he is placed for treatment. [facility] will need to be notified if client decided to discharge before he is placed and he would be reassessed. Referrals have been sent and they are currently pending bed availability. Signature Clinician's Name/Title: Purnima Glez / Emergency Services Clinician, [facility]
[2020-11-01] MEDS: clonazePAM 1 MG TAB 2 MG PO (19:55)
--- NOTE | 2020-11-01 21:25 | NUR.NOTE ---
Pt noted to be increasingly agitated again. Pt demanding his night meds. Pt telling RN that he takes 2mg of Ativan, 2mg of clonazepam, and his lyrica at night. Per report I got from KAYLYN Roberts, pt received his clonazepam around 2000 and his lyrica. Alejandra decided to hold off on Lorazepam 2m as his last dose was 1700. RN over to administer 2mg of Ativan at 2130, pt again stated I am not getting the right doses of meds. Requesting coffee every hour. RN informed pt that the ER pace was picking up and it may take longer to get him his multiple requests. Will continue to monitor Nursing Note:
[2020-11-02] MEDS: Buprenorphine/Naloxone 8 mg/2 mg FILM 3 EACH SL (07:44)
[2020-11-02] MEDS: LORazepam 1 MG TAB 2 MG PO (07:45)
[2020-11-02] MEDS: Gabapentin 300 MG CAP 600 MG PO ×2 (07:45→11:57)
[2020-11-02] MEDS: Pantoprazole 40 MG TABCR PO (07:45)
[2020-11-02] MEDS: clonazePAM 1 MG TAB 2 MG PO ×2 (07:45→12:50)
[2020-11-02] MEDS: Pregabalin 50 MG CAP 100 MG PO (07:45)
[2020-11-02] MEDS: hydroCHLOROthiazide 25 MG TAB 12.5 MG PO (07:45)
[2020-11-02] MEDS: Methylphenidate 10 MG TAB 20 MG PO (07:45)
--- NOTE | 2020-11-02 09:51 | PDOC.MHCN_ITS ---
Date of service: 11/02/20 Time of Service: 09:51 Mental Health Crisis Note Presenting Issue How did you arrive at the ED and why did you come: Pt arrived on 10.29.2020 on a voluntary basis for SI. He eloped later in the day on 10.29.2020 requiring [facility] to exicute a MH Warrant to bring him back. He has been waiting placement since. Precipitating Factors Pt reported he is chronically suicidal that will never change. He denied HI I'm not a psycho. There are no signs of delusions at this time. Disposition BEHAVIOR: Pt is cooperative and slightly agitated as he is not able to call his you guys are treating me like I'm in a Kinyarwanda assisted leaving me stuck in this room. This was again explained to him why we are not allowing this interaction. Pt is moderatly alert and fully oriented. EYE CONTACT: Eye contact is fair although he does report being tired. MOOD: Mood appears depressed and agitated. He reported his mood is upset because noone will give him a piece of paper so that he can write his a let ter to get him clothes and things. AFFECT: Affect appears tired and depressed. APPETITE: Pt reported no issues with appetite. SLEEP(trouble falling/staying asleep: Pt reported that he slept like ass elaborating he only selpt a couple of hours and then was awake. He attributes this to the activity and noise in the ED and people (CPSO's) staring at him 24/7. Plan Calls were made to [facility] (), [facility] ([facility]), [facility] ([facility] is still waiting to hear back from the UR person there about this pre authorization [facility] was able to get and [facility] as well as [facility] are currently reviewing. [facility] stated they do not have anything outside of his initial referral on 10.29.2020 when he was voluntary. This clinician will ask [facility] to fax clinical information including the Warrant to [facility]. Until placement is found Pt will remain at [facility] pending admission. He will remain on EE status due to his chronic SI and recent attemp ts in the past month. Signature Clinician's Name/Title: Pam Story MS, [facility] Emergency Services Clinician, [facility]
[2020-11-02] MEDS: LORazepam 1 MG TAB PO (11:56)
--- NOTE | 2020-11-02 12:08 | CMPROGNOTE_ITS ---
- If Service Date Differs Date of service: 11/01/20 Time of Service: 12:09 Care Management Progress Note S/O: Rafa has been calm and appropriate much of the day, though is now demanding his testosterone shot. He is occupying his time with coloring, listening to music and visiting with the CPSO. Rafa easily engages in conversation when CM comes to meet with him. He asks why he is unable to call his but is accepting of the explanation that speaking with his is too upsetting for him. CM discusses his request for a testosterone injection with Dr. Tonia Ramirez. She in turn speaks with his PCP and the injection is subsequently ordered. The [facility] pharmacy does not carry the IM medication, so it is obtained from [facility], patient's pharmacy in [facility]. A: Rafa is a 45 year old male awaiting an involuntary psychiatric placement. P: Referrals have been faxed to [facility], [facility], [facility], and [facility] for review. There are no available psychiatric beds today, so Rafa will remain at [facility] while [facility] continues to seek placement for him. CM will continue to follow. - Status Status: Involuntary - Reason for Wait Reason for Wait: Inpatient Admission
[2020-11-02 13:09] VITALS: BP 138/88; PULSE 88; RESP 16; TEMP 36.8; O2SAT 95
--- NOTE | 2020-11-02 13:14 | NUR.NOTE ---
Assumed care of pt at 1200 from KAYLYN Baca. Pt had received a PRN dose of Ativan prior to my arrival. Pt later requesting his dose of Clonazepam at 1230. KAYLYN Badillo let Dr Chapman know. KAYLYN Badillo informed the patient that he had just received a dose of Ativan and that we should allow it more time to kick in. The dose of clonazepam isnt ordered until his evening dose at 2000. Pt became increasing agitated and Dr Chapman over to talk to patient. 2mg of clonazepam administered at 1250. Pt then requested food, I informed him that his ride was coming shortly and I didnt know if he would have time to order something from the cafe, but was happy to get him something from the patient fridge. He declined the offer at that time. CPSO alerted RN to bedside again, pt requesting his clothing to be laundered. Again I stated that his ride will be coming shortly and there was no time to wash and dry his clothes. He was not happy with that answer either. Pt stated he wanted to brush his teeth and change his paper scrubs. RN able to get toothbrush and new set of scrubs. Pt stated You people need to send a letter to [facility] so I can get my suboxone tomorrow. I informed the patient that he wasn't headed to [facility] he was headed to [facility] in [place]. Again pt agitated and stated Well, Im not going there if they dont have my suboxone! I stated that it was a hospital and that I'm sure he is not the only patient requiring that medication. He again stated he was leaving until he confirmed that [facility] has the medication. RN again stated that his ride would be here shortly and that it was not an option to stay. Pt in to brush teeth and change. arrived around 1300 and pt left facility at 1310. Nurse to Nurse was given and [facility] aware of pt ETA. Nursing Note:
--- NOTE | 2020-11-02 13:28 | CMPROGNOTE_ITS ---
- If Service Date Differs Date of service: 11/02/20 Time of Service: 13:28 Care Management Progress Note Discharge: Rafa is accepted for admission by [facility] ([facility]). He will follow up with his community providers following discharge from [facility]. He is transported to [facility] by [facility]. - Status Status: Involuntary - Reason for Wait Reason for Wait: Inpatient Admission ([facility])
--- NOTE | 2020-11-02 13:28 | PDOC.ERCMPRO ---
- If Service Date Differs Date of service: 11/02/20 Time of Service: 13:28 Care Management Progress Note Discharge: Rafa is accepted for admission by [facility] ([facility] He will follow up with his community providers following discharge from [facility]. He is transported to [facility] by [facility]. - Status Status: Involuntary - Reason for Wait Reason for Wait: Inpatient Admission ([facility])
== END 2020-11-02 13:06 | disposition short-term general hospital (02) ==
PROVIDERS: Emergency Medicine; Emergency Provider Physician Assistant; PCP Family Medicine
DX: F32.9 Major depressive disorder, single episode, unspecified (principal); R45.851 Suicidal ideations; Z75.1 Person awaiting admission to adequate facility elsewhere
CPT/HCPCS: 80307; 99285

== ENCOUNTER 2020-11-25 21:08 | Emergency (ER) | payer OTHER, SELFPAY ==
[2020-11-25 21:14] VITALS: BP 143/92; PULSE 113; RESP 18; TEMP 36.8; O2SAT 97
== END 2020-11-25 22:01 ==
PROVIDERS: PCP Family Medicine
DX: Z53.29 Procedure and treatment not carried out because of patient's decision for other reasons (principal)

== ENCOUNTER 2020-12-30 13:08 | Outpatient (CLI) | payer OTHER, SELFPAY ==
--- NOTE | 2020-12-30 13:12 | DI.RAD_ITS ---
Exam(s) XR KNEE RT 3V AP,LAT,BERNARD EXAM: XR KNEE RT 3V AP,LAT,BERNARD CLINICAL HISTORY: SWELLING RT LEG M79.89, RT KNEE PAIN M25.561. TECHNIQUE: 2D digital imaging was performed. COMPARISON: No exams were available for comparison FINDINGS: BONES: No acute fracture is present. No bony destructive lesion is seen. JOINTS: There is moderate medial femoral tibial joint space narrowing, periarticular spurring and scl erosis. Spurring is also noted at the patellofemoral joint. There is an enthesophyte at the superio r pole of the patella.. No joint effusion is seen. SOFT TISSUE: Normal. IMPRESSION: Degenerative changes, greatest of the medial femoral tibial joint. No acute abnormality. DATA REPOSITORY: RADIATION DOSE DELIVERED:
== END 2020-12-30 13:28 ==
PROVIDERS: PCP Family Medicine; Visit Provider Physician Assistant Medical
DX: M25.561 Pain in right knee (principal); M79.89 Other specified soft tissue disorders; M17.11 Unilateral primary osteoarthritis, right knee
CPT/HCPCS: 73562

== ENCOUNTER 2021-02-03 00:56 | Emergency (ER) | payer SELFPAY ==
[2021-02-03 00:54] VITALS: BP 112/57; PULSE 72; RESP 18; TEMP 36.4
--- NOTE | 2021-02-03 01:00 | DI.CT_ITS ---
Exam(s) CT HEAD WO EXAM: CT HEAD WO CLINICAL HISTORY: fall, frontal contusion. TECHNIQUE: Imaging Protocol: Axial computed tomography images with coronal and sagittal reformatted images were created and reviewed COMPARISON: CT CT HEAD WO from 10/15/2020 FINDINGS: There are no skull fractures. There is a surgical defect in medial wall left maxillary sinus. Muco oscar thickening in the maxillary sinuses noted without fluid levels therein. Sphenoid and frontal sin uses are clear as are 8th model air cells and mastoid air cells. There is no evidence of intracranial hemorrhage, mass effect, or shift of midline structures. There are no extra-axial fluid collections. The ventricles are not enlarged or shifted and there is no blo od within the ventricular system nor within the basal cisterns. IMPRESSION: No acute intracranial findings on this noninfused CT scan of the brain. Paranasal sinus findings as described above, unchanged from 10/15/2020. RADIATION DOSE DELIVERED: 888.46mGy.cm Total DLP DATA REPOSITORY: All CT scans at this facility are submitted to the National Radiology Data Registry (NRDR) Dose Index Registry (DIR) with the [employer] (ACR). RADIATION OPTIMIZATION: All CT scans at this facility use at least one of these dose optimization te chniques: automated exposure control; mA and/or kV adjustment per patient size (includes targeted exa ms where dose is matched to clinical indication); or iterative reconstruction.
--- NOTE | 2021-02-03 01:00 | DI.RAD_ITS ---
Exam(s) XR SHOULDER LT COMPLETE 2+V EXAM: XR SHOULDER LT COMPLETE 2+V CLINICAL HISTORY: Fall, L shoulder pain worse. TECHNIQUE: 2D digital imaging was performed. COMPARISON: No exams were available for comparison FINDINGS: There is no evidence of acute fracture and there is no dislocation of glenohumeral joint. There is w idening of the acromioclavicular joint which appears postsurgical/acromioplasty. There are no abnorm al soft tissue calcifications. No osseous lesions. IMPRESSION: DATA REPOSITORY: RADIATION DOSE DELIVERED:
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
[2021-02-03] MEDS: Tetanus & Diphtheria Tox,ADULT 0.5 ML VIAL IM (01:05)
--- NOTE | 2021-02-03 02:02 | DI.VRAD_ITS ---
PROCEDURE INFORMATION: Exam: CT Head Without Contrast Exam date and time: 02/03/2021 1:02 AM Age: 45 years old Clinical indication: Other: Fall TECHNIQUE: Imaging protocol: Computed tomography of the head without contrast. COMPARISON: CT HEAD WO 10/15/2020 6:57 AM FINDINGS: Brain: Normal. No hemorrhage. Unremarkable white matter. No mass effect. Cerebral ventricles: No ventriculomegaly. Paranasal sinuses: Visualized sinuses are unremarkable. Mild mucous retention cysts of bilateral maxillary sinuses. No fluid levels. Mastoid air cells: Visualized mastoid air cells are well aerated. Bones/joints: Unremarkable. No acute fracture. Soft tissues: Unremarkable. IMPRESSION: 1. No acute intracranial abnormality. 2. No intracranial hemorrhage. 3. No skull fracture. 4. No scalp hematoma of significance noted. Dictated and Authenticated by: Onesimo Lucas MD. Ordering:ALLISON Chavarria MD
--- NOTE | 2021-02-03 02:03 | DI.VRAD_ITS ---
PROCEDURE INFORMATION: Exam: XR Left Shoulder Exam date and time: 02/03/2021 1:02 AM Age: 45 years old Clinical indication: Other: Fall TECHNIQUE: Imaging protocol: XR Left shoulder. Views: 2 or more views. COMPARISON: XR PORTABLE CHEST AP POST LINE 09/22/2020 4:19 AM FINDINGS: Bones/joints: Previous acromioplasty surgery. No acute fracture. No dislocation. Soft tissues: Soft tissues are unremarkable. IMPRESSION: 1. No acute fracture or dislocation. 2. Previous acromioplasty surgery. Dictated and Authenticated by: Onesimo Lucas MD. Ordering:ALLISON Chavarria MD
== END 2021-02-03 02:13 | disposition home or self-care (01) ==
LOC: ER 02:13
PROVIDERS: Emergency Provider Emergency Medicine; PCP Family Medicine
DX: S46.812A Strain of other muscles, fascia and tendons at shoulder and upper arm level, left arm, initial encounter (principal); S00.83XA Contusion of other part of head, initial encounter; S80.812A Abrasion, left lower leg, initial encounter; W01.0XXA Fall on same level from slipping, tripping and stumbling without subsequent striking against object, initial encounter
CPT/HCPCS: 90471; 99284; 70450; 73030; 99283

== ENCOUNTER 2021-05-21 09:37 | Emergency (ER) | payer MEDICARE, MEDICAID, SELFPAY ==
[2021-05-21] VITALS (98 sets, daily range): BP systolic 104–150; BP diastolic 53–93; PULSE 56–79; RESP 11–18; TEMP 36.5–36.8; O2SAT 88–99
--- NOTE | 2021-05-21 09:45 | DI.CT_ITS ---
Exam(s) CT HEAD WO EXAM: CT HEAD WO CLINICAL HISTORY: AMS. TECHNIQUE: Imaging Protocol: Axial computed tomography images with coronal and sagittal reformatted images were created and reviewed COMPARISON: CT HEAD WITHOUT CONTRAST from 08/08/[address] HEAD WO from 04/20/[address] HEAD WO from 10/15/[address] HEAD WO from 02/03/2021 FINDINGS: There are no skull fractures nor fluid in the visualized paranasal sinuses. There is a small surgic al defect in the medial wall of the left maxillary sinus and there is a postinflammatory retention cy st within the left maxillary sinus, unchanged from recent CT scans. No associated fluid level. Mild er mucosal thickening also evident in the opposite-right maxillary sinus. Remainder of the paranasal sinuses are clear. There is no evidence of intracranial hemorrhage, mass effect, or shift of midline structures. There are no extra-axial fluid collections. The ventricles are not enlarged or shifted and there is no blo od within the ventricular system nor within the basal cisterns. There is a small area of an hypodensity in the posterior aspect of the right cerebellar hemisphere, a pproximately mid level, and possibly representing prior non recent ischemic event, this finding uncha nged from the prior CT scan of 02/03/2021. It is also unchanged from prior CT scan of 10/15/2020 as well as also unchanged from CT scan of April [address] scan of July 2017. IMPRESSION: No acute intracranial findings on this noninfused CT scan of the brain. Posterior right cerebellar hypodensity is unchanged from CT scans dating back to at least 08/08/2017. RADIATION DOSE DELIVERED: 901.09mGy.cm Total DLP DATA REPOSITORY: All CT scans at this facility are submitted to the National Radiology Data Registry (NRDR) Dose Index Registry (DIR) with the [employer] ([employer]). RADIATION OPTIMIZATION: All CT scans at this facility use at least one of these dose optimization te chniques: automated exposure control; mA and/or kV adjustment per patient size (includes targeted exa ms where dose is matched to clinical indication); or iterative reconstruction.
--- NOTE | 2021-05-21 09:45 | RT.EKG_ITS ---
APPROVED REPORT Exam: Resting ECG Reason for Exam: altered mental status Patient Location: E HR:72 bpm ECG Measurements Heart Rate 72 AXIS GA 161 P 8 QRSd 100 QRS 33 QT 395 T 29 QTc 432 Conclusion Sinus rhythm...normal P axis, V-rate 60- 99 sinus rhythm, normal axis, normal intervals, non ischemic
--- NOTE | 2021-05-21 09:53 | DI.RAD_ITS ---
Exam(s) XR CHEST 1V IN DI DEPT EXAM: XR CHEST 1V IN DI DEPT CLINICAL HISTORY: AMS. TECHNIQUE: 2D digital imaging was performed. COMPARISON: CR,XR XR PORTABLE CHEST AP POST LINE from 09/22/2020 FINDINGS: Single AP portable view. Cardiomegaly again noted. Mediastinum unchanged. Lungs are clear. No infiltrates nor obvious pleural effusions. Previously present increased markings in the left upper lobe no longer seen. IMPRESSION: No acute pulmonary findings on this single AP portable view of the chest. Cardiomegaly again noted. No pulmonary edema. DATA REPOSITORY: RADIATION DOSE DELIVERED: All CT scans at this facility use at least one of these dose optimization techniques: automated exposure control; mA and/or kV adjustment per patient size (includes targeted e xams where dose is matched to clinical indication); or iterative reconstruction.
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
[2021-05-21 10:08] LABS: Abs Immature Grans 0.02 10^3/uL (0.0-0.06); Absolute Basophil Count 0.04 10^3/uL (0.0-0.2); Absolute Eosinophil Count 0.22 10^3/uL (0.0-0.7); Absolute Lymphocyte Count 1.42 10^3/uL (1.2-3.4); Absolute Monocyte Count 0.91 10^3/uL (0.1-0.8); Absolute Neutrophil Count 6.76 10^3/uL (1.2-6.7); BE (Venous) 6 mmol/L (-2-3); Basophils % 0.4; Eosinophils % 2.3; HCO3 (Venous) 32 mmol/L (23-28); HCT 46.9 % (40.0-50.0); HGB 15.5 g/dL (13.5-17.5); Immature Grans % 0.2; Lymphocytes % 15.2; MCV 96.9 fL (80-95); Monocytes % 9.7; Neutrophils % 72.2; Nucleated RBC 0 %; O2 Sat (Venous) 55 %; Platelet Count 207 10^3/uL (130-400); RBC 4.84 10^6/uL (4.36-5.78); RDW 11.9 % (11.8-14.1); RDW-SD 42.5 fL; TCO2 (Venous) 29 mmol/L (24-29); WBC 9.37 10^3/uL (4.4-10.8); pCO2 (Venous) 60 mmHg (41-51); pH (Venous) 7.33 (7.31-7.41); pO2 (Venous) 30 mmHg
[2021-05-21 10:34] LABS: ALT 36 U/L (16-63); AST 43 U/L (15-37); Albumin 3.9 g/dL (3.4-5.0); Alkaline Phosphatase 76 U/L (46-116); Anion Gap 6.4 mmol/L (3-11); BUN 24 mg/dL (7-18); Bilirubin, Total 0.5 mg/dL (0.2-1.0); CO2 30.6 mmol/L (21.0-32.0); CREATININE 1.2 mg/dL (0.70-1.30); Calcium 8.5 mg/dL (8.5-10.1); Chloride 104 mmol/L (98-107); Creatine Kinase 884 U/L (39-308); Glucose 119 mg/dL (74-106); Potassium 4.1 mmol/L (3.5-5.1); Sodium 141 mmol/L (136-145); TSH (W/Ref FT4) 0.18 uIU/mL (0.36-3.74); Total Protein 7.6 g/dL (6.4-8.2); Troponin I < 50 ng/L (<or=60)
[2021-05-21 10:36] LABS: ETHANOL BLOOD < 3.0 mg/dL (<10)
[2021-05-21 10:40] LABS: Salicylate < 2.8 mg/dL (<2.8)
[2021-05-21 10:44] LABS: Acetaminophen < 2 ug/mL (10-30)
--- NOTE | 2021-05-21 10:50 | NUR.NOTE ---
pt has been given a total of 0.4 mg of narcan, respirations are increasing. while takin pts pants off,pt did wake and was able to give verbal answers. was asked if he could give urine sample but he denies. pt continues to keep eyes closed and falls asleep quickly after waking. pt pupils are pin point at this time. EARNEST
[2021-05-21 10:57] LABS: FREE T4 1.23 ng/dL (0.76-1.46)
--- NOTE | 2021-05-21 12:01 | DI.VRAD_ITS ---
PROCEDURE INFORMATION: Exam: CT Head Without Contrast Exam date and time: 05/21/2021 11:36 AM Age: 45 years old Clinical indication: Altered mental status/memory loss TECHNIQUE: Imaging protocol: Computed tomography of the head without contrast. COMPARISON: CT HEAD WO 02/03/2021 1:13 AM FINDINGS: Brain: Small focal hypodensity within the right posterior cerebellar hemisphere, unchanged from prior and likely a remote infarct. No acute intracranial hemorrhage. No mass, mass effect or midline shift. Cerebral ventricles: No ventriculomegaly. Paranasal sinuses: Mucous retention cysts noted within the left, greater than right maxillary sinuses. No fluid levels. Mastoid air cells: Visualized mastoid air cells are well aerated. Orbital cavities: Mild symmetric thickening of the bilateral optic nerves, not significantly changed from prior. Bones/joints: Unremarkable. No acute fracture. Soft tissues: Unremarkable. IMPRESSION: 1. No acute intracranial abnormality. 2. 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 Dictated and Authenticated by: Carson Hernandez MD. Ordering:JULIANNE Parry MD
--- NOTE | 2021-05-21 12:03 | DI.VRAD_ITS ---
PROCEDURE INFORMATION: Exam: XR Chest Exam date and time: 05/21/2021 11:38 AM Age: 45 years old Clinical indication: Other: AMS TECHNIQUE: Imaging protocol: XR of the chest. Views: 1 view. COMPARISON: XR PORTABLE CHEST AP POST LINE 09/22/2020 4:19 AM FINDINGS: Lungs: The left costophrenic angle is excluded from the field of view. No focal consolidation. Pleural spaces: No pleural effusion or pneumothorax. Heart/Mediastinum: Mildly enlarged cardiomediastinal silhouette, not significantly changed compared to prior. Bones/joints: Mild multilevel degenerative changes of the spine. IMPRESSION: No actue cardiopulmonary abnormalities. Dictated and Authenticated by: Carson Hernandez MD. Ordering:JULIANNE Paryr MD
--- NOTE | 2021-05-21 13:12 | NUR.NOTE ---
pt remains asleep, pinpoint pupils, and diaphoretic. wakes to gentle shake stimuli.
--- NOTE | 2021-05-21 13:16 | NUR.NOTE ---
oxygen has been d'cd per provider.continue to monitor co2. pt is becoming more arousable to name but still not speaking. JR
--- NOTE | 2021-05-21 13:26 | NUR.NOTE ---
pts pupils have returned to normal. vbg has been ordered. JM
--- NOTE | 2021-05-21 13:36 | NUR.NOTE ---
pt desating to low 90s, provider made aware and was put back on 1% oxygen. EARNEST
[2021-05-21 13:37] LABS: BE (Venous) 4 mmol/L (-2-3); HCO3 (Venous) 29 mmol/L (23-28); O2 Sat (Venous) 97 %; TCO2 (Venous) 26 mmol/L (24-29); pCO2 (Venous) 50 mmHg (41-51); pH (Venous) 7.38 (7.31-7.41); pO2 (Venous) 86 mmHg
--- NOTE | 2021-05-21 15:30 | NUR.NOTE ---
pts becoming more alert and responsive. pt admitted to using heroin earlier today and denied taking any other medications. denies taking any of his prescription meds. pts speech continues to be slurred and difficult to understand. pt does fall back to sleep quickly. carlos
--- NOTE | 2021-05-21 20:38 | NUR.NOTE ---
pt is awake and alert, independently moved from stretcher to chair. eating sandwich now.:
== END 2021-05-21 21:04 | disposition home or self-care (01) ==
PROVIDERS: Emergency Medicine; Emergency Provider Emergency Medicine; PCP Family Medicine
DX: R41.82 Altered mental status, unspecified (principal); E11.9 Type 2 diabetes mellitus without complications; Z79.899 Other long term (current) drug therapy; F32.9 Major depressive disorder, single episode, unspecified; F11.20 Opioid dependence, uncomplicated; R06.81 Apnea, not elsewhere classified
CPT/HCPCS: 36415; 36416; 80053; 80307; 82550; 82805; 82962; 93005; 96374; 99285; 70450; 71045; 80320; 80329; 81003; 84439; 84443; 84484; 85025; 93010; J2310

== ENCOUNTER 2021-06-04 20:50 | Observation (INO) | payer MEDICARE, MEDICAID, SELFPAY ==
[2021-06-04 20:51] VITALS: BP 150/93; PULSE 88; RESP 16; TEMP 37.2; O2SAT 95
[2021-06-04] MEDS: Lidocaine/Epinephri/Tetracaine Topical Gel 3 ML TP (21:00)
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
[2021-06-04 21:44] LABS: Lactate 1.2 mmol/L (0.6-1.4)
[2021-06-04 21:48] LABS: Abs Immature Grans 0.03 10^3/uL (0.0-0.06); Absolute Eosinophil Count 0.65 10^3/uL (0.0-0.7); Absolute Lymphocyte Count 2.07 10^3/uL (1.2-3.4); Absolute Monocyte Count 0.62 10^3/uL (0.1-0.8); Absolute Neutrophil Count 5.28 10^3/uL (1.2-6.7); Basophils % 1.1; Eosinophils % 7.4; HCT 47.8 % (40.0-50.0); HGB 15.8 g/dL (13.5-17.5); Immature Grans % 0.3; Lymphocytes % 23.7; MCH 31.9 pg (27.0-33.0); MCHC 33.1 % (32.0-36.0); MCV 96.4 fL (80-95); MPV 9.8 fL (8.0-11.0); Monocytes % 7.1; Neutrophils % 60.4; Platelet Count 238 10^3/uL (130-400); RBC 4.96 10^6/uL (4.36-5.78); RDW 11.2 % (11.8-14.1); RDW-SD 39.9 fL; WBC 8.75 10^3/uL (4.4-10.8)
[2021-06-04] MEDS: Omnipaque 350 MG/ML 100 ML BTL IJ (21:51)
[2021-06-04 21:52] LABS: Source Nasal/Nares
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
[2021-06-04 22:22] LABS: ALT 30 U/L (16-63); AST 35 U/L (15-37); Albumin 3.9 g/dL (3.4-5.0); Alkaline Phosphatase 81 U/L (46-116); Anion Gap 7.3 mmol/L (3-11); BUN 23 mg/dL (7-18); Bilirubin, Total 0.3 mg/dL (0.2-1.0); CO2 28.7 mmol/L (21.0-32.0); CREATININE 1.4 mg/dL (0.70-1.30); Calcium 8.8 mg/dL (8.5-10.1); Chloride 106 mmol/L (98-107); Estimated GFR 54.56 (mL/min/1.73m2); Glucose 109 mg/dL (74-106); Potassium 4.1 mmol/L (3.5-5.1); Sodium 142 mmol/L (136-145); TSH (W/Ref FT4) 0.19 uIU/mL (0.36-3.74); Total Protein 7.8 g/dL (6.4-8.2)
[2021-06-04 22:24] LABS: ETHANOL BLOOD < 3.0 mg/dL (<10)
[2021-06-04 22:36] LABS: Acetaminophen < 2 ug/mL (10-30)
[2021-06-04 22:37] LABS: COVID-19 PCR Negative (Negative)
[2021-06-04 22:41] LABS: FREE T4 1.18 ng/dL (0.76-1.46)
--- NOTE | 2021-06-04 23:25 | PDOC.MHCN ---
Date of service: 06/04/21 Time of Service: 23:25 Mental Health Crisis Note Presenting Issue How did you arrive at the ED and why did you come: Client presented to [facility] ED via [facility] after an attempt to by suicide. Client used razor to make 4 cm superficial cut on abdomen. Precipitating Factors Client is currently endorsing persitent SI, rating intent 10/10 and plan to cut self so I will bleed out and . Disposition BEHAVIOR: Client presents laying down in hospital bed dressed in proper paper hospital attire when this physician underwriter arrives via zoom. Client is cooperative, although appears to be dozing off during assessment. EYE CONTACT: Client makes fair eye contact. MOOD: Clients mood appears to be hopeless and depressed. AFFECT: Flat APPETITE: Client states that he has not been eating well. SLEEP(trouble falling/staying asleep: Client reports that his sleep has been poor reporting that he has not slept in about 5 days. Plan Client will remain at [facility] ED on voluntary status pending inpatient admission. Due to clients high acuity, intent, and plan it is in this clinicians professional opinion that client should not be safety planned home at this point. Should client attempt to leave the ED [facility] should be contacted and a potential EE should be written. Referrals will be sent to [facility], [facility], [facility], , [facility] [place], and [facility]. Signature Clinician's Name/Title: Lizzie Johnson [facility] Emergency Clinician.
[2021-06-04 23:51] VITALS: BP 143/88; PULSE 67; RESP 16; TEMP 36.9; O2SAT 96
[2021-06-04 23:54] LABS: Bilirubin Negative (Negative); Blood Negative (Negative); Clarity Clear (Clear); Glucose Negative (Negative); Ketones Negative (Negative); Leukocyte Esterase Negative (Negative); Nitrite Negative (Negative); Urobilinogen 0.2 EU/dL (Up TO 0.2)
[2021-06-04 23:57] LABS: *AMPHETAMINES SCREEN URINE Negative (Negative); *BARBITURATES SCREEN URINE Positive (Negative); *BENZODIAZEPINES SCREEN URINE Negative (Negative); Cannabinoids THC Negative (Negative); Cocaine Screen,Urine Positive (Negative); METHADONE URINE SCREEN Negative (Negative); OPIATES URINE SCREEN Negative (Negative); Tricyclic Antidepressants Negative (Negative)
[2021-06-05] MEDS: clonazePAM 1 MG TAB PO ×5 (00:35→19:38)
[2021-06-05] MEDS: Normal Saline 500 ML IV (00:40)
--- NOTE | 2021-06-05 07:01 | NUR.NOTE ---
This nurse verified patient's Subutex dose with inpatient pharmacy, and MD.
--- NOTE | 2021-06-05 08:02 | W.EDPROG ---
Date of service: 06/05/21 Time of Service: 15:00 Medical Decision Making pt voluntary for psych placement for si/depression, stable and no new acute complaints, will continue to monitor until psych placement is found or beds upstairs become available Sign Out Sign Out Data: Sign Out Comment: depression, suicidal, self inflicted abdominal laceration. Pending placement Last updated by Lopez Villatoro DO at 06/05/21 07:24 Sign Out Comment: no issues during the day, still pending placement Last updated by Rafa Garces MD at 06/05/21 11:41 Sign Out Comment: Patient stable throughout the night. No significant interventions needed. Patient was given Zyprexa to help sleep and restlessness. Pending placement. Voluntary. Last updated by Lopez Villatoro DO at 06/06/21 07:36 Discharge Plan Disposition Patient Disposition: STILL A PATIENT Condition: Stable Discharge Details Clinical Impression: Depression with suicidal ideation, Laceration of abdomen Primary Care Provider: Pankaj Madrid ED Provider: Rafa Garces Home Meds and New Rx's Prescriptions: No Action pregabalin [Lyrica] 100 mg capsule 200 mg PO BID 0RF multivitamin Tablet 1 tab PO DAILY 0RF testosterone cypionate 200 mg/mL oil 300 mg IM Q2W 0RF albuterol sulfate [ProAir HFA] 90 mcg/actuation HFA aerosol inhaler 2 puff inhalation Q4H PRN0RF pantoprazole 40 MG tablet,delayed release (DR/EC) 40 mg PO DAILY 0RF buprenorphine-naloxone 8-2 mg film 3 film sublingual DAILY 0RF Label Comments: PLACE 3 FILMS UNDER THE TONGUE EVERY DAY FOR 7 DAYS lorazepam 2 mg tablet 2 mg PO BID 0RF Label Comments: TAKE 1 TABLET BY MOUTH TWICE DAILY gabapentin 600 mg tablet 600 mg PO TID 0RF Label Comments: TAKE 1 TABLET BY MOUTH THREE TIMES DAILY methylphenidate HCl 20 mg tablet 20 mg PO BID 0RF Label Comments: TAKE 1 TABLET BY MOUTH TWICE DAILY BEFORE MEALS FOR 14 DAYS Rx Instructions: PT REPORTS TAKING IN AM AND BEFORE HS clonazepam 1 mg tablet 1 mg PO TID 0RF Label Comments: TAKE 1 TABLET BY MOUTH THREE TIMES DAILY mirtazapine 30 mg tablet 30 mg PO .QHS 0RF Label Comments: TAKE 1 TABLET BY MOUTH EVERY NIGHT FOR 14 DAYS hydrochlorothiazide 25 mg tablet 25 mg PO DAILY 0RF Label Comments: Take 1 tablet by mouth every morning risperidone 0.5 mg tablet 0.5 mg PO DAILY 0RF
[2021-06-05] MEDS: Buprenorphine/Naloxone 8 mg/2 mg FILM 3 EACH SL (08:23)
[2021-06-05] MEDS: Gabapentin 600 MG TAB PO ×3 (08:24→19:38)
[2021-06-05] MEDS: Pantoprazole 40 MG TABCR PO (08:24)
[2021-06-05] MEDS: Methylphenidate 10 MG TAB 20 MG PO ×2 (08:24→19:38)
[2021-06-05] MEDS: Pregabalin 100 MG CAP 200 MG PO ×2 (08:24→19:38)
[2021-06-05] MEDS: hydroCHLOROthiazide 25 MG TAB PO (08:24)
[2021-06-05 08:37] VITALS: BP 122/74; PULSE 63; TEMP 36.4; O2SAT 93
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
--- NOTE | 2021-06-05 11:53 | NUR.NOTE ---
Nursing Note: [facility] declined patient for admission. Grisel Montalvo
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
--- NOTE | 2021-06-05 13:13 | NUR.NOTE ---
pt is asking for his testosterone shot that he is given every two weeks. he states he hasnt had one in over a month. has been unable to fill it at [facility]. provider has been notified.EARNEST
[2021-06-05] MEDS: Mirtazapine 15 MG TAB 30 MG PO (19:38)
[2021-06-05] MEDS: LORazepam 1 MG TAB 2 MG PO (20:04)
[2021-06-05 23:23] VITALS: BP 130/83; PULSE 62; RESP 16; TEMP 37; O2SAT 91
[2021-06-05] MEDS: Melatonin 3 MG TAB 9 MG PO (23:27)
[2021-06-05] MEDS: LORazepam 1 MG TAB PO (23:27)
[2021-06-05] MEDS: OLANZapine 10 MG TAB PO (23:48)
[2021-06-06 07:33] VITALS: BP 128/80; PULSE 62; RESP 16; TEMP 36.5; O2SAT 91
[2021-06-06] MEDS: Pantoprazole 40 MG TABCR PO (07:42)
[2021-06-06] MEDS: hydroCHLOROthiazide 25 MG TAB PO (08:39)
[2021-06-06] MEDS: Buprenorphine/Naloxone 8 mg/2 mg FILM 3 EACH SL (08:39)
[2021-06-06] MEDS: Methylphenidate 10 MG TAB 20 MG PO ×2 (08:39→19:25)
[2021-06-06] MEDS: Gabapentin 600 MG TAB PO ×3 (08:39→19:24)
[2021-06-06] MEDS: clonazePAM 1 MG TAB PO ×3 (08:39→19:24)
[2021-06-06] MEDS: Pregabalin 100 MG CAP 200 MG PO ×2 (08:39→19:25)
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
[2021-06-06] MEDS: LORazepam 1 MG TAB 2 MG PO ×2 (15:17→20:35)
--- NOTE | 2021-06-06 18:27 | ED.PROG_ITS ---
Date of service: 06/06/21 Time of Service: 18:28 Medical Decision Making pt signed out to me pending placement, no issues reported on previous shift, he did request ativan at the start of my shift for feeling anxious and did appear anxious, 2mg oral ativan ordred.Will continue to monitor until placement is foun d. Sign Out Sign Out Data: Sign Out Comment: depression, suicidal, self inflicted abdominal laceration. Pending placement Last updated by Lopez Villatoro DO at 06/05/21 07:24 Sign Out Comment: no issues during the day, still pending placement Last updated by Rafa Garces MD at 06/05/21 11:41 Sign Out Comment: Patient stable throughout the night. No significant interventions needed. Patient was given Zyprexa to help sleep and restlessness. Pending placement. Voluntary. Last updated by Lopez Villatoro DO at 06/06/21 07:36 Discharge Plan Disposition Patient Disposition: STILL A PATIENT Condition: Stable Discharge Details Clinical Impression: Depression with suicidal ideation, Laceration of abdomen Primary Care Provider: Pankaj Madrid ED Provider: Rafa Garces Home Meds and New Rx's Prescriptions: No Action pregabalin [Lyrica] 100 mg capsule 200 mg PO BID 0RF multivitamin Tablet 1 tab PO DAILY 0RF testosterone cypionate 200 mg/mL oil 300 mg IM Q2W 0RF albuterol sulfate [ProAir HFA] 90 mcg/actuation HFA aerosol inhaler 2 puff inhalation Q4H PRN0RF pantoprazole 40 MG tablet,delayed release (DR/EC) 40 mg PO DAILY 0RF buprenorphine-naloxone 8-2 mg film 3 film sublingual DAILY 0RF Label Comments: PLACE 3 FILMS UNDER THE TONGUE EVERY DAY FOR 7 DAYS lorazepam 2 mg tablet 2 mg PO BID 0RF Label Comments: TAKE 1 TABLET BY MOUTH TWICE DAILY gabapentin 600 mg tablet 600 mg PO TID 0RF Label Comments: TAKE 1 TABLET BY MOUTH THREE TIMES DAILY methylphenidate HCl 20 mg tablet 20 mg PO BID 0RF Label Comments: TAKE 1 TABLET BY MOUTH TWICE DAILY BEFORE MEALS FOR 14 DAYS Rx Instructions: PT REPORTS TAKING IN AM AND BEFORE HS clonazepam 1 mg tablet 1 mg PO TID 0RF Label Comments: TAKE 1 TABLET BY MOUTH THREE TIMES DAILY mirtazapine 30 mg tablet 30 mg PO .QHS 0RF Label Comments: TAKE 1 TABLET BY MOUTH EVERY NIGHT FOR 14 DAYS hydrochlorothiazide 25 mg tablet 25 mg PO DAILY 0RF Label Comments: Take 1 tablet by mouth every morning risperidone 0.5 mg tablet 0.5 mg PO DAILY 0RF
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
--- NOTE | 2021-06-06 20:12 | ED.PROG_ITS ---
Date of service: 06/06/21 Time of Service: 20:13 Medical Decision Making pt stable, here voluntary and no code greys, we have beds upstairs now so discussed with Dr. Justin who accepts for admission Sign Out Sign Out Data: Sign Out Comment: depression, suicidal, self inflicted abdominal laceration. Pending placement Last updated by Lopez Villatoro DO at 06/05/21 07:24 Sign Out Comment: no issues during the day, still pending placement Last updated by Rafa Garces MD at 06/05/21 11:41 Sign Out Comment: Patient stable throughout the night. No significant interventions needed. Patient was given Zyprexa to help sleep and restlessness. Pending placement. Voluntary. Last updated by Lopez Villatoro DO at 06/06/21 07:36 Discharge Plan Disposition Patient Disposition: [facility] INPATIENT Condition: Stable Discharge Details Clinical Impression: Depression with suicidal ideation, Laceration of abdomen Primary Care Provider: Pankaj Madrid ED Provider: Rafa Garces Home Meds and New Rx's Prescriptions: No Action pregabalin [Lyrica] 100 mg capsule 200 mg PO BID 0RF multivitamin Tablet 1 tab PO DAILY 0RF testosterone cypionate 200 mg/mL oil 300 mg IM Q2W 0RF albuterol sulfate [ProAir HFA] 90 mcg/actuation HFA aerosol inhaler 2 puff inhalation Q4H PRN0RF pantoprazole 40 MG tablet,delayed release (DR/EC) 40 mg PO DAILY 0RF buprenorphine-naloxone 8-2 mg film 3 film sublingual DAILY 0RF Label Comments: PLACE 3 FILMS UNDER THE TONGUE EVERY DAY FOR 7 DAYS lorazepam 2 mg tablet 2 mg PO BID 0RF Label Comments: TAKE 1 TABLET BY MOUTH TWICE DAILY gabapentin 600 mg tablet 600 mg PO TID 0RF Label Comments: TAKE 1 TABLET BY MOUTH THREE TIMES DAILY methylphenidate HCl 20 mg tablet 20 mg PO BID 0RF Label Comments: TAKE 1 TABLET BY MOUTH TWICE DAILY BEFORE MEALS FOR 14 DAYS Rx Instructions: PT REPORTS TAKING IN AM AND BEFORE HS clonazepam 1 mg tablet 1 mg PO TID 0RF Label Comments: TAKE 1 TABLET BY MOUTH THREE TIMES DAILY mirtazapine 30 mg tablet 30 mg PO .QHS 0RF Label Comments: TAKE 1 TABLET BY MOUTH EVERY NIGHT FOR 14 DAYS hydrochlorothiazide 25 mg tablet 25 mg PO DAILY 0RF Label Comments: Take 1 tablet by mouth every morning risperidone 0.5 mg tablet 0.5 mg PO DAILY 0RF
[2021-06-06] MEDS: Mirtazapine 15 MG TAB 30 MG PO (21:27)
[2021-06-06 21:48] VITALS: BP 177/93; PULSE 77; RESP 20; TEMP 37; O2SAT 98
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
[2021-06-07] MEDS: LORazepam 1 MG TAB 2 MG PO ×5 (00:04→23:36)
[2021-06-07 03:37] VITALS: BP 125/77; PULSE 68; RESP 18; TEMP 36.7; O2SAT 93
[2021-06-07 07:21] VITALS: BP 118/76; PULSE 68; RESP 20; TEMP 36; O2SAT 94
[2021-06-07] MEDS: Buprenorphine/Naloxone 8 mg/2 mg FILM 3 EACH SL (08:49)
[2021-06-07] MEDS: Pregabalin 100 MG CAP 200 MG PO ×2 (08:50→20:22)
[2021-06-07] MEDS: risperiDONE 0.5 MG TAB PO ×2 (08:50→20:22)
[2021-06-07] MEDS: clonazePAM 1 MG TAB PO ×3 (08:50→20:22)
[2021-06-07] MEDS: Methylphenidate 10 MG TAB 20 MG PO (08:50)
[2021-06-07] MEDS: Gabapentin 600 MG TAB PO ×2 (08:50→13:47)
[2021-06-07] MEDS: hydroCHLOROthiazide 25 MG TAB PO (08:51)
[2021-06-07] MEDS: Multivitamin TAB 1 TAB PO (08:51)
[2021-06-07] MEDS: Pantoprazole 40 MG TABCR PO (08:51)
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
--- NOTE | 2021-06-07 12:17 | NUR.NOTE ---
Nursing Note: 1214: this scribe receives call from SUZY Paez who requests that patient have access to phone at 1300 to call his suboxone prescriber. phone taken down by KAYLYN Davies and given to JOSUE Cortes so call can be made.
--- NOTE | 2021-06-07 14:49 | DSE_ITS ---
Date of service: 06/07/21 Time of Service: 14:49 DS: Diagnosis Discharge Diagnosis (1) Major depression: Status: Chronic Discharge Plan Disposition Patient Disposition: [facility] Condition: Stable Discharge Details Reason For Visit: Depression,Suicidal Admit Date/Time: 06/06/21 20:01 Admit Provider: Dm Justin Attending Provider: Dm Justin Primary Care Provider: Pankaj Madrid [facility] Hospital Course: This is a 45 year old male well known to [facility] for major depression and suicidal ideation with attempts recently by stabbing himself in the abdomen, all brought on by marital issues who unfortunately is having more marital issues which caused him to cut his abdomen again. This was fortunately superficial and stapled in the ED. He was medically cleared and underwent mental health evaluation. He is in agreement with voluntary inpatient psychiatric admission for treatment. He has remained medically stable with no behavioral issues while waiting. A bed has been secured at [facility] and he is being discharged there. discharge discussed with DR Estrada. Home Meds and New Rx's Prescriptions: Continued pregabalin [Lyrica] 100 mg capsule 200 mg PO BID 0RF multivitamin Tablet 1 tab PO DAILY 0RF albuterol sulfate [ProAir HFA] 90 mcg/actuation HFA aerosol inhaler 2 puff inhalation Q4H PRN0RF pantoprazole 40 MG tablet,delayed release (DR/EC) 40 mg PO DAILY 0RF buprenorphine-naloxone 8-2 mg film 3 film sublingual DAILY 0RF Label Comments: PLACE 3 FILMS UNDER THE TONGUE EVERY DAY FOR 7 DAYS lorazepam 2 mg tablet 2 mg PO BID 0RF Label Comments: TAKE 1 TABLET BY MOUTH TWICE DAILY gabapentin 600 mg tablet 600 mg PO TID 0RF Label Comments: TAKE 1 TABLET BY MOUTH THREE TIMES DAILY methylphenidate HCl 20 mg tablet 20 mg PO BID 0RF Label Comments: TAKE 1 TABLET BY MOUTH TWICE DAILY BEFORE MEALS FOR 14 DAYS Rx Instructions: PT REPORTS TAKING IN AM AND BEFORE HS clonazepam 1 mg tablet 1 mg PO TID 0RF Label Comments: TAKE 1 TABLET BY MOUTH THREE TIMES DAILY mirtazapine 30 mg tablet 30 mg PO .QHS 0RF Label Comments: TAKE 1 TABLET BY MOUTH EVERY NIGHT FOR 14 DAYS hydrochlorothiazide 25 mg tablet 25 mg PO DAILY 0RF Label Comments: Take 1 tablet by mouth every morning risperidone 0.5 mg tablet 0.5 mg PO DAILY 0RF Discontinued testosterone cypionate 200 mg/mL oil 300 mg IM Q2W 0RF Discharge Instructions Instructions: Depression (DC) Stand Alone Forms: Nursing Discharge Form Referrals: Pankaj Madrid [Primary Care Provider] - 06/15/21 4:20 pm Activity:: Activity as Tolerated Equipment/Supplies:: No Equipment Needed Diet:: As Tolerated Discharge Orders Discharge Orders: Discharge Order (Routine); Ordered 06/07/21 Ordered By: Rosa Maria Dorman DS: Data Vitals/I&O Vitals and I&O: Vital Signs Temperature 36 C L 06/07/21 07:21 Temperature Source Tympanic 06/07/21 07:21 Pulse 68 06/07/21 07:21 Pulse Rhythm Regular 06/07/21 10:13 Respiratory Rate 20 06/07/21 07:21 Respiratory Effort Non-Labored 06/07/21 10:13 Respiratory Depth Normal 06/07/21 10:13 Respiratory Pattern Normal 06/07/21 10:13 Blood Pressure 118/76 06/07/21 07:21 Blood Pressure Position Supine 06/04/21 20:51 Pulse Oximetry 94 06/07/21 07:21 Oxygen Delivery Method Room Air 06/07/21 07:21 Oxygen Flow Rate 0 06/07/21 07:21 Pain Level 9 06/07/21 03:37 Intake & Output 06/06/21 06/07/21 06/07/21 23:59 11:59 23:59 Intake Total 240 / 240 Balance 240 / 240 Intake: Oral 240 / 240 Other: Urine Appearance Clear Urine Odor None Comment Patient voided in the toliet an unmeasurable amount. unable to assess voided x2 at this time. Voiding Methods Toilet Toilet PFSH All Active Problems Major depression (Chronic) Left shoulder strain (Acute) Traumatic hematoma of forehead (Acute) Abrasion of leg, left (Acute) Altered mental status (Acute) Depression with suicidal ideation (Acute) Laceration of abdomen (Acute) DVT prophylaxis (Acute) Tobacco abuse (Acute) Traumatic hematoma of forehead (Acute) Depression (Chronic) Suicidal ideation (Acute) Polypharmacy (Acute) Urinary retention (Acute) Opioid use disorder (Acute) Intractable back pain (Acute) Abnormal thyroid function test (Acute) COVID-19 (Acute) Chest pain (Acute) Suicidal ideation (Acute) Pain in right leg (Acute) Insomnia (Acute 09/11/17) Intractable chronic migraine without aura and without status migrainosus (Acute 09/11/17) Medication overuse headache (Acute 09/11/17) Left-sided weakness (Acute) Atrial fibrillation (Acute) Prostatitis (Acute) Discharge planning issues (Acute) Low back pain (Acute) Testosterone deficiency (Acute) Medical History Atrial flutter Carpal tunnel syndrome Chronic daily headache Chronic low back pain Depression Diastasis recti Erectile dysfunction Generalized anxiety disorder GERD (gastroesophageal reflux disease) Hepatitis C History of substance abuse Hypertension Hypogonadotropic hypogonadism Hypothyroidism Lumbosacral spondylosis with myelopathy Opioid dependence Polycythemia Prostate nodule Prostatitis, chronic PTSD (post-traumatic stress disorder) Surgical History back surgery cardiac ablation EGD - MAC Catherine Fundoplication laparoscopic S/P exploratory laparotomy shoulder surgery Total replacement of hip Family History Father Stroke Paternal Uncle Stroke Paternal Grandmother Stroke Other Migraine Social History Smoking/Tobacco Use Status: Current every day Tobacco Type: cigarettes Smoking risk assessment performed?: Yes Alcohol Intake: former Drug use: Occasionally Substance use type: crack/cocaine Details: couple days ago used cocaine Household members: spouse In current or past relationships, have you been: threatened Do you feel safe at home: Yes Do you feel safe in your relationship?: No Additional Social history: lives with on [facility] in [facility], both in recovery, now conflict in relationship. Disabled with back pain/failed surgeries
--- NOTE | 2021-06-07 15:56 | W.PM.PROGNOT ---
Date of Service Date of service: 06/07/21 Time of Service: 15:56 Assessment and Plan Assessment and plan (1) Major depression: Status: Chronic Assessment and plan: medically cleared and evaluated by mental health who is following. awaiting voluntary inpatient psychiatric placement continue home medications as directed. pharmacy completed med rec and adjustments have been made to reflect current home list. no behavioral issues while awaiting bed. discussed with DR Estraad Subjective Subjective Patient reports: no new complaints, tolerating liquids well, tolerating a regular diet and afebrile; denies shortness of breath Interval history since last seen: no behavioral issues, awaiting inpatient psychiatric Exam Const General: comfortable and no acute distress Nutritional Appearance: obese Orientation: alert, awake and oriented x3 HENMT Head: normal to inspection, normocephalic and atraumatic Mouth: oral mucosae normal Resp Effort & Inspection: normal respiratory effort Auscultation: clear to auscultation bilaterally Cardio Rate: regular rate Rhythm: regular rhythm Neuro General: patient alert and patient awake Extrem General: normal to inspection, full ROM and no pedal edema Psych Affect: blunted Attitude: cooperative Insight: limited Judgment: limited Objective Last Vital Signs Temp 36 C L 06/07/21 07:21 Pulse 68 06/07/21 07:21 Resp 20 06/07/21 07:21 BP 118/76 06/07/21 07:21 Pulse Ox 94 06/07/21 07:21
--- NOTE | 2021-06-07 16:06 | MHPN_ITS ---
Date of service: 06/07/21 Time of Service: 12:10 Mental Health Progress Note Progress Note Progress Note: Presenting Issue: Client having persistent SI thoughts and intent Precipitating Factors Disposition * Behavior:Calm *Eye Contact:Good *Mood:Calm *Affect:Congruent with mood *Appetite:Good *Sleep(troubel falling/staying asleep):Client reports that he has trouble staying aslwwp Plan(please elaborate and include that physician is consulted with plan and/or placement): Clinician's Name , Title, and Signature Estephanie Silva- [facility] Crisis [employer] Se[employer] Associate Make sure that you are photocopying and submitting this to [facility] records Dept. to be scanned into chart.
--- NOTE | 2021-06-07 17:08 | PDOC.CMPRO ---
- If Service Date Differs Date of service: 06/07/21 Time of Service: 17:08 Care Management Progress Note S/O: Rafa is sitting on the side of the bed and is coloring when CM meets with him today. He is calm and pleasant and easily engages in conversation. He is advised that he has a bed offer at the Care Bed, which he seems happy about. The barrier to his going to the crisis bed is that he needs to have 4 days worth of his medications. CM asks his permission to call his to ask her to bring his medications to the hospital. 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 He additionally would like some time to sit down with his and talk things over. He also states that he has 5 - 6 prescriptions at the pharmacy waiting to be picked up and says he does not have money for the co-pay. CM contacts [facility] in [facility] to inquire about the co-pay and is advised that they have a no trespass order against Rafa and that they will no longer fill his prescriptions. They instruct CM to call [facility]. The pharmacist at [facility] states that Rafa has one prescription for Testosterone that is awaiting a pre-authorization from the PCP. SUZY discusses this with Rafa and he says that he needs to have his prescriptions transferred to [facility] but hasn't done it yet. He further alleges that he called his PCP's office several days ago to request script renewals. With Rafa's persmission, CM telephones [facility] to inquire about the scripts and is told that Rafa saw his PCP on May 20, 2021 and renewals were sent to [facility] at that time. Controlled substances (Lyrica and Clonazepam) were renewed for 30 days and all other medications were refilled for 90 days. Rafa should therefore have atleast 12 days worth of the Lyrica and Clonazepam and over 2 months worth of his other medications at home, as he does not have any scripts waiting to be filled at the pharmacy, with the exception of Testosterone, which is awaiting a pre-authorization and Suboxone, which is reportedly prescribed by the [facility]. A: Rafa is a 45 year old male admitted to [facility] for depression and suicidal ideation. P: Rafa is accepted for placement at the [facility] but difficulty obtaining his medications delays the placement. He will remain at [facility] overnight and will be reassessed by [facility] in the morning, at which time CM will attempt to obtain his meds from home so he can transfer to the Care Bed. CM will continue to follow. - Status Status: Voluntary - Reason for Wait Reason for Wait: Inpatient Admission
[2021-06-07 19:05] VITALS: BP 130/86; PULSE 89; RESP 18; TEMP 36.7; O2SAT 92
[2021-06-07] MEDS: Mirtazapine 15 MG TAB 30 MG PO (22:41)
[2021-06-07 22:52] VITALS: BP 123/90; PULSE 82; RESP 18; TEMP 36.8; O2SAT 93
[2021-06-08] MEDS: clonazePAM 1 MG TAB PO (07:54)
[2021-06-08] MEDS: Escitalopram 10 MG TAB PO (07:54)
[2021-06-08] MEDS: Buprenorphine/Naloxone 8 mg/2 mg FILM 3 EACH SL (07:54)
[2021-06-08] MEDS: hydroCHLOROthiazide 25 MG TAB PO (07:55)
[2021-06-08] MEDS: Pantoprazole 40 MG TABCR PO (07:55)
[2021-06-08] MEDS: LORazepam 1 MG TAB 2 MG PO (07:55)
[2021-06-08] MEDS: Multivitamin TAB 1 TAB PO (07:55)
[2021-06-08] MEDS: Pregabalin 100 MG CAP 200 MG PO (07:56)
[2021-06-08] MEDS: risperiDONE 0.5 MG TAB PO (07:56)
[2021-06-08 08:45] VITALS: BP 100/65; PULSE 74; RESP 18; TEMP 36.4; O2SAT 91
--- NOTE | 2021-06-08 10:14 | W.PM.DS.N ---
Date of service: 06/08/21 Time of Service: 10:15 DS: Diagnosis Discharge Diagnosis (1) Major depression: Status: Chronic Discharge Plan Disposition Patient Disposition: [facility] Condition: Stable Discharge Details Reason For Visit: Depression,Suicidal Admit Date/Time: 06/06/21 20:01 Admit Provider: Dm Justin Attending Provider: Dm Justin Primary Care Provider: Pankaj Madrid [facility] Hospital Course: This is a 45 year old male well known to [facility] for major depression and suicidal ideation with attempts recently by stabbing himself in the abdomen, all brought on by marital issues who unfortunately is having more marital issues which caused him to cut his abdomen again. This was fortunately was not extensive or involved any intra-abdominal structures and was stapled in the ED with 7 petros, dermabond medical glue was used to close some superficial lesions adjacent to the laceration . His 7 petros are intact, wound in approximated with no signs of infection. He should have the petrso removed in 7-10 days, between June 11-2021. He was medically cleared and underwent mental health evaluation. He is in agreement with voluntary inpatient psychiatric admission for treatment. He has remained medically stable with no behavioral issues while waiting. A bed has been secured at [facility] and he is being discharged there and transferred by ground EMS. discharge discussed with DR Estrada. Home Meds and New Rx's Prescriptions: Continued multivitamin Tablet 1 tab PO DAILY 0RF albuterol sulfate [ProAir HFA] 90 mcg/actuation HFA aerosol inhaler 2 puff inhalation Q4H PRN0RF buprenorphine-naloxone 8-2 mg film 3 film sublingual DAILY 0RF Label Comments: PLACE 3 FILMS UNDER THE TONGUE EVERY DAY FOR 7 DAYS clonazepam 1 mg tablet 1 mg PO TID 0RF Label Comments: TAKE 1 TABLET BY MOUTH THREE TIMES DAILY mirtazapine 30 mg tablet 30 mg PO HS 0RF Label Comments: TAKE 1 TABLET BY MOUTH EVERY NIGHT FOR 14 DAYS hydrochlorothiazide 25 mg tablet 25 mg PO DAILY 0RF Label Comments: Take 1 tablet by mouth every morning risperidone 0.5 mg tablet 0.5 mg PO BID 0RF Discontinued testosterone cypionate 200 mg/mL oil 300 mg IM Q2W 0RF No Action omeprazole 20 mg Capsule,Delayed Release(Dr/Ec) 20 mg PO DAILY 0RF escitalopram oxalate 10 mg tablet 10 mg PO DAILY 0RF Label Comments: TAKE 1 TABLET BY MOUTH EVERY DAY pregabalin 200 mg capsule 200 mg PO BID 0RF Label Comments: TAKE 1 CAPSULE BY MOUTH TWICE DAILY FOR PAIN dexmethylphenidate 40 mg capsule,ER biphasic 50-50 40 mg PO DAILY 0RF Label Comments: TAKE 1 CAPSULE BY MOUTH EVERY MORNING Amino Acid Capsule 1 cap PO DAILY 0RF ibuprofen 800 mg Tablet 800 mg PO Q8H PRN0RF tadalafil 10 mg Tablet 10 mg PO DAILY PRN0RF Rx Instructions: administer approximately 30min before sexual activity; do not use more than 1 dose per 24hrs testosterone cypionate 200 mg/mL oil 200 mg IM Q2W 0RF Label Comments: Inject 1 ml intramuscularly once every two weeks Discharge Instructions Instructions: Depression (DC) Stand Alone Forms: Nursing Discharge Form Referrals: Pankaj Madrid [Primary Care Provider] - 06/15/21 4:20 pm Activity:: Activity as Tolerated Equipment/Supplies:: No Equipment Needed Diet:: As Tolerated Discharge Orders Discharge Orders: Discharge Order (Routine); Ordered 06/08/21 Ordered By: Rosa Maria Dorman DS: Summary Time Spent with Patient providing and/or coordinating discharge services: Greater than 30 minutes Status at Discharge Functional status at discharge: independent ambulation Overall status at discharge: patient is not back to baseline Mental Status: mental status grossly normal Speech and Movement: speech and movement normal Mood: congruent mood Affect: blunted Exam Const General: comfortable and no acute distress Nutritional Appearance: obese Orientation: alert, awake and oriented x3 HENMT Head: normal to inspection, normocephalic and atraumatic Mouth: oral mucosae normal Resp Effort & Inspection: normal respiratory effort Auscultation: clear to auscultation bilaterally Cardio Rate: regular rate Rhythm: regular rhythm GI Inspection: abnormal to inspection, incision (self inflicted mid abdominal incision healing well, approximated), large pannus and other (no drainage or surrounding erythema. no sign of infection. ) Palpation: soft Auscultation: normal bowel sounds Neuro General: patient alert and patient awake Extrem General: normal to inspection, full ROM and no pedal edema Psych Mental Status: mental status grossly normal Speech and Movement: speech and movement normal Mood: congruent mood Affect: blunted Attitude: cooperative Insight: limited Judgment: limited DS: Data Vitals/I&O Vitals and I&O: Vital Signs Temperature 36.4 C L 04/20/22 08:45 Temperature Source Tympanic 06/08/21 08:45 Pulse 74 06/08/21 08:45 Pulse Rhythm Regular 06/08/21 00:09 Respiratory Rate 18 06/08/21 08:45 Respiratory Effort Non-Labored 06/08/21 00:09 Respiratory Depth Normal 06/08/21 00:09 Respiratory Pattern Normal 06/08/21 00:09 Blood Pressure 100/65 06/08/21 08:45 Blood Pressure Position Supine 06/04/21 20:51 Pulse Oximetry 91 L 06/08/21 08:45 Oxygen Delivery Method Room Air 06/08/21 08:45 Oxygen Flow Rate 0 06/08/21 08:45 Pain Level 0 06/08/21 08:45 Intake & Output 06/07/21 06/07/21 06/08/21 11:59 23:59 11:59 Intake Total 110 / 110 Balance 110 / 110 Intake: Oral 110 / 110 Other: Urine Appearance Clear Urine Odor None Comment Patient voided in the toliet an unmeasurable amount. unable to assess voided x2 at this time. Voiding Methods Toilet Toilet Toilet [facility] All Active Problems Major depression (Chronic) Left shoulder strain (Acute) Traumatic hematoma of forehead (Acute) Abrasion of leg, left (Acute) Altered mental status (Acute) Depression with suicidal ideation (Acute) Laceration of abdomen (Acute) DVT prophylaxis (Acute) Tobacco abuse (Acute) Traumatic hematoma of forehead (Acute) Depression (Chronic) Suicidal ideation (Acute) Polypharmacy (Acute) Urinary retention (Acute) Opioid use disorder (Acute) Intractable back pain (Acute) Abnormal thyroid function test (Acute) COVID-19 (Acute) Chest pain (Acute) Suicidal ideation (Acute) Pain in right leg (Acute) Insomnia (Acute 09/11/17) Intractable chronic migraine without aura and without status migrainosus (Acute 09/11/17) Medication overuse headache (Acute 09/11/17) Left-sided weakness (Acute) Atrial fibrillation (Acute) Prostatitis (Acute) Discharge planning issues (Acute) Low back pain (Acute) Testosterone deficiency (Acute) Medical History Atrial flutter Carpal tunnel syndrome Chronic daily headache Chronic low back pain Depression Diastasis recti Erectile dysfunction Generalized anxiety disorder GERD (gastroesophageal reflux disease) Hepatitis C History of substance abuse Hypertension Hypogonadotropic hypogonadism Hypothyroidism Lumbosacral spondylosis with myelopathy Opioid dependence Polycythemia Prostate nodule Prostatitis, chronic PTSD (post-traumatic stress disorder) Surgical History back surgery cardiac ablation EGD - MAC Catherine Fundoplication laparoscopic S/P exploratory laparotomy shoulder surgery Total replacement of hip Family History Father Stroke Paternal Uncle Stroke Paternal Grandmother Stroke Other Migraine Social History Smoking/Tobacco Use Status: Current every day Tobacco Type: cigarettes Smoking risk assessment performed?: Yes Alcohol Intake: former Drug use: Occasionally Substance use type: crack/cocaine Details: couple days ago used cocaine Household members: spouse In current or past relationships, have you been: threatened Do you feel safe at home: Yes Do you feel safe in your relationship?: No Additional Social history: lives with on [facility] in [facility], both in recovery, now conflict in relationship. Disabled with back pain/failed surgeries
--- NOTE | 2021-06-08 10:51 | NUR.NOTE ---
Nursing Note: [facility]
--- NOTE | 2021-06-08 11:18 | CMDISCH_ITS ---
- If Service Date Differs Date of service: 06/08/21 Time of Service: 11:18 LACE Index Scoring Tool - Questions: Length of Stay (in days): 4 - 6 Acuity (Admit via E.D.?): Yes E.D. Visits: 10 - Answers: Total Score: 11 Risk of Readmission: High Risk Care Management Discharge Reason for Hospitalization: Depression, Suicidal ideation. Discharge Plan: Rafa is accepted at [facility] for mood stabilization. He will follow up with [facility], community providers, and plan of care as directed upon discharge from the [facility]. [facility] Dept provides transportation to [place]. Patient/Family Education Needs: Discuss transfer process, expectations, and mode of transportation. Services Needed at Discharge: Transportation ([facility]) - Disposition Disposition: [place]
== END 2021-06-08 12:25 | disposition short-term general hospital (02) ==
LOC: ER 06-06 20:13 → MS 06-06 21:20
PROVIDERS: Student in an Organized Health Care Education/Training Program; Admitting Provider General Practice; Emergency Provider Emergency Medicine; PCP Family Medicine; Visit Provider General Practice
DX: F32.9 Major depressive disorder, single episode, unspecified (principal); R45.851 Suicidal ideations; I48.92 Unspecified atrial flutter; B19.20 Unspecified viral hepatitis C without hepatic coma; F43.10 Post-traumatic stress disorder, unspecified; D75.1 Secondary polycythemia; S31.119A Laceration without foreign body of abdominal wall, unspecified quadrant without penetration into peritoneal cavity, initial encounter; X78.8XXA Intentional self-harm by other sharp object, initial encounter; F17.210 Nicotine dependence, cigarettes, uncomplicated; G47.00 Insomnia, unspecified; F11.21 Opioid dependence, in remission; G89.29 Other chronic pain; Z79.899 Other long term (current) drug therapy; I10 Essential (primary) hypertension; K21.9 Gastro-esophageal reflux disease without esophagitis; E03.9 Hypothyroidism, unspecified; I48.91 Unspecified atrial fibrillation; R33.9 Retention of urine, unspecified; Z20.822 Contact with and (suspected) exposure to COVID-19; F14.90 Cocaine use, unspecified, uncomplicated
CPT/HCPCS: 12002; 80053; 80307; 87635; 96360; 96361; 99285; 74177; 80320; 80329; 81003; 83605; 84439; 84443; 85025; 99217; 99218; 99225; G0378; J3490